=== PATIENT | female | born 1930 | race Hispanic/Latino ===

== ENCOUNTER 2017-05-18 17:55 | Inpatient (IN) | payer MEDICARE ==
[2017-05-18 17:55] VITALS: BMI 26.4
[2017-05-18] MEDS ORDERED: Sodium Chloride 0.9% 500 ML IV STA (18:21)
[2017-05-18 18:54] LABS: BASO # 0.04 K/mm3 (0.0-2.0); BASO % 0.6 % (0.0-3.0); EOS # 0.1 (0.0-0.7); EOS % 0.9 % (1.5-5.0); GRAN % 64.3 % (50.0-68.0); HEMOGLOBIN 11.4 gm/dL (12.0-16.0); LYMPH # 1.6 (1.2-3.4); LYMPH % 24.2 % (22.0-35.0); MEAN CELL VOLUME 70.9 fL (80.0-105.0); MEAN CORPUSCULAR HEMOGLOBIN 22.7 pg (25.0-35.0); MEAN PLATELET VOLUME 9.3 fl (7.0-11.0); MONO # 0.7 (0.1-0.6); PLATELET COUNT 366 10^3/uL (120.0-450.0); RBC 5.02 10^6/uL (3.5-6.1); WHITE BLOOD COUNT 6.7 10^3/ul (4.5-11.0)
[2017-05-18 19:06] LABS: INR 1.33 (0.93-1.08); PARTIAL THROMBOPLASTIN TIME 34.5 Seconds (23.7-30.8); PROTHROMBIN TIME 14.4 Seconds (9.9-11.8)
[2017-05-18 19:15] LABS: ALB/GLOB RATIO 1.2 (1.1-1.8); ALBUMIN 3.7 g/dL (3.0-4.8); ALT/SGPT 70 U/L (7-56); AST/SGOT 85 U/L (15-39); BLOOD UREA NITROGEN 58 mg/dL (7-21); CALCIUM 7.8 mg/dL (8.4-10.5); GFR AFRICAN-AMERICAN 26; GFR NON-AFRICAN AMERICAN 21; LIPASE 91 U/L (23-300)
[2017-05-18 19:58] LABS: TROPONIN I < 0.01 ng/mL
[2017-05-18] MEDS ORDERED: cefTRIAXone 1 gm 1 GM/100 ML BAG IVPB STA (20:19)
--- NOTE | 2017-05-18 20:19 | ED PDOC ---
Arrival/HPI - General Historian: Patient <Saniya Qiu - Last Filed: 05/18/17 20:53> <Brandt Gonzalez - Last Filed: 05/18/17 23:59> - General Chief Complaint: Weakness/Neurological Deficit Time Seen by Provider: 05/18/17 18:16 - History of Present Illness Narrative History of Present Illness (Text): 05/18/17 20:23 Patient c/o feeling weak, muscle aches, lightheaded, nauseous, poor appetite, hoarse voice for 1 week. (Saniya Qiu) Past Medical History - Provider Review Nursing Documentation Reviewed: Yes - Infectious Disease Hx of Infectious Diseases: None - Cardiac Hx Hypertension: Yes - Pulmonary Hx Respiratory Disorders: No - Neurological Hx Neurological Disorder: No - HEENT Hx HEENT Disorder: Yes (eyeglasses) - Renal Hx Renal Disorder: No - Endocrine/Metabolic Hx Diabetes Mellitus Type 1: Yes Hx Diabetes Mellitus Type 2: Yes - Hematological/Oncological Hx Blood Disorders: No - Integumentary Hx Dermatological Disorder: Yes Other/Comment: right arm abrasion above elbow from shopping cart/conveyor belt accident in shop [email or web address] 07/2016, multiple healing bruises to r arm and r leg from same episode, shopping cart got caught on conveyor belt and fell on pt - Musculoskeletal/Rheumatological Hx Falls: Yes Hx Spinal Stenosis: Yes Hx Unsteady Gait: Yes (rolling walker) - Gastrointestinal Hx Gastrointestinal Disorders: No - Genitourinary/Gynecological Hx Incontinence: Yes (uses pullups) - Psychiatric Hx Psychophysiologic Disorder: No Hx Substance Use: No - Surgical History Hx Cholecystectomy: Yes Hx Coronary Stent: Yes - Anesthesia Hx Anesthesia: No Hx Anesthesia Reactions: No Hx Malignant Hyperthermia: No - Suicidal Assessment Feels Threatened In Home Enviroment: No <Saniya Qiu - Last Filed: 05/18/17 20:53> Family/Social History - Physician Review Nursing Documentation Reviewed: Yes Family/Social History: Unknown Family HX Smoking Status: Never Smoked Hx Alcohol Use: No Hx Substance Use: No <Saniya Qiu - Last Filed: 05/18/17 20:53> Allergies/Home Meds <Saniya Qiu - Last Filed: 05/18/17 20:53> <Brandt Gonzalez - Last Filed: 05/18/17 23:59> Allergies/Adverse Reactions: Allergies No Known Allergies Allergy (Verified 05/18/17 18:09) Home Medications: Home Meds Medication Instructions Recorded Confirmed Furosemide [Lasix] 40 mg PO ONCE 08/14/16 05/18/17 Magnesium Oxide [Magox 400] 400 mg PO DAILY 08/14/16 05/18/17 Metoprolol Succinate [Toprol XL] 25 mg PO BID 08/14/16 05/18/17 Rosuvastatin Calcium [Crestor] 5 mg PO DAILY 08/14/16 05/18/17 glyBURIDE [Micronase] 10 mg PO BID 08/14/16 05/18/17 traMADol [Ultram] 50 mg PO TID 08/14/16 05/18/17 Apixaban [Eliquis] 2.5 mg PO BID 11/09/16 05/18/17 diltiaZEM CD [Cardizem CD] 240 mg PO DAILY 11/09/16 05/18/17 Review of Systems - Physician Review All systems were reviewed & negative as marked: Yes - Review of Systems Constitutional: Fatigue. absent: Fevers ENT: Voice Changes Respiratory: Cough Gastrointestinal: Nausea, Appetite Changes Musculoskeletal: Myalgias Skin: Normal <Saniya Qiu - Last Filed: 05/18/17 20:53> Physical Exam Vital Signs Reviewed: Yes Temperature: Afebrile Blood Pressure: Normal Pulse: Regular Respiratory Rate: Normal Appearance: Positive for: Ill-Appearing Pain Distress: None Mental Status: Positive for: Alert and Oriented X 3 - Systems Exam Head: Present: Atraumatic, Normocephalic Pupils: Present: PERRL Extroacular Muscles: Present: EOMI Pharnyx: Present: Normal Neck: Present: Normal Range of Motion Respiratory/Chest: Present: Decreased Breath Sounds. No: Respiratory Distress Cardiovascular: Present: Irregular Rhythm Abdomen: No: Tenderness Upper Extremity: Present: Normal Inspection Lower Extremity: Present: Swelling Neurological: Present: Speech Normal, Motor Func Grossly Intact, Normal Sensory Function Psychiatric: Present: Alert, Oriented x 3 <Saniya Qiu - Last Filed: 05/18/17 20:53> Medical Decision Making - EKG Interpretation Interpreted by ED Physician: Yes Type: 12 lead EKG <Saniya Qiu - Last Filed: 05/18/17 20:53> <Brandt Gonzalez - Last Filed: 05/18/17 23:59> ED Course and Treatment: 05/18/17 20:53 Patient with weakness, lightheadness, hoarse voice found to have hyperglycemia and early pneumonia. IVF given, Rocephin and Zithromax ordered. Case was d/w patient's PMD who requested CT chest and accepted patient to [place] for admission. (Saniya Qiu) - Lab Interpretations Lab Results: 05/18/17 18:42 05/18/17 18:42 Lab Results 05/18/17 20:15: Urine Color Yellow, Urine Appearance Sl cloudy, Urine pH 6.5, Ur Specific [place] 1.010, Urine Protein Negative, Urine Glucose (UA) 500 H, Urine Ketones Negative, Urine Blood Trace-intact H, Urine Nitrate Negative, Urine Bilirubin Negative, Urine Urobilinogen 0.2, Ur Leukocyte Esterase Small H , Urine RBC 0 - 2, Urine WBC 10 - 15, Urine Bacteria Trace 05/18/17 18:42: Sodium 135, Potassium 4.0, Chloride 89 L, Carbon Dioxide 27, Anion Gap 23 H, BUN 58 H, Creatinine 2.2 H, Est GFR ( Amer) 26, Est GFR ( Non-Af Amer) 21, Random Glucose 369 H* D, Calcium 7.8 L, Total Bilirubin 0.8, AST 85 H, ALT 70 H, Alkaline Phosphatase 224 H, Total Creatine Kinase 29 L, Troponin I < 0.01, Total Protein 6.8, Albumin 3.7, Globulin 3.2, Albumin/ Globulin Ratio 1.2, Lipase 91 05/18/17 18:42: PT 14.4 H, INR 1.33 H, APTT 34.5 H 05/18/17 18:42: WBC 6.7, RBC 5.02, Hgb 11.4 L, Hct 35.6 L, MCV 70.9 L, MCH 22.7 L, MCHC 32.0, RDW 18.0 H, Plt Count 366, MPV 9.3, Gran % 64.3, Lymph % (Auto) 24.2, [place] % (Auto) 10.0 H, Eos % (Auto) 0.9 L, Baso % (Auto) 0.6, Gran # 4.30, Lymph # 1.6, [place] # 0.7 H, Eos # 0.1, Baso # 0.04 - RAD Interpretation Narrative RAD Interpretations (Text): 05/18/17 20:11 EXAM: CT Head Without Intravenous Contrast CLINICAL HISTORY: 86 years old, female; Signs and symptoms; Other: General weakness; Additional info: Less active, poor appetite, weakness TECHNIQUE: Axial computed tomography images of the head/brain without intravenous contrast. This CT exam was performed using one or more of the following dose reduction techniques: automated exposure control, adjustment of the mA and/or kV according to patient size, and/or use of iterative reconstruction technique. COMPARISON: CT - HEAD W/O CONTRAST 08/14/2016 2:26:15 PM FINDINGS: Brain: Volume loss. Mild chronic small vessel white matter ischemic change. No acute hemorrhage. No acute infarct. Ventricles: No hydrocephalus. Bones/joints: Unremarkable. No acute fracture. Soft tissues: Small focus of increased density in the superficial right midline frontal scalp. Vasculature: Calcification in the wall the distal internal carotid and vertebral arteries. Sinuses: Unremarkable as visualized. No acute sinusitis. Mastoid air cells: Unremarkable as visualized. No mastoid effusion. IMPRESSION: No acute intracranial findings. Small focus of increased density in the right midline frontal scalp suggesting skin thickening possibly relating to a dermatologic lesion. Correlation with direct visualization finding suggesting. Nonacute findings as above. Thank you for allowing us to participate in the care of your patient. Dictated and Authenticated by: Lexx Alexander MD 05/18/2017 7:27 PM Eastern Time ([place] & [place]) 05/18/17 20:22 CXR: Cardiomegaly, Left small pleural effusion, ? RLL infiltrate (Saniya Qiu) Radiology Orders: 05/18/17 18:16 HEAD W/O CONTRAST [CT] Stat 05/18/17 18:17 CHEST PORTABLE [RAD] Stat 05/18/17 20:49 CHEST W/O CONTRAST [CT] Stat - EKG Interpretation EKG Interpretation (Text): 05/18/17 20:32 Afib, HR 65, Q at anteriolateral leads. (Saniya Qiu) - Medication Orders Current Medication Orders: Apixaban (Eliquis) 2.5 mg PO BID YULI PRN Reason: Protocol Last Admin: 05/18/17 22:33 Dose: 2.5 mg Diltiazem HCl (Cardizem Cd) 240 mg PO DAILY YULI Furosemide (Lasix) 40 mg IVP DAILY YULI Metoprolol Succinate (Toprol Xl) 25 mg PO BID YULI Last Admin: 05/18/17 22:33 Dose: 25 mg Mirtazapine (Remeron) 15 mg PO HS YULI Last Admin: 05/18/17 22:33 Dose: 15 mg Discontinued Medications Folic Acid (Folic Acid) 1 mg PO ONCE ONE Stop: 05/18/17 22:01 Last Admin: 05/18/17 22:33 Dose: 1 mg Sodium Chloride (Sodium Chloride 0.9%) 500 mls @ 999 mls/hr IV .Q31M STA Stop: 05/18/17 18:51 Last Admin: 05/18/17 19:15 Dose: 999 mls/hr Ceftriaxone Sodium (Rocephin 1 Gram Ivpb) 1 gm in 100 mls @ 100 mls/hr IVPB DAILY STA PRN Reason: Protocol Stop: 05/18/17 21:18 Last Admin: 05/18/17 21:21 Dose: 100 mls/hr Azithromycin (Zithromax 500mg In Ns) 500 mg in 250 mls @ 167 mls/hr IVPB STAT STA PRN Reason: Protocol Stop: 05/18/17 21:49 Last Admin: 05/18/17 22:33 Dose: 167 mls/hr - PA / CENTRAL OFFICE REPAIRER / Resident Statement JORGE has reviewed & agrees with the documentation as recorded. / has examined the patient and agrees with the treatment plan. <Brandt Gonzalez - Last Filed: 05/18/17 23:59> Disposition/Present on Arrival - Present on Arrival Any Indicators Present on Arrival: Yes History of DVT/PE: No History of Uncontrolled Diabetes: Yes Urinary Catheter: No History of Decub. Ulcer: No History Surgical Site Infection Following: None - Disposition Have Diagnosis and Disposition been Completed?: Yes Disposition Time: 20:55 <Saniya Qiu - Last Filed: 05/18/17 20:53> <Brandt Gonzalez - Last Filed: 05/18/17 23:59> - Disposition Diagnosis: Pneumonia, Hyperglycemia Disposition: HOSPITALIZED Patient Problems: Current Active Problems Problem Status Onset Hyperglycemia Acute Pneumonia Acute Condition: FAIR
[2017-05-18] MEDS ORDERED: Azithromycin 500MG/NS 250ml 500 MG/250 ML BAG IVPB STA (20:20)
[2017-05-18 20:37] LABS: PH,URINE 6.5 (4.7-8.0); URINE BILIRUBIN NEGATIVE (NEGATIVE); URINE BLOOD TRACE-INTACT (NEGATIVE); URINE GLUCOSE (UA) 500 mg/dL (NEGATIVE); URINE LEUKOCYTE ESTERASE SMALL Leu/uL (NEGATIVE); URINE NITRATE NEGATIVE (NEGATIVE); URINE PROTEIN NEGATIVE mg/dL (<30 mg/dL); URINE UROBILINOGEN 0.2 E.U./dL (<1 E.U./dL)
[2017-05-18 20:44] LABS: URINE APPEARANCE SL CLOUDY (CLEAR); URINE COLOR YELLOW (YELLOW)
[2017-05-18 20:51] LABS: URINE BACTERIA TRACE (NEG); URINE RBC 0 - 2 /hpf (0-2)
[2017-05-18] MEDS: Metoprolol Succinate 25 mg XL Tab PO SCH (22:33)
--- NOTE | 2017-05-19 02:03 | CP.PCM.PN ---
Subjective - Date & Time of Evaluation Date of Evaluation: 05/19/17 Time of Evaluation: 02:02 - Subjective Subjective: # 22 angiocath was inserted in right hand . Dx:Poor venous access. Objective - Vital Signs/Intake and Output Vital Signs (last 24 hours): Temp Pulse Resp BP Pulse Ox 97.6 F 84 16 150/86 95 05/18/17 18:06 05/18/17 22:33 05/18/17 21:33 05/18/17 22:33 05/18/17 21:33 - Medications Medications: Current Medications Apixaban (Eliquis) 2.5 mg PO BID YULI PRN Reason: Protocol Last Admin: 05/18/17 22:33 Dose: 2.5 mg Diltiazem HCl (Cardizem Cd) 240 mg PO DAILY YULI Furosemide (Lasix) 40 mg IVP DAILY YULI Metoprolol Succinate (Toprol Xl) 25 mg PO BID YULI Last Admin: 05/18/17 22:33 Dose: 25 mg Mirtazapine (Remeron) 15 mg PO HS YULI Last Admin: 05/18/17 22:33 Dose: 15 mg - Labs Labs: PT 14.4 Seconds (9.9-11.8) H 05/18/17 18:42 INR 1.33 (0.93-1.08) H 05/18/17 18:42 APTT 34.5 Seconds (23.7-30.8) H 05/18/17 18:42
--- NOTE | 2017-05-19 03:15 | HP ---
HISTORY OF PRESENT ILLNESS: The patient is 86 years old seen and examined. She was seen and examined in the office brought in by daughter, has not been feeling well, very depressed, does not want to do anything. Complaining of shortness of breath, cannot even walk to the bathroom and increasing bilateral leg swelling. Recently, she was seen in office because of poor appetite. She was given Remeron with some improvement, but according to daughter, she is not behaving normal, so she was referred to emergency room for CHF and bilateral leg swelling and poor appetite. Denies any fever or chills. Does complain of sore throat and cough, but no documented fever at home. No hemoptysis. No hematemesis. No abdominal pain. PAST MEDICAL HISTORY: Significant for: 1. Coronary artery disease, status post angioplasty. 2. Non-insulin dependent diabetes. 3. Hypertension. 4. Hypothyroidism. 5. Chronic AFib. 6. Renal insufficiency. 7. Hyperlipidemia. ALLERGIES: SHE IS NOT ALLERGIC TO ANY MEDICATIONS. MEDICATIONS AT HOME: She is on tramadol 150 mg t.i.d. p.r.n., glyburide 10 mg twice a day, diltiazem 240 daily, Crestor 5 mg daily, metoprolol 25 twice a day, magnesium oxide 400 daily, Lasix 40 mg daily, Remeron 15 mg at bedtime, Eliquis 2.5 twice a day, folic acid 1 mg daily. SOCIAL HISTORY: [facility]. Denies smoking or drinking. REVIEW OF SYSTEMS: Generalized weakness, poor appetite, sore throat, cough, congestion, bilateral leg swelling, shortness of breath, unable to even walk a few steps. PHYSICAL EXAMINATION: GENERAL: She looks pale, tired, lethargic, depressed. VITAL SIGNS: She is afebrile, pulse 70, respirations 16 and blood pressure 138/60. LUNGS: Bilateral diffusely decreased breath sounds. HEART: S1 and S2 audible. ABDOMEN: Soft and nontender. No rebound, no guarding. NEUROLOGIC: She is awake and alert. EXTREMITIES: Bilateral legs, +3 edema. LABORATORY DATA: WBC 6.7, hemoglobin 11.4, hematocrit 35.6 and platelet of 366. PT 14.4 and INR 1.33. Chemistry: Sodium 135, potassium 4.0, chloride 99, CO2 of 27, BUN 58, creatinine 2.2, blood sugar of 269. AST 85, ALT 70 and alk phos 224. Urinalysis, small leukocyte and trace blood. CT scan of the head is unremarkable. X-ray chest shows pleural effusion and CHF changes. ASSESSMENT: 1. Congestive heart failure exacerbation. 2. Bilateral leg edema. 3. Coronary artery disease. 4. Acute on chronic systolic dysfunction. 5. Hypertension. 6. Coronary artery disease, status post angioplasty. 7. ------. 8. Severe pulmonary hypertension. 10. Non-insulin dependent diabetes. PLAN: Blood culture and urine culture are sent. We will followup CBC and CMP in a.m. We will continue her on diltiazem, Eliquis, Remeron. CT scan of the chest has been requested. We will follow up cardiac enzyme. Gentle diuresis, out of bed to chair, Dr. Rosario has been requested to consult. We will followup the patient in a.m. Ghazal Goode MD
--- NOTE | 2017-05-19 07:34 | CT ---
PROCEDURE: CT HEAD WITHOUT CONTRAST. HISTORY: less active, poor appetite, weakness COMPARISON: Head CT 08/14/2016. TECHNIQUE: Axial computed tomography images were obtained through the head/brain without intravenous contrast. Radiation dose: Total exam DLP = 774 mGy-cm. This CT exam was performed using one or more of the following dose reduction techniques: Automated exposure control, adjustment of the mA and/or kV according to patient size, and/or use of iterative reconstruction technique. FINDINGS: HEMORRHAGE: No intracranial hemorrhage. BRAIN: Diffuse cerebral atrophy and chronic microangiopathy are again identified with the brain parenchyma otherwise unremarkable above below the tentorium including throughout the brainstem. There is no cortical edema mass effect or suspicious extra-axial fluid collection identified. One or two chronic lacunae at the right basal ganglia are questioned once again. No suspicious interval findings are identified. VENTRICLES: Unremarkable. No hydrocephalus. CALVARIUM: Atherosclerotic internal carotid arteries are appreciate the bilateral cavernous segments through the skull base. PARANASAL SINUSES: Unremarkable as visualized. No significant inflammatory changes. MASTOID AIR CELLS: Unremarkable as visualized. No inflammatory changes. OTHER FINDINGS: None. IMPRESSION: Stable age-appropriate age related neuro degenerate changes are again identified as compared to prior head CT of 08/14/2016. No acute intracranial findings are appreciated by standard CT criteria. Follow-up MR or CT are available if clinically warranted. .
[2017-05-19 09:44] LABS: ALB/GLOB RATIO 1.1 (1.1-1.8); ALBUMIN 3.4 g/dL (3.0-4.8); CALCIUM 8.5 mg/dL (8.4-10.5)
--- NOTE | 2017-05-19 09:47 | CT ---
PROCEDURE: CT Chest without contrast HISTORY: weakness, abnormal CXR COMPARISON: Portable chest 05/18/2017 TECHNIQUE: Contiguous axial images were obtained through the chest without intravenous contrast enhancement. Sagittal and coronal reconstructions were performed. Radiation dose (DLP): 320 mGy-cm. This CT exam was performed using one or more of the following dose reduction techniques: Automated exposure control, adjustment of the mA and/or kV according to patient size, and/or use of iterative reconstruction technique. FINDINGS: LUNGS: There is a focal infiltrate in the right middle lobe adjacent to the heart border. MEDIASTINUM: Unremarkable thoracic aorta. No aneurysm. Moderate cardiomegaly Main pulmonary artery unremarkable. No vascular congestion. No lymphadenopathy. PLEURA: Moderate size bilateral pleural effusions BONES: No fracture. No destructive lesion. UPPER ABDOMEN: Grossly unremarkable. OTHER FINDINGS: None. IMPRESSION: Moderate cardiomegaly. Moderate size bilateral pleural effusions. Small infiltrate in the right middle lobe adjacent to right heart border
[2017-05-19] MEDS: Metoprolol Succinate 25 mg XL Tab PO SCH ×2 (10:12→17:00)
[2017-05-19] MEDS: diltiaZEM 240 mg/24 Hours CD Cap PO SCH (10:12)
--- NOTE | 2017-05-19 10:44 | RAD ---
HISTORY: weakness/poor appetite COMPARISON: 11/06/2016 FINDINGS: LUNGS: No active pulmonary disease. PLEURA: No significant pleural effusion identified, no pneumothorax apparent. CARDIOVASCULAR: Mild cardiomegaly OSSEOUS STRUCTURES: No significant abnormalities. VISUALIZED UPPER ABDOMEN: Normal. OTHER FINDINGS: None. IMPRESSION: No active disease. Mild cardiomegaly
--- NOTE | 2017-05-19 11:15 | CARD ---
APPROVED REPORT EKG Measurement Heart [id number] <Conclusion> Atrial fibrillation Left axis deviation Low voltage QRS Possible Anterolateral infarct, age undetermined Abnormal ECG
[2017-05-19] MEDS: Insulin Reg-MEDIUM-Coverage SC SCH ×3 (11:53→21:49)
--- NOTE | 2017-05-19 13:13 | US ---
HISTORY: Abnormal LFT COMPARISON: None. TECHNIQUE: Sonographic evaluation of the abdomen. FINDINGS: LIVER: Measures 15.5 cm. Normal echogenicity of the liver parenchyma. No mass. No intrahepatic bile duct dilatation. GALLBLADDER: Surgical absence suggested. Clinically correlate. Common bile duct is dilated 12, potentially postcholecystectomy related. Clinically correlate nevertheless. No choledocholithiasis is appreciated. COMMON BILE DUCT: Measures 12 mm. No stones. PANCREAS: Pancreatic body appears unremarkable with remainder obscured by overlying bowel gas. RIGHT KIDNEY: Measures 9.5cm. Cortical atrophy is appreciated diffusely. No calculus, mass, or hydronephrosis. LEFT KIDNEY: Measures 9.6cm. Cortical atrophy is appreciated diffusely. No calculus, mass, or hydronephrosis. SPLEEN: Normal in size and contour. No mass. AORTA: No aneurysmal dilatation. IVC: Unremarkable. OTHER FINDINGS: None. IMPRESSION: 1. Prior cholecystectomy suggests. Clinically correlate. 2. Dilated CBD to 12 mm may be post cholecystectomy related however clinical correlation is advised. There is no choledocholithiasis identified. 3. No prominent intrahepatic biliary dilatation. 4. Bilateral renal cortical atrophy is identified. No obstructive uropathy bilaterally. 5. Partial imaging of the pancreas.
[2017-05-19] MEDS: Levalbuterol 1.25 MG/3 ML Inhal Soln UD IH SCH ×2 (13:40→20:22)
--- NOTE | 2017-05-19 13:45 | PN ---
SUBJECTIVE: The patient is 86 years old, seen and examined. She states she seems to be doing little better. PHYSICAL EXAMINATION: VITAL SIGNS: She is afebrile, pulse 62, respirations 18, blood pressure . LUNGS: Bilaterally clear air flow. No rhonchi or crackles. HEART: S1 and S2 are audible. Irregular rate control. ABDOMEN: Soft, nontender. No rebound and no guarding. NEUROLOGIC: The patient is awake and alert; able to communicate; moves all extremities. LABORATORY DATA: Sodium 136, potassium 3.8, chloride 95, CO2 of 30, BUN 52, creatinine 1.9, blood sugar of 350. Urine leukocyte. Blood cultures and urine cultures are pending. Abdominal sonogram is pending. CT scan of the chest was done that shows moderate cardiomegaly, moderate size bilateral pleural effusions, small infiltrate in the right middle lobe adjacent to the right heart border. ASSESSMENT AND PLAN: 1. Bilateral pleural effusion. 2. Right middle lobe infiltrate. 3. Generalized weakness. 4. Exertional dyspnea. 5. Coronary artery disease, status post angioplasty. 6. Chronic atrial fibrillation. PLAN: We will start the patient on doxycycline and continue her on Rocephin. We will gently diuresed her and continue her on Eliquis, out of bed to chair. Followup electrolyte in a.m. Ghazal Goode MD
--- NOTE | 2017-05-19 16:15 | CON ---
DATE: 05/19/2017 INDICATIONS: Shortness of breath, weakness, poor appetite, history of CAD, OK and coronary intervention. HISTORY OF PRESENT ILLNESS: This is an 86-year-old women who is well known to our practice admitted through the emergency room yesterday with a history of weakness, body aches, nausea, diminished appetite, depression and shortness of breath. She has become debilitated and virtually bedridden. There is no orthopnea, PND, syncope, fever, chills, cough, sputum production, hemoptysis, abdominal pain, nausea, vomiting, diarrhea, constipation. PAST MEDICAL HISTORY: Notable for chronic arterial fibrillation. She has coronary artery disease with a remote myocardial infarction and coronary intervention in approximately 2008. There was a history of hypertension, diabetes, spinal stenosis, hypothyroidism, discogenic disease, chronic kidney disease, hyperlipidemia. There is no history of stroke, TIA, gout. MEDICATIONS: At the time of admission include tramadol, glyburide, diltiazem, Crestor, metoprolol, magnesium oxide, Lasix, Eliquis, folic acid. ALLERGIES: THERE ARE NO MEDICATION ALLERGIES REPORTED. SOCIAL HISTORY: She lives in senior [facility]. She does not smoke cigarettes or drink alcohol. FAMILY HISTORY: Noncontributory. REVIEW OF SYSTEMS: A 10-point review of systems is also notable for sore throat, lower extremity edema. PHYSICAL EXAMINATION: GENERAL: She is a well-developed elderly somewhat somnolent women lying in bed on 5 R in no acute distress. VITAL SIGNS: Notable for atrial fibrillation at 68 beats per minute, she is afebrile, blood pressure 150/86, respirations 16 to 20, O2 saturation 95% to 97% on room air. HEENT: Reveals no neck vein distention, thyromegaly or carotid bruits. Mucous membranes are moist. Conjunctivae pink. NECK: Supple. LUNGS: Reveal scattered rhonchi and no wheezing. HEART: Irregular rhythm, normal S1 and S2, soft systolic murmur along the left sternal border. ABDOMEN: Soft, bowel sounds are present. No mass, organomegaly, tenderness, rebound, guarding, CVA tenderness, or palpable abdominal aortic aneurysm. EXTREMITIES: Revealed no cyanosis or clubbing. There was moderate edema bilaterally. NEUROLOGICAL: She was arousable and somnolent. PSYCHIATRIC: Arousable and somnolent. SKIN: Warm and dry. No rash or cellulitis. LABORATORY AND IMAGING: EKG demonstrates atrial fibrillation with poor R wave progression, possible anteroseptal myocardial infarction, nonspecific ST wave changes, basically unchanged from the prior EKG. There is a left anterior hemiblock. CT scan of the head reveals stable age appropriate, age related neurodegenerative changes. No acute intracranial findings. Chest x-rays reveals portable study. There is some increase vascular markings, possible infiltrate at the right base, it is not yet interpreted. The CT scan of the chest is also not yet interpreted. Abdominal ultrasound is also not interpreted. Hemoglobin 11.4, hematocrit 35.6 and platelet count normal, white count normal. PT 14.4, INR 1.33, PTT 34.5. Electrolytes notable for chloride of 89, BUN 58, creatinine 2.2, blood sugar 369, elevated AST, ALT and alk phos. CK 29, 2 troponin are negative. Lipase is normal. Urinalysis is abnormal. IMPRESSION: Liyah Ponce is an 86-year-old women admitted with diffuse symptoms, failing to do well at home with weakness, aches, nausea, diminished appetite, depression, shortness of breath with an abnormal chest x-ray suggesting pneumonia, possible congestive heart failure with a history of coronary artery disease, remote myocardial infection and remote coronary intervention and chronic arterial fibrillations on Eliquis. PLAN: At this time, I agree with current plans. She has been cultured. She is getting antibiotics. Her medications are being continued including metoprolol, Eliquis, diltiazem. Blood sugars are being monitored. She should get insulin coverage. We will monitor I's and O's. Check stool for occult blood. She is getting IV Lasix. I will check an echocardiogram. We await the interpretation of the chest x-ray and CT scan of the chest. I will review her old records. I will follow along with you. I will make additional recommendations based on her clinical course. Simon Rosario MD LAUREN
[2017-05-20] MEDS: Levalbuterol 1.25 MG/3 ML Inhal Soln UD IH SCH ×4 (01:45→21:26)
[2017-05-20 06:59] LABS: BASO # 0.04 K/mm3 (0.0-2.0); BASO % 0.4 % (0.0-3.0); EOS # 0.1 (0.0-0.7); EOS % 0.8 % (1.5-5.0); GRAN % 63.8 % (50.0-68.0); HEMOGLOBIN 10.7 gm/dL (12.0-16.0); LYMPH # 2.6 (1.2-3.4); LYMPH % 25.1 % (22.0-35.0); MEAN CELL VOLUME 71.8 fL (80.0-105.0); MEAN CORPUSCULAR HGB CONC 30.7 g/dl (31.0-37.0); MEAN PLATELET VOLUME 8.9 fl (7.0-11.0); MONO % 9.9 % (1.0-6.0); PLATELET COUNT 351 10^3/uL (120.0-450.0); RBC 4.86 10^6/uL (3.5-6.1); RED CELL DISTRIBUTION WIDTH 18.3 % (11.5-14.5); WHITE BLOOD COUNT 10.2 10^3/ul (4.5-11.0)
[2017-05-20 07:20] LABS: ALB/GLOB RATIO 1.1 (1.1-1.8); ALBUMIN 3.4 g/dL (3.0-4.8); CALCIUM 8.6 mg/dL (8.4-10.5)
--- NOTE | 2017-05-20 07:57 | PQF RENAL ---
This form is a permanent part of the medical record Dr. Goode, BUN and creatinine elevated on admission. H&P notes renal insufficiency. Can you be more specific about the stage of CKD present in this patient? Clarification of your documentation is requested to better reflect the severity of illness and intensity of treatment of your patient. Indicators present [] Oliguria/anuria [x] Edema/weight gain [] Hyponatremia [] Confusion/mental status changes [x] Increased Blood Urea Nitrogen/Creatinine [] Increased Potassium/Decreased potassium [x] Anemia (male <13.5, female <12.0) [] Proteinuria [] Metabolic Acidosis OR Alkalosis [] Hypotension/shock [] Decreased GFR [] Other: [] Location in the medical record that reflects the above clinical findings: PHYSICIAN'S RESPONSE Based on your medical judgment of the clinical indicators outlined above, are you treating this patient for a known or suspected: [] Acute Renal Failure [] Acute Kidney Injury [] Azotemia/prerenal azotemia [] Chronic kidney disease Stage I [] Stage II [x] Stage III [] Stage IV [] [] Other condition/diagnosis:[] [] If Unable to Determine, please check the box, sign and date. Present On Admission (POA) Indicator: [x] Present at the time of admission [] Not present at the time of admission [] Clinically Undetermined In responding to this query, please exercise your independent professional judgment. The fact that a question is asked does not imply that any particular answer is desired or expected. Thank you for your clarification on this documentation. If you have any questions please call:[ ] * Thank you, [ ]Duglas Moura [facility] #[id number] roustabout hand Chronic Kidney Disease Stages *[employer]* Stage I GFR >90 Stage II GFR 60-89 Stage III GFR 30-59 Stage IV GFR 15-29 Stage V~~~~~~~~~~ GFR <15~~~~~~~~~~~~~ MTDD
--- NOTE | 2017-05-20 08:54 | CP.PCM.PN ---
Subjective - Date & Time of Evaluation Date of Evaluation: 05/20/17 Time of Evaluation: 07:00 - Subjective Subjective: Stable on 5R. No CP or SOB reported. V/S noted PE: Lungs: rhonchi Cor.: irreg., S1S2 Abd.: soft Ext.: no edema. Neuro.: awake CXR, CT Chest noted: infiltrate right lung, pl. effusions BC x2 NG at 24 hrs. Urine C+S: + GNR Labs noted: Cr.= 1.7 Echo: see report. Objective - Vital Signs/Intake and Output Vital Signs (last 24 hours): Temp Pulse Resp BP Pulse Ox 98.1 F 63 18 133/66 98 05/19/17 16:00 05/19/17 17:00 05/19/17 16:00 05/19/17 17:00 05/19/17 16:00 Intake and Output: 05/20/17 05/20/17 06:59 18:59 Intake Total 480 Balance 480 - Medications Medications: Current Medications Apixaban (Eliquis) 2.5 mg PO BID YULI PRN Reason: Protocol Last Admin: 05/19/17 17:00 Dose: 2.5 mg Diltiazem HCl (Cardizem Cd) 240 mg PO DAILY [facility] Last Admin: 05/19/17 10:12 Dose: 240 mg Furosemide (Lasix) 40 mg IVP DAILY YULI Last Admin: 05/19/17 10:11 Dose: 40 mg Glimepiride (Amaryl) 2 mg PO ACBD YULI Last Admin: 05/19/17 16:59 Dose: 2 mg Doxycycline Hyclate 100 mg/ (Sodium Chloride) 100 mls @ 100 mls/hr IVPB Q12 YULI PRN Reason: Protocol Last Admin: 05/19/17 21:49 Dose: 100 mls/hr Insulin Human Regular (Humulin R Med) 0 units SC ACHS YULI PRN Reason: Protocol Last Admin: 05/19/17 21:49 Dose: Not Given Levalbuterol HCl (Xopenex) 1.25 mg IH [id number] [facility] Last Admin: 05/20/17 01:45 Dose: 1.25 mg Metoprolol Succinate (Toprol Xl) 25 mg PO BID [facility] Last Admin: 05/19/17 17:00 Dose: 25 mg Mirtazapine (Remeron) 15 mg PO HS [facility] Last Admin: 05/19/17 21:49 Dose: 15 mg Sitagliptin Phosphate (Januvia) 25 mg PO DAILY [facility] Last Admin: 05/19/17 14:43 Dose: 25 mg - Labs Labs: 05/20/17 06:30 05/20/17 06:30 PT 14.4 Seconds (9.9-11.8) H 05/18/17 18:42 INR 1.33 (0.93-1.08) H 05/18/17 18:42 APTT 34.5 Seconds (23.7-30.8) H 05/18/17 18:42 Assessment and Plan - Assessment and Plan (Free Text) Assessment: Weak, Aches, Nausea, Decreased appetite, SOB, depressin Pneumonia Pleural Effusions UTI Acute on chronic kidney disease CAD/[place]/PCI ~ 2003 HBP Diabetes PAF Spinal Stenosis Hypothyroidism Discogenic Disease Plan: per Dr. Russel MARINELLI IV lasix OOB to chair as kirti. Monitor labs, BS's, I/O, sats., etc. Will follow
[2017-05-20] MEDS: Insulin Reg-MEDIUM-Coverage SC SCH ×4 (09:14→22:00)
[2017-05-20] MEDS: diltiaZEM 240 mg/24 Hours CD Cap PO SCH (09:29)
[2017-05-20] MEDS: cefTRIAXone 1 gm 1 GM/100 ML BAG IVPB SCH (09:30)
[2017-05-20] MEDS: Metoprolol Succinate 25 mg XL Tab PO SCH ×2 (09:30→17:47)
[2017-05-20 10:08] VITALS: RESP 20; O2SAT 94
--- NOTE | 2017-05-20 11:43 | CARD ---
APPROVED REPORT EXAM: Two-dimensional and M-mode echocardiogram with Doppler and color Doppler. Other Information Quality : AverageRhythm : INDICATION Dyspnea 2D DIMENSIONS RVDd4.7 (2.9-3.5cm)Left Atrium (2D)4.7 (1.6-4.0cm) IVSd1.1 (0.7-1.1cm)LVDd3.6 (3.9-5.9cm) PWd1.2 (0.7-1.1cm)LVDs2.5 (2.5-4.0cm) FS (%) 31.8 %LVEF (%)60.0 (>50%) M-Mode DIMENSIONS Aortic Root2.30 (2.2-3.7cm)Aortic Cusp Exc.1.50 (1.5-2.0cm) Aortic Valve AoV Peak Qdjiulel719.0cm/s Mitral Valve MV E Qomclxrh602.0cm/sMV A Muhxirbe12.3cm/sE/A ratio3.2 TDI E/Lateral E'0.0E/Medial E'0.0 Pulmonary Valve PV Peak Ccbjaogs13.6cm/sPV Peak Grad.1mmHg Tricuspid Valve TR Peak [id number]/sRAP [id number] Peak Gr.52mmHg [id number] LEFT VENTRICLE The left ventricle is normal size. There is normal left ventricular wall thickness. The left ventricular function is normal. The left ventricular ejection fraction is within the normal range. There is normal LV segmental wall motion. RIGHT VENTRICLE The right ventricle is moderately dilated. ATRIA The left atrium is moderately dilated. The right atrium is severely dilated. The interatrial septum is intact with no evidence for an atrial septal defect. AORTIC VALVE The aortic valve is mildly sclerotic. MITRAL VALVE The mitral valve is normal in structure. Mitral regurgitation is mild to moderate. TRICUSPID VALVE The tricuspid valve is normal in structure. There is moderate to severe tricuspid regurgitation. There is moderate-severe pulmonary hypertension. PULMONIC VALVE The pulmonary valve is normal in structure. There is moderate pulmonic valvular regurgitation. GREAT VESSELS The aortic root is normal in size. PERICARDIAL EFFUSION There is no pericardial effusion. <Conclusion> The left ventricle is normal size. There is normal left ventricular wall thickness. The left ventricular function is normal. The right ventricle is moderately dilated. The aortic valve is mildly sclerotic. Mitral regurgitation is mild to moderate. There is moderate to severe tricuspid regurgitation. There is moderate pulmonic valvular regurgitation. There is moderate-severe pulmonary hypertension.
--- NOTE | 2017-05-20 15:14 | PN ---
SUBJECTIVE: The patient is an 86-year-old, seems to be doing little better. Still gets short of breath on walking. Last night, she has episode of hypoxia. Right now, she is sitting in the chair, seems to be comfortable, mild shortness of breath. PHYSICAL EXAMINATION: VITAL SIGNS: She is afebrile, pulse 76, respirations 20, and blood pressure 148/69. LUNGS: Bilateral fair air flow. No rhonchi or crackle. HEART: S1 and S2, audible. ABDOMEN: Soft and nontender. No rebound. No guarding. NEUROLOGICAL: The patient is awake and alert. Able to communicate. EXTREMITIES: Bilateral legs, +2 edema. LABORATORY DATA: WBC is 10.2, hemoglobin 10.7, hematocrit 34.9, and platelet of 351. Chemistry; sodium 139, potassium 3.7, chloride 96, CO2 of 30, BUN 48, creatinine 1.7, blood sugar of 326. Urine culture shows gram negative rods. [place] count is 100,000. ASSESSMENT AND PLAN: 1. Exertional dyspnea. 2. E. coli urinary tract infection. 3. Bilateral pleural effusion. 4. Coronary artery disease, status post angioplasty. 5. Community acquired pneumonia. 6. Vcahh-ev-jdlzzwd renal failure. 7. Non-insulin dependent diabetes. 8. Hypothyroidism. 9. Spinal stenosis. 10. Exertional dyspnea and hypoxia. PLAN: I will get evaluation from Dr. Chavez Savage. If plural effusion can be tapped or if not significant enough, again try to gently diurese her and request for TCU has been placed and once patient is accepted, she can be transferred to TCU. Ghazal Goode MD
[2017-05-20 17:45] LABS: BODY FLUID TYPE PLEURAL
[2017-05-20 18:20] LABS: BF GROSS APPEARANCE CLEAR (CLEAR)
[2017-05-20 18:23] LABS: BODY FLUID MONO/MACROPHAGE 0 % (0-0); BODY FLUID TOTAL COUNT 100 (0-0)
--- NOTE | 2017-05-20 18:27 | US ---
PROCEDURE: Ultrasound guided right thoracentesis. CLINICAL HISTORY: Bilateral pleural effusions. Shortness of breath. Needs thoracentesis. PHYSICIAN(S): Chavez Savage MD. TECHNIQUE: The relative risks and indications of the procedure were explained to the patient and her daughter and consent obtained. The patient was placed in a sitting position on the stretcher and sonography of the chest performed. This revealed a small left pleural effusion and a small to moderate right pleural effusion. A right posterolateral intercostal approach was selected and the area prepped and draped usual sterile fashion. 1% Xylocaine was used to anesthetize the skin and soft tissues. A 7 [place] thoracentesis catheter was trocared into the right pleural cavity and 550 cc of straw-colored fluid aspirated. Specimens were sent to the lab. IMPRESSION: 1. Ultrasound guided right thoracentesis. 500 cc of clear straw-coloredfluid were aspirated.
[2017-05-21] MEDS: Levalbuterol 1.25 MG/3 ML Inhal Soln UD IH SCH ×3 (01:18→13:14)
[2017-05-21 07:42] VITALS: BP 164/97; PULSE 72; TEMP 98.7
[2017-05-21] MEDS: Insulin Reg-MEDIUM-Coverage SC SCH ×2 (08:40→11:57)
--- NOTE | 2017-05-21 09:18 | RAD ---
HISTORY: rt thoracentesis COMPARISON: Chest radiograph 05/18/2017. TECHNIQUE: Chest PA and lateral FINDINGS: LUNGS: Left pleural effusion persists with underlying administered intravenously in the left base. Trace right pleural effusion not excluded. No definite right-sided infiltrate. No pneumothorax PLEURA: Discussed above CARDIOVASCULAR: Cardiomegaly is again identified however pulmonary pattern is questionably increased and an element of CHF is questioned as a result. OSSEOUS STRUCTURES: No significant abnormalities. VISUALIZED UPPER ABDOMEN: Normal. OTHER FINDINGS: None. IMPRESSION: Small left pleural effusion is identified and underlying atelectasis or infiltrate is not excluded at the left base. Clinically correlate.
[2017-05-21] MEDS: Metoprolol Succinate 25 mg XL Tab PO SCH (09:37)
[2017-05-21] MEDS: diltiaZEM 240 mg/24 Hours CD Cap PO SCH (09:42)
[2017-05-21] MEDS: cefTRIAXone 1 gm 1 GM/100 ML BAG IVPB SCH (09:43)
[2017-05-21] MEDS ORDERED: POLYETHYLENE GLYCOL 3350 17 GM/Dose PACKET PO SCH (12:15)
--- NOTE | 2017-05-22 05:29 | DS ---
HISTORY OF PRESENT ILLNESS: The patient is 86 years old seen and examined. She came in with increasing shortness of breath, poor appetite, not feeling well, having renal insufficiency. The patient was gently diuresed, started on antibiotics. Had thoracentesis done yesterday and 550 mL fluid removed. PHYSICAL EXAMINATION: GENERAL: Today, she states she feel lot better. VITAL SIGNS: She is afebrile, pulse 72, respirations 20 and blood pressure 164/97. LUNGS: Bilateral fair airflow. No rhonchi or crackles. HEART: S1 and S2 audible. No murmur. ABDOMEN: Soft and nontender. No rebound. No guarding. NEUROLOGIC: She is awake and alert, able to communicate. EXTREMITIES: Moves all extremities. LABORATORY DATA: WBC 10.2, hemoglobin 10.7, hematocrit 34.9 and platelet of 351. Chemistry; blood sugar 331. ASSESSMENT: 1. Acute on chronic congestive heart failure. 2. Pleural effusion, status post thoracentesis. 3. Acute on chronic renal insufficiency. 4. Coronary artery disease, status post angioplasty. 5. Chronic kidney disease. 6. Non-insulin dependent diabetes. 7. Spinal stenosis. 8. Hypothyroidism. PLAN: At this point, the patient is clinically stable. She just deconditioned. So, the patient is being transferred to TCU, will she receive her physical therapy and I will monitor her medication and monitor her blood sugar. The patient did complain of constipation, will give a dose of Dulcolax suppository and start her on MiraLax and she will be transferred to TCU today. Ghazal Goode MD
--- NOTE | 2017-05-23 11:40 | PQF PNEUMO ---
05/23/17 Dr. Goode, Pneumonia is documented in ED notes, consult of 05/19, and progress note of 05/20 , but you do not include this diagnosis on your discharge summary. Do you agree , disagree, undetermined with the diagnosis of pneumonia for this patient? If you agree, was pneumonia present on admission? Thank you. Clarification of your documentation is requested to better reflect the severity of illness and intensity of treatment of your patient. Indicators present [x] Documented diagnosis of pneumonia [] X-ray findings: [] Positive Sputum cultures [] Cough w/ fever [x] Abnormal lungs sounds [] Poor gag reflex [] Speech consults/swallow evaluation [] Vent dependence [] Other: [] Location in the medical record that reflects the above clinical findings: [] Treatment Provided: [] PHYSICIAN'S RESPONSE Based on your medical judgment of the clinical indicators outlined above, are you treating this patient for a known or suspected: [] Aspiration pneumonia [x] Community acquired pneumonia [] Ventilator associated pneumonia [] Viral pneumonia [] Bacterial pneumonia Please specify organism: [] [] Other, please indicate [] If Unable to Determine, please check the box, sign and date. Present On Admission (POA) Indicator: [x] Present at the time of admission [] Not present at the time of admission [] Clinically Undetermined In responding to this query, please exercise your independent professional judgment. The fact that a question is asked does not imply that any particular answer is desired or expected. Thank you for your clarification on this documentation. If you have any questions please call:[ ] * Thank you, [ ] dealer relationship manager LAUREN
--- NOTE | 2017-05-23 11:43 | PQF CHF ---
05/23/17 Dr. Goode, You document acute and chronic CHF on your discharge summary. Please indicate whether this is systolic, diastolic, or both. Thank you. Clarification of your documentation is requested to better reflect the severity of illness and intensity of treatment of your patient. Indicators present x[] Diagnosis of CHF and/or history of CHF [] BNP > 200 [] Imaging Finding of Pulmonary Edema /Pleural Effusions [] Fluid/Volume Overload [] Pitting edema [] Ejection Fraction < 40% (Indicative of Systolic Heart Failure) [] Ejection Fraction > 40% (Indicative of Diastolic Heart Failure) [] Dyspnea / Orthopenea / Paroxysmal Nocturnal Dyspnea [] Other: Location in the medical record that reflects the above clinical findings: [] Treatment Provided: [] PHYSICIAN'S RESPONSE Based on your medical judgment of the clinical indicators outlined above, are you treating this patient for a known or suspected: [] Acute CHF [] Systolic [] Diastolic [] Combined [] Chronic CHF [] Systolic [] Diastolic [] Combined [x] Acute on Chronic CHF []Systolic [] Diastolic [] Combined [] CHF due hypertension [] Acute systolic []Chronic systolic [] Acute/ chronic systolic [] Other, please indicate: [] [] If Unable to Determine, please check the box, sign and date. Present On Admission (POA) Indicator: [] Present at the time of admission [] Not present at the time of admission [] Clinically Undetermined In responding to this query, please exercise your independent professional judgment. The fact that a question is asked does not imply that any particular answer is desired or expected. Thank you for your clarification on this documentation. If you have any questions please call:[ ] * Thank you, [ ] brands editor LAUREN
--- NOTE | 2017-05-26 11:52 | PQF CHF ---
05/26/17 Dr. Goode, You checked "acute and chronic" CHF on the other query form. However, you did not indicate type of CHF. Please indicate whether this is systolic, diastolic, or both. Thank you again. Clarification of your documentation is requested to better reflect the severity of illness and intensity of treatment of your patient. Indicators present [] Diagnosis of CHF and/or history of CHF [] BNP > 200 x[] Imaging Finding of Pulmonary Edema /Pleural Effusions [] Fluid/Volume Overload [x] Pitting edema [] Ejection Fraction < 40% (Indicative of Systolic Heart Failure) [] Ejection Fraction > 40% (Indicative of Diastolic Heart Failure) [] Dyspnea / Orthopenea / Paroxysmal Nocturnal Dyspnea [] Other: Location in the medical record that reflects the above clinical findings: [] Treatment Provided: [] PHYSICIAN'S RESPONSE Based on your medical judgment of the clinical indicators outlined above, are you treating this patient for a known or suspected: [] Acute CHF [] Systolic [] Diastolic [] Combined [] Chronic CHF [] Systolic [] Diastolic [] Combined [x] Acute on Chronic CHF []Systolic [] Diastolic [x] Combined [] CHF due hypertension [] Acute systolic []Chronic systolic [] Acute/ chronic systolic [] Other, please indicate: [] [] If Unable to Determine, please check the box, sign and date. Present On Admission (POA) Indicator: [] Present at the time of admission [] Not present at the time of admission [] Clinically Undetermined In responding to this query, please exercise your independent professional judgment. The fact that a question is asked does not imply that any particular answer is desired or expected. Thank you for your clarification on this documentation. If you have any questions please call:[ ] * Thank you, [ ] manager compliance LAUREN
== END 2017-05-21 14:37 | DRG 291 ==
LOC: ED 17:55 → ERH 20:50 → 5RSO 22:57
PROVIDERS: ADMIT Internal Medicine; ATTEND Internal Medicine
DX: I13.0 Hypertensive heart and chronic kidney disease with heart failure and stage 1 through stage 4 chronic kidney disease, or unspecified chronic kidney disease (principal); J18.9 Pneumonia, unspecified organism; N17.9 Acute kidney failure, unspecified; E10.22 Type 1 diabetes mellitus with diabetic chronic kidney disease; E10.65 Type 1 diabetes mellitus with hyperglycemia; I27.2 Other secondary pulmonary hypertension; I48.0 Paroxysmal atrial fibrillation; I50.43 Acute on chronic combined systolic (congestive) and diastolic (congestive) heart failure; N39.0 Urinary tract infection, site not specified; I25.10 Atherosclerotic heart disease of native coronary artery without angina pectoris; N18.9 Chronic kidney disease, unspecified; Z95.5 Presence of coronary angioplasty implant and graft; E03.9 Hypothyroidism, unspecified; E78.5 Hyperlipidemia, unspecified; F32.89 Other specified depressive episodes; I48.2 Chronic atrial fibrillation; B96.20 Unspecified Escherichia coli [E. coli] as the cause of diseases classified elsewhere; B96.1 Klebsiella pneumoniae [K. pneumoniae] as the cause of diseases classified elsewhere; I25.2 Old myocardial infarction; M48.00 Spinal stenosis, site unspecified; R09.02 Hypoxemia; Z79.01 Long term (current) use of anticoagulants; Z79.84 Long term (current) use of oral hypoglycemic drugs; Z79.899 Other long term (current) drug therapy; Z90.49 Acquired absence of other specified parts of digestive tract

== ENCOUNTER 2017-05-21 14:41 | Inpatient (IN) | payer OTHER, MEDICARE ==
[2017-05-21 17:32] VITALS: BMI 25.7
[2017-05-21] MEDS ORDERED: Pneumococcal 23-Valent Vaccine IM ONE (17:32)
[2017-05-21] MEDS ORDERED: Magnesium Citrate Oral SOL (300 ml) PO ONE ×2 (18:04→18:08)
[2017-05-21] MEDS: Metoprolol Succinate 25 mg XL Tab PO SCH (18:34)
[2017-05-21] MEDS: Insulin Reg-MEDIUM-Coverage SC SCH ×2 (18:39→21:48)
[2017-05-21] MEDS: Levalbuterol 1.25 MG/3 ML Inhal Soln UD IH SCH (20:12)
[2017-05-21] MEDS ORDERED: Non Formulary Medication (Doxycycline Hyclate [Vibramycin] 100 MG) IVPB SCH (22:00)
[2017-05-22] MEDS: Levalbuterol 1.25 MG/3 ML Inhal Soln UD IH SCH ×4 (02:17→19:48)
[2017-05-22] MEDS: Insulin Reg-MEDIUM-Coverage SC SCH ×4 (06:32→22:24)
[2017-05-22] MEDS ORDERED: cefTRIAXone 1 gm 1 GM/100 ML BAG IVPB SCH (10:00)
--- NOTE | 2017-05-22 11:48 | PN ---
DATE: 05/22/2017 SUBJECTIVE: The patient has no complaints of any chest pain, no shortness of breath. She was initially admitted to hospital with pneumonia and hypoglycemia. She is in the transitional care unit for rehab. She was having constipation and she was able to have a bowel movement yesterday. She feels comfortable and better. PHYSICAL EXAMINATION VITAL SIGNS: Temperature is 98.8, pulse of 75, blood pressure is 112/60, respirations 14. GENERAL: The patient is lying in bed, flat, and in no apparent distress. HEAD AND NECK EXAM: Atraumatic, normocephalic. Conjunctivae are pink. moist mucosa. Oropharynx is benign. NECK: Supple. No JVD, thyromegaly, or adenopathy. No bruits. HEART: S1 and S2 regular rate and rhythm. No murmurs, rubs, or gallops. LUNGS: Clear to auscultation bilaterally. No wheezing, rales, or rhonchi appreciated. No retractions on exam. ABDOMEN: Soft, nontender, and nondistended. Bowel sounds are positive in all quadrants. No rebound. No hepatosplenomegaly. EXTREMITIES: No cyanosis, clubbing, or edema. No inguinal adenopathy. ASSESSMENT: 1. Coronary artery disease. 2. Spinal stenosis. 3. Hypothyroidism. 4. Chronic kidney disease, stage IV. 5. Iron deficiency anemia. 6. Diabetes type 2. PLAN: The patient is going to be placed on MiraLax for constipation. She is going to be on Lasix daily. She is on Januvia for her diabetes. She is on nicotine with apixaban. She is on Rocephin for antibiotic. She is on metoprolol. She is on heart healthy diet. Soham Blackburn MD MTDD
[2017-05-22] MEDS: diltiaZEM 240 mg/24 Hours CD Cap PO SCH (12:05)
[2017-05-22] MEDS: Metoprolol Succinate 25 mg XL Tab PO SCH ×2 (12:07→18:09)
[2017-05-22] MEDS: POLYETHYLENE GLYCOL 3350 17 GM/Dose PACKET PO SCH ×2 (12:08→18:08)
[2017-05-23] MEDS: Levalbuterol 1.25 MG/3 ML Inhal Soln UD IH SCH ×4 (02:00→20:36)
[2017-05-23] MEDS: cefTRIAXone 1 gm 1 GM/100 ML BAG IVPB SCH (06:01)
--- NOTE | 2017-05-23 08:19 | CP.PCM.PN ---
Subjective - Date & Time of Evaluation Date of Evaluation: 05/23/17 Time of Evaluation: 07:00 - Subjective Subjective: Stable on TCU. No CP or SOB. Events noted. S/P right thoracentesis, 500 cc clear fluid removed. V/S noted: PE: Lungs: clear Cor.: irreg. S1S2 Abd.: soft Ext.: no edema Neuro.: alert Echo 05/19/17 noted: Nl LV fx., Mild/mod. MR, Sev. TR, Mod. PI, Mod/Sev. PH Objective - Vital Signs/Intake and Output Vital Signs (last 24 hours): Temp Pulse Resp BP Pulse Ox 98.2 F 81 20 123/74 05/22/17 16:39 05/22/17 18:09 05/22/17 16:39 05/22/17 18:09 Intake and Output: 05/23/17 05/23/17 06:59 18:59 Intake Total 420 Balance 420 - Medications Medications: Current Medications Apixaban (Eliquis) 2.5 mg PO BID YULI PRN Reason: Protocol Last Admin: 05/22/17 18:08 Dose: 2.5 mg Diltiazem HCl (Cardizem Cd) 240 mg PO DAILY [facility]I PRN Reason: Protocol Last Admin: 05/22/17 12:05 Dose: 240 mg Furosemide (Lasix) 40 mg IVP DAILY YULI PRN Reason: Protocol Last Admin: 05/22/17 12:11 Dose: 40 mg Glimepiride (Amaryl) 2 mg PO ACBD YULI PRN Reason: Protocol Last Admin: 05/22/17 18:12 Dose: 2 mg Doxycycline Hyclate 100 mg/ (Sodium Chloride) 100 mls @ 100 mls/hr IV Q12 [facility] Last Admin: 05/22/17 21:35 Dose: 100 mls/hr Ceftriaxone Sodium (Rocephin 1 Gram Ivpb) 1 gm in 100 mls @ 100 mls/hr IVPB 0600 YULI PRN Reason: Protocol Last Admin: 05/23/17 06:01 Dose: 100 mls/hr Insulin Human Regular (Humulin R Med) 0 units SC ACHS YULI PRN Reason: Protocol Last Admin: 05/22/17 22:24 Dose: 3 units Levalbuterol HCl (Xopenex) 1.25 mg IH [id number] YULI PRN Reason: Protocol Last Admin: 05/23/17 07:41 Dose: 1.25 mg Metoprolol Succinate (Toprol Xl) 25 mg PO BID YULI PRN Reason: Protocol Last Admin: 05/22/17 18:09 Dose: 25 mg Mirtazapine (Remeron) 15 mg PO HS YULI PRN Reason: Protocol Last Admin: 05/22/17 21:36 Dose: 15 mg Polyethylene Glycol (Miralax) 17 gm PO BID YULI Last Admin: 05/22/17 18:08 Dose: Not Given Sitagliptin Phosphate (Januvia) 25 mg PO DAILY YULI PRN Reason: Protocol Last Admin: 05/22/17 12:06 Dose: 25 mg Assessment and Plan - Assessment and Plan (Free Text) Assessment: CHF Pleural effusions, s/p right thoracentesis UTI Acute on chronic kidney disease CAD/CT/PCI 2004 Valvular heart disease and PH: Mild/mod MR, Mod/sev. TR, Mod. PI, and Mod/Sev. PH HBP Diabetes PAF Spinal Stenosis Hypothyroidism Discogenic Disease Plan: AB PT/Rehab Efforts. Continue cardiac meds Check BMP in AM.
[2017-05-23] MEDS: Insulin Reg-MEDIUM-Coverage SC SCH ×2 (08:56→11:28)
[2017-05-23] MEDS: diltiaZEM 240 mg/24 Hours CD Cap PO SCH (10:37)
[2017-05-23] MEDS: POLYETHYLENE GLYCOL 3350 17 GM/Dose PACKET PO SCH (10:39)
[2017-05-23] MEDS: Metoprolol Succinate 25 mg XL Tab PO SCH ×2 (10:39→17:44)
[2017-05-23] MEDS: Insulin Reg-HIGH-Coverage SC SCH (16:49)
--- NOTE | 2017-05-23 22:35 | HP ---
HISTORY OF PRESENT ILLNESS: The patient is an 86-year-old who was admitted generalize weakness, increasing, shortness of breath, and bilateral significant leg swelling, poor oral intake. She was treated as outpatient with no significant improvement. She was admitted, has been diuresed, has thoracentesis done with significant improvement, doing well. Transfer to TCU for rehab. PAST MEDICAL HISTORY: She has significant past medical history of hypertension, congestive heart failure, non-insulin dependent diabetes, hyperlipidemia, coronary artery disease, status post angioplasty. ALLERGIES: SHE IS NOT ALLERGIC TO ANY MEDICATION. MEDICATION AT HOME: As per MAR. SOCIAL HISTORY: She lives in senior citizen building. Denies smoking, drinking or alcohol use. PHYSICAL EXAMINATION: GENERAL: She is awake and alert, communicative. VITAL SIGNS: She is afebrile, pulse 81, respirations 20, and blood pressure 119/61. LUNGS: Bilateral fair air flow. No rhonchi or crackle. HEART: S1 and S2, audible. ABDOMEN: Soft, nontender, no rebound, no guarding. NEUROLOGIC: The patient is awake and alert, communicative. LABORATORY DATA: Blood sugar is 88. ASSESSMENT: 1. Coronary artery disease, status post angioplasty. 2. Hypertension. 3. Hyperlipidemia. 4. Non-insulin dependent diabetes. 5. Pleural effusion, status post thoracentesis. 6. Bilateral leg edema. PLAN: We will continue the patient on doxycycline for pulmonary infiltrate. I will continue her on Rocephin. She has Klebsiella UTI sensitive to Rocephin. I will continue that. Encourage ambulation. The patient states although she was constipated was given Miralax and suppository, now she is going a lot, I will discontinues stool softener for now and we will followup patient in a.m. Ghazal Goode MD
[2017-05-24] MEDS: Levalbuterol 1.25 MG/3 ML Inhal Soln UD IH SCH ×4 (01:11→20:03)
[2017-05-24] MEDS: cefTRIAXone 1 gm 1 GM/100 ML BAG IVPB SCH (06:28)
[2017-05-24] MEDS: Insulin Reg-HIGH-Coverage SC SCH ×5 (08:21→22:51)
[2017-05-24] MEDS: Metoprolol Succinate 25 mg XL Tab PO SCH ×2 (10:40→17:33)
[2017-05-24] MEDS: diltiaZEM 240 mg/24 Hours CD Cap PO SCH (10:43)
--- NOTE | 2017-05-24 14:24 | CP.PCM.CON ---
<Veronica Phillips - Last Filed: 05/24/17 14:18> History of Present Illness - History of Present Illness History of Present Illness: 86 year old female seen at bedside concerning elongated toenail and general foot care. Pt has no pedal compliants, and oticed no pedal changes. Pt complains of left lateral foot pain, though she refers to these symptoms as her baseline secondary to her spinal stenosis. She ahs no other pedal complaints. Denies recent fever/chill. chest pain, nausea, vommiting. Past Patient History - Infectious Disease Hx of Infectious Diseases: None - Past Social History Smoking Status: Never Smoked - CARDIAC Hx Cardiac Disorders: Yes - PULMONARY Hx Pneumonia: Yes - NEUROLOGICAL Hx Neurological Disorder: No - HEENT Hx HEENT Problems: Yes (eyeglasses) - RENAL Hx Renal Failure: Yes (CKD) - ENDOCRINE/METABOLIC Hx Diabetes Mellitus Type 2: Yes - HEMATOLOGICAL/ONCOLOGICAL Hx Blood Disorders: No - INTEGUMENTARY Hx Dermatological Problems: Yes - MUSCULOSKELETAL/RHEUMATOLOGICAL Hx Falls: No - GASTROINTESTINAL Hx Gastrointestinal Disorders: No - GENITOURINARY/GYNECOLOGICAL Hx Reproductive Disorders: No - PSYCHIATRIC Hx Psychophysiologic Disorder: No - SURGICAL HISTORY Hx Cholecystectomy: Yes Hx Coronary Stent: Yes - ANESTHESIA Hx Anesthesia: No Hx Anesthesia Reactions: No Hx Malignant Hyperthermia: No Meds Allergies/Adverse Reactions: Allergies Allergy/AdvReac Type Severity Reaction Status Date / Time No Known Allergies Allergy Verified 05/21/17 14:56 - Medications Medications: Current Medications Apixaban (Eliquis) 2.5 mg PO BID YULI PRN Reason: Protocol Last Admin: 05/24/17 10:43 Dose: 2.5 mg Diltiazem HCl (Cardizem Cd) 240 mg PO DAILY YULI PRN Reason: Protocol Last Admin: 05/24/17 10:43 Dose: 240 mg Furosemide (Lasix) 40 mg IVP DAILY YULI PRN Reason: Protocol Last Admin: 05/24/17 10:47 Dose: 40 mg Glimepiride (Amaryl) 2 mg PO ACBD YULI PRN Reason: Protocol Last Admin: 05/24/17 08:33 Dose: 2 mg Doxycycline Hyclate 100 mg/ (Sodium Chloride) 100 mls @ 100 mls/hr IV Q12 YULI Last Admin: 05/24/17 10:47 Dose: 100 mls/hr Ceftriaxone Sodium (Rocephin 1 Gram Ivpb) 1 gm in 100 mls @ 100 mls/hr IVPB 0600 YULI PRN Reason: Protocol Last Admin: 05/24/17 06:28 Dose: 100 mls/hr Insulin Human Regular (Humulin R High) 0 units SC ACHS YULI PRN Reason: Protocol Last Admin: 05/24/17 13:07 Dose: 7 units Levalbuterol HCl (Xopenex) 1.25 mg IH [id number] YULI PRN Reason: Protocol Last Admin: 05/24/17 14:07 Dose: 1.25 mg Metoprolol Succinate (Toprol Xl) 25 mg PO BID YULI PRN Reason: Protocol Last Admin: 05/24/17 10:40 Dose: 25 mg Mirtazapine (Remeron) 15 mg PO HS YULI PRN Reason: Protocol Last Admin: 05/23/17 21:43 Dose: 15 mg Sitagliptin Phosphate (Januvia) 25 mg PO DAILY YULI PRN Reason: Protocol Last Admin: 05/24/17 10:42 Dose: 25 mg Physical Exam - Constitutional Appears: Well, Non-toxic, No Acute Distress - Extremities Exam Additional comments: Bilateral lower extremity focused. Prescribed compression stockings are inplace. Neuro-vascular status intact. No reproducible Tinel's sign along dermatomes at thist time. DERM: Well adhered scaling plaques to anterior lower legs. Elongated, thickened , dystrophic, discolored nail plates noted to all 10 nail plates. MUSK: Left hallux abducted hallux w/ medial deana prominence and overlying pressure erythema noted absnet painful range of motion. Results - Vital Signs Recent Vital Signs: Last Vital Signs Temp 97.8 F 05/24/17 10:19 Pulse 81 05/24/17 10:43 Resp 18 05/24/17 10:19 BP 141/81 05/24/17 10:47 Pulse Ox 97 05/24/17 10:19 - Labs Labs: Laboratory Results - last 24 hr 05/23/17 05/23/17 05/23/17 11:32 16:10 21:14 POC Glucose (mg/dL) 402 H* 345 H 197 H Assessment & Plan - Assessment and Plan (Free Text) Assessment: 86 year old with 1) lower extremity diabetic dermatitis bilaterally, 2) elongated toenails to all 10 nail plates. Plan: Pt evaluated and treated. Discussed with attending, Dr. Bhardwaj, who endorsed the following plan. Aseptic onychoreduction performed to all 10 nail plates. Minor punctures occurred to distal jovany of bilateral 4th digits. Prompt coagulation achieved. Dressed applied consisted of betadine, bacitracin, and bandaids. Continue with topical moisturizer of legs. Continue with bilateral compression dressings. Stable per podiatry. F/U outpatient with primary creative services writer . - Date & Time Date: 05/24/17 Time: 14:30 <Sim Bhardwaj - Last Filed: 05/25/17 11:35> Meds - Medications Medications: Current Medications Apixaban (Eliquis) 2.5 mg PO BID YULI PRN Reason: Protocol Last Admin: 05/25/17 09:40 Dose: 2.5 mg Diltiazem HCl (Cardizem Cd) 240 mg PO DAILY YULI PRN Reason: Protocol Last Admin: 05/25/17 09:39 Dose: 240 mg Furosemide (Lasix) 40 mg IVP DAILY YULI PRN Reason: Protocol Last Admin: 05/24/17 10:47 Dose: 40 mg Glimepiride (Amaryl) 2 mg PO ACBD YULI PRN Reason: Protocol Last Admin: 05/25/17 07:44 Dose: 2 mg Doxycycline Hyclate 100 mg/ (Sodium Chloride) 100 mls @ 100 mls/hr IV Q12 YULI Last Admin: 05/25/17 09:39 Dose: 100 mls/hr Ceftriaxone Sodium (Rocephin 1 Gram Ivpb) 1 gm in 100 mls @ 100 mls/hr IVPB 0600 YULI PRN Reason: Protocol Last Admin: 05/25/17 05:46 Dose: 100 mls/hr Insulin Human Regular (Humulin R High) 0 units SC ACHS YULI PRN Reason: Protocol Last Admin: 05/25/17 07:57 Dose: Not Given Levalbuterol HCl (Xopenex) 1.25 mg IH [id number] YULI PRN Reason: Protocol Last Admin: 05/25/17 07:50 Dose: 1.25 mg Metoprolol Succinate (Toprol Xl) 25 mg PO BID YULI PRN Reason: Protocol Last Admin: 05/25/17 09:41 Dose: 25 mg Mirtazapine (Remeron) 15 mg PO HS YULI PRN Reason: Protocol Last Admin: 05/24/17 22:15 Dose: 15 mg Sitagliptin Phosphate (Januvia) 50 mg PO DAILY YULI PRN Reason: Protocol Last Admin: 05/25/17 09:40 Dose: 50 mg Results - Vital Signs Recent Vital Signs: Last Vital Signs Temp 96.0 F L 05/25/17 10:40 Pulse 71 05/25/17 10:40 Resp 16 05/25/17 10:40 BP 106/67 05/25/17 10:40 Pulse Ox 98 05/25/17 10:40 - Labs Result Diagrams: 05/24/17 14:05 Labs: Laboratory Results - last 24 hr 05/24/17 05/24/17 05/24/17 06:43 11:00 14:05 Sodium 135 Potassium 4.8 Chloride 94 L Carbon Dioxide 27 Anion Gap 19 BUN 48 H Creatinine 1.4 Est GFR ( Amer) 43 Est GFR (Non-Af Amer) 36 POC Glucose (mg/dL) 146 H 282 H Random Glucose 258 H Calcium 8.9 05/24/17 05/24/17 16:05 21:43 Sodium Potassium Chloride Carbon Dioxide Anion Gap BUN Creatinine Est GFR ( Amer) Est GFR (Non-Af Amer) POC Glucose (mg/dL) 331 H 226 H Random Glucose Calcium Attending/Attestation - Attestation I have personally seen and examined this patient.: Yes I have fully participated in the care of the patient.: Yes I have reviewed all pertinent clinical information: Yes
[2017-05-24 14:38] LABS: CALCIUM 8.9 mg/dL (8.4-10.5)
--- NOTE | 2017-05-24 17:07 | PN ---
SUBJECTIVE: The patient is an 86 years old seen and examined. She states she feels lot better, complained of bilateral neck swelling. No more nausea, no vomiting, no diarrhea, no constipation. PHYSICAL EXAMINATION VITAL SIGNS: She is afebrile. Pulse is 81, respirations 18, and blood pressure is 141/81. LUNGS: Bilateral fair airflow. No rhonchi or crackles. HEART: S1 and S2 audible. ABDOMEN: Soft and nontender. No rebound. No guarding. NEUROLOGIC: The patient is awake and alert. Able to communicate. Moves all extremity. Bilateral leg +2 edema. LABORATORY DATA: Sodium 135, potassium 4.8, chloride 94, CO2 of 27, BUN 48, creatinine 1.4, blood sugar of 258. ASSESSMENT: 1. Bilateral leg edema. 2. Status post thoracentesis. 3. Hypertension. 4. Coronary artery disease status post angioplasty 2-1/2 year ago. 5. Insulin-dependent diabetes. PLAN: The patient's blood sugar is running on the high side. Currently, she is on glimepiride. She is on Januvia. Monitor blood sugar closely. We will follow up this patient. Ghazal Goode MD
[2017-05-25] MEDS: Levalbuterol 1.25 MG/3 ML Inhal Soln UD IH SCH ×4 (02:20→20:59)
[2017-05-25] MEDS: cefTRIAXone 1 gm 1 GM/100 ML BAG IVPB SCH (05:46)
[2017-05-25] MEDS: Insulin Reg-HIGH-Coverage SC SCH ×4 (07:57→22:14)
[2017-05-25] MEDS: diltiaZEM 240 mg/24 Hours CD Cap PO SCH (09:39)
[2017-05-25] MEDS: Metoprolol Succinate 25 mg XL Tab PO SCH ×2 (09:41→17:47)
--- NOTE | 2017-05-25 11:55 | PN ---
DATE: 05/25/2017 SUBJECTIVE: The patient is seen, sitting in a chair on transitional care unit. She is currently comfortable. Her dyspnea is improved. CURRENT MEDICATIONS: Include Amaryl; Cardizem CD 240 mg daily; Eliquis 2.5 mg b.i.d., Januvia, Lasix 40 mg daily, Remeron, Rocephin, Toprol XL 25 mg b.i.d., and Xopenex. OBJECTIVE: GENERAL: She is a very elderly woman who is comfortable at rest. VITAL SIGNS: Her blood pressure is 110/60 with a pulse of 70, respirations are 16, and she is afebrile. HEENT: No JVD. CHEST: Diminished breath sounds at the bases. No rales. HEART: PMI is displaced laterally with a systolic murmur, left sternal border. ABDOMEN: Soft and nontender with normoactive bowel sounds. EXTREMITIES: No edema. IMPRESSION: 1. Bilateral leg edema, clinically improved. 2. Recent pleural effusion, status post thoracentesis. 3. Coronary artery disease, status post prior PCI of RCA following an inferior wall myocardial infarction pattern. 4. Atrial fibrillation. 5. History of hypertension, diabetes. RECOMMENDATIONS: Her current medications should continue. A repeat chest x-ray should be planned in 1 to 2 weeks. Chronic diabetic therapy is advisable. Overall, conservative cardiac management appears most appropriate at this time. We will continue to follow as appropriate. Dickson Boone MD MTDD
--- NOTE | 2017-05-25 19:34 | PN ---
DATE: 05/25/2017 SUBJECTIVE: The patient is 86 years old seen and examined, sitting in chair, complaining of not sleeping well. No nausea, vomiting, no diarrhea. PHYSICAL EXAMINATION: VITAL SIGNS: Afebrile, pulse 72, respirations 14, blood pressure 112/66. LUNGS: Bilateral fair air flow. No rhonchi or crackle. HEART: S1 and S2 audible. ABDOMEN: Soft, nontender. No rebound and no guarding. NEUROLOGIC: She is awake and alert, able to communicate. Bilateral leg, she has +3 edema. LABORATORY DATA: Blood sugar 226. ASSESSMENT: 1. Bilateral leg edema secondary to cardiomyopathy. 2. Pleural effusion status post thoracentesis. 3. Coronary artery disease status post angioplasty. 4. Chronic atrial fibrillation. 5. Hypertension. 6. Non-insulin dependent diabetes. PLAN: We will continue the patient on Diltiazem. She is on doxycycline, she is on Eliquis. Blood sugar is being monitored. She is on Januvia 50 mg daily. She is on Lasix 40 mg daily. She is on Remeron. We will continue on Rocephin. Her urine is positive for Klebsiella. . Continue her on that. She is requesting for Valium to sleep that will be given tonight and encouraged ambulation. We will follow up with the patient. Ghazal Goode MD
[2017-05-26] MEDS: Levalbuterol 1.25 MG/3 ML Inhal Soln UD IH SCH ×4 (01:18→20:06)
[2017-05-26] MEDS: cefTRIAXone 1 gm 1 GM/100 ML BAG IVPB SCH (05:03)
[2017-05-26] MEDS: Insulin Reg-HIGH-Coverage SC SCH ×4 (07:30→22:34)
[2017-05-26] MEDS: diltiaZEM 240 mg/24 Hours CD Cap PO SCH (10:04)
[2017-05-26] MEDS: Metoprolol Succinate 25 mg XL Tab PO SCH ×2 (10:08→18:10)
--- NOTE | 2017-05-26 14:22 | PN ---
DATE: 05/26/2017 SUBJECTIVE: This is an 86-year-old seen and examined. She lost her IV access yesterday and does not want to have another IV access. She says she feeling better, breathing better. PHYSICAL EXAMINATION: VITAL SIGNS: Afebrile, pulse 84, respirations 18, blood pressure 121/65. LUNGS: Bilateral fair air flow. Decreased breath sound, right more than the left. HEART: S1 and S2 audible. ABDOMEN: Soft, nontender. No rebound and no guarding. NEUROLOGIC: Patient is awake, alert, and communicative. EXTREMITIES: Bilateral leg, +2 edema. LABORATORY DATA: Blood sugar 112. ASSESSMENT: 1. Bilateral pleural effusion status post thoracentesis. 2. Hypertension. 3. Coronary artery disease, status post angioplasty. 4. Non-insulin dependant diabetes. 5. Chronic atrial fibrillation. PLAN: I will discontinue doxycycline put her on p.o., I will continue on Eliquis. Discontinue IV Lasix switch it to p.o. possible discharge plan for a.m. Ghazal Goode MD
[2017-05-27] MEDS: Levalbuterol 1.25 MG/3 ML Inhal Soln UD IH SCH ×3 (01:49→13:18)
[2017-05-27] MEDS: Insulin Reg-HIGH-Coverage SC SCH ×2 (08:03→12:07)
[2017-05-27] MEDS: diltiaZEM 240 mg/24 Hours CD Cap PO SCH (09:19)
[2017-05-27] MEDS: Metoprolol Succinate 25 mg XL Tab PO SCH (09:22)
[2017-05-27 10:48] VITALS: BP 116/68; PULSE 78; RESP 18; TEMP 98.3; O2SAT 100
--- NOTE | 2017-05-28 03:30 | DS ---
SUBJECTIVE: The patient is 86 years old seen and examined, sitting in chair, anxious to go home. She states she cannot wait until she goes home. She is feeling well, eating and tolerating, less shortness of breath. PHYSICAL EXAMINATION: VITAL SIGNS: She is afebrile, pulse 82, respirations 18 and blood pressure 142/80. LUNGS: Bilateral diffusely decreased breath sounds. HEART: S1 and S2, audible. ABDOMEN: Soft and nontender. No rebound. No guarding. NEUROLOGIC: She is awake and alert, able to communicate. EXTREMITIES: Bilateral legs, +2 edema. LABORATORY DATA: Blood sugar is 164. ASSESSMENT: 1. Bilateral pleural effusion, status post thoracentesis on the left side. 2. Acute on chronic congestive heart failure, stable now. 3. Non insulin-dependent diabetes. 4. Bilateral leg edema. 5. Chronic kidney disease. 6. Resolved pneumonia. PLAN: We will discontinue her antibiotics. She will resume her medication as prior to admission. She will be discharge today and she will followup in office next week. Ghazal Goode MD
== END 2017-05-27 16:46 | disposition home or self-care (01) | DRG 945 ==
LOC: TRCU 14:41
PROVIDERS: ADMIT Internal Medicine; ATTEND Internal Medicine
PROC: 3E0F7GC Introduction of Other Therapeutic Substance into Respiratory Tract, Via Natural or Artificial Opening (ICD-10-PCS; 2017-05-21)
PROC: F07Z9FZ Gait Training/Functional Ambulation Treatment using Assistive, Adaptive, Supportive or Protective Equipment (ICD-10-PCS; principal; 2017-05-22)
PROC: F08Z4FZ Home Management Treatment using Assistive, Adaptive, Supportive or Protective Equipment (ICD-10-PCS; 2017-05-22)
PROC: 0HBRXZZ Excision of Toe Nail, External Approach (ICD-10-PCS; 2017-05-24)
PROC: 0HBRXZZ Excision of Toe Nail, External Approach (ICD-10-PCS; 2017-05-24)
PROC: 0HBRXZZ Excision of Toe Nail, External Approach (ICD-10-PCS; 2017-05-24)
PROC: 0HBRXZZ Excision of Toe Nail, External Approach (ICD-10-PCS; 2017-05-24)
PROC: 0HBRXZZ Excision of Toe Nail, External Approach (ICD-10-PCS; 2017-05-24)
PROC: 0HBRXZZ Excision of Toe Nail, External Approach (ICD-10-PCS; 2017-05-24)
PROC: 0HBRXZZ Excision of Toe Nail, External Approach (ICD-10-PCS; 2017-05-24)
PROC: 0HBRXZZ Excision of Toe Nail, External Approach (ICD-10-PCS; 2017-05-24)
PROC: 0HBRXZZ Excision of Toe Nail, External Approach (ICD-10-PCS; 2017-05-24)
PROC: 0HBRXZZ Excision of Toe Nail, External Approach (ICD-10-PCS; 2017-05-24)
DX: R53.1 Weakness (principal); J18.9 Pneumonia, unspecified organism; Z79.2 Long term (current) use of antibiotics; N18.4 Chronic kidney disease, stage 4 (severe); E11.22 Type 2 diabetes mellitus with diabetic chronic kidney disease; I42.9 Cardiomyopathy, unspecified; I13.0 Hypertensive heart and chronic kidney disease with heart failure and stage 1 through stage 4 chronic kidney disease, or unspecified chronic kidney disease; I50.9 Heart failure, unspecified; E11.620 Type 2 diabetes mellitus with diabetic dermatitis; N39.0 Urinary tract infection, site not specified; I25.10 Atherosclerotic heart disease of native coronary artery without angina pectoris; E78.5 Hyperlipidemia, unspecified; K59.00 Constipation, unspecified; M48.00 Spinal stenosis, site unspecified; D50.9 Iron deficiency anemia, unspecified; E03.9 Hypothyroidism, unspecified; I48.0 Paroxysmal atrial fibrillation; I48.2 Chronic atrial fibrillation; Z95.5 Presence of coronary angioplasty implant and graft

== ENCOUNTER 2017-07-12 23:52 | Inpatient (IN) | payer MEDICARE ==
[2017-07-13 00:10] VITALS: BMI 25.3
--- NOTE | 2017-07-13 01:20 | ED PDOC ---
Arrival/HPI - General Historian: Patient - History of Present Illness Time/Duration: Prior to Arrival Symptom Onset: Sudden Symptom Course: Unchanged Activities at Onset: Light Context: Home, Tripped <Felicita Loja - Last Filed: 07/13/17 02:06> <Brandt Gonzalez - Last Filed: 07/13/17 05:07> - General Chief Complaint: Medical Clearance Time Seen by Provider: 07/13/17 00:48 - History of Present Illness Narrative History of Present Illness (Text): 07/13/17 00:58 Liyah Ponce is an 87 year old female who presents to the Emergency department brought in status post fall. Patient notes she felt weak throughout the day. Patient reports she went to get out of her bed tonight and fell, landing on her chest. Patient complaining of pain to anterior chest and denies any loss of consciousness. Patient states she was crawling on the floor for 45 minutes trying to get up. Patient also complaining of bilateral knee pain and headache. Patient was recently diagnosed with pneumonia and was admitted to the hospital in April 2017. Patient states since then, she has been she has been having a difficulty time breathing and is on home O2. Patient denies any abdominal pain or dizziness. Patient states she just does not fell well today. (Felicita Loja) Past Medical History - Provider Review Nursing Documentation Reviewed: Yes - Infectious Disease Hx of Infectious Diseases: None - Reproductive Menopause: Yes - Cardiac Hx Cardiac Disorders: Yes Hx Congestive Heart Failure: Yes Hx Hypertension: Yes - Pulmonary Hx Pneumonia: Yes - Neurological Hx Neurological Disorder: No - HEENT Hx HEENT Disorder: No (eyeglasses) - Renal Hx Renal Failure: Yes (CKD) - Endocrine/Metabolic Hx Diabetes Mellitus Type 2: Yes - Hematological/Oncological Hx Blood Disorders: No - Integumentary Hx Dermatological Disorder: Yes Other/Comment: paper thin skin - Musculoskeletal/Rheumatological Hx Falls: Yes - Gastrointestinal Hx Gastrointestinal Disorders: No - Genitourinary/Gynecological Hx Genitourinary Disorders: No Hx Reproductive Disorders: No - Psychiatric Hx Psychophysiologic Disorder: No Hx Substance Use: No - Surgical History Hx Cholecystectomy: Yes Hx Coronary Stent: Yes - Anesthesia Hx Anesthesia: No Hx Anesthesia Reactions: No Hx Malignant Hyperthermia: No - Suicidal Assessment Feels Threatened In Home Enviroment: No <Felicita Loja - Last Filed: 07/13/17 02:06> Family/Social History - Physician Review Nursing Documentation Reviewed: Yes Family/Social History: Unknown Family HX Smoking Status: Never Smoked Hx Alcohol Use: No Hx Substance Use: No <FreedomFelicita T - Last Filed: 07/13/17 02:06> Allergies/Home Meds <FreedomFelicita T - Last Filed: 07/13/17 02:06> <Brandt Gonzalez - Last Filed: 07/13/17 05:07> Allergies/Adverse Reactions: Allergies No Known Allergies Allergy (Verified 07/13/17 00:21) Home Medications: Home Meds Medication Instructions Recorded Confirmed Magnesium Oxide [Magox 400] 400 mg PO DAILY 08/14/16 07/13/17 Metoprolol Succinate [Toprol XL] 25 mg PO DAILY 08/14/16 07/13/17 Apixaban [Eliquis] 2.5 mg PO BID 11/09/16 07/13/17 [id number] CD [Cardizem CD] 240 mg PO DAILY 11/09/16 07/13/17 Furosemide [Lasix] 40 mg PO BID 07/13/17 07/13/17 Magnesium Oxide [Magnesium] 400 mg PO DAILY 07/13/17 07/13/17 Metformin ER [Glucophage XR] 500 mg PO BID 07/13/17 07/13/17 Rosuvastatin Calcium [Crestor] 5 mg PO DAILY 07/13/17 07/13/17 traMADol [Ultram] 50 mg PO TID 07/13/17 07/13/17 Review of Systems - Physician Review All systems were reviewed & negative as marked: Yes - Review of Systems Constitutional: Normal. absent: Fevers Eyes: Normal ENT: Normal Respiratory: Normal. absent: SOB, Cough Cardiovascular: Chest Pain Gastrointestinal: Normal. absent: Abdominal Pain, Nausea, Vomiting Genitourinary Female: Normal. absent: Dysuria, Frequency, Hematuria, Urine Output Changes, Vaginal Discharge Musculoskeletal: Arthralgias (+bilateral knee pain). absent: Neck Pain Skin: Normal Neurological: Headache Endocrine: Normal Hemo/Lymphatic: Normal Psychiatric: Normal <Felicita Loja - Last Filed: 07/13/17 02:06> Physical Exam Vital Signs Reviewed: Yes Temperature: Afebrile Blood Pressure: Normal Pulse: Regular Respiratory Rate: Normal Appearance: Positive for: Well-Appearing, Non-Toxic, Comfortable Pain Distress: None Mental Status: Positive for: Alert and Oriented X 3 - Systems Exam Head: Present: Atraumatic, Normocephalic, Other (Dime-sized skin lesions to forehead with central scab) Pupils: Present: PERRL Extroacular Muscles: Present: EOMI Conjunctiva: Present: Normal Ears: Present: Normal, NORMAL TM, Normal Canal. No: Erythema, TM Bulging, Fluid , TM Perf Mouth: Present: Moist Mucous Membranes Pharnyx: Present: Normal. No: ERYTHEMA, EXUDATE, TONSILS ENLARGED, Peritonsilar Swelling, Uvular Deviation, Muffled/Hoarse Voice, Strider, Soft Palate/Uvular Edema Nose (External): Present: Atraumatic Nose (Internal): Present: Normal Inspection. No: No Active Bleeding, Septal Deviation, Septal Hematoma, Epistaxis Neck: Present: Normal Range of Motion (Full ROM). No: Meningeal Signs, MIDLINE TENDERNESS, Paraspinal Tenderness Respiratory/Chest: Present: Good Air Exchange, Rales, Rhonchi, Tender to Palpation (Ecchymosis to anterior aspect of the chest with tenderness), Other ( No crepitius, no step-offs). No: Clear to Auscultation, Respiratory Distress, Accessory Muscle Use, Wheezes, Tachypneic Cardiovascular: Present: Regular Rate and Rhythm, Normal S1, S2. No: Murmurs Abdomen: Present: Normal Bowel Sounds, Other (Small area of erythema and foul- smelling discharge under the pannus.). No: Tenderness, Distention, Peritoneal Signs Upper Extremity: Present: Normal Inspection. No: Cyanosis, Edema Lower Extremity: Present: NORMAL PULSES, Normal ROM (Full ROM, left greater than right), Neurovascularly Intact, Capillary Refill < 2 s, Other (Ecchymosis to bilateral knees). No: Edema, Tenderness, Swelling, Erythema, Deformity, Temperature Abnormalties Neurological: Present: GCS=15, Speech Normal Skin: Present: Warm, Dry, Normal Color. No: Rashes Psychiatric: Present: Alert, Oriented x 3 <Felicita Loja - Last Filed: 07/13/17 02:06> Vital Signs Temp Pulse Resp BP Pulse Ox 07/13/17 04:00 85 18 123/60 100 07/13/17 00:10 97.6 F 100 H 17 140/89 97 Medical Decision Making <Felicita Loja - Last Filed: 07/13/17 02:06> - Lab Interpretations I have reviewed the lab results: Yes - RAD Interpretation Nuclear Chemistry Technician: ED Physician, Radiologist <Brandt Gonzalez - Last Filed: 07/13/17 05:07> ED Course and Treatment: 07/13/17 02:12 87-year-old female presenting with weakness and fall and anterior chest pain. CBC CMP Troponin BNP Chest x-ray: CAT scan of the head CAT scan of the neck CAT scan of the chest Urinalysis Case signed out to Dr. Gonzalez pending labs/radiologic results and disposition. (Felicita Loja) 07/13/17 02:00 Case endorsed to me by TREVOR Loja, pending labs, imaging studies, and disposition. 07/13/17 04:59 Reviewed radiology, XR Bilateral Knees shows no acute processes. CT Head shows: No acute intracranial hemorrhage, or suspicious mass effect. CT Cervical Spine shows: Degenerative disease, without acute fracture. CT Chest shows:Moderate bilateral pleural effusions, with adjacent compressive atelectasis (unchanged from 05/18/2017) without significant intrathoracic injury, as detailed above (Brandt Gonzalez) - Lab Interpretations Lab Results: 07/13/17 01:50 07/13/17 03:45 Lab Results 07/13/17 03:45: Sodium 138, Potassium 5.0, Chloride 100, Carbon Dioxide 28, Anion Gap 15, BUN 31 H, Creatinine 1.4, Est GFR ( Amer) 43, Est GFR (Non- Af Amer) 35, Random Glucose 206 H, Calcium 8.9, Total Bilirubin 1.4 H, AST 30, ALT 29, Alkaline Phosphatase 208 H, Lactate Dehydrogenase 506, Total Creatine Kinase 30 L, Troponin I < 0.01, NT-Pro-B Natriuret Pep 5620 H, Total Protein 6.4 , Albumin 3.4, Globulin 3.0, Albumin/Globulin Ratio 1.1, Lipase 72 07/13/17 02:49: Urine Color Yellow, Urine Appearance Sl cloudy, Urine pH 6.5, Ur Specific [place] 1.020, Urine Protein 30 H, Urine Glucose (UA) Negative, Urine Ketones Negative, Urine Blood Small H, Urine Nitrate Negative, Urine Bilirubin Negative, Urine Urobilinogen 0.2, Ur Leukocyte Esterase Moderate H, Urine RBC 0 - 2, Urine WBC 10 - 15, Ur Epithelial Cells 3 - 4, Urine Bacteria Many 07/13/17 01:50: WBC 8.9, RBC 4.94, Hgb 10.7 L, Hct 35.4 L, MCV 71.7 L, MCH 21.7 L, MCHC 30.2 L, RDW 19.5 H, Plt Count 300, MPV 9.4, Gran % 70.8 H, Lymph % (Auto ) 17.1 L, [place] % (Auto) 11.0 H, Eos % (Auto) 0.4 L, Baso % (Auto) 0.7, Gran # 6.32, Lymph # 1.5, [place] # 1.0 H, Eos # 0.0, Baso # 0.06 - RAD Interpretation Narrative RAD Interpretations (Text): CT Head shows: Brain: No acute intracranial hemorrhage. Age-appropriate periventricular white matter disease. No edema. Ventricles: Age-appropriate ventriculomegaly. Bones: No acute displaced fracture. Sinuses: Unremarkable as visualized. No acute sinusitis. Mastoid air cells: Unremarkable as visualized. No mastoid effusion. IMPRESSION: No acute intracranial hemorrhage, or suspicious mass effect. CT Cervical Spine shows: Vertebrae: No acute fracture. Alignment: Preservation of the curvature of the cervical spine. Discs/spinal canal/neural foramina: No acute findings. Severe degenerative disease is identified, with osteophyte formation, disc space narrowing, endplate changes and vacuum phenomenon. Facet arthropathy is also noted. Thickening of the transverse ligament is suspected with accompanying synovial hypertrophy. Soft tissues: Symmetric Lung apices: The visualized lung apices are clear. IMPRESSION: Degenerative disease, without acute fracture. CT Chest shows: Lungs: No mass. No consolidation. Moderate bilateral pleural effusions, with adjacent compressive atelectasis (unchanged from 05/18/2017). Pleural spaces: As above. No pneumothorax or hemothorax. Heart: No cardiomegaly. No significant pericardial effusion. Vasculature: The great vessels are intact. No aneurysmal dilatation of the thoracic aorta. Moderate calcified atherosclerotic disease. Lymph nodes: Scattered lymph nodes within the mediastinum and supraclavicular region, all nonpathologically enlarged, a nonspecific finding. Bones: No acute fractures within either the sternum, ribs or thoracic vertebral bodies. No scapular or clavicular fractures are noted. IMPRESSION: Moderate bilateral pleural effusions, with adjacent compressive atelectasis ( unchanged from 05/18/2017) without significant intrathoracic injury, as detailed above (Brandt Gonzalez) Radiology Orders: 07/13/17 00:58 CERVICAL SPINE W/O CONTRAST [CT] Stat HEAD W/O CONTRAST [CT] Stat CHEST PORTABLE [RAD] Stat 07/13/17 00:59 CHEST W/O CONTRAST [CT] Stat 07/13/17 01:17 KNEES BILATERAL [RAD] Stat - Medication Orders Current Medication Orders: Discontinued Medications Acetaminophen (Tylenol 325mg Tab) 650 mg PO STAT STA Stop: 07/13/17 01:01 Last Admin: 07/13/17 01:31 Dose: 650 mg MAR Pain/Vitals Document 07/13/17 01:31 NAGI (Rec: 07/13/17 01:31 NAGI [id number]) Pain Reassessment Is This A Pain ReAssessment? Yes Sleep Is patient sleeping during reassessment? No Presence of Pain Presence of Pain Yes Location Pain Location Body [facility] - Scribe Statement The provider has reviewed the documentation as recorded by the Scribe <Felicita Loja - Last Filed: 07/13/17 02:06> - PA / PORTABLE SAWYER / Resident Statement / has reviewed & agrees with the documentation as recorded. / has examined the patient and agrees with the treatment plan. <Brandt Gonzalez - Last Filed: 07/13/17 05:07> - Scribe Statement Beulah Galeas All medical record entries made by the Scribe were at my direction and personally dictated by me. I have reviewed the chart and agree that the record accurately reflects my personal performance of the history, physical exam, medical decision making, and the department course for this patient. I have also personally directed, reviewed, and agree with the discharge instructions and disposition. (Felicita Loja) Disposition/Present on Arrival - Present on Arrival Any Indicators Present on Arrival: Yes History of DVT/PE: No History of Uncontrolled Diabetes: Yes Urinary Catheter: No History of Decub. Ulcer: No History Surgical Site Infection Following: None <Feliicta Loja - Last Filed: 07/13/17 02:06> - Present on Arrival Any Indicators Present on Arrival: Yes History of DVT/PE: No History of Uncontrolled Diabetes: Yes Urinary Catheter: No History of Decub. Ulcer: No History Surgical Site Infection Following: None - Disposition Have Diagnosis and Disposition been Completed?: Yes Disposition Time: 05:07 Patient Plan: Observation <LisaBrandt - Last Filed: 07/13/17 05:07> - Disposition Diagnosis: Near syncope, Chest pain Disposition: HOSPITALIZED Condition: STABLE Discharge Instructions (ExitCare): Chest Pain (ED) Referrals: Ghazal Goode MD [Primary Care Provider] - Follow up with primary Forms: [facility] (Vietnamese)
[2017-07-13 02:21] LABS: BASO # 0.06 K/mm3 (0.0-2.0); BASO % 0.7 % (0.0-3.0); EOS % 0.4 % (1.5-5.0); GRAN # 6.32 (1.4-6.5); GRAN % 70.8 % (50.0-68.0); HEMATOCRIT 35.4 % (36.0-48.0); LYMPH # 1.5 (1.2-3.4); LYMPH % 17.1 % (22.0-35.0); MEAN CELL VOLUME 71.7 fl (80.0-105.0); MEAN CORPUSCULAR HEMOGLOBIN 21.7 pg (25.0-35.0); MEAN CORPUSCULAR HGB CONC 30.2 g/dl (31.0-37.0); MEAN PLATELET VOLUME 9.4 fl (7.0-11.0); RED CELL DISTRIBUTION WIDTH 19.5 % (11.5-14.5); WHITE BLOOD COUNT 8.9 10^3/ul (4.5-11.0)
[2017-07-13 02:53] LABS: PH,URINE 6.5 (4.7-8.0); URINE BILIRUBIN NEGATIVE (NEGATIVE); URINE BLOOD SMALL (NEGATIVE); URINE GLUCOSE (UA) NEGATIVE (NEGATIVE); URINE KETONE NEGATIVE (NEGATIVE); URINE LEUKOCYTE ESTERASE MODERATE Leu/uL (NEGATIVE); URINE PROTEIN 30 mg/dL (<30 mg/dL); URINE UROBILINOGEN 0.2 E.U./dL (<1 E.U./dL)
[2017-07-13 02:56] LABS: URINE APPEARANCE SL CLOUDY (CLEAR); URINE COLOR YELLOW (YELLOW)
[2017-07-13 03:27] LABS: URINE BACTERIA MANY (NEG); URINE RBC 0 - 2 /hpf (0-2)
[2017-07-13 04:00] LABS: ALB/GLOB RATIO 1.1 (1.1-1.8); ALKALINE PHOSPHATASE 208 U/L (38-126); ALT/SGPT 29 U/L (7-56); AST/SGOT 30 U/L (14-36); BILIRUBIN,TOTAL 1.4 mg/dL (0.2-1.3); BLOOD UREA NITROGEN 31 mg/dL (7-21); CALCIUM 8.9 mg/dL (8.4-10.5); CARBON DIOXIDE 28 mmol/L (21-33); CHLORIDE 100 mmol/L (98-107); GFR AFRICAN-AMERICAN 43; GLUCOSE,RANDOM 206 mg/dL (70-110); LIPASE 72 U/L (23-300); SODIUM 138 mmol/L (132-148); TOTAL PROTEIN 6.4 g/dL (5.8-8.3)
--- NOTE | 2017-07-13 04:34 | CT ---
EXAM: CT Head Without Intravenous Contrast CLINICAL HISTORY: 87 years old, female; Pain; Headache TECHNIQUE: Axial computed tomography images of the head/brain without intravenous contrast. All CT scans at this facility use one or more dose reduction techniques, viz.: automated exposure control; ma/kV adjustment per patient size (including targeted exams where dose is matched to indication; i.e. head); or iterative reconstruction technique. COMPARISON: CT - HEAD W/O CONTRAST 05/18/2017 6:45:02 PM FINDINGS: Brain: No acute intracranial hemorrhage. Age-appropriate periventricular white matter disease. No edema. Ventricles: Age-appropriate ventriculomegaly. Bones: No acute displaced fracture. Sinuses: Unremarkable as visualized. No acute sinusitis. Mastoid air cells: Unremarkable as visualized. No mastoid effusion. IMPRESSION: No acute intracranial hemorrhage, or suspicious mass effect.
[2017-07-13 04:36] LABS: TROPONIN I < 0.01 ng/mL
--- NOTE | 2017-07-13 04:39 | CT ---
EXAM: CT Cervical Spine Without Intravenous Contrast CLINICAL HISTORY: 87 years old, female; Pain; Neck pain TECHNIQUE: Axial computed tomography images of the cervical spine without intravenous contrast. All CT scans at this facility use one or more dose reduction techniques, viz.: automated exposure control; ma/kV adjustment per patient size (including targeted exams where dose is matched to indication; i.e. head); or iterative reconstruction technique. Coronal and sagittal reformatted images were created and reviewed. COMPARISON: CR - CERVICAL SPINE >18YR W/OBLIQUE 08/14/2016 2:37:30 PM FINDINGS: Vertebrae: No acute fracture. Alignment: Preservation of the curvature of the cervical spine. Discs/spinal canal/neural foramina: No acute findings. Severe degenerative disease is identified, with osteophyte formation, disc space narrowing, endplate changes and vacuum phenomenon. Facet arthropathy is also noted. Thickening of the transverse ligament is suspected with accompanying synovial hypertrophy. Soft tissues: Symmetric Lung apices: The visualized lung apices are clear. IMPRESSION: Degenerative disease, without acute fracture.
--- NOTE | 2017-07-13 04:53 | CT ---
EXAM: CT Chest Without Intravenous Contrast CLINICAL HISTORY: 87 years old, female; Pain; Chest pain; Additional info: Fall/ hit chest/pain TECHNIQUE: Axial computed tomography images of the chest without intravenous contrast. All CT scans at this facility use one or more dose reduction techniques, viz.: automated exposure control; ma/kV adjustment per patient size (including targeted exams where dose is matched to indication; i.e. head); or iterative reconstruction technique. MIP reconstructed images were created and reviewed. Coronal and sagittal reformatted images were created and reviewed. COMPARISON: CT - CHEST W/O CONTRAST 05/18/2017 10:20:14 PM FINDINGS: Lungs: No mass. No consolidation. Moderate bilateral pleural effusions, with adjacent compressive atelectasis (unchanged from 05/18/2017). Pleural spaces: As above. No pneumothorax or hemothorax. Heart: No cardiomegaly. No significant pericardial effusion. Vasculature: The great vessels are intact. No aneurysmal dilatation of the thoracic aorta. Moderate calcified atherosclerotic disease. Lymph nodes: Scattered lymph nodes within the mediastinum and supraclavicular region, all non-pathologically enlarged, a nonspecific finding. Bones: No acute fractures within either the sternum, ribs or thoracic vertebral bodies. No scapular or clavicular fractures are noted. IMPRESSION: Moderate bilateral pleural effusions, with adjacent compressive atelectasis (unchanged from 05/18/2017) without significant intrathoracic injury, as detailed above
--- NOTE | 2017-07-13 10:08 | RAD ---
PROCEDURE: Bilateral Knee Radiographs. HISTORY: fall COMPARISON: None. FINDINGS: BONES: Right Knee: No fracture Left Knee: No fracture JOINTS: Right Knee: Moderate osteoarthritis. Left knee: Moderate osteoarthritis. SOFT TISSUES: Right Knee: Diffuse reticulated subcutaneous edema. Diffuse vascular calcification Left Knee: Similar to right knee JOINT EFFUSION: Right Knee: None. Left Knee: Small OTHER FINDINGS: Generalized osteopenia IMPRESSION: No fracture or dislocation. Generalized osteopenia Bilateral osteoarthrosis medial femoral tibial compartments most notable -true lateral images not available. Left joint effusion Diffuse subcutaneous edema -diffuse lymphedema inferred. Bilateral findings
--- NOTE | 2017-07-13 13:04 | RAD ---
HISTORY: chest pain/fall/weakness COMPARISON: 05/21/2017 FINDINGS: LUNGS: Shallow lung volumes more so than before. Bibasilar consolidation left greater than right. Infiltrates and/or compressive atelectasis with bilateral pleural effusions consistent with this. Consolidation is increased. . Bibasilar increased the pleural effusions also suspect PLEURA: As above. No pneumothorax left perihilar cystic emphysematous like changes noted. Background interstitial lung disease and/or interstitial pulmonary edema. Interstitial increased pulmonary edema suspect CARDIOVASCULAR: Cardiomegaly -similar OSSEOUS STRUCTURES: Dextroscoliosis and thoracic spondylosis. Generalized osteopenia. VISUALIZED UPPER ABDOMEN: Normal. OTHER FINDINGS: None. IMPRESSION: Bibasilar consolidations minimal right lung base moderate left lung base. Infiltrates with or without atelectasis consistent with this. Additional underlying pathology not excluded. Interval increased bilateral pleural effusions minimal on the right mild moderate on the left. The cardiomegaly. Probable chronic interstitial pulmonary edema -changes have increased.
[2017-07-13] MEDS ORDERED: Non Formulary Medication (Rosuvastatin Calcium [Crestor] 5 MG) PO SCH (14:00)
[2017-07-13] MEDS: Metoprolol Succinate 25 mg XL Tab PO SCH (15:30)
[2017-07-13] MEDS: Magnesium Oxide 400 mg Tab UD PO SCH (18:27)
[2017-07-13] MEDS: Levalbuterol 1.25 MG/3 ML Inhal Soln UD IH SCH (19:15)
--- NOTE | 2017-07-13 23:15 | CARD ---
APPROVED REPORT EKG Measurement Heart [id number] <Conclusion> Atrial fibrillation Left axis deviation Pulmonary disease pattern Septal infarct, age undetermined Abnormal ECG
[2017-07-14] MEDS: Levalbuterol 1.25 MG/3 ML Inhal Soln UD IH SCH ×4 (01:23→19:33)
--- NOTE | 2017-07-14 03:17 | HP ---
HISTORY OF PRESENT ILLNESS: The patient is an 87 years old known to me from multiple previous admission. According to daughter, she was trying to get out of bed to go to the bathroom, she fell, she stayed on bed where she was able to drag the phone and call her daughter, who came to see her, but was unable to get her up, she was so weak, she called her son, I mean the patient's grandson. They came and picked her up, but she was complaining of chest pain, so they called ambulance and she was brought to the emergency room, did complain of feeling very weak and dizzy. The patient recently saw me in office 2 weeks ago, she was found to be hypotensive. I cut down her BP medications to have. She was on telmisartan 40 mg daily that was discontinued. She is on Cardizem and her metoprolol was also on 25 twice a day that was reduced to once a day. So the patient denies any fever or chills. No complain of headache. No cough. She does complain of poor appetite. She has not been eating that well. PAST MEDICAL HISTORY: Significant for; 1. Coronary artery disease status post angioplasty. 2. Congestive heart failure. 3. Pleural effusion status post recent thoracentesis. 4. Hyperlipidemia. 5. Non-insulin dependant diabetes. 6. Chronic kidney disease. ALLERGIES: SHE IS NOT ALLERGIC TO ANY MEDICATION. MEDICATION AT HOME: She is on: 1. Magnesium 400 daily. 2. Lasix 40 twice a day. 3. Tramadol 50 mg three times a day. 4. Crestor 5 mg daily. 5. Metformin 500 mg twice a day. 6. Glimepiride 2 mg twice a day. 7. Eliquis 2.5 twice a day. 8. Metoprolol 25 daily. 9. Xopenex. 10. Diltiazem 240 daily. 11. Januvia 25 daily. 12. Remeron 50 mg at bedtime. SOCIAL HISTORY: Denies smoking, drinking alcohol use, she lives in senior citizen building and she lives by herself. PHYSICAL EXAMINATION GENERAL: She looks weak; however, she is awake, alert, communicative. VITAL SIGNS: She is afebrile, pulse 70, respirations 18, blood pressure 140/72. LUNGS: Bilateral fair air flow. No rhonchi or crackles. Decreased breath sounds at bases. HEART: S1 and S2 audible. ABDOMEN: Soft and nontender. No rebound. No guarding. NEUROLOGIC: The patient is awake and alert. She movies all extremities. Bilateral leg +2 edema with slight erythema. LABORATORY DATA: WBC is 8.9, hemoglobin 10.7, hematocrit 35.4, and platelets of 300. Chemistry; sodium 138, potassium 5.0, chloride 100, CO2 of 28, BUN 31, creatinine 1.4, and blood sugar of 333. Alkaline phosphatase of 205, BNP 5620. Urine shows moderate leukocyte with 10 to 15 WBCs. X-ray of the knee, no fracture, bilateral osteoarthritis. Medial femoral tibial compartment most notable left joint effusion. CT scan of the chest was done that shows moderate bilateral pleural effusion with adjacent compressive atelectasis and CT scan of the head is unremarkable. Cervical spine CT negative for fracture; however, she has extensive degenerative disk disease. ASSESSMENT: 1. Status post fall. 2. Probably noncardiac chest pain. 3. Congestive heart failure. 4. Bilateral pleural effusion. 5. Increasing lethargy. 6. Hypertension. 7. Non-insulin dependant diabetes. PLAN: We will admit the patient and give her analgesic as needed. I will request Dr. Chavez Savage to evaluate if the patient is a candidate for thoracentesis. Her daughter says she is getting increasingly short of breath. I will increase her Lasix to twice a day, monitor her blood work. Out of bed to chair with physical therapy evaluation. Ghazal Goode MD
[2017-07-14 08:13] LABS: CALCIUM 8.5 mg/dL (8.4-10.5); POTASSIUM 3.7 mmol/L (3.6-5.0); TOTAL PROTEIN 5.6 g/dL (5.8-8.3)
[2017-07-14] MEDS: Metoprolol Succinate 25 mg XL Tab PO SCH (10:38)
[2017-07-14] MEDS: Magnesium Oxide 400 mg Tab UD PO SCH (10:38)
[2017-07-14] MEDS: POLYETHYLENE GLYCOL 3350 17 GM/Dose PACKET PO SCH (10:41)
[2017-07-14] MEDS: cefTRIAXone 1 gm 1 GM/100 ML BAG IVPB SCH (18:18)
--- NOTE | 2017-07-14 18:19 | US ---
PROCEDURE: Ultrasound guided right thoracentesis. CLINICAL HISTORY: Shortness of breath. Recurrent bilateral pleural effusions, likely related to CHF. Needs repeat right thoracentesis. PHYSICIAN(S): Chavez Savage MD. TECHNIQUE: The relative risks and indications of the procedure were explained to the patient and consent obtained. The patient was placed in a sitting position on the stretcher and sonography of the chest performed. This revealed a small right pleural effusion and a very small left pleural effusion. A right posterolateral intercostal approach was selected and the area prepped and draped usual sterile fashion. 1% Xylocaine was used to anesthetize the skin and soft tissues. A 7 [place] thoracentesis catheter was trocared into the right pleural cavity and 650 ccof jaspreet fluid aspirated. No labs were sent. IMPRESSION: 1. Ultrasound guided right thoracentesis. 650 cc of amberfluid were aspirated.
--- NOTE | 2017-07-14 18:54 | PN ---
DATE: SUBJECTIVE: The patient is 87-year-old, seen and examined, still feels very weak, lethargic, and unable to get out of bed, has no energy, feels dizzy. Complains of shortness of breath on minimal walking. PHYSICAL EXAMINATION VITAL SIGNS: He is afebrile, pulse 79, respirations 18, blood pressure 125/74. CARDIOPULMONARY: S1 and S2 audible. Irregular rate, controlled. LUNGS: Bilateral diffuse breath sounds. ABDOMEN: Soft and nontender. No rebound, no guarding. NEUROLOGIC: She is awake and alert, able to communicate. EXTREMITIES: Bilateral leg; she has edema despite erythema of both shins. LABORATORY DATA: Her sodium 142, potassium 3.7, chloride 104, CO2 of 30, BUN 25, creatinine 1.1, blood sugar of 316. Urine culture positive for gram-positive cocci. CT scan of the chest shows bilateral pleural effusion. ASSESSMENT AND PLAN: 1. Generalized weakness, acute on chronic systolic dysfunction and congestive heart failure. 2. Bilateral edema and cellulitis. 3. Bilateral pleural effusion. 4. Urinary tract infection. 5. Mild nutrition with poor oral intake. 6. Status post syncope. 7. Known insulin-dependent diabetes. 8. Chronic atrial fibrillation. PLAN: The patient is too weak to be discharged. She lives by herself. She is a high risk to fall at home. I will request for cardiology input to assess if she is a candidate for milrinone drip. She will be admitted and she will be a candidate for subacute rehab and PCU. Monitor her electrolyte. I will request podiatry consult by Dr. Dominguez. We will follow up on her blood sugar and electrolyte closely. Ghazal Goode MD
[2017-07-15] MEDS: Levalbuterol 1.25 MG/3 ML Inhal Soln UD IH SCH ×4 (01:19→20:05)
[2017-07-15 06:18] LABS: BASO # 0.03 K/mm3 (0.0-2.0); BASO % 0.4 % (0.0-3.0); EOS # 0.1 (0.0-0.7); EOS % 0.9 % (1.5-5.0); GRAN # 4.43 (1.4-6.5); GRAN % 57.7 % (50.0-68.0); HEMATOCRIT 32.3 % (36.0-48.0); LYMPH % 26.2 % (22.0-35.0); MEAN CELL VOLUME 72.3 fl (80.0-105.0); MEAN CORPUSCULAR HEMOGLOBIN 21.9 pg (25.0-35.0); MEAN CORPUSCULAR HGB CONC 30.3 g/dl (31.0-37.0); MEAN PLATELET VOLUME 9.3 fl (7.0-11.0); MONO # 1.1 (0.1-0.6); MONO % 14.8 % (1.0-6.0); RED CELL DISTRIBUTION WIDTH 19.7 % (11.5-14.5); WHITE BLOOD COUNT 7.7 10^3/ul (4.5-11.0)
[2017-07-15 06:44] LABS: ALB/GLOB RATIO 0.9 (1.1-1.8); BILIRUBIN,TOTAL 0.8 mg/dL (0.2-1.3); CALCIUM 8.3 mg/dL (8.4-10.5); TOTAL PROTEIN 5.6 g/dL (5.8-8.3)
[2017-07-15] MEDS: cefTRIAXone 1 gm 1 GM/100 ML BAG IVPB SCH (10:33)
[2017-07-15] MEDS: POLYETHYLENE GLYCOL 3350 17 GM/Dose PACKET PO SCH (10:33)
[2017-07-15] MEDS: Magnesium Oxide 400 mg Tab UD PO SCH (10:33)
[2017-07-15] MEDS: Metoprolol Succinate 25 mg XL Tab PO SCH (10:33)
--- NOTE | 2017-07-15 11:06 | RAD ---
HISTORY: rt thoracentesis COMPARISON: 07/13/2017 TECHNIQUE: Chest PA and lateral FINDINGS: LUNGS: There is mild pulmonary venous congestion. There is right basilar atelectasis. There is a retrocardiac opacity. PLEURA: Small right and moderate left pleural effusions. No pneumothorax. CARDIOVASCULAR: Normal. OSSEOUS STRUCTURES: Within normal limits for the patient's age. VISUALIZED UPPER ABDOMEN: Normal. OTHER FINDINGS: None. IMPRESSION: Small right and moderate left pleural effusions. Underlying left lower lobe atelectasis/pneumonia cannot be excluded. No pneumothorax.
--- NOTE | 2017-07-15 14:31 | CON ---
DATE: HISTORY OF PRESENT ILLNESS: An 87-year-old female seen at bedside with chief complaint of painful left foot. The patient states that she sustained a fall approximately 3 days ago and went to the emergency room. She is status post thoracentesis yesterday. PAST MEDICAL HISTORY: Significant for insulin dependant diabetes with peripheral neuropathy, bilateral lower extremity edema, chronic systolic dysfunction, congestive heart failure, and atrial fibrillation. ALLERGIES: THE PATIENT HAS NO DRUG ALLERGIES. MEDICATIONS: Active medications include Lasix, Ultram, Crestor, Glucophage, Amaryl, Eliquis, Toprol, magnesium oxide, Cardizem, Januvia, MiraLax, Remeron, and albuterol. PHYSICAL EXAMINATION VITAL SIGNS: Reveal a temperature of 97.5, pulse rate of 110, blood pressure 112/75, and respiratory rate of 20. EXTREMITIES: Nonpalpable pedal pulses noted bilaterally. Absent pedal hair growth noted bilaterally. Lower extremity skin presents thin, shining, discolored bilaterally. There was noted to be edema and erythema in the left foot. There is pain upon palpation at the ankle joint and along the mid tarsal joint. The patient is able to bear weight, but with pain. There are no open lesions noted. There are no signs of acute bacterial infection or cellulitis. LABORATORY DATA: Laboratory findings reveal white count of 7.7, hemoglobin of 9.8, hematocrit of 32.3, and platelet count of 274. RADIOLOGIC DATA: Bilateral knee x-rays reveal diffuse subcutaneous edema with the left joint effusion. ASSESSMENT: Rule out left mid tarsal joint dislocation, left foot pain most likely due to bone contusions. PLAN: The patient was examined. The patient was told that since there is minimal edema and no ecchymosis, the possibility of fracture is low; however, we will order an x-ray to rule out any dislocation or possible hernan fracture that may be present. The patient and her daughter were told that her pain is more than likely from sprain from falling or possible bone contusion. The patient is requesting that her nails be excisionally debrided, which we will do today or tomorrow morning. We will await x-ray reports and follow daily. Sim Bhardwaj DPM
[2017-07-15] MEDS ORDERED: DAPTOmycin 500 mg Inj (Cubicin) IV ONE (15:15)
--- NOTE | 2017-07-15 15:23 | CP.PCM.CON ---
History of Present Illness - History of Present Illness History of Present Illness: 87 year old female with PMH of chronic CHF, CAD S/P PCI, HTN, chronic renal failure, DM, S/P cholecystectomy was brought in to [facility] because of the patient sustaining a fall from bed. She landed on her chest and she could not get up for about an hour. She denies losing consciousness. For the past couple of days prior to admission, the patient was having shortness of breath especially with exertion, but no cough, no fever or chills, no nausea or vomiting, no headache. She also denies diarrhea, no hematuria, has some urinary frequency but no burning sensation on urination. CT chest was done which showed pleural effusions with compressive atelectasis and thoracentesis was done. Initial work up included urine cx which are now showing VRE. Infectious Diseases consult is requested to further evaluate and manage. Review of Systems - Review of Systems All systems: reviewed and no additional remarkable complaints except (as per HPI ) Past Patient History - Infectious Disease Hx of Infectious Diseases: None - Past Social History Smoking Status: Never Smoked - CARDIAC Hx Cardiac Disorders: Yes Hx Congestive Heart Failure: Yes Hx Hypertension: Yes - PULMONARY Hx Pneumonia: Yes - NEUROLOGICAL Hx Neurological Disorder: No - HEENT Hx HEENT Problems: No (eyeglasses) - RENAL Hx Renal Failure: Yes (CKD) - ENDOCRINE/METABOLIC Hx Diabetes Mellitus Type 2: Yes - HEMATOLOGICAL/ONCOLOGICAL Hx Blood Disorders: No - INTEGUMENTARY Hx Dermatological Problems: Yes Other/Comment: paper thin skin - MUSCULOSKELETAL/RHEUMATOLOGICAL Hx Falls: Yes - GASTROINTESTINAL Hx Gastrointestinal Disorders: No - GENITOURINARY/GYNECOLOGICAL Hx Genitourinary Disorders: No - PSYCHIATRIC Hx Psychophysiologic Disorder: No - SURGICAL HISTORY Hx Cholecystectomy: Yes Hx Coronary Stent: Yes - ANESTHESIA Hx Anesthesia: No Hx Anesthesia Reactions: No Hx Malignant Hyperthermia: No Meds Allergies/Adverse Reactions: Allergies Allergy/AdvReac Type Severity Reaction Status Date / Time No Known Allergies Allergy Verified 07/13/17 00:21 - Medications Medications: Current Medications Apixaban (Eliquis) 2.5 mg PO BID [facility] PRN Reason: Protocol Last Admin: 07/15/17 10:33 Dose: 2.5 mg Aspirin (Aspirin Chewable) 81 mg PO DAILY [facility] Last Admin: 07/15/17 10:33 Dose: 81 mg Atorvastatin Calcium (Lipitor) 20 mg PO DIN [facility] Last Admin: 07/14/17 17:27 Dose: 20 mg Furosemide (Lasix) 40 mg IVP BID [facility] Last Admin: 07/15/17 10:36 Dose: 40 mg Glimepiride (Amaryl) 2 mg PO ACBD [facility] Last Admin: 07/15/17 10:33 Dose: Not Given Levalbuterol HCl (Xopenex) 1.25 mg IH A4ERPCS [facility] Last Admin: 07/15/17 07:31 Dose: 1.25 mg Magnesium Oxide (Mag-Ox) 400 mg PO DAILY [facility] Last Admin: 07/15/17 10:33 Dose: 400 mg Metformin HCl (Glucophage Xr) 500 mg PO BID [facility] Last Admin: 07/15/17 10:33 Dose: Not Given Metoprolol Succinate (Toprol Xl) 25 mg PO DAILY [facility] Last Admin: 07/15/17 10:33 Dose: 25 mg Mirtazapine (Remeron) 15 mg PO HS [facility] Last Admin: 07/14/17 21:09 Dose: Not Given Polyethylene Glycol (Miralax) 17 gm PO DAILY [facility] Last Admin: 07/15/17 10:33 Dose: 17 gm Sitagliptin Phosphate (Januvia) 25 mg PO DAILY [facility] Last Admin: 07/15/17 10:33 Dose: Not Given Tramadol HCl (Ultram) 50 mg PO TID [facility] Last Admin: 07/15/17 10:34 Dose: 50 mg Physical Exam - Constitutional Appears: Non-toxic, No Acute Distress - Head Exam Head Exam: NORMAL INSPECTION - Neck Exam Neck exam: Negative for: Meningismus - Respiratory Exam Respiratory Exam: Decreased Breath Sounds - Cardiovascular Exam Cardiovascular Exam: +S1, +S2 - GI/Abdominal Exam GI & Abdominal Exam: Soft. absent: Tenderness Results - Vital Signs Recent Vital Signs: Last Vital Signs Temp 97.5 F L 07/15/17 06:00 Pulse 110 H 07/15/17 06:00 Resp 20 07/15/17 06:00 BP 109/66 07/15/17 10:36 Pulse Ox 98 07/14/17 05:40 - Labs Result Diagrams: 07/15/17 06:13 07/15/17 06:10 Labs: Laboratory Results - last 24 hr 07/14/17 07/14/17 07/15/17 16:07 21:15 06:10 WBC RBC Hgb Hct MCV MCH MCHC RDW Plt Count MPV Gran % Lymph % (Auto) [place]cock % (Auto) Eos % (Auto) Baso % (Auto) Gran # Lymph # Glasscock # Eos # Baso # Sodium 142 Potassium 4.0 Chloride 102 Carbon Dioxide 30 Anion Gap 14 BUN 26 H Creatinine 1.2 Est GFR ( Amer) 51 Est GFR (Non-Af Amer) 42 POC Glucose (mg/dL) 316 H 297 H Random Glucose 114 H Calcium 8.3 L Total Bilirubin 0.8 AST 23 ALT 21 Alkaline Phosphatase 127 H Total Protein 5.6 L Albumin 2.7 L Globulin 2.9 Albumin/Globulin Ratio 0.9 L 07/15/17 07/15/17 06:13 07:14 WBC 7.7 RBC 4.47 Hgb 9.8 L Hct 32.3 L MCV 72.3 L MCH 21.9 L MCHC 30.3 L RDW 19.7 H Plt Count 274 MPV 9.3 Gran % 57.7 Lymph % (Auto) 26.2 Glasscock % (Auto) 14.8 H Eos % (Auto) 0.9 L Baso % (Auto) 0.4 Gran # 4.43 Lymph # 2.0 Glasscock # 1.1 H Eos # 0.1 Baso # 0.03 Sodium Potassium Chloride Carbon Dioxide Anion Gap BUN Creatinine Est GFR ( Amer) Est GFR (Non-Af Amer) POC Glucose (mg/dL) 68 Random Glucose Calcium Total Bilirubin AST ALT Alkaline Phosphatase Total Protein Albumin Globulin Albumin/Globulin Ratio Assessment & Plan - Assessment and Plan (Free Text) Plan: Assessment R/O UTI with Vancomycin-resistant Enterococcus chronic CHF with bilateral pleural effusions S/P thoracentesis left foot pain probably from trauma CAD S/P PCI HTN chronic renal failure DM S/P cholecystectomy Plan Will repeat urinalysis and urine cx; will give a dose of IV Daptomycin after cultures have been obtained reviewed CT chest which showed pleural effusions with compressive atelectasis follow up xray of the left foot will monitor clinically
--- NOTE | 2017-07-15 15:31 | PN ---
DATE: SUBJECTIVE: The patient is an 87-year-old. Seen and examined sitting in chair complaining of generalized weakness. According to daughter, she was confused yesterday, but seems to be doing well today. No complain of nausea and no vomiting. Has poor oral intake. PHYSICAL EXAMINATION: VITAL SIGNS: She is afebrile, pulse 110, respirations 20, and blood pressure 109/66. LUNGS: Bilateral fair airflow, decreased at bases. HEART: S1 and S2 audible. ABDOMEN: Soft and nontender. No rebound. No guarding. NEUROLOGIC: The patient is awake and alert. EXTREMITIES: Bilateral leg +1 edema with slight erythema that has improved as compared to yesterday. LABORATORY DATA: WBC 7.7, hemoglobin 9.8, hematocrit 32.3, and platelets 274. Chemistry; sodium 142, potassium 4.0, chloride 102, CO2 30, BUN 26, creatinine 1.2, blood sugar of 60, and random blood sugar 114. Her urine has vancomycin resistant Enterococcus faecium. ASSESSMENT: 1. Pleural effusion, status post thoracentesis. 2. Congestive heart failure. 3. Status post syncope. 4. Generalized weakness. 5. Malnutrition with poor oral intake. 6. Vancomycin resistant Enterococcus faecium. 7. Chronic atrial fibrillation. PLAN: We will continue the patient on current medications, awaiting Cardiology input. TCU evaluation has requested, if this patient is accepted, she can be transferred to TCU. Ghazal Goode MD
--- NOTE | 2017-07-15 15:42 | RAD ---
PROCEDURE: Left Foot Radiographs. HISTORY: foot pain and swelling COMPARISON: None. FINDINGS: BONES: There is irregularity and indistinct cortical margin of the anterior tibia on lateral projection There is diffuse bone demineralization. There is no acute displaced fracture. Bone alignment is normal. There is a prominent plantar calcaneal spur. JOINTS: Normal. SOFT TISSUES: There is diffuse dorsal soft tissue swelling. OTHER FINDINGS: Atherosclerotic vascular calcifications are present. IMPRESSION: Irregularity and indistinct cortical margin of the anterior tibia on lateral projection. A dedicated MRI of the foot is recommended for further. Diffuse dorsal soft tissue swelling could represent cellulitis.
[2017-07-16] MEDS: Levalbuterol 1.25 MG/3 ML Inhal Soln UD IH SCH ×4 (02:45→19:32)
--- NOTE | 2017-07-16 04:08 | CON ---
DATE: 07/15/2017 REQUESTING PHYSICIAN: Dr. Goode. REASON FOR CONSULTATION: Dyspnea, pleural effusions. HISTORY OF PRESENT ILLNESS: This is an 87-year-old woman known to me from office followup and prior hospitalizations, who presented with worsening dyspnea. She was weak and fell at home. She had recently been seen in office and her medications were reduced. She states that her dyspnea has worsened over the past several weeks. She denies any chest pain. She does have known coronary artery disease and septal myocardial infarction a number of years ago and underwent PCI for her RCA at that time. She also had paroxysmal atrial fibrillation. She has had pleural effusions in the past and underwent thoracentesis several months ago. She does have known pulmonary hypertension, however, has preserved LV systolic function. She has some degree of mitral and tricuspid regurgitation. PAST MEDICAL HISTORY: Her past history is notable for hypertension, non-insulin diabetes mellitus, hypothyroidism, spinal stenosis and herniated discs. CURRENT MEDICATIONS: Include, Amaryl, daptomycin, Eliquis 2.5 mg b.i.d., Glucophage 500 mg b.i.d., Januvia 25 mg daily, Lasix IV 40 IV b.i.d., Lipitor 20 mg daily, MiraLax, Remeron 15 mg at bedtime, Toprol-XL 25 mg daily, Xopenex and Ultram p.r.n. ALLERGIES: HAD REACTION TO SHARRI INHIBITORS IN THE PAST WELL MYALGIAS WITH ZOCOR USE. SOCIAL HISTORY: She does not smoke or drink. FAMILY HISTORY: Both parents are from age related illness. REVIEW OF SYSTEMS: A 10-point review of systems is notable mainly for reduced mobility and arthritic complaints. PHYSICAL EXAMINATION: GENERAL: She is very elderly woman, appears comfortable at rest. She underwent a thoracentesis yesterday with some improvement in her dyspnea. VITAL SIGNS: Her blood pressure 110/66, pulse of 100 and respirations are 16. She is in atrial fibrillation. HEENT: Head normocephalic and atraumatic. NECK: Supple. No JVD is noted. CHEST: Diminished breath sounds noted at the bases. HEART: PMI was displaced laterally with irregularly irregular rhythm with a systolic murmur present at lower left sternal border. ABDOMEN: Soft and nontender with normoactive bowel sounds. EXTREMITIES: Bilateral cellulitic changes with 1+ edema. SKIN: Warm and dry. PSYCHIATRIC: Normal mood and affect. NEUROLOGIC: Alert and oriented x3. No gross motor or sensory deficits appreciable. DIAGNOSTIC DATA: White count 7.7, hemoglobin and hematocrit 9.8 and 32.3 with an MCV of 72 and platelet count of 274,000. Potassium 4.0, BUN and creatinine are 26 and 1.2, glucose is 134, and albumin is 2.7. Electrocardiogram reveals atrial fibrillation with left axis deviation, possible septal infarct pattern with pulmonary disease pattern present. Chest x-ray reveals increased cardiac silhouette with increased vascular markings and bilateral pleural effusions. This is prior to thoracentesis. Repeat chest x-ray has improved. IMPRESSION: 1. Recurrent pleural effusions, etiology uncertain. The patient does not have severe left heart failure or left ventricular dysfunction. She may have some part of diastolic dysfunction given her age. She does have significant pulmonary hypertension, moderate tricuspid and mitral regurgitation, which may contribute to pleural effusion formation. 2. Atrial fibrillation with moderate ventricular response given her normal systolic function, beta shira therapy if tolerated would likely be most beneficial. A question has been raised as to the possible need for milrinone infusion; however, given her preserved left ventricular systolic function, this will likely will provide no benefits. Certainly, controlling her atrial rates as best possible may improve her overall cardiac function to allow her for greater diastolic filling time. 3. Moderate anemia, appears to be microcytic. 4. Rest of problems as noted. RECOMMENDATIONS: Her beta shira therapy dose will be increased as tolerated. Lasix therapy should continue for now. Pleural fluid cytology and analysis will be reviewed. Thank you for the consultation. We will be happy to follow along through her hospital course as needed. Dickson Boone MD
[2017-07-16] MEDS: POLYETHYLENE GLYCOL 3350 17 GM/Dose PACKET PO SCH (09:45)
[2017-07-16] MEDS: Magnesium Oxide 400 mg Tab UD PO SCH (09:45)
--- NOTE | 2017-07-16 09:45 | PN ---
DATE: 07/16/2017 SUBJECTIVE: The patient is seen in room 261, bed 1. The patient is comfortable. No fevers. Uneventful night as per the nurse caring for the patient last night. PHYSICAL EXAMINATION: VITAL SIGNS: Temperature is 98, blood pressure is 119/70, and respiratory rate of 18, and heart rate of 115. HEENT: Unremarkable. NECK: Supple. LUNGS: Decreased breath sounds. HEART: Normal S1 and S2. ABDOMEN: Soft and nontender. LABORATORY DATA: Reveals white count of 7.7, hemoglobin of 9, platelets of 274 and creatinine is 1.2. Urinalysis is noted. Microbiology reveals VRE in the urine. Review of orders reveals the patient to be off of antibiotics. ASSESSMENT AND PLAN: An 87-year-old female with vancomycin resistant enterococci in the urine cultures and chronic congestive heart failure; bilateral pleural effusions, status post thoracentesis; left foot pain probably from trauma; patient with coronary artery disease, status post PCI; hypertension; chronic renal failure; diabetes mellitus; and status post cholecystectomy. We will repeat urinalysis and urine cultures. Given a dose of vancomycin. Urinalysis and urine cultures have been ordered, but not collected. Gonzalo De Leon MD
--- NOTE | 2017-07-16 10:16 | PN ---
DATE: 07/16/2017 SUBJECTIVE: The patient is seen lying in bed on telemetry. She is more comfortable. She states her dyspnea has improved. She remains in atrial fibrillation with rapid ventricular response. CURRENT MEDICATIONS: Include Amaryl 2 mg b.i.d., Eliquis 2.5 mg b.i.d., Glucophage 500 mg b.i.d., Januvia 25 mg daily, Lasix 40 mg IV b.i.d., Lipitor 20 mg daily, Lopressor 25 mg b.i.d., Remeron and Xopenex. OBJECTIVE: GENERAL: She is a very elderly woman, appears comfortable at rest. VITAL SIGNS: Her blood pressure is 110 to 130, in atrial fibrillation, respirations are 16. She is afebrile. NECK: No JVD. CHEST: Diminished breath sounds at the bases. HEART: PMI displaced laterally with a systolic murmur at the low left sternal border and apex. ABDOMEN: Soft, nontender with normoactive bowel sounds. EXTREMITIES: Chronic cellulitic changes with 1+ ankle edema. DIAGNOSTIC DATA: Morning blood work is pending. IMPRESSION: 1. Atrial fibrillation with moderately rapid ventricular response. 2. Recurrent pleural effusions, status post repeat thoracentesis. 3. Moderate anemia. RECOMMENDATIONS: Beta shira dose will be increased as tolerated. If needed, digoxin can be added for heart rate control as well. Pleural fluid cytology will be reviewed once available. Given her preserved LV systolic function, intraoperative therapy will not likely provide any benefit. Close monitoring of anemia is advised. We will be happy to follow along and make further recommendations as appropriate. Dickson Boone MD
[2017-07-16] MEDS ORDERED: diltiaZEM 120 mg/24 Hours CD Cap PO SCH (11:15)
--- NOTE | 2017-07-16 11:36 | PN ---
DATE: SUBJECTIVE: The patient is 87 years old seen and examined, lying in bed, seems to be comfortable. According to daughter, she was less confused, eating fair, has generalized weakness. No energy. Has difficulty getting out of bed to chair. PHYSICAL EXAMINATION: VITAL SIGNS: She is afebrile, pulse 130, respiration 18, blood pressure 111/60. LUNGS: Bilateral fair airflow. No rhonchi or crackle. HEART: S1 and S2 audible. Regular. Rate controlled. ABDOMEN: Soft and nontender. No rebound and no guarding. NEUROLOGIC: She is awake and alert. Able to communicate. EXTREMITIES: Bilateral leg erythema seems to be improving. Leg swelling has improved significantly. ASSESSMENT: 1. Status post fall and syncope. 2. Pleural effusion status post thoracentesis. 3. Acute on chronic congestive heart failure systolic. 4. Hypertension. 5. Deconditioning and difficulty walking. 6. Vancomycin-resistant enterococcal urinary tract infection. PLAN: I will add small dose of Diltiazem. Monitor blood pressure closely. Continue her on metoprolol. Continue her on Eliquis. TCU evaluation has been requested and once the patient is accepted can be transferred to TCU. Ghazal Goode MD
--- NOTE | 2017-07-16 14:16 | PN ---
SUBJECTIVE: An 87-year-old female seen at bedside with her daughter present for painful left foot followup. The patient states that her foot is feeling better. She went for her x-ray yesterday and is now able to walk with much less pain than previously. PAST MEDICAL HISTORY: Significant for bilateral lower extremity edema, insulin-dependent diabetes with peripheral neuropathy, congestive heart failure, chronic systolic dysfunction, anemia, and atrial fibrillation. ALLERGIES: THE PATIENT HAS NO KNOWN DRUG ALLERGIES. X-rays taken yesterday reveal no radiographic evidence of fracture, tumor or dislocation within her foot. The x-ray does reveal a minimal amount of edema which is more than likely due to her fall which she sustained approximately 3 days ago. VITAL SIGNS: The patient's vital signs reveal a temperature of 98.1, pulse rate of 115, blood pressure of 119/71, and respiratory rate 18. LABORATORY FINDINGS: Reveal a white count of 7.7, hemoglobin of 9.8, hematocrit of 32.3, and platelet count of 274. OBJECTIVE: Nonpalpable pedal pulses noted bilaterally. Absent pedal hair growth noted bilaterally. Lower extremity skin presents thin, shining, discolored bilaterally. Capillary refilling time is delayed x10. There is noted to be decreasing edema and erythema in the left foot. There is no longer pain upon palpation at the ankle joint or along the mid tarsal joint; however, the area is tender. She is able to bear weight, but has less pain than yesterday. There are no open lesions noted. There are no signs of acute bacterial infection or cellulitis. ASSESSMENT: Left foot pain, secondary to sprain, strain from her fall approximately 3 days ago. PLAN: The patient was examined. The patient was told that there are no obvious abnormalities on her x-ray taken yesterday. She was told that she will have soreness for up to 2 weeks due to her fall. She was told to remain off of her feet as much as possible for the next week in order to allow proper healing to occur. She was told that she can take ibuprofen 200 mg every 8 hours if she continues to have soreness. The patient will be seen and followed as needed. Sim Bhardwaj DPM
[2017-07-16] MEDS: diltiaZEM 120 mg/24 Hours CD Cap PO SCH (17:48)
[2017-07-16 17:55] LABS: PH,URINE 5.5 (4.7-8.0); URINE BILIRUBIN NEGATIVE (NEGATIVE); URINE BLOOD SMALL (NEGATIVE); URINE GLUCOSE (UA) NEGATIVE (NEGATIVE); URINE KETONE NEGATIVE (NEGATIVE); URINE LEUKOCYTE ESTERASE SMALL Leu/uL (NEGATIVE); URINE PROTEIN NEGATIVE mg/dL (<30 mg/dL); URINE UROBILINOGEN 0.2 E.U./dL (<1 E.U./dL)
[2017-07-16 18:08] LABS: URINE APPEARANCE CLOUDY (CLEAR); URINE COLOR YELLOW (YELLOW)
[2017-07-16 18:09] LABS: URINE BACTERIA FEW (NEG); URINE WBC 20 - 25 /hpf (0-6)
[2017-07-17] MEDS: Levalbuterol 1.25 MG/3 ML Inhal Soln UD IH SCH ×4 (01:28→19:55)
--- NOTE | 2017-07-17 07:17 | PN ---
DATE: 07/17/2017 SUBJECTIVE: The patient is seen lying in bed on 5 R. She is comfortable at rest. CURRENT MEDICATIONS: Include Diltiazem 120 mg daily, Eliquis 2.5 mg b.i.d., Glucophage 500 mg b.i.d., and Januvia 25 mg daily, Lasix 40 mg daily, Lipitor 20 mg daily, metoprolol 50 mg b.i.d., Remeron, Xopenex, and supplements. PHYSICAL EXAMINATION: GENERAL: She is a very elder woman who appears comfortable at rest. VITAL SIGNS: Blood pressure is 120/80 with a pulse of 86 and irregularly irregular, respiration is 14, she is afebrile. NECK: No JVD. CHEST: Diminished breath sounds at the bases. HEART: PMI displaced laterally with a systolic murmur present at the left sternal border and apex. ABDOMEN: Soft and nontender. Normoactive bowel sounds. EXTREMITIES: Chronic cellulitic changes with trace edema. LABORATORY DATA: Diagnostic data, morning blood work is pending. IMPRESSION: 1. Atrial fibrillation with variable heart rate control. 2. Recurrent pleural effusion status post repeat thoracentesis. 3. Fluid analysis of recent pleural fluid, not found in the computer. 4. Moderate microcytic anemia. RECOMMENDATIONS: Current medications will be continued, beta-shria therapy and low-dose Diltiazem will be utilized for heart rate control. Attempts were made to find the results of the pleural fluid analysis and if her hemoglobin drops further, in addition a repeat anemia evaluation is advised. Given her normal LV systolic function, inotropic therapy will likely provide no additional benefit. We will continue to follow up and make further recommendations as appropriate. Dickson Boone MD
[2017-07-17] MEDS: Magnesium Oxide 400 mg Tab UD PO SCH (10:23)
[2017-07-17] MEDS: POLYETHYLENE GLYCOL 3350 17 GM/Dose PACKET PO SCH (10:23)
[2017-07-17] MEDS: diltiaZEM 120 mg/24 Hours CD Cap PO SCH (10:23)
--- NOTE | 2017-07-17 10:58 | PN ---
DATE: 07/17/2017 SUBJECTIVE: The patient has no complaints of any chest pain. No shortness of breath or headaches. PHYSICAL EXAMINATION: VITAL SIGNS: Temperature is 97.7, pulse is 79, blood pressure is 99/55, and respirations 20. GENERAL: The patient is lying in bed, flat, comfortable. HEENT: No oral lesion. Anicteric sclerae. Moist mucosa. NECK: No JVD, adenopathy, or thyromegaly. CARDIOVASCULAR: S1 and S2, regular. No murmurs, rubs, or gallops. LUNGS: Clear to auscultation bilaterally. No wheeze, rales, or rhonchi. ABDOMEN: Bowel sounds are positive, soft, nontender and nondistended. EXTREMITIES: No cyanosis, clubbing or edema. LABORATORY DATA: White count of 7.7, hemoglobin 9.8, and creatinine is 1.2. ASSESSMENT: 1. Fall. 2. Pleural effusion status post thoracentesis. 3. Acute congestive heart failure secondary to systolic dysfunction. 4. Hypertension. 5. Gait dysfunction. 6. Urinary tract infection secondary to vancomycin-resistant enterococci. PLAN: The patient is on Cardizem. She is going to continue with metformin for diabetes. The patient is on Lipitor for dyslipidemia. She is on Miralax for constipation. The patient is going to continue with Xopenex p.r.n. She is on a heart healthy diet. Soham Blackburn MD
--- NOTE | 2017-07-17 15:34 | PN ---
DATE: 07/17/2017 SUBJECTIVE: The patient is seen in bed, in no acute distress, nontoxic. PHYSICAL EXAMINATION: VITAL SIGNS: On exam, temperature is 98, blood pressure is 92/50, respiratory rate of 20 and a heart rate of 79. HEENT: Unremarkable. NECK: Supple. LUNGS: Decreased breath sounds. HEART: Normal S1 and S2. ABDOMEN: Soft. LABORATORY EXAMINATION: Reveals a white count of 7.7, a hemoglobin of 9, platelets of 274. Creatinine is 1.2 and urinalysis is noted. Microbiology reveals a VRE in the urine. Review of orders reveals the patient to be off of antibiotics. ASSESSMENT AND PLAN: This is an 87-year-old female seen earlier today in 576, bed 1 with vancomycin-resistant enterococci in urine cultures in patient with chronic congestive heart failure; bilateral pleural effusion, status post thoracentesis; left foot pain probably from trauma; coronary artery disease, status post percutaneous coronary intervention; hypertension; chronic renal failure; diabetes mellitus; history of cholecystectomy. We reordered an urinalysis and urine culture currently with the last culture is vancomycin-resistant enterococci positive for a possible transfer to transitional care unit. Gonzalo De Leon MD
[2017-07-17 15:36] LABS: HEMATOCRIT 37.2 % (36.0-48.0); MEAN CELL VOLUME 72.7 fl (80.0-105.0); MEAN CORPUSCULAR HEMOGLOBIN 22.1 pg (25.0-35.0); MEAN CORPUSCULAR HGB CONC 30.4 g/dl (31.0-37.0); MEAN PLATELET VOLUME 9.5 fl (7.0-11.0); RED CELL DISTRIBUTION WIDTH 19.4 % (11.5-14.5); WHITE BLOOD COUNT 8.4 10^3/ul (4.5-11.0)
[2017-07-17 15:58] LABS: CALCIUM 8.4 mg/dL (8.4-10.5); TOTAL PROTEIN 6.2 g/dL (5.8-8.3)
[2017-07-17 16:25] LABS: POTASSIUM 5.6 mmol/L (3.6-5.0)
[2017-07-17] MEDS ORDERED: Sod Polystyrene Sulf 15 gm/60 ml Oral Susp PO ONE (16:32)
[2017-07-18] MEDS: Levalbuterol 1.25 MG/3 ML Inhal Soln UD IH SCH ×3 (01:55→13:40)
[2017-07-18 02:30] VITALS: RESP 20
[2017-07-18 07:24] LABS: HEMATOCRIT 33.7 % (36.0-48.0); MEAN CORPUSCULAR HEMOGLOBIN 21.8 pg (25.0-35.0); MEAN CORPUSCULAR HGB CONC 30.3 g/dl (31.0-37.0); RED CELL DISTRIBUTION WIDTH 19.6 % (11.5-14.5); WHITE BLOOD COUNT 6.3 10^3/ul (4.5-11.0)
[2017-07-18 07:45] LABS: CALCIUM 8.5 mg/dL (8.4-10.5); POTASSIUM 4.6 mmol/L (3.6-5.0)
[2017-07-18 08:15] VITALS: TEMP 97.4; O2SAT 96
--- NOTE | 2017-07-18 08:41 | CP.PCM.PN ---
Subjective - Date & Time of Evaluation Date of Evaluation: 07/18/17 Time of Evaluation: 07:00 - Subjective Subjective: Stable on 5R. No chest pain or SOB. V/S noted. PE: Lungs: rhonchi Cor.: S1S2, irreg. Abd.: soft Ext.: no edema Neuro.: alert Labs noted: K+= 4.6, BUN= 43, Cr.= 1.7 Objective - Vital Signs/Intake and Output Vital Signs (last 24 hours): Temp Pulse Resp BP Pulse Ox 97.4 F L 93 H 20 138/73 96 07/18/17 08:00 07/18/17 08:00 07/18/17 08:00 07/18/17 08:00 07/18/17 08:00 Intake and Output: 07/18/17 07/18/17 06:59 18:59 Intake Total 720 Balance 720 - Medications Medications: Current Medications Apixaban (Eliquis) 2.5 mg PO BID [facility] PRN Reason: Protocol Last Admin: 07/17/17 17:09 Dose: 2.5 mg Atorvastatin Calcium (Lipitor) 20 mg PO DIN [facility] Last Admin: 07/17/17 17:09 Dose: 20 mg Diltiazem HCl (Cardizem Cd) 120 mg PO DAILY [facility] Last Admin: 07/17/17 10:23 Dose: 120 mg Furosemide (Lasix) 40 mg IVP DAILY [facility] Last Admin: 07/17/17 12:28 Dose: Not Given Levalbuterol HCl (Xopenex) 1.25 mg IH [id number] [facility] Last Admin: 07/18/17 08:13 Dose: 1.25 mg Magnesium Oxide (Mag-Ox) 400 mg PO DAILY [facility] Last Admin: 07/17/17 10:23 Dose: 400 mg Metformin HCl (Glucophage Xr) 500 mg PO BID [facility] Last Admin: 07/17/17 17:10 Dose: 500 mg Metoprolol Tartrate (Lopressor) 50 mg PO BID [facility] Last Admin: 07/17/17 17:09 Dose: Not Given Mirtazapine (Remeron) 15 mg PO HS [facility] Last Admin: 07/17/17 21:59 Dose: 15 mg Polyethylene Glycol (Miralax) 17 gm PO DAILY [facility] Last Admin: 07/17/17 10:23 Dose: 17 gm Sitagliptin Phosphate (Januvia) 25 mg PO DAILY [facility] Last Admin: 07/17/17 10:23 Dose: 25 mg Tramadol HCl (Ultram) 50 mg PO TID PRN PRN Reason: Pain, moderate (4-7) Last Admin: 07/18/17 03:48 Dose: 50 mg - Labs Labs: 07/18/17 07:20 07/18/17 07:20 Assessment and Plan - Assessment and Plan (Free Text) Assessment: Dyspnea AF UTI CAD/TN/PCI RCA, remote/Nl LV on 05/09 echo Pleural effusions, s/p thoracentesis Valvular Heart Disease: Mild/mod MR, mod./sev TR, mod. PI. PH, mod/sev. HBP Diabetes Hypothyroidism Spinal Stenosis Herniated Discs Gait Dysfunction Anemia Plan: Continue current cardiac meds OOB to chair as kirti AB As per ID and Dr. Blackburn Will follow
[2017-07-18] MEDS: diltiaZEM 120 mg/24 Hours CD Cap PO SCH (11:16)
[2017-07-18] MEDS: Magnesium Oxide 400 mg Tab UD PO SCH (11:16)
[2017-07-18] MEDS: POLYETHYLENE GLYCOL 3350 17 GM/Dose PACKET PO SCH (11:18)
[2017-07-18 11:19] VITALS: BP 131/70; PULSE 84
--- NOTE | 2017-07-19 05:51 | DS ---
HISTORY OF PRESENT ILLNESS: The patient is 87 years old, seen and examined, complained of chest discomfort, worse to take deep breath, even on touching. No complaint of shortness of breath. PHYSICAL EXAMINATION: VITAL SIGNS: She is afebrile, pulse 84, respirations 20, and blood pressure 131/70. LUNGS: Bilateral fair airflow. No rhonchi or crackles. HEART: S1 and S2, audible. She has a decreased breath sound at bases. Irregular heart beat, rate control. ABDOMEN: Soft and nontender. No rebound. No guarding. NEUROLOGIC: She is awake and alert, able to communicate, moves all extremities. Bilateral leg 1+ edema. Erythema seems to be improving. LABORATORY DATA: WBC is 6.3, hemoglobin 10, hematocrit 33, and platelets 274. Chemistry: Sodium 138, potassium 4.6, chloride 95, CO2 of 33, BUN 43, creatinine 1.7, and blood sugar of 208. AST 118, ALT 85. Alcohol is 218. ASSESSMENT: 1. Chest pain, probably noncardiac. We will give her analgesic and observe if her chest pain improves. She will be transferred to TCU. 2. Status post syncope. 3. Generalized weakness and deconditioning, difficulty walking. 4. Coronary artery disease. 5. Congestive heart failure. PLAN: The patient is hemodynamically stable. We will give a dose of Tylenol, observe her for one hour. If the chest pain is better, she will be transferred to TCU. Ghazal Goode MD
== END 2017-07-18 15:11 | DRG 313 ==
LOC: ED 23:52 → ERH 07-13 05:08 → 2RNO 07-13 16:18 → OBSVTOIN 07-14 15:08 → 5RSO 07-16 19:17
PROVIDERS: ADMIT Internal Medicine; ATTEND Internal Medicine
DX: R07.89 Other chest pain (principal); I50.23 Acute on chronic systolic (congestive) heart failure; J90 Pleural effusion, not elsewhere classified; E46 Unspecified protein-calorie malnutrition; E11.22 Type 2 diabetes mellitus with diabetic chronic kidney disease; I27.2 Other secondary pulmonary hypertension; L03.115 Cellulitis of right lower limb; N39.0 Urinary tract infection, site not specified; E11.42 Type 2 diabetes mellitus with diabetic polyneuropathy; I25.2 Old myocardial infarction; I48.0 Paroxysmal atrial fibrillation; J98.11 Atelectasis; I13.0 Hypertensive heart and chronic kidney disease with heart failure and stage 1 through stage 4 chronic kidney disease, or unspecified chronic kidney disease; L03.116 Cellulitis of left lower limb; W06.XXXA Fall from bed, initial encounter; I08.1 Rheumatic disorders of both mitral and tricuspid valves; B95.2 Enterococcus as the cause of diseases classified elsewhere; D50.9 Iron deficiency anemia, unspecified; E03.9 Hypothyroidism, unspecified; M48.00 Spinal stenosis, site unspecified; N18.9 Chronic kidney disease, unspecified; E78.5 Hyperlipidemia, unspecified; I25.10 Atherosclerotic heart disease of native coronary artery without angina pectoris; Z95.5 Presence of coronary angioplasty implant and graft; I48.2 Chronic atrial fibrillation; M46.90 Unspecified inflammatory spondylopathy, site unspecified; Z16.21 Resistance to vancomycin; Z79.01 Long term (current) use of anticoagulants; Z79.4 Long term (current) use of insulin; Z79.899 Other long term (current) drug therapy; Z87.01 Personal history of pneumonia (recurrent); Z90.49 Acquired absence of other specified parts of digestive tract; Z99.81 Dependence on supplemental oxygen; Z91.81 History of falling; M25.562 Pain in left knee; M25.561 Pain in right knee; R51 Headache; R40.2412 Glasgow coma scale score 13-15, at arrival to emergency department; R53.81 Other malaise; R26.2 Difficulty in walking, not elsewhere classified; S93.315A Dislocation of tarsal joint of left foot, initial encounter; S90.32XA Contusion of left foot, initial encounter; Y92.003 Bedroom of unspecified non-institutional (private) residence as the place of occurrence of the external cause; M51.26 Other intervertebral disc displacement, lumbar region; S93.602A Unspecified sprain of left foot, initial encounter

== ENCOUNTER 2017-07-18 14:46 | Inpatient (IN) | payer OTHER, MEDICARE ==
[2017-07-18 15:37] VITALS: BMI 24.5
[2017-07-18] MEDS: Levalbuterol 1.25 MG/3 ML Inhal Soln UD IH SCH (19:32)
[2017-07-19] MEDS: Levalbuterol 1.25 MG/3 ML Inhal Soln UD IH SCH ×4 (03:04→20:40)
[2017-07-19] MEDS: diltiaZEM 120 mg/24 Hours CD Cap PO SCH (10:37)
[2017-07-19] MEDS: POLYETHYLENE GLYCOL 3350 17 GM/Dose PACKET PO SCH (10:58)
[2017-07-19] MEDS: Magnesium Oxide 400 mg Tab UD PO SCH (10:58)
--- NOTE | 2017-07-19 12:28 | CP.PCM.CON ---
History of Present Illness - History of Present Illness History of Present Illness: 87 year old female with PMH of chronic CHF, CAD S/P PCI, HTN, chronic renal failure, DM, S/P cholecystectomy was initially admitted for a fall and was worked up for syncope. Initial work up included urine cx which showed VRE but patient was asymptomatic and repeat urine cx were negative - she has been kept off antibiotics. She is now transferred to [facility] for continued medical therapy and physical rehab. Infectious Diseases consult is requested to see if the patient needs antibiotics. Currently the patient is comfortable in bed, not in distress, no fever or chills, no diarrhea, no dysuria, no headache, no chest pain, no SOB, no cough or colds. Review of Systems - Review of Systems All systems: reviewed and no additional remarkable complaints except (as per HPI ) Past Patient History - Infectious Disease Hx of Infectious Diseases: None - Past Social History Smoking Status: Never Smoked - CARDIAC Hx Cardiac Disorders: Yes Hx Congestive Heart Failure: Yes Hx Hypertension: Yes - PULMONARY Hx Pneumonia: Yes - NEUROLOGICAL Hx Neurological Disorder: No - HEENT Hx HEENT Problems: No (eyeglasses) - RENAL Hx Renal Failure: Yes (CKD) - ENDOCRINE/METABOLIC Hx Diabetes Mellitus Type 2: Yes - HEMATOLOGICAL/ONCOLOGICAL Hx Blood Disorders: No - INTEGUMENTARY Hx Dermatological Problems: Yes Other/Comment: paper thin skin - MUSCULOSKELETAL/RHEUMATOLOGICAL Hx Falls: Yes - GASTROINTESTINAL Hx Gastrointestinal Disorders: No - GENITOURINARY/GYNECOLOGICAL Hx Reproductive Disorders: No - PSYCHIATRIC Hx Psychophysiologic Disorder: No - SURGICAL HISTORY Hx Cholecystectomy: Yes Hx Coronary Stent: Yes - ANESTHESIA Hx Anesthesia: No Hx Anesthesia Reactions: No Hx Malignant Hyperthermia: No Meds Allergies/Adverse Reactions: Allergies Allergy/AdvReac Type Severity Reaction Status Date / Time No Known Allergies Allergy Verified 07/19/17 08:29 - Medications Medications: Current Medications Apixaban (Eliquis) 2.5 mg PO BID [facility] PRN Reason: Protocol Last Admin: 07/18/17 17:49 Dose: 2.5 mg Atorvastatin Calcium (Lipitor) 20 mg PO DIN [facility] PRN Reason: Protocol Last Admin: 07/18/17 17:50 Dose: 20 mg Diltiazem HCl (Cardizem Cd) 120 mg PO DAILY [facility] PRN Reason: Protocol Furosemide (Lasix) 40 mg IVP DAILY [facility] PRN Reason: Protocol Levalbuterol HCl (Xopenex) 1.25 mg IH [id number] [facility] PRN Reason: Protocol Last Admin: 07/18/17 19:32 Dose: 1.25 mg Magnesium Oxide (Mag-Ox) 400 mg PO DAILY [facility] PRN Reason: Protocol Metformin HCl (Glucophage Xr) 500 mg PO BID [facility] PRN Reason: Protocol Last Admin: 07/18/17 17:50 Dose: 500 mg Metoprolol Tartrate (Lopressor) 50 mg PO 0800,1800 [facility] PRN Reason: Protocol Last Admin: 07/18/17 17:49 Dose: 50 mg Mirtazapine (Remeron) 15 mg PO HS [facility] PRN Reason: Protocol Polyethylene Glycol (Miralax) 17 gm PO DAILY [facility] PRN Reason: Protocol Sitagliptin Phosphate (Januvia) 25 mg PO DAILY [facility] PRN Reason: Protocol Tramadol HCl (Ultram) 50 mg PO TID PRN; Protocol PRN Reason: Pain, moderate (4-7) Last Admin: 07/18/17 17:52 Dose: 50 mg Physical Exam - Constitutional Appears: Non-toxic, No Acute Distress - Head Exam Head Exam: NORMAL INSPECTION - Neck Exam Neck exam: Negative for: Meningismus - Respiratory Exam Respiratory Exam: Decreased Breath Sounds - Cardiovascular Exam Cardiovascular Exam: +S1, +S2 - GI/Abdominal Exam GI & Abdominal Exam: Soft. absent: Tenderness Results - Vital Signs Recent Vital Signs: Last Vital Signs Temp 97.5 F L 07/18/17 17:21 Pulse 81 07/18/17 17:21 Resp 20 07/18/17 17:21 BP 147/78 07/18/17 17:21 Pulse Ox 93 L 07/18/17 17:21 Assessment & Plan - Assessment and Plan (Free Text) Plan: Assessment probable asymptomatic bacteriuria with Vancomycin-resistant Enterococcus chronic CHF with bilateral pleural effusions S/P thoracentesis left foot pain probably from trauma CAD S/P PCI HTN chronic renal failure DM S/P cholecystectomy Plan continue to monitor off antibiotics since she is at risk for nosocomial infections
--- NOTE | 2017-07-19 15:27 | HP ---
HISTORY OF PRESENT ILLNESS: The patient is 87 years old who was admitted after she passed out, she felt weak and dizzy and was on the floor. Daughter came to pick her up, but she was unable to do, so she called ambulance and was brought to emergency room. PAST MEDICAL HISTORY: She has significant past medical history of: 1. Hypertension. 2. Coronary artery disease. 3. Hyperlipidemia. 4. Non-insulin dependent diabetes. 5. Chronic bilateral leg cellulitis. 6. Chronic renal insufficiency. ALLERGIES: SHE IS NOT ALLERGIC TO ANY MEDICATIONS. MEDICATIONS AT HOME: She is on: 1. Tramadol 50 mg three times a day. 2. Cardizem 120 daily. 3. Januvia 25 daily. 4. Metoprolol 25 daily. 5. Metformin 500 twice a day. 6. Xopenex q. 6 p.r.n. 7. Lasix 40 daily. 8. Lipitor 20 mg daily. 9. Eliquis 2.5 twice a day. REVIEW OF SYSTEMS: Complained of generalized weakness; complained of chest discomfort, especially when taking deep breath. PHYSICAL EXAMINATION: GENERAL: The patient is awake and alert, able to communicate. VITAL SIGNS: The patient is afebrile, pulse 75, respiration 22, and blood pressure 103/52. LUNGS: Bilateral good airflow. No rhonchi or crackle. HEART: S1 and S2 audible. ABDOMEN: Soft, nontender. No rebound. No guarding. NEUROLOGICALLY: The patient is awake and alert, able to communicate. EXTREMITIES: Bilateral leg +1 edema and cellulitis. ASSESSMENT: 1. Congestive heart failure, acute on chronic, systolic. 2. Pleural effusion, status post thoracentesis and 700 mL fluid was drained. 3. Vwb-jzzubwq-iqkpspdwy diabetes. 4. Generalized weakness. 5. Vancomycin-resistant enterococci urinary tract infection. 6. Coronary artery disease. 8. Chronic atrial fibrillation. PLAN: We will continue the patient on current medical treatment and physical therapy will reevaluate the patient in a.m. Ghazal Goode MD
[2017-07-20] MEDS: Levalbuterol 1.25 MG/3 ML Inhal Soln UD IH SCH ×4 (03:02→21:05)
[2017-07-20] MEDS: diltiaZEM 120 mg/24 Hours CD Cap PO SCH (10:10)
[2017-07-20] MEDS: Magnesium Oxide 400 mg Tab UD PO SCH (10:13)
[2017-07-20] MEDS: POLYETHYLENE GLYCOL 3350 17 GM/Dose PACKET PO SCH (10:14)
--- NOTE | 2017-07-20 21:19 | PN ---
SUBJECTIVE: The patient is 87 years old, seen and examined, sitting in chair. Complains of generalized weakness. Complains of chest discomfort, hurts on pushing. Denies any nausea or vomiting. Oral intake seems to be improving. PHYSICAL EXAMINATION VITAL SIGNS: She is afebrile, pulse 75, respiration 18, and blood pressure 119/64. LUNGS: Bilateral fair airflow. No rhonchi or crackle. HEART: S1 and S2 audible. ABDOMEN: Soft, nontender. No rebound. No guarding. NEUROLOGIC: The patient is awake and alert, able to communicate. EXTREMITIES: Bilateral legs, she has +3 edema. ASSESSMENT: 1. Status post congestive heart failure exacerbation. 2. Hypertension. 3. Status post syncope and fall. 4. Lfj-utgegos-mlyvysprm diabetes. 5. Vancomycin-resistant Enterococcus urinary tract infection. PLAN: Currently, the patient is on oral hypoglycemic. She is getting diuretics. We will increase it to q. 12 for 24 hours. Order for KAELYN stockings and follow up CBC and CMP. Ghazal Goode MD
[2017-07-21] MEDS: Levalbuterol 1.25 MG/3 ML Inhal Soln UD IH SCH ×4 (03:00→19:35)
[2017-07-21 05:39] LABS: BASO # 0.05 K/mm3 (0.0-2.0); BASO % 0.8 % (0.0-3.0); EOS # 0.1 (0.0-0.7); EOS % 1.9 % (1.5-5.0); GRAN # 3.71 (1.4-6.5); GRAN % 57.4 % (50.0-68.0); HEMATOCRIT 34.6 % (36.0-48.0); LYMPH # 1.8 (1.2-3.4); LYMPH % 27.2 % (22.0-35.0); MEAN CELL VOLUME 74.1 fl (80.0-105.0); MEAN CORPUSCULAR HEMOGLOBIN 22.3 pg (25.0-35.0); MEAN CORPUSCULAR HGB CONC 30.1 g/dl (31.0-37.0); MEAN PLATELET VOLUME 9.1 fl (7.0-11.0); MONO # 0.8 (0.1-0.6); MONO % 12.7 % (1.0-6.0); WHITE BLOOD COUNT 6.5 10^3/ul (4.5-11.0)
[2017-07-21 06:32] LABS: ALB/GLOB RATIO 0.9 (1.1-1.8); BILIRUBIN,TOTAL 1.1 mg/dL (0.2-1.3); CALCIUM 8.4 mg/dL (8.4-10.5); POTASSIUM 3.7 mmol/L (3.6-5.0); TOTAL PROTEIN 6.1 g/dL (5.8-8.3)
[2017-07-21] MEDS: diltiaZEM 120 mg/24 Hours CD Cap PO SCH (11:25)
[2017-07-21] MEDS: Magnesium Oxide 400 mg Tab UD PO SCH (11:26)
[2017-07-21] MEDS: POLYETHYLENE GLYCOL 3350 17 GM/Dose PACKET PO SCH ×2 (11:28→11:29)
--- NOTE | 2017-07-21 22:15 | PN ---
SUBJECTIVE: The patient is 87 years' old, seen and examined, sitting in chair, complaining of chest discomfort on deep breath and also on ambulating. Shortness of breath seems to be improving. PHYSICAL EXAMINATION: VITAL SIGNS: She is afebrile, pulse 72, respiration 14, blood pressure 115/65. LUNGS: Bilateral fair airflow. No rhonchi or crackle. HEART: S1 and S2 audible. ABDOMEN: Soft, nontender. No rebound. No guarding. NEUROLOGIC: She is awake and alert, able to communicate. LABORATORY DATA: WBC 6.5, hemoglobin 10.4, hematocrit 34.6, platelets 278. Chemistry, sodium 140, potassium 3.7, chloride 96, CO2 34, BUN 28, creatinine 1.3, AST 42, ALT 62. ASSESSMENT: 1. Status post congestive heart failure exacerbation. 2. Status post syncope. 3. Hypertension. 4. Hyperlipidemia. 5. Coronary artery disease, status post angioplasty. 6. Xeh-jytgzhl-mqfiithep diabetes. 7. Deconditioning and difficulty walking. PLAN: We will continue the patient on current medications. She is scheduled to be discharged in early next week. Ghazal Goode MD
[2017-07-22] MEDS: Levalbuterol 1.25 MG/3 ML Inhal Soln UD IH SCH ×4 (01:47→20:08)
--- NOTE | 2017-07-22 11:13 | CP.PCM.PN ---
Subjective - Date & Time of Evaluation Date of Evaluation: 07/22/17 Time of Evaluation: 10:10 - Subjective Subjective: Comfortable, afebrile, not in distress. Objective - Vital Signs/Intake and Output Vital Signs (last 24 hours): Temp Pulse Resp BP Pulse Ox 98.2 F 82 18 127/69 98 07/20/17 17:39 07/20/17 17:39 07/20/17 17:39 07/20/17 17:39 07/20/17 17:39 - Medications Medications: Current Medications Apixaban (Eliquis) 2.5 mg PO BID [facility] PRN Reason: Protocol Last Admin: 07/20/17 17:37 Dose: 2.5 mg Atorvastatin Calcium (Lipitor) 20 mg PO DIN [facility] PRN Reason: Protocol Last Admin: 07/20/17 17:37 Dose: 20 mg Diltiazem HCl (Cardizem Cd) 120 mg PO DAILY [facility] PRN Reason: Protocol Last Admin: 07/20/17 10:10 Dose: 120 mg Furosemide (Lasix) 40 mg PO 0800,1400 [facility] PRN Reason: Protocol Levalbuterol HCl (Xopenex) 1.25 mg IH [id number] [facility] PRN Reason: Protocol Last Admin: 07/21/17 03:00 Dose: Not Given Magnesium Oxide (Mag-Ox) 400 mg PO DAILY [facility] PRN Reason: Protocol Last Admin: 07/20/17 10:13 Dose: 400 mg Metformin HCl (Glucophage Xr) 500 mg PO 0800,1800 [facility] PRN Reason: Protocol Metoprolol Tartrate (Lopressor) 50 mg PO 0800,1800 [facility] PRN Reason: Protocol Last Admin: 07/20/17 17:38 Dose: 50 mg Mirtazapine (Remeron) 15 mg PO HS [facility] PRN Reason: Protocol Last Admin: 07/20/17 21:35 Dose: 15 mg Polyethylene Glycol (Miralax) 17 gm PO DAILY [facility] PRN Reason: Protocol Last Admin: 07/20/17 10:14 Dose: Not Given Sitagliptin Phosphate (Januvia) 25 mg PO DAILY [facility] PRN Reason: Protocol Last Admin: 07/20/17 10:12 Dose: 25 mg Tramadol HCl (Ultram) 50 mg PO TID PRN; Protocol PRN Reason: Pain, moderate (4-7) Last Admin: 07/21/17 02:54 Dose: 50 mg - Labs Labs: 07/21/17 05:20 07/21/17 05:20 - Constitutional Appears: Non-toxic, No Acute Distress - Head Exam Head Exam: NORMAL INSPECTION - ENT Exam ENT Exam: Mucous Membranes Moist - Neck Exam Neck Exam: absent: Meningismus - Respiratory Exam Respiratory Exam: Decreased Breath Sounds - Cardiovascular Exam Cardiovascular Exam: +S1, +S2 - GI/Abdominal Exam GI & Abdominal Exam: Soft. absent: Tenderness Assessment and Plan - Assessment and Plan (Free Text) Plan: Assessment probable asymptomatic bacteriuria with Vancomycin-resistant Enterococcus chronic CHF with bilateral pleural effusions S/P thoracentesis left foot pain probably from trauma CAD S/P PCI HTN chronic renal failure DM S/P cholecystectomy Plan continue to monitor off antibiotics since she is at risk for hospital-acquired infections
[2017-07-22] MEDS: Magnesium Oxide 400 mg Tab UD PO SCH (11:14)
[2017-07-22] MEDS: diltiaZEM 120 mg/24 Hours CD Cap PO SCH (11:14)
[2017-07-22] MEDS: POLYETHYLENE GLYCOL 3350 17 GM/Dose PACKET PO SCH (11:17)
--- NOTE | 2017-07-23 00:11 | PN ---
SUBJECTIVE: The patient is an 87-year-old, seen and examined, sitting in chair, seems to be a little better, less chest pain. Still gets short of breath, generalized weakness. PHYSICAL EXAMINATION: VITAL SIGNS: She is afebrile, pulse 75, respiration 15, blood pressure 105/63. LUNGS: Bilateral fair airflow. No rhonchi or crackle. HEART: S1 and S2 audible. ABDOMEN: Soft, nontender. No rebound. No guarding. NEUROLOGIC: The patient is awake and alert, able to communicate. Bilateral leg +2 edema. LABORATORY DATA: Blood sugar is 230. ASSESSMENT: 1. Vancomycin-resistant Enterococcus urinary tract infection. 2. Bilateral leg cellulitis, improving. 3. Chronic atrial fibrillation. 4. Coronary artery disease. 5. Congestive heart failure, seems to be improving. PLAN: We will continue the patient on current medication. Encourage ambulation. We will increase her Lasix to 40 twice a day and monitor her electrolytes intermittently. Ghazal Goode MD
[2017-07-23] MEDS: Levalbuterol 1.25 MG/3 ML Inhal Soln UD IH SCH ×4 (01:47→22:00)
[2017-07-23] MEDS: diltiaZEM 120 mg/24 Hours CD Cap PO SCH (10:23)
[2017-07-23] MEDS: POLYETHYLENE GLYCOL 3350 17 GM/Dose PACKET PO SCH (10:24)
[2017-07-23] MEDS: Magnesium Oxide 400 mg Tab UD PO SCH (10:24)
--- NOTE | 2017-07-23 12:32 | PN ---
SUBJECTIVE: The patient is an 87 years old, seen and examined, sitting in chair, seems to be doing little better, less shortness of breath, still has bilateral leg swelling. Chest pain is better. PHYSICAL EXAMINATION: VITAL SIGNS: She is afebrile, pulse 76, respiration 18, blood pressure 125/66. LUNGS: Bilateral fair airflow. She has soft crackle at the bases, most pronounced posteriorly. HEART: S1 and S2 audible. ABDOMEN: Soft, nontender. No rebound. No guarding. NEUROLOGIC: The patient is awake and alert, communicative. LABORATORY DATA: Blood sugar is 259. ASSESSMENT: 1. Congestive heart failure exacerbation. 2. Acute on chronic renal insufficiency, improving. 3. Dpo-jnvdcky-bugymqlxz diabetes. 4. Bilateral leg cellulitis. 5. Vancomycin-resistant Enterococcus urinary tract infection. 6. Deconditioning and difficulty walking. PLAN: We will continue the patient on diltiazem. She is on Eliquis because of chronic atrial fibrillation. Continue on metformin. She is Januvia. She is getting Lasix. Continue physical therapy. Discharge plan for Tuesday. Discussed with her daughter, it is unsafe for her to be living alone in her senior citizen building; she needs help at home with some home-health aid. Ghazal Goode MD
--- NOTE | 2017-07-23 14:04 | PN ---
DATE: 07/23/2017 SUBJECTIVE: The patient is in bed, in no acute distress, nontoxic. PHYSICAL EXAMINATION: VITAL SIGNS: Temperature is 98, blood pressure is 120/60, respiratory rate of 18, and heart rate of 61. HEENT: Unremarkable. NECK: Supple. LUNGS: Decreased breath sounds. HEART: Normal S1 and S2. ABDOMEN: Soft, nontender. LABORATORY DATA: Reveals a white count of 6.5, hemoglobin of 10, platelets of 278. Creatinine is 1.3. ASSESSMENT AND PLAN: This is an 87-year-old female with probably symptomatic bacteriuria with VRE, chronic congestive heart failure, bilateral effusions and thoracentesis and the left foot pain probably from trauma, coronary artery disease, status post PCI, hypertension, chronic renal failure, diabetes. Currently off of antibiotics. The patient is at risk for developing nosocomial infections. Gonzalo De Leon MD
[2017-07-24] MEDS: Levalbuterol 1.25 MG/3 ML Inhal Soln UD IH SCH ×4 (08:30→22:11)
[2017-07-24] MEDS: Magnesium Oxide 400 mg Tab UD PO SCH (09:43)
[2017-07-24] MEDS: diltiaZEM 120 mg/24 Hours CD Cap PO SCH (09:43)
[2017-07-24] MEDS: POLYETHYLENE GLYCOL 3350 17 GM/Dose PACKET PO SCH (10:19)
--- NOTE | 2017-07-24 10:42 | PN ---
DATE: 07/24/2017 SUBJECTIVE: The patient is in bed, in no acute distress, nontoxic. PHYSICAL EXAMINATION VITAL SIGNS: On exam, temperature 98, blood pressure was 111/70, respiratory rate of 16. HEENT: Examination of the HEENT is unremarkable. NECK: Supple. LUNGS: Decreased breath sounds. HEART: Normal S1 and S2. ABDOMEN: Soft, nontender. LABORATORY DATA: Reveals white count of 6.5, hemoglobin of 10, MCV of 74, platelets of 278. Chemistries are noted. The patient's creatinine is 1.3. LFTs are elevated. The patient has some high alkaline phosphatase. ASSESSMENT AND PLAN: An 87-year-old female with asymptomatic bacteruria with VRE, chronic congestive heart failure, bilateral effusions, thoracentesis and left foot pain probably from trauma, coronary artery disease, status post PCI, hypertension, chronic renal failure and diabetes. Currently off of antibiotics, afebrile with a white count of 6.5. The patient is at risk for developing nosocomial infections. Dr. Goode's note is reviewed. The plan is to discharge the patient on Tuesday. Gonzalo De Leon MD
[2017-07-25] MEDS: Levalbuterol 1.25 MG/3 ML Inhal Soln UD IH SCH ×4 (02:20→21:15)
[2017-07-25] MEDS: diltiaZEM 120 mg/24 Hours CD Cap PO SCH (11:12)
[2017-07-25] MEDS: Magnesium Oxide 400 mg Tab UD PO SCH (11:14)
[2017-07-25] MEDS: POLYETHYLENE GLYCOL 3350 17 GM/Dose PACKET PO SCH (11:15)
--- NOTE | 2017-07-25 12:40 | PN ---
DATE: SUBJECTIVE: The patient is 87 years old. Seen and examined. Sitting in chair. Seems to be comfortable. Leg swelling has improved. Less shortness of breath on walking. Started to eat little better. PHYSICAL EXAMINATION: VITAL SIGNS: The patient is afebrile. Pulse is 87, respirations 18, and blood pressure 117/70. LUNGS: Bilateral fair airflow, decreased at bases. HEART: S1 and S2 audible. ABDOMEN: Soft, nontender. No rebound. No guarding. NEUROLOGICAL: The patient is awake and alert. EXTREMITIES: Bilateral leg +1 edema. LABORATORY DATA: Blood sugar is 269. ASSESSMENT: 1. Status post syncope. 2. Chronic atrial fibrillation on diltiazem and Eliquis. 3. Qir-tbqvchg-tvhgovbqy diabetes. PLAN: Blood sugar is running on the high side, I will add glimepiride to her profile. She is scheduled to be discharged tomorrow. Ghazal Goode MD
--- NOTE | 2017-07-25 13:36 | CP.PCM.PN ---
Subjective - Date & Time of Evaluation Date of Evaluation: 07/25/17 Time of Evaluation: 11:35 - Subjective Subjective: Comfortable, no fevers. Objective - Vital Signs/Intake and Output Vital Signs (last 24 hours): Temp Pulse Resp BP Pulse Ox 98.8 F 100 H 18 130/75 98 07/25/17 06:00 07/25/17 11:12 07/25/17 06:00 07/25/17 13:25 07/25/17 06:00 - Medications Medications: Current Medications Apixaban (Eliquis) 2.5 mg PO BID YULI PRN Reason: Protocol Last Admin: 07/25/17 11:13 Dose: 2.5 mg Atorvastatin Calcium (Lipitor) 20 mg PO DIN YULI PRN Reason: Protocol Last Admin: 07/24/17 17:34 Dose: 20 mg Diltiazem HCl (Cardizem Cd) 120 mg PO DAILY YULI PRN Reason: Protocol Last Admin: 07/25/17 11:12 Dose: 120 mg Furosemide (Lasix) 40 mg PO 0800,1400 YULI PRN Reason: Protocol Last Admin: 07/25/17 13:25 Dose: 40 mg Glimepiride (Amaryl) 2 mg PO 0800 YULI Levalbuterol HCl (Xopenex) 1.25 mg IH [id number] YULI PRN Reason: Protocol Last Admin: 07/25/17 07:31 Dose: 1.25 mg Magnesium Oxide (Mag-Ox) 400 mg PO DAILY YULI PRN Reason: Protocol Last Admin: 07/25/17 11:14 Dose: 400 mg Metformin HCl (Glucophage Xr) 500 mg PO 0800,1800 YULI PRN Reason: Protocol Last Admin: 07/25/17 09:22 Dose: 500 mg Metoprolol Tartrate (Lopressor) 50 mg PO 0800,1800 YULI PRN Reason: Protocol Last Admin: 07/25/17 08:00 Dose: 50 mg Mirtazapine (Remeron) 15 mg PO HS YULI PRN Reason: Protocol Last Admin: 07/24/17 21:32 Dose: 15 mg Polyethylene Glycol (Miralax) 17 gm PO DAILY YULI PRN Reason: Protocol Last Admin: 07/25/17 11:15 Dose: 17 gm Sitagliptin Phosphate (Januvia) 25 mg PO DAILY YULI PRN Reason: Protocol Last Admin: 07/25/17 11:13 Dose: 25 mg Tramadol HCl (Ultram) 50 mg PO Q6 YULI Last Admin: 07/25/17 13:00 Dose: 50 mg - Labs Labs: 07/21/17 05:20 07/21/17 05:20 - Constitutional Appears: Non-toxic, No Acute Distress - Head Exam Head Exam: NORMAL INSPECTION - Respiratory Exam Respiratory Exam: Decreased Breath Sounds - Cardiovascular Exam Cardiovascular Exam: +S1, +S2 - GI/Abdominal Exam GI & Abdominal Exam: Soft. absent: Tenderness Assessment and Plan - Assessment and Plan (Free Text) Plan: Assessment probable asymptomatic bacteriuria with Vancomycin-resistant Enterococcus chronic CHF with bilateral pleural effusions S/P thoracentesis left foot pain probably from trauma CAD S/P PCI HTN chronic renal failure DM S/P cholecystectomy Plan continue to monitor off antibiotics since she is at risk for healthcare- associated infections
[2017-07-26] MEDS: Levalbuterol 1.25 MG/3 ML Inhal Soln UD IH SCH ×3 (03:00→13:26)
[2017-07-26 06:04] VITALS: PULSE 79; RESP 20; TEMP 98.6; O2SAT 98
[2017-07-26] MEDS: diltiaZEM 120 mg/24 Hours CD Cap PO SCH (10:12)
[2017-07-26] MEDS: Magnesium Oxide 400 mg Tab UD PO SCH (10:13)
[2017-07-26] MEDS: POLYETHYLENE GLYCOL 3350 17 GM/Dose PACKET PO SCH (10:14)
[2017-07-26 14:06] VITALS: BP 111/61
--- NOTE | 2017-07-26 17:00 | PN ---
SUBJECTIVE: The patient is in bed, in no acute distress, in room 319. PHYSICAL EXAMINATION: VITAL SIGNS: Temperature 98, blood pressure is 112/70, respiratory rate of 20. HEENT: Unremarkable. NECK: Supple. LUNGS: Decreased breath sounds. HEART: Normal S1 and S2. ABDOMEN: Soft, nontender. LABORATORY DATA: Reveals the patient's white count of 6.5, hemoglobin of 10, platelets of 278. Chemistries are noted. Creatinine is 1.3. Microbiology is noted. ASSESSMENT AND PLAN: An 87-year-old female, seen earlier this morning in 319 with asymptomatic bacteruria with vancomycin-resistant Enterococcus, chronic congestive heart failure, bilateral pleural effusions and status post thoracentesis, left foot pain probably from trauma, history of hypertension, chronic renal failure, diabetes, currently off of antibiotics, afebrile. The patient is at risk for developing nosocomial infections. REVIEWED OF ORDERS: Reveal the patient to be off of antibiotic and confirms that. We will follow with you. Gonzalo De Leon MD
--- NOTE | 2017-07-26 21:04 | DS ---
HISTORY OF PRESENT ILLNESS: The patient is 87 years old, who felt dizzy and almost passed out at home. Daughter went to pick her up, but they were unable to get her up, so she called ambulance, she was brought to emergency room. She was found to have mild CHF, bilateral leg cellulitis, bilateral leg edema, so she was admitted on acute care floor and then transferred to rehab for gait training. Was gently diuresed, doing well. Less shortness of breath. Eating better. PHYSICAL EXAMINATION: VITAL SIGNS: She is afebrile, pulse 79, respirations 20, blood pressure 117/67. LUNGS: Bilateral fair air flow. No rhonchi or crackle. HEART: S1 and S2 audible. ABDOMEN: Soft, nontender. No rebound, no guarding. NEUROLOGIC: She is awake and alert, able to communicate. EXTREMITIES: Bilateral leg +2 edema. KAELYN stocking in place. ASSESSMENT: 1. Coronary artery disease. 2. Eeudy-pa-ecmhugt congestive heart failure, systolic. 3. Non-insulin dependent diabetes. 4. Hypertension. 5. Hyperlipidemia. 6. Deconditioning and difficulty walking. PLAN: The patient will be discharged home today. She will resume her medication as prior to admission. She will continue on her diuretics. She will continue on metoprolol and Cardizem and Eliquis. We will follow up this patient as an outpatient. Ghazal Goode MD
== END 2017-07-26 18:42 | disposition home or self-care (01) | DRG 555 ==
LOC: TRCU 14:46
PROVIDERS: ADMIT Internal Medicine; ATTEND Internal Medicine
PROC: 3E0F7GC Introduction of Other Therapeutic Substance into Respiratory Tract, Via Natural or Artificial Opening (ICD-10-PCS; 2017-07-18)
PROC: F07Z9FZ Gait Training/Functional Ambulation Treatment using Assistive, Adaptive, Supportive or Protective Equipment (ICD-10-PCS; principal; 2017-07-19)
PROC: F08Z4FZ Home Management Treatment using Assistive, Adaptive, Supportive or Protective Equipment (ICD-10-PCS; 2017-07-19)
DX: R26.2 Difficulty in walking, not elsewhere classified (principal); I50.23 Acute on chronic systolic (congestive) heart failure; E11.22 Type 2 diabetes mellitus with diabetic chronic kidney disease; L03.115 Cellulitis of right lower limb; N39.0 Urinary tract infection, site not specified; L03.116 Cellulitis of left lower limb; I48.2 Chronic atrial fibrillation; I13.0 Hypertensive heart and chronic kidney disease with heart failure and stage 1 through stage 4 chronic kidney disease, or unspecified chronic kidney disease; R53.1 Weakness; I25.10 Atherosclerotic heart disease of native coronary artery without angina pectoris; N18.9 Chronic kidney disease, unspecified; E78.5 Hyperlipidemia, unspecified; B95.2 Enterococcus as the cause of diseases classified elsewhere; Z16.21 Resistance to vancomycin; Z79.84 Long term (current) use of oral hypoglycemic drugs; Z95.5 Presence of coronary angioplasty implant and graft; Z90.49 Acquired absence of other specified parts of digestive tract

== ENCOUNTER 2017-09-04 01:05 | Inpatient (IN) | payer MEDICARE ==
[2017-09-04] MEDS ORDERED: TDAP Vaccine 0.5 mL Syr IM ONE (01:31)
--- NOTE | 2017-09-04 01:34 | ED PDOC ---
Arrival/HPI - General Chief Complaint: Trauma Time Seen by Provider: 09/04/17 01:19 Historian: Patient - Critical Care Critical Care Minutes: 45 minutes - History of Present Illness Narrative History of Present Illness (Text): 09/04/17 01:30 87 year old female, whose past medical history includes atrial fibrillation, CHF , CAD s/p angioplasty, hyperlipidemia, hypertension, chronic renal failure, and diabetes, who presents to the emergency department by BLS s/p unwitnessed mechanical fall 4 hours prior to arrival. Patient reports she tripped and fell at home and was unable to get herself off the floor for 4 hours. Patient has on a fall sensitivity button which notified the ambulance and her daughter. Patient 's daughter reports patient has had 3 falls since April of 2017 and was recently discharged from the hospital 3 days ago for bilateral leg cellulitis. Patient reports nausea and a laceration on right forearm, but denies any vomiting, loss of consciousness, dizziness, head injuries, or any other complaints. PMD: Dr. Goode Time/Duration: Other (4 hours) Symptom Onset: Sudden Activities at Onset: Light Context: Tripped Past Medical History - Provider Review Nursing Documentation Reviewed: Yes - Infectious Disease Hx of Infectious Diseases: None - Cardiac Hx Cardiac Disorders: Yes Hx Congestive Heart Failure: Yes Hx Hypertension: Yes - Pulmonary Hx Pneumonia: Yes - Neurological Hx Neurological Disorder: No - HEENT Hx HEENT Disorder: No (eyeglasses) - Renal Hx Renal Failure: Yes - Endocrine/Metabolic Hx Diabetes Mellitus Type 2: Yes - Hematological/Oncological Hx Blood Disorders: No - Integumentary Hx Dermatological Disorder: Yes Other/Comment: paper thin skin - Musculoskeletal/Rheumatological Hx Falls: Yes - Gastrointestinal Hx Gastrointestinal Disorders: No - Genitourinary/Gynecological Hx Reproductive Disorders: No - Psychiatric Hx Psychophysiologic Disorder: No Hx Substance Use: No - Surgical History Hx Cholecystectomy: Yes Hx Coronary Stent: Yes - Anesthesia Hx Anesthesia: No Hx Anesthesia Reactions: No Hx Malignant Hyperthermia: No - Suicidal Assessment Feels Threatened In Home Enviroment: No Family/Social History - Physician Review Nursing Documentation Reviewed: Yes Family/Social History: No Known Family HX Smoking Status: Never Smoked Hx Alcohol Use: No Hx Substance Use: No Allergies/Home Meds Allergies/Adverse Reactions: Allergies No Known Allergies Allergy (Verified 08/26/17 19:46) Home Medications: Home Meds Medication Instructions Recorded Confirmed Apixaban [Eliquis] 2.5 mg PO BID 09/04/17 09/04/17 Diltiazem HCl [Diltiazem ER] 240 mg PO DAILY 09/04/17 09/04/17 Furosemide [Lasix] 40 mg PO BID 09/04/17 09/04/17 Magnesium Oxide [Mag-Ox] 400 mg PO DAILY 09/04/17 09/04/17 Metoprolol Succinate [Toprol XL] 25 mg PO DAILY 09/04/17 09/04/17 Rosuvastatin Calcium [Crestor] 5 mg PO DAILY 09/04/17 09/04/17 diaZEpam [Valium] 5 mg PO DAILY 09/04/17 09/04/17 glyBURIDE [Glyburide] 5 mg PO BID 09/04/17 09/04/17 metFORMIN [glucOPHAGE] 500 mg PO BID 09/04/17 09/04/17 traMADol [Ultram] 50 mg PO TID PRN 09/04/17 09/04/17 Review of Systems - Physician Review All systems were reviewed & negative as marked: Yes - Review of Systems Constitutional: absent: Fevers Gastrointestinal: Nausea. absent: Vomiting Skin: Laceration (Right forearm) Neurological: absent: Dizziness, Other (Loss of consciousnes) Physical Exam - Physical Exam Narrative Physical Exam (Text): Constitutional: No acute distress. Head: Normocephalic. Atraumatic. Eyes: PERRL. ENT: Moist mucous membranes. Neck: Supple. Cardiovascular: Regular rate. Chest: No tenderness. Respiratory: Crackles at bases bilaterally. GI: Soft. Nontender. Nondistended. Back: No CVA tenderness. Musculoskeletal: No tenderness. Bilateral pitting edema on lower extremities. Skin: No rash. Skin tear on the right forearm. Neurologic: Alert and Oriented x2, no focal deficit. Vital Signs Reviewed: Yes Vital Signs Temp Pulse Resp BP Pulse Ox 09/04/17 04:28 64 16 94/47 L 95 09/04/17 04:08 64 18 104/49 L 94 L 09/04/17 04:02 104/51 L 09/04/17 03:07 93.2 F L 72 16 113/88 98 09/04/17 02:13 86 20 112/65 99 09/04/17 01:45 76 16 126/67 96 09/04/17 01:35 16 97 09/04/17 01:17 92.7 F L 09/04/17 01:12 101 H 18 114/62 92 L Temperature: Hypothermic Blood Pressure: Normal Pulse: Tachycardic Respiratory Rate: Normal Appearance: Positive for: Well-Appearing Pain Distress: None Mental Status: Positive for: other (Alert and Oriented x2) Finger Stick Blood Glucose: 227 Medical Decision Making ED Course and Treatment: 09/04/17 01:30 Plan: -- Labs -- Chest X-ray -- CT Head -- Blood Culture -- Urine Culture -- Urinalysis -- EKG -- Reassess and disposition Progress Notes: EKG shows Atrial fibrillation at [address] elevations and no change from pervious. Interpreted by me. 09/04/17 02:31 Labs were reviewed showing a Lactate level of 5.6. Called a Code Sepsis. Will forego IVF at this time as patient without tachycardia or hypotension and history of CHF. Will begin Zosyn/Vanco. 09/04/17 02:[address] Head and is currently vomiting and appears pale. Zofran administered. EXAM: CT Head Without Intravenous Contrast Dictated and Authenticated by: Casey Mcgill MD 09/04/2017 3:06 AM IMPRESSION: 1. No intracranial hemorrhage. 2. Nonspecific white matter changes. 3. Incidental/non-acute findings are described above 09/04/17 03:45 Case discussed with Desk Assistant Dr. Rosen who is aware of the plan and will evaluate patient. 09/04/17 04:31 Dr. Rosen accepts patient to ICU. Pending CT chest/abdomen/pelvis report, will be followed up by admitting team. Dr. Goode called. 09/04/17 04:35 Dr. Byrd covering for Dr. Goode accepts patient to her service. - Critical Care Critical Care Minutes: 45 minutes - Lab Interpretations Lab Results: 09/04/17 01:35 09/04/17 01:35 Lab Results 09/04/17 04:03: POC Glucose (mg/dL) 250 H 09/04/17 02:10: Urine Color Yellow, Urine Appearance Clear, Urine pH 5.5, Ur Specific [place] >= 1.030, Urine Protein Trace H, Urine Glucose (UA) Negative, Urine Ketones 15 H, Urine Blood Small H, Urine Nitrate Negative, Urine Bilirubin Negative, Urine Urobilinogen 0.2, Ur Leukocyte Esterase Small H, Urine RBC 0 - 2, Urine WBC 5 - 10, Ur Epithelial Cells 1 - 3, Urine Bacteria Mod , Hyaline Casts 0 - 2 09/04/17 01:35: Sodium 131 L, Chloride 90 L, Potassium 5.7 H* D, Carbon Dioxide 28, Anion Gap 19, BUN 72 H, Creatinine 2.5 H, Est GFR ( Amer) 22, Est GFR (Non-Af Amer) 18, Random Glucose 217 H, Calcium 9.3, Total Bilirubin 1.3, AST 568 H D, ALT 286 H, Alkaline Phosphatase 205 H D, Total Creatine Kinase 46, Troponin I 0.04 D, NT-Pro-B Natriuret Pep 88991 H, Total Protein 6.7, Albumin 3.4, Globulin 3.2, Albumin/Globulin Ratio 1.1, Lipase 75 09/04/17 01:35: pO2 85 H, VBG pH 7.33, VBG pCO2 48.0, VBG HCO3 25.3, VBG Total CO2 26.8, VBG O2 Sat (Calc) 98.0 H, VBG Base Excess -1.1 L, VBG Potassium 6.9 H* , Sodium 128.0 L, Chloride 91.0 L, Glucose 203 H, Lactate 5.6 H*, FiO2 21.0, Venous Blood Potassium 6.9 H* 09/04/17 01:35: PT 31.1 H, INR 2.79 H, APTT 37.8 H 09/04/17 01:35: WBC 9.8, RBC 4.54, Hgb 10.1 L, Hct 33.2 L, MCV 73.1 L, MCH 22.2 L, MCHC 30.4 L, RDW 21.1 H, Plt Count 473 H, MPV 10.0, Gran % 79.7 H, Lymph % ( Auto) 11.4 L, Jackson % (Auto) 8.7 H, Eos % (Auto) 0.0 L, Baso % (Auto) 0.2, Gran # 7.84 H, Lymph # 1.1 L, Jackson # 0.9 H, Eos # 0.0, Baso # 0.02 09/04/17 01:35: Blood Type O NEGATIVE, Antibody Screen Negative, BBK History Checked No verified bt I have reviewed the lab results: Yes - RAD Interpretation Radiology Orders: 09/04/17 01:30 HEAD W/O CONTRAST [CT] Stat CHEST PORTABLE [RAD] Stat 09/04/17 02:45 CHEST,ABDOMEN, PELVIS W/O CONT [CT] Stat - Medication Orders Current Medication Orders: Vancomycin HCl (Vancomycin 1gm) 1 gm in 250 mls @ 167 mls/hr IVPB STAT STA PRN Reason: Protocol Stop: 09/04/17 05:59 Last Admin: 09/04/17 04:40 Dose: 167 mls/hr eMAR Start Stop Document 09/04/17 04:40 YP (Rec: 09/04/17 04:40 YP [id number]) Intravenous Solution Start Date 09/04/17 Start Time 04:40 End Date 09/04/17 End time 06:10 Total Infusion Time 90 Discontinued Medications Acetaminophen (Tylenol 650 Mg Supp) 650 mg RC STAT STA Stop: 09/04/17 02:39 Last Admin: 09/04/17 03:00 Dose: 650 mg [facility] Pain/Vitals Document 09/04/17 03:00 YP (Rec: 09/04/17 03:00 YP [id number]) Pain Reassessment Is This A Pain ReAssessment? No Sleep Is patient sleeping during reassessment? No Presence of Pain Presence of Pain No Albuterol Sulfate (Albuterol 0.083% Inhal Pauline (2.5 Mg/3 Ml) Ud) 2.5 mg INH STAT STA Stop: 09/04/17 03:38 Last Admin: 09/04/17 04:01 Dose: 2.5 mg Dextrose (Dextrose 50% Inj) 50 ml IVP STAT STA Stop: 09/04/17 03:38 Last Admin: 09/04/17 04:03 Dose: 50 ml IVP Administration Document 09/04/17 04:03 YP (Rec: 09/04/17 04:03 YP [id number]) Charges for Administration # of IVP Administrations 1 Furosemide (Lasix) 40 mg IVP STAT STA Stop: 09/04/17 03:41 Last Admin: 09/04/17 04:02 Dose: Not Given Non-Admin Reason: BP Parameters Not Met MAR Blood Pressure Document 09/04/17 04:02 YP (Rec: 09/04/17 04:03 YP [id number]) Blood Pressure Blood Pressure (100/60-150/90) 104/51 Piperacillin Sod/Tazobactam Sod (Zosyn 3.375 In Ns 100ml) 100 mls @ 200 mls/hr IVPB STAT STA PRN Reason: Protocol Stop: 09/04/17 03:15 Last Admin: 09/04/17 02:59 Dose: 200 mls/hr eMAR Start Stop Document 09/04/17 02:59 YP (Rec: 09/04/17 03:00 YP [id number]) Intravenous Solution Start Date 09/04/17 Start Time 03:00 End Date 09/04/17 End time 03:30 Total Infusion Time 30 Insulin Human Regular (Humulin R) 7 units IVP STAT STA Stop: 09/04/17 03:38 Last Admin: 09/04/17 04:03 Dose: 7 units MAR Blood Glucose Document 09/04/17 04:03 YP (Rec: 09/04/17 04:04 YP [id number]) Blood Glucose Finger Stick Blood Glucose (70-120) 250 IVP Administration Document 09/04/17 04:03 YP (Rec: 09/04/17 04:04 YP [id number]) Charges for Administration # of IVP Administrations 1 Ondansetron HCl (Zofran Inj) 4 mg IVP STAT STA Stop: 09/04/17 02:34 Last Admin: 09/04/17 02:57 Dose: Tetanus/Reduced Diphtheria/Acell Pertussis (Boostrix Vaccine Inj) 0.5 ml IM .ONCE ONE Stop: 09/04/17 01:32 Last Admin: 09/04/17 03:00 Dose: 0.5 ml Immunization Registry Document 09/04/17 03:00 YP (Rec: 09/04/17 03:00 [id number]) Immunization Registry Consent Date 09/04/17 - Scribe Statement The provider has reviewed the documentation as recorded by the Ghazal Begum Provider Scribe Attestation: All medical record entries made by the Scribe were at my direction and personally dictated by me. I have reviewed the chart and agree that the record accurately reflects my personal performance of the history, physical exam, medical decision making, and the department course for this patient. I have also personally directed, reviewed, and agree with the discharge instructions and disposition. Disposition/Present on Arrival - Present on Arrival Any Indicators Present on Arrival: No History of DVT/PE: No History of Uncontrolled Diabetes: No Urinary Catheter: No History of Decub. Ulcer: No History Surgical Site Infection Following: None - Disposition Have Diagnosis and Disposition been Completed?: Yes Diagnosis: Hypothermia, CHF exacerbation, Acute renal insufficiency, Hyperkalemia, Transaminitis Disposition: HOSPITALIZED Disposition Time: 04:30 Patient Plan: Admission, ICU Condition: CRITICAL Discharge Instructions (ExitCare): Heart Failure (ED) Referrals: Ghazal Goode MD [Primary Care Provider] - Follow up with primary Forms: PicBadges (Slovak)
[2017-09-04 02:19] LABS: BASO # 0.02 K/mm3 (0.0-2.0); BASO % 0.2 % (0.0-3.0); GRAN # 7.84 (1.4-6.5); GRAN % 79.7 % (50.0-68.0); HEMATOCRIT 33.2 % (36.0-48.0); LYMPH # 1.1 (1.2-3.4); LYMPH % 11.4 % (22.0-35.0); MEAN CELL VOLUME 73.1 fl (80.0-105.0); MEAN CORPUSCULAR HEMOGLOBIN 22.2 pg (25.0-35.0); MEAN CORPUSCULAR HGB CONC 30.4 g/dl (31.0-37.0); MONO # 0.9 (0.1-0.6); MONO % 8.7 % (1.0-6.0); RED CELL DISTRIBUTION WIDTH 21.1 % (11.5-14.5); WHITE BLOOD COUNT 9.8 10^3/ul (4.5-11.0)
[2017-09-04 02:24] LABS: INR 2.79 (0.93-1.08); PARTIAL THROMBOPLASTIN TIME 37.8 Seconds (25.1-36.5)
[2017-09-04 02:27] LABS: PH,URINE 5.5 (4.7-8.0); URINE BILIRUBIN NEGATIVE (NEGATIVE); URINE BLOOD SMALL (NEGATIVE); URINE GLUCOSE (UA) NEGATIVE (NEGATIVE); URINE KETONE 15 mg/dL (NEGATIVE); URINE LEUKOCYTE ESTERASE SMALL Leu/uL (NEGATIVE); URINE PROTEIN TRACE mg/dL (<30 mg/dL); URINE UROBILINOGEN 0.2 E.U./dL (<1 E.U./dL)
[2017-09-04 02:28] LABS: VENOUS BLOOD GAS BASE EXCESS -1.1 mmol/L (0.0-2.0); VENOUS BLOOD PH 7.33 (7.32-7.43)
[2017-09-04 02:36] LABS: URINE APPEARANCE CLEAR (CLEAR); URINE COLOR YELLOW (YELLOW)
[2017-09-04 02:41] LABS: URINE BACTERIA MOD (NEG); URINE RBC 0 - 2 /hpf (0-2)
[2017-09-04] MEDS ORDERED: Piperacillin/Tazobact 3.375 gm 100 ML IVPB STA (02:46)
--- NOTE | 2017-09-04 03:07 | CT ---
EXAM: CT Head Without Intravenous Contrast CLINICAL HISTORY: 87 years old, female; Injury or trauma; Fall; Initial encounter; Abrasion; Head, generalized TECHNIQUE: Axial computed tomography images of the head/brain without intravenous contrast. All CT scans at this facility use one or more dose reduction techniques, viz.: automated exposure control; ma/kV adjustment per patient size (including targeted exams where dose is matched to indication; i.e. head); or iterative reconstruction technique. COMPARISON: CT - HEAD W/O CONTRAST 2017-07-13 02:45 FINDINGS: Brain: Moderate atrophy. No intracranial hemorrhage. No mass. Minimal decreased attenuation within periventricular white matter. No edema. Ventricles: No hydrocephalus. Bones/joints: No acute fracture. Soft tissues: Unremarkable. Vasculature: Atherosclerotic disease of intracranial arteries. Sinuses: Scattered minimal mucosal thickening of ethmoid sinuses. Mastoid air cells: No mastoid effusion. Orbits: Unremarkable as visualized. IMPRESSION: 1. No intracranial hemorrhage. 2. Nonspecific white matter changes. 3. Incidental/non-acute findings are described above.
[2017-09-04 03:25] LABS: ALB/GLOB RATIO 1.1 (1.1-1.8); BILIRUBIN,TOTAL 1.3 mg/dL (0.2-1.3); CALCIUM 9.3 mg/dL (8.4-10.5); TOTAL PROTEIN 6.7 g/dL (5.8-8.3)
[2017-09-04] MEDS ORDERED: Albuterol 0.083% Inhal Sol (2.5 mg/3 mL) UD INH STA (03:37)
[2017-09-04] MEDS ORDERED: Dextrose 50% SYRINGE Inj (50 ml) IVP STA (03:37)
[2017-09-04] MEDS ORDERED: Insulin Regular 1 UNITS/0.01 ML ML IVP STA (03:37)
[2017-09-04 03:38] LABS: TROPONIN I 0.04 ng/mL
[2017-09-04 03:40] LABS: POTASSIUM 5.7 mmol/L (3.6-5.0)
[2017-09-04] MEDS ORDERED: Vancomycin 1gm in NS 250ml 1 GM/250 ML BAG IVPB STA (04:30)
--- NOTE | 2017-09-04 04:35 | CT ---
EXAM: CT Chest Without Intravenous Contrast CLINICAL HISTORY: 87 years old, female; Signs and symptoms; Vomiting; Additional info: Fall, hypoxia, vomiting TECHNIQUE: Axial computed tomography images of the chest without intravenous contrast. All CT scans at this facility use one or more dose reduction techniques, viz.: automated exposure control; ma/kV adjustment per patient size (including targeted exams where dose is matched to indication; i.e. head); or iterative reconstruction technique. Coronal and sagittal reformatted images were created and reviewed. COMPARISON: No relevant prior studies available. FINDINGS: Limitations: Lack of intravenous contrast. Motion artifact - mild. Lungs: Minimal peripheral consolidation with air bronchograms and associated volume loss within LEFT upper lobe. Moderate peripheral consolidation with air bronchograms and associated volume loss within the RIGHT middle lobe. Minimal peripheral consolidation with associated volume loss within lower lobes. Mild atelectasis/scarring. Minimal interlobular septal thickening. Mild mosaic pattern of lung parenchyma. Pleural space: Small LEFT pleural effusion. Moderate RIGHT pleural effusion. Heart: Moderate cardiomegaly. No significant pericardial effusion. Coronary artery calcifications. Mediastinum: Small hiatal hernia. Bones/joints: Several healing/healed rib fractures. Acute or subacute fracture LEFT fifth rib. Healing sternal fracture. Degenerative changes of spine. Soft tissues: Mild diffuse stranding within subcutaneous tissues. Vasculature: Moderate atherosclerotic disease. No aneurysm. Minimal air within vessels, likely iatrogenic. Lymph nodes: No pathologically enlarged lymph nodes. IMPRESSION: 1. Probable interstitial edema. 2. Bilateral pleural effusions with compressive lower lobe atelectasis. 3. RIGHT middle, LEFT upper lobe atelectasis. Superimposed pneumonia not entirely excluded. 4. Anasarca. 5. Incidental/non-acute findings are described above. EXAM: CT Abdomen and Pelvis Without Intravenous Contrast CLINICAL HISTORY: 87 years old, female; Signs and symptoms; Vomiting; Additional info: Fall, hypoxia, vomiting TECHNIQUE: Axial computed tomography images of the abdomen and pelvis without intravenous contrast. All CT scans at this facility use one or more dose reduction techniques, viz.: automated exposure control; ma/kV adjustment per patient size (including targeted exams where dose is matched to indication; i.e. head); or iterative reconstruction technique. Coronal and sagittal reformatted images were created and reviewed. COMPARISON: No relevant prior studies available. FINDINGS: Limitations: Lack of intravenous contrast. Motion artifact - mild. ABDOMEN: Liver: Unremarkable. Gallbladder and bile ducts: Gallbladder not visualized. Dilated common bile duct, up to 1.7 cm. Pancreas: Unremarkable. No ductal dilation. Spleen: No splenomegaly. Adrenals: Hypertrophy of adrenal glands. Kidneys and ureters: Eboh-tq-jglrxcze atrophy of kidneys. No hydronephrosis. Stomach and bowel: Scattered diverticula within colon. No definite mural thickening. No obstruction. Appendix: No definite findings to suggest acute appendicitis. PELVIS: Bladder: Apparent mild bladder wall thickening. Incomplete distention, limiting evaluation. No stones. Reproductive: Apparent 2.5 x 2.3 x 2.2 cm hypodense lesion within RIGHT adnexal region. ABDOMEN and PELVIS: Intraperitoneal space: Lwiga-bi-[id number] free fluid within abdomen and pelvis. No free air. Bones/joints: Degenerative changes of spine. No acute fracture. Soft tissues: Moderate to extensive diffuse stranding throughout subcutaneous tissues. Probable sebaceous cyst within LEFT anterior thigh. Vasculature: Extensive atherosclerotic disease. No aneurysm. Lymph nodes: No pathologically enlarged lymph nodes. IMPRESSION: 1. Dilated common bile duct. Consider MRCP. 2. Mild cystitis vs underdistention. Correlate with urinalysis. 3. Ascites. 4. Adnexal lesion, indeterminate. Recommend followup ultrasound. 5. Anasarca. 6. Incidental/non-acute findings are described above.
[2017-09-04 04:50] LABS: VENOUS BLOOD GAS BASE EXCESS -0.3 mmol/L (0.0-2.0); VENOUS BLOOD PH 7.29 (7.32-7.43)
--- NOTE | 2017-09-04 05:02 | CP.PCM.HP ---
<Polly Matamoros - Last Filed: 09/04/17 06:09> History of Present Illness - History of Present Illness History of Present Illness: 87yo female PMHx Afib, CHF, CAD s/p angioplasty, hyperlipidemia, hypertension, chronic renal failure, and diabetes presented to ED after a mechanical fall 4 hours prior to arrival. Patient was brought in by BLS. Patient reports she tripped and fell at home and was unable to get herself off the floor for 4 hours. She denies any LOC and denies hitting her head stating that she fell on her stomach/side. Patient has on a fall sensitivity button which notified the ambulance and her daughter. As per ED note, patient has had 3 falls since April 2017 and was recently discharged from hospital 3 days ago when she was admitted for b/l LE cellulitis. Patient reports nausea, chills, and dizziness and reports feeling generally weak. She had an episode of emesis in the ED but does not recall what she threw up. She denies any headache, chest pain, palpitations , SOB, cough, abd pain, bowel/bladder complaints, pain/swelling in her legs bilaterally. PMD: Perveen PMHx: HTN, CHF, CAD, NIDDM, HLD, and melanoma Family History: DM on maternal and paternal Surgical History: melanoma excision of lesion on left side of nose 10 years ago Allergies: NKDA Social History: lives in senior citizen building, denies smoking, denies drinking alcohol, denies illicit drug use Medications: Tramadol, Glyburide, Diltiazem, Vosuvastatin, Metoprolol, Metformin , Furosemide, Diltiazem, Diazepam, Apixaban Present on Admission - Present on Admission Any Indicators Present on Admission: No Review of Systems - Constitutional Constitutional: As Per HPI, Chills. absent: Fever - EENT Eyes: As Per HPI. absent: Change in Vision Ears: As Per HPI, Dizziness Nose/Mouth/Throat: As Per HPI. absent: Sore Throat - Cardiovascular Cardiovascular: As Per HPI. absent: Chest Pain, Dyspnea, Edema, Pedal Edema - Respiratory Respiratory: As Per HPI. absent: Cough, Dyspnea, Chest Congestion - Gastrointestinal Gastrointestinal: As Per HPI, Nausea, Vomiting. absent: Abdominal Pain, Constipation, Diarrhea - Genitourinary Genitourinary: As Per HPI. absent: Dysuria, Pyuria - Musculoskeletal Musculoskeletal: As Per HPI. absent: Numbness, Tingling - Integumentary Integumentary: As Per HPI, Dry Skin - Neurological Neurological: As Per HPI, Dizziness, Frequent Falls, Weakness. absent: Numbness , Headaches, Syncope, Tingling - Psychiatric Psychiatric: As Per HPI. absent: Anxiety, Depression - Endocrine Endocrine: As Per HPI. absent: Polydipsia, Polyphagia, Polyuria - Hematologic/Lymphatic Hematologic: As Per HPI. absent: Easy Bleeding, Easy Bruising, Lymphadenopathy Past Patient History - Infectious Disease Hx of Infectious Diseases: None - Past Medical History & Family History Past Medical History?: Yes - Past Social History Smoking Status: Never Smoked - CARDIAC Hx Cardiac Disorders: Yes Hx Congestive Heart Failure: Yes Hx Hypertension: Yes - PULMONARY Hx Pneumonia: Yes - NEUROLOGICAL Hx Neurological Disorder: No - HEENT Hx HEENT Problems: No (eyeglasses) - RENAL Hx Renal Failure: Yes - ENDOCRINE/METABOLIC Hx Diabetes Mellitus Type 2: Yes - HEMATOLOGICAL/ONCOLOGICAL Hx Blood Disorders: No - INTEGUMENTARY Hx Dermatological Problems: Yes Other/Comment: paper thin skin - MUSCULOSKELETAL/RHEUMATOLOGICAL Hx Falls: Yes - GASTROINTESTINAL Hx Gastrointestinal Disorders: No - GENITOURINARY/GYNECOLOGICAL Hx Reproductive Disorders: No - PSYCHIATRIC Hx Psychophysiologic Disorder: No Hx Substance Use: No - SURGICAL HISTORY Hx Cholecystectomy: Yes Hx Coronary Stent: Yes - ANESTHESIA Hx Anesthesia: No Hx Anesthesia Reactions: No Hx Malignant Hyperthermia: No Meds Allergies/Adverse Reactions: Allergies Allergy/AdvReac Type Severity Reaction Status Date / Time No Known Allergies Allergy Verified 08/26/17 19:46 Physical Exam - Constitutional Appears: No Acute Distress - Head Exam Additional comments: forehead lesion - Eye Exam Eye Exam: EOMI, Normal appearance, PERRL. absent: Conjunctival injection, Scleral icterus Pupil Exam: NORMAL ACCOMODATION - ENT Exam ENT Exam: Mucous Membranes Dry - Neck Exam Neck exam: Negative for: Lymphadenopathy - Respiratory Exam Respiratory Exam: Rales (b/l bases), NORMAL BREATHING PATTERN. absent: Accessory Muscle Use, Rhonchi, Wheezes, Respiratory Distress - Cardiovascular Exam Cardiovascular Exam: Irregular Rhythm, +S1, +S2. absent: Bradycardia, Tachycardia - GI/Abdominal Exam GI & Abdominal Exam: Normal Bowel Sounds, Soft. absent: Firm, Guarding, Rigid, Tenderness - Extremities Exam Extremities exam: Positive for: pedal edema (b/l LE), pedal pulses present ( with doppler) - Neurological Exam Neurological exam: Alert, Oriented x3 - Psychiatric Exam Psychiatric exam: Normal Affect, Normal Mood - Skin Skin Exam: Dry Additional comments: cool to touch skin tear R forearm Results - Vital Signs Recent Vital Signs: Last Vital Signs Temp 93.2 F L 09/04/17 03:07 Pulse 68 09/04/17 04:57 Resp 16 09/04/17 04:57 BP 99/58 L 09/04/17 04:57 Pulse Ox 93 L 09/04/17 04:57 - Labs Result Diagrams: 09/04/17 01:35 09/04/17 01:35 Assessment & Plan - Assessment and Plan (Free Text) Assessment: 87yo female PMHx Afib, CHF, CAD s/p angioplasty, hyperlipidemia, hypertension, chronic renal failure, and diabetes presented to ED after a mechanical fall 4 hours prior to arrival Plan: Sepsis - CT chest: probable interstitial edema; b/l pleural effusions with compressive lower lobe atelectasis; R middle L upper lobe atelectasis; superimposed pneumonia not entirely excluded; anasarca. - f/u blood culture - f/u urine culture - f/u procalcitonin - Vanc and Zosyn - Tylenol for temp - ID Dr. Cook consulted Mechanical fall -CT head: no intracranial hemorrhage; nonspecific white matter changes Transaminitis - CT abdomen/pelvis: Dilated CBD [consider MRCP]; mild cystitis vs underdistention. Correlate with UA; ascites; adnexal lesion indeterminate. Recommend follow up u/s. Anasarca - f/u abdominal u/s - GI Dr Carrington consulted RADHA on CKD - NS @ 80cc/hr - monitor BUN:Cr and consider nephro consult Hx of Hyperlipidemia - hold home statin in light of LFTs Hx of Afib - rate controlled - continue Eliquis 2.5mg po bid Hx of HTN - hold BP meds in light of hypotension Hx of DM2 - RISS - Accucheck GI ppx: Protonix 40mg ivp qd DVT ppx: patient on eliquis Fluids: NS @ 80cc/hr Case discussed with Dr. Jessika Matamoros PGY2 <Treva Byrd - Last Filed: 09/04/17 21:15> Results - Vital Signs Recent Vital Signs: Last Vital Signs Temp 98.1 F 09/04/17 16:01 Pulse 103 H 09/04/17 18:00 Resp 24 09/04/17 16:01 BP 101/43 L 09/04/17 16:01 Pulse Ox 96 09/04/17 16:01 - Labs Result Diagrams: 09/04/17 06:00 09/04/17 06:00 Labs: Laboratory Results - last 24 hr 09/04/17 09/04/17 09/04/17 06:00 06:00 06:00 WBC 8.4 RBC 4.35 Hgb 9.5 L Hct 31.8 L MCV 73.1 L MCH 21.8 L MCHC 29.9 L RDW 20.6 H Plt Count 369 MPV 9.4 Gran % 75.0 H Lymph % (Auto) 14.0 L [place] % (Auto) 10.8 H Eos % (Auto) 0.0 L Baso % (Auto) 0.2 Gran # 6.26 Lymph # 1.2 [place] # 0.9 H Eos # 0.0 Baso # 0.02 pO2 25 L VBG pH 7.31 L VBG pCO2 57.0 VBG HCO3 28.7 H VBG Total CO2 30.4 H VBG O2 Sat (Calc) 46.3 VBG Base Excess 1.2 VBG Potassium 5.0 Sodium 129.0 L Chloride 93.0 L Glucose 258 H Lactate 4.2 H* FiO2 21.0 Potassium Carbon Dioxide Anion Gap BUN Creatinine Est GFR ( Amer) Est GFR (Non-Af Amer) POC Glucose (mg/dL) Random Glucose Calcium Phosphorus Magnesium Total Bilirubin AST ALT Alkaline Phosphatase Total Protein Albumin Globulin Albumin/Globulin Ratio Procalcitonin 0.42 Venous Blood Potassium 5.0 09/04/17 09/04/17 09/04/17 06:00 07:57 11:27 WBC RBC Hgb Hct MCV MCH MCHC RDW Plt Count MPV Gran % Lymph % (Auto) [place] % (Auto) Eos % (Auto) Baso % (Auto) Gran # Lymph # [place] # Eos # Baso # pO2 VBG pH VBG pCO2 VBG HCO3 VBG Total CO2 VBG O2 Sat (Calc) VBG Base Excess VBG Potassium Sodium 132 Chloride 91 L Glucose Lactate FiO2 Potassium 5.1 H Carbon Dioxide 29 Anion Gap 17 BUN 73 H Creatinine 2.6 H Est GFR ( Amer) 21 Est GFR (Non-Af Amer) 17 POC Glucose (mg/dL) 225 H 211 H Random Glucose 247 H Calcium 8.9 Phosphorus 4.5 Magnesium 2.2 Total Bilirubin 1.2 AST 488 H ALT 268 H Alkaline Phosphatase 181 H Total Protein 6.3 Albumin 3.2 Globulin 3.1 Albumin/Globulin Ratio 1.0 L Procalcitonin Venous Blood Potassium 09/04/17 15:54 WBC RBC Hgb Hct MCV MCH MCHC RDW Plt Count MPV Gran % Lymph % (Auto) [place] % (Auto) Eos % (Auto) Baso % (Auto) Gran # Lymph # [place] # Eos # Baso # pO2 VBG pH VBG pCO2 VBG HCO3 VBG Total CO2 VBG O2 Sat (Calc) VBG Base Excess VBG Potassium Sodium Chloride Glucose Lactate FiO2 Potassium Carbon Dioxide Anion Gap BUN Creatinine Est GFR ( Amer) Est GFR (Non-Af Amer) POC Glucose (mg/dL) 254 H Random Glucose Calcium Phosphorus Magnesium Total Bilirubin AST ALT Alkaline Phosphatase Total Protein Albumin Globulin Albumin/Globulin Ratio Procalcitonin Venous Blood Potassium
[2017-09-04] MEDS ORDERED: Sodium Chloride 0.9% 1,000 ML IV SCH (05:30)
[2017-09-04] MEDS ORDERED: Piperacillin/Tazobact 3.375 gm 100 ML IVPB SCH (06:00)
[2017-09-04 06:07] LABS: VENOUS BLOOD GAS BASE EXCESS 1.2 mmol/L (0.0-2.0); VENOUS BLOOD PH 7.31 (7.32-7.43)
[2017-09-04 06:18] LABS: BILIRUBIN,TOTAL 1.2 mg/dL (0.2-1.3); CALCIUM 8.9 mg/dL (8.4-10.5); MAGNESIUM 2.2 mg/dL (1.7-2.2); PHOSPHOROUS 4.5 mg/dL (2.5-4.5); POTASSIUM 5.1 mmol/L (3.6-5.0); TOTAL PROTEIN 6.3 g/dL (5.8-8.3)
[2017-09-04 06:19] LABS: BASO # 0.02 K/mm3 (0.0-2.0); BASO % 0.2 % (0.0-3.0); GRAN # 6.26 (1.4-6.5); HEMATOCRIT 31.8 % (36.0-48.0); LYMPH # 1.2 (1.2-3.4); MEAN CELL VOLUME 73.1 fl (80.0-105.0); MEAN CORPUSCULAR HEMOGLOBIN 21.8 pg (25.0-35.0); MEAN CORPUSCULAR HGB CONC 29.9 g/dl (31.0-37.0); MEAN PLATELET VOLUME 9.4 fl (7.0-11.0); MONO # 0.9 (0.1-0.6); MONO % 10.8 % (1.0-6.0); RED CELL DISTRIBUTION WIDTH 20.6 % (11.5-14.5); WHITE BLOOD COUNT 8.4 10^3/ul (4.5-11.0)
[2017-09-04] MEDS ORDERED: Sodium Chloride 0.9% 1,000 ML IV STA (06:39)
[2017-09-04] MEDS: Insulin Lispro (humaLOG) LOW Coverage SC SCH ×4 (08:41→21:24)
[2017-09-04] MEDS: NOREPINEPHRINE BIT/0.9 % NACL 4 MG/250 ML BAG IV PRN ×3 (08:42→23:00)
--- NOTE | 2017-09-04 08:56 | PCM.PROC ---
Procedures Attestation:: I certify that I have explained the specified Operation(s) or Procedure(s), risks, benefits and reasonable alternatives to the Patient and/or other person responsible. The opportunity was given to ask questions and all questions answered - Central Line Placement Right Internal Jugular Triple Lumen Catheter Aseptic technique was employed throughout the procedure: Hand Hygiene done prior to procedure, Full sterile barriers (mask, hair cover, sterile gown, sterile gloves), Full body sterile drape, Chloraprep Antiseptic: 30 second prep for IJ or SC sites CVP Time Out Performed: Yes Pt. Placed on Pulse Ox Monitor: Yes Central Line Prep: Chlorhexidine-Alcohol Combination Local Anesthesia Used: Lidocaine 1% Amount of Anesthesia Used (mls): 3 Ultrasound Used for Placement: Yes Central Line Lumen Inserted: triple Central Line Length: 20 cm Post Procedure: Sutured in Place, Good Blood Return, All Ports Aspirated, Flushed, Capped, Sterile Dressing Applied Secured by: Suture (and securement) Post procedure dressing: Gauze, Clear vapor permeable, Chlorhexidine disc ( Biopatch) Post Procedure X-Ray: Yes Patient Tolerated Procedure: Well Immediate Complications: None
[2017-09-04 09:23] VITALS: BMI 24.8
--- NOTE | 2017-09-04 09:41 | PN ---
DATE: 09/04/2017 NON PROFIT JOB TITLES NOTE SUBJECTIVE: The patient is resting in bed, awake and alert. Does complain of some nauseousness and occasional feeling that she has to vomit and with vomiting. The patient, this morning, has decreased blood pressure, triple lumen catheter was placed and has been started on Levophed to support her BP. No complaints of chest pain. No increased shortness of breath, cough or wheeze. No significant abdominal pain. PHYSICAL EXAMINATION: VITAL SIGNS: Note that her temperature is 93.5, rectal, her pulse is 68, respirations are 16, blood pressure is 99/58 and O2 sat is 95% on nasal cannula. HEENT: Head is atraumatic and normocephalic. Eyes reactive to light. Ears, nose, and throat seemed to be within normal limits. NECK: Supple. No JVD. No thyroid enlargement. No lymph nodes. HEART: Regular rate and rhythm. Normal S1 and S2. LUNGS: Reveal mild decreased breath sounds at the bases with occasional rhonchi. ABDOMEN: Soft and decreased bowel sounds. GENITALIA: Deferred. RECTAL: Deferred. MUSCULOSKELETAL: No joint deformities. EXTREMITIES: Reveal positive lower extremity edema. NEUROLOGICAL: She seemed to be grossly intact. LABORATORY DATA: As far as her laboratories, her white count is 8.4, hemoglobin is 9.5, hematocrit 31.8 with platelets of 369,000. Venous blood gas reveals a pH of 7.31, PCO2 of 57, PO2 of 25. The patient's sodium is 132, potassium 5.1, chloride 91, CO2 of 29 with BUN of 73, creatinine of 2.6 and glucose of 225. The patient's LFTs are elevated. AST is 488, ALT is 268 with alkaline phosphatase being 181. DIAGNOSTIC DATA: As far as her chest x-ray, the reading is pending. IMPRESSION: As far as my impression, this patient has septic shock with hypotension, felt to have pneumonia as well as lower extremity cellulitis. She has congestive heart failure as well as increased LFTs, acute and chronic renal insufficiency as well as noted to have some anasarca. CT of the abdomen revealed some atelectasis and pulmonary edema. She has anemia with history of coronary artery disease, atrial fibrillation, hyperlipidemia and diabetes. PLAN: As far as our plan, we will continue with the Levophed to support her blood pressure, O2 via nasal cannula and aggressive pulmonary toilet. The patient is on Eliquis for anticoagulation and antibiotics of cefepime and is also getting Protonix. She is also getting antibiotics of vancomycin. We will continue to follow closely and treat aggressively along with other consultants and primary care doctor. Christopher Grace MD
--- NOTE | 2017-09-04 09:55 | CP.PCM.CON ---
History of Present Illness - History of Present Illness History of Present Illness: 87 year old female with PMH of chronic CHF, CAD S/P PCI, HTN, chronic renal failure, DM, S/P cholecystectomy was recently in [facility] [place] for treatment of bilateral lower extremity cellulitis. She did well with antibiotics and was sent home. She apparently tripped and fell at home prior to coming to the ED yesterday and apparently was not able to get off the floor for at least 4 hours. She denies losing consciousness and does not recall hitting her head on the floor but did all on her side and stomach area. She states she has been feeling weak that day and had some nausea, some chills, but no vomiting, no chest pain or palpitations , no dizziness, no sore throat, no cough or colds, no dysphagia or odynophagia, no bleeding, no abdominal pain, no diarrhea, no dysuria. In the ED, CXR was done which shows atelectasis but could not rule out infiltrates. Infectious Diseases consult is requested to further evaluate and manage. Review of Systems - Review of Systems All systems: reviewed and no additional remarkable complaints except (as per HPI ) Past Patient History - Infectious Disease Hx of Infectious Diseases: None - Past Medical History & Family History Past Medical History?: Yes - Past Social History Smoking Status: Never Smoked - CARDIAC Hx Cardiac Disorders: Yes Hx Congestive Heart Failure: Yes Hx Hypertension: Yes - PULMONARY Hx Pneumonia: Yes - NEUROLOGICAL Hx Neurological Disorder: No - HEENT Hx HEENT Problems: No (eyeglasses) - RENAL Hx Renal Failure: Yes - ENDOCRINE/METABOLIC Hx Diabetes Mellitus Type 2: Yes - HEMATOLOGICAL/ONCOLOGICAL Hx Blood Disorders: No - INTEGUMENTARY Hx Dermatological Problems: Yes Other/Comment: paper thin skin - MUSCULOSKELETAL/RHEUMATOLOGICAL Hx Falls: Yes - GASTROINTESTINAL Hx Gastrointestinal Disorders: No - GENITOURINARY/GYNECOLOGICAL Hx Reproductive Disorders: No - PSYCHIATRIC Hx Psychophysiologic Disorder: No Hx Substance Use: No - SURGICAL HISTORY Hx Cholecystectomy: Yes Hx Coronary Stent: Yes - ANESTHESIA Hx Anesthesia: No Hx Anesthesia Reactions: No Hx Malignant Hyperthermia: No Meds Allergies/Adverse Reactions: Allergies Allergy/AdvReac Type Severity Reaction Status Date / Time No Known Allergies Allergy Verified 08/26/17 19:46 - Medications Medications: Current Medications Acetaminophen (Tylenol 325mg Tab) 650 mg PO Q6H PRN PRN Reason: Fever >100.4 F Apixaban (Eliquis) 2.5 mg PO BID YULI PRN Reason: Protocol Sodium Chloride (Sodium Chloride 0.9%) 1,000 mls @ 80 mls/hr IV .[id number] YULI Vancomycin HCl (Vancomycin 1gm) 1 gm in 250 mls @ 167 mls/hr IVPB 0600 YULI PRN Reason: Protocol Piperacillin Sod/Tazobactam Sod (Zosyn 2.25 Gm In 0.9% 100 Ml) 2.25 gm in 100 mls @ 100 mls/hr IVPB Q8 YULI PRN Reason: Protocol Stop: 09/04/17 22:59 Sodium Chloride (Sodium Chloride 0.9%) 1,000 mls @ 999 mls/hr IV .[id number] STA Stop: 09/04/17 07:39 Last Admin: 09/04/17 06:30 Dose: 999 mls/hr Insulin Human Lispro (Humalog Low) 0 units SC ACHS YULI PRN Reason: Protocol Levalbuterol HCl (Xopenex) 0.63 mg IH [id number] PRN PRN Reason: Shortness of Breath Multivitamins (Thera Tab) 1 tab PO 0800 [facility] Ondansetron HCl (Zofran Inj) 4 mg IVP Q6H PRN PRN Reason: Nausea/Vomiting Pantoprazole Sodium (Protonix Inj) 40 mg IVP DAILY [facility] Physical Exam - Constitutional Appears: Non-toxic - Head Exam Head Exam: NORMAL INSPECTION - ENT Exam ENT Exam: Mucous Membranes Moist - Neck Exam Neck exam: Negative for: Meningismus - Respiratory Exam Respiratory Exam: Decreased Breath Sounds (crackles at the bases) - Cardiovascular Exam Cardiovascular Exam: +S1, +S2 - GI/Abdominal Exam GI & Abdominal Exam: Soft. absent: Tenderness - Extremities Exam Additional comments: chronic skin changes no both lower extremities Results - Vital Signs Recent Vital Signs: Last Vital Signs Temp 93.5 F L 09/04/17 06:01 Pulse 68 09/04/17 04:57 Resp 16 09/04/17 04:57 BP 99/58 L 09/04/17 04:57 Pulse Ox 93 L 09/04/17 04:57 - Labs Result Diagrams: 09/04/17 06:00 09/04/17 06:00 Labs: Laboratory Results - last 24 hr 09/04/17 09/04/17 09/04/17 06:00 06:00 06:00 WBC 8.4 RBC 4.35 Hgb 9.5 L Hct 31.8 L MCV 73.1 L MCH 21.8 L MCHC 29.9 L RDW 20.6 H Plt Count 369 MPV 9.4 Gran % 75.0 H Lymph % (Auto) 14.0 L [place] % (Auto) 10.8 H Eos % (Auto) 0.0 L Baso % (Auto) 0.2 Gran # 6.26 Lymph # 1.2 [place] # 0.9 H Eos # 0.0 Baso # 0.02 pO2 25 L VBG pH 7.31 L VBG pCO2 57.0 VBG HCO3 28.7 H VBG Total CO2 30.4 H VBG O2 Sat (Calc) 46.3 VBG Base Excess 1.2 VBG Potassium 5.0 Sodium 129.0 L 132 Chloride 93.0 L 91 L Glucose 258 H Lactate 4.2 H* FiO2 21.0 Potassium 5.1 H Carbon Dioxide 29 Anion Gap 17 BUN 73 H Creatinine 2.6 H Est GFR ( Amer) 21 Est GFR (Non-Af Amer) 17 Random Glucose 247 H Calcium 8.9 Phosphorus 4.5 Magnesium 2.2 Total Bilirubin 1.2 AST 488 H ALT 268 H Alkaline Phosphatase 181 H Total Protein 6.3 Albumin 3.2 Globulin 3.1 Albumin/Globulin Ratio 1.0 L Venous Blood Potassium 5.0 Assessment & Plan - Assessment and Plan (Free Text) Plan: Assessment R/O HCAP, bilateral in this patient also with bilateral pleural effusions 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
[2017-09-04] MEDS ORDERED: Cefepime IV 2 gm in NS 2 GM/100 ML BAG IVPB SCH (10:00)
[2017-09-04] MEDS: Meropenem 1 GM in Dextrose 5% In Water 100 ML IVPB SCH (10:28)
[2017-09-04] MEDS: Multivitamin Therapeutic Tab PO SCH (10:28)
--- NOTE | 2017-09-04 10:29 | RAD ---
HISTORY: fall, hypothermia COMPARISON: Comparison is made to 08/20/2023 FINDINGS: LUNGS: Re- demonstration of right perihilar opacity. Reticular opacities are also seen at both lower lobes. PLEURA: Blunting of the right costophrenic angle again noted CARDIOVASCULAR: Cardiomegaly is again noted OSSEOUS STRUCTURES: No significant abnormalities. VISUALIZED UPPER ABDOMEN: Normal. OTHER FINDINGS: None. IMPRESSION: Re- demonstration of cardiomegaly and pulmonary vascular congestion. No evidence of pneumothorax
--- NOTE | 2017-09-04 10:44 | RAD ---
HISTORY: Central line insertion COMPARISON: Comparison is made to the previous same-day exam. FINDINGS: LUNGS: Interval worsening of right lower lung opacity since the previous exam likely due to partial atelectasis of the right lower lobe. PLEURA: Blunting of the right costophrenic angle is again noted. CARDIOVASCULAR: The cardiac silhouette is enlarged. OSSEOUS STRUCTURES: No significant abnormalities. VISUALIZED UPPER ABDOMEN: Normal. OTHER FINDINGS: Interval insertion of right jugular central line. IMPRESSION: Appropriate position of the right jugular central line. Worsening opacity at the right lower lung could be due to atelectasis.
--- NOTE | 2017-09-04 11:59 | US ---
HISTORY: dilated CBD on CT abdomen COMPARISON: Comparison is made to the previous ultrasound study dated 05/19/[address] study dated 09/04/2017 TECHNIQUE: Sonographic evaluation of the abdomen. FINDINGS: LIVER: Measures 14.4 cm. Heterogeneous increased echogenicity of the liver parenchyma. No mass. No intrahepatic bile duct dilatation. GALLBLADDER: Status post cholecystectomy COMMON BILE DUCT: Measures 16.9 mm. No stones. PANCREAS: Unremarkable as visualized. No mass. No ductal dilatation. RIGHT KIDNEY: Measures 9.5 x 4.2 x 5.1cm. Normal echogenicity. No calculus, mass, or hydronephrosis. LEFT KIDNEY: Measures 9.5 x 4.6 x 5.2cm. Normal echogenicity. No calculus, mass, or hydronephrosis. SPLEEN: Normal in size and contour. No mass. AORTA: Not clearly visualized due to overlying bowel gas. IVC: Unremarkable. OTHER FINDINGS: Small amount of ascites seen in the abdomen. IMPRESSION: Heterogeneous [id number] echogenic liver suggestive of hepatic steatosis or liver parenchymal disease. Status post cholecystectomy. Small ascites. Dilated CBD up to 16.9 millimeter which could be due to prior cholecystectomy.
[2017-09-04] MEDS ORDERED: Piperacillin/Tazobact 2.25gm 2.25 GM/100 ML BAG IVPB SCH (14:00)
--- NOTE | 2017-09-04 22:11 | PN ---
DATE: 09/04/2017 SUBJECTIVE: This is to document that the patient was examined at bedside. Discussed with the resident. Detailed note dictated by Dr. Matamoros, the ICU resident, dated 09/04/2017, agreed with assessment and plan. Treva Byrd MD
[2017-09-05] MEDS: Vancomycin 1gm in NS 250ml 1 GM/250 ML BAG IVPB SCH (05:35)
[2017-09-05] MEDS: NOREPINEPHRINE BIT/0.9 % NACL 4 MG/250 ML BAG IV PRN (06:22)
[2017-09-05 07:21] LABS: BASO # 0.04 K/mm3 (0.0-2.0); BASO % 0.3 % (0.0-3.0); EOS % 0.3 % (1.5-5.0); GRAN # 8.59 (1.4-6.5); GRAN % 74.4 % (50.0-68.0); HEMATOCRIT 30.4 % (36.0-48.0); LYMPH # 1.7 (1.2-3.4); LYMPH % 14.7 % (22.0-35.0); MEAN CELL VOLUME 72.7 fl (80.0-105.0); MEAN CORPUSCULAR HGB CONC 30.3 g/dl (31.0-37.0); MEAN PLATELET VOLUME 9.8 fl (7.0-11.0); MONO # 1.2 (0.1-0.6); MONO % 10.3 % (1.0-6.0); RED CELL DISTRIBUTION WIDTH 21.2 % (11.5-14.5); WHITE BLOOD COUNT 11.6 10^3/ul (4.5-11.0)
[2017-09-05 07:26] LABS: ALB/GLOB RATIO 0.9 (1.1-1.8); CALCIUM 8.4 mg/dL (8.4-10.5); PHOSPHOROUS 4.4 mg/dL (2.5-4.5); POTASSIUM 5.1 mmol/L (3.6-5.0); TOTAL PROTEIN 5.8 g/dL (5.8-8.3)
--- NOTE | 2017-09-05 07:56 | CP.PCM.CON ---
<rIene Gamboa - Last Filed: 09/05/17 10:02> History of Present Illness - History of Present Illness History of Present Illness: GI Fellow PGY4 Consult Note This is a 87y female with PMHx Afib on OAC, CHF, CAD s/p angioplasty, hyperlipidemia, hypertension, chronic renal failure, and diabetes presented to ED after a mechanical fall and was down for 4 hours. Patient reports she tripped and fell at home and was unable to get up for 4 hours. Pt was recently discharged from hospital for b/l LE cellulitis. Pt was hypotensive on 09/04/17 with SBPs in the 70s/80s and was started on pressor support with IV Levophed. Also it was noticed pt's LFTs were elevated and GI was consulted. Pt's CTA/P and US was negative for CBD stone but did mention CBD 1.7cm possibly post cholecystectomy. At the time of evaluation pt is on IV Levophed at 8mcg, SBP 113 , HR 130s. Pt denies any prior exposure to hepatitis or acetaminophen intake. ROS: A 12pt ROS was negative except as above. PMHx: HTN, CHF, CAD, NIDDM, HLD, and melanoma Family History: DM on maternal and paternal Surgical History: melanoma excision of lesion on left side of nose 10 years ago Social History: lives in senior citizen building, denies smoking, denies drinking alcohol, denies illicit drug use Past Patient History - Infectious Disease Hx of Infectious Diseases: None - Past Medical History & Family History Past Medical History?: Yes - Past Social History Smoking Status: Never Smoked - CARDIAC Hx Cardiac Disorders: Yes Hx Congestive Heart Failure: Yes Hx Hypertension: Yes - PULMONARY Hx Pneumonia: Yes - NEUROLOGICAL Hx Neurological Disorder: No - HEENT Hx HEENT Problems: No (eyeglasses) - RENAL Hx Renal Failure: Yes - ENDOCRINE/METABOLIC Hx Diabetes Mellitus Type 2: Yes - HEMATOLOGICAL/ONCOLOGICAL Hx Blood Disorders: No - INTEGUMENTARY Hx Dermatological Problems: Yes Other/Comment: paper thin skin - MUSCULOSKELETAL/RHEUMATOLOGICAL Hx Falls: Yes - GASTROINTESTINAL Hx Gastrointestinal Disorders: No - GENITOURINARY/GYNECOLOGICAL Hx Reproductive Disorders: No - PSYCHIATRIC Hx Psychophysiologic Disorder: No Hx Substance Use: No - SURGICAL HISTORY Hx Cholecystectomy: Yes Hx Coronary Stent: Yes - ANESTHESIA Hx Anesthesia: No Hx Anesthesia Reactions: No Hx Malignant Hyperthermia: No Meds Allergies/Adverse Reactions: Allergies Allergy/AdvReac Type Severity Reaction Status Date / Time No Known Allergies Allergy Verified 08/26/17 19:46 - Medications Medications: Current Medications Acetaminophen (Tylenol 325mg Tab) 650 mg PO Q6H PRN PRN Reason: Fever >100.4 F Apixaban (Eliquis) 2.5 mg PO BID YULI PRN Reason: Protocol Last Admin: 09/04/17 17:14 Dose: 2.5 mg Vancomycin HCl (Vancomycin 1gm) 1 gm in 250 mls @ 167 mls/hr IVPB 0600 YULI PRN Reason: Protocol Last Admin: 09/05/17 05:35 Dose: 167 mls/hr NOREPINEPHRINE BIT/0.9 % NACL (Levophed 4 Mg/ 250 Ml Ns Premixed) 4 mg in 250 mls @ 15 mls/hr IV .[id number] PRN; Protocol; 4 MCG/MIN PRN Reason: TITRATE PER MD ORDER Last Admin: 09/05/17 06:22 Dose: 8 mcg/min, 30 mls/hr Meropenem 1 gm/ Dextrose 100 mls @ 100 mls/hr IVPB DAILY YULI PRN Reason: Protocol Stop: 09/11/17 10:01 Last Admin: 09/04/17 10:28 Dose: 100 mls/hr Doxycycline Hyclate 100 mg/ (Sodium Chloride) 100 mls @ 100 mls/hr IVPB Q12 YULI PRN Reason: Protocol Last Admin: 09/04/17 21:30 Dose: 100 mls/hr Insulin Human Lispro (Humalog Low) 0 units SC ACHS YULI PRN Reason: Protocol Last Admin: 09/04/17 21:24 Dose: Not Given Levalbuterol HCl (Xopenex) 0.63 mg IH [id number] PRN PRN Reason: Shortness of Breath Multivitamins (Thera Tab) 1 tab PO 0800 [facility] Last Admin: 09/04/17 10:28 Dose: 1 tab Ondansetron HCl (Zofran Inj) 4 mg IVP Q6H PRN PRN Reason: Nausea/Vomiting Last Admin: 09/04/17 06:00 Dose: 4 mg Pantoprazole Sodium (Protonix Inj) 40 mg IVP DAILY [facility] Last Admin: 09/04/17 10:28 Dose: 40 mg Physical Exam - Constitutional Appears: In Acute Distress, Chronically Ill - Head Exam Head Exam: NORMAL INSPECTION, NORMOCEPHALIC Additional comments: Forehead lesion - Eye Exam Eye Exam: EOMI, Normal appearance, PERRL Pupil Exam: PERRL - ENT Exam ENT Exam: Mucous Membranes Moist, Normal Exam - Neck Exam Neck exam: Positive for: Normal Inspection - Respiratory Exam Respiratory Exam: Decreased Breath Sounds - Cardiovascular Exam Cardiovascular Exam: Tachycardia, Irregular Rhythm - GI/Abdominal Exam GI & Abdominal Exam: Normal Bowel Sounds, Soft. absent: Organomegaly, Tenderness - Rectal Exam Rectal Exam: Deferred - Extremities Exam Extremities exam: Positive for: normal inspection, tenderness - Neurological Exam Neurological exam: Alert, Oriented x3 - Psychiatric Exam Psychiatric exam: Anxious - Skin Skin Exam: Dry, Erythema Additional comments: bruising Results - Vital Signs Recent Vital Signs: Last Vital Signs Temp 98.2 F 09/05/17 04:00 Pulse 126 H 09/05/17 03:50 Resp 22 09/05/17 03:40 BP 115/65 09/05/17 03:00 Pulse Ox 78 L 09/05/17 03:50 - Labs Result Diagrams: 09/05/17 06:30 09/05/17 06:30 Labs: Laboratory Results - last 24 hr 09/04/17 09/04/17 09/04/17 06:00 07:57 11:27 WBC RBC Hgb Hct MCV MCH MCHC RDW Plt Count MPV Gran % Lymph % (Auto) [place] % (Auto) Eos % (Auto) Baso % (Auto) Gran # Lymph # [place] # Eos # Baso # Sodium Potassium Chloride Carbon Dioxide Anion Gap BUN Creatinine Est GFR ( Amer) Est GFR (Non-Af Amer) POC Glucose (mg/dL) 225 H 211 H Random Glucose Calcium Phosphorus Magnesium Total Bilirubin AST ALT Alkaline Phosphatase Total Protein Albumin Globulin Albumin/Globulin Ratio Procalcitonin 0.42 09/04/17 09/04/17 09/05/17 15:54 21:12 06:30 WBC 11.6 H D RBC 4.18 Hgb 9.2 L Hct 30.4 L MCV 72.7 L MCH 22.0 L MCHC 30.3 L RDW 21.2 H Plt Count 458 H MPV 9.8 Gran % 74.4 H Lymph % (Auto) 14.7 L [place] % (Auto) 10.3 H Eos % (Auto) 0.3 L Baso % (Auto) 0.3 Gran # 8.59 H Lymph # 1.7 [place] # 1.2 H Eos # 0.0 Baso # 0.04 Sodium Potassium Chloride Carbon Dioxide Anion Gap BUN Creatinine Est GFR ( Amer) Est GFR (Non-Af Amer) POC Glucose (mg/dL) 254 H 211 H Random Glucose Calcium Phosphorus Magnesium Total Bilirubin AST ALT Alkaline Phosphatase Total Protein Albumin Globulin Albumin/Globulin Ratio Procalcitonin 09/05/17 06:30 WBC RBC Hgb Hct MCV MCH MCHC RDW Plt Count MPV Gran % Lymph % (Auto) [place] % (Auto) Eos % (Auto) Baso % (Auto) Gran # Lymph # [place] # Eos # Baso # Sodium 135 Potassium 5.1 H Chloride 99 Carbon Dioxide 26 Anion Gap 15 BUN 75 H Creatinine 2.6 H Est GFR ( Amer) 21 Est GFR (Non-Af Amer) 17 POC Glucose (mg/dL) Random Glucose 175 H Calcium 8.4 Phosphorus 4.4 Magnesium 2.0 Total Bilirubin 1.0 AST 516 H ALT 436 H Alkaline Phosphatase 181 H Total Protein 5.8 Albumin 2.8 L Globulin 3.0 Albumin/Globulin Ratio 0.9 L Procalcitonin Assessment & Plan - Assessment and Plan (Free Text) Assessment: This is a 87yF pmHx Afib on OAC, CHF, CAD s/p angioplasty, hyperlipidemia, hypertension, chronic renal failure, and diabetes presented to ED after a mechanical fall and was down for 4 hours. 1. Septic Shock on pressor support 2. Transaminitis 3. Dilated CBD 4. Afib with RVR 5. Hx CHF Plan: -Continue supportive care with pressor support, pt on IV Levophed 8mcg -Transaminitis multifactorial ischemic vs autoimmune, hepatitis, rhabdomyolysis vs congestive hepatopathy -Pt on 09/04/17 did have hypotension with SBP in the 70s leading to ischemic hepatitis -Pt does have a hx of Afib on OAC, r/o portal vein thrombosis will order Abd US w/doppler to determine portal vein patency -Pt is tachycardic in HR 130s, recommend optimization of cardiac function which can be causing congestive hepatopathy -Continue to monitor LFTs -Will order hepatitis and autoimmune panel for completion with hx of slight elevations in LFTs in the past -CBD dilated to 1.7 on imaging, once pt medically stable and LFTs still elevated will consider MRCP w/o contrast for further evaluation -Will continue to follow pt closely <Dario Carrington - Last Filed: 09/05/17 11:57> Meds - Medications Medications: Current Medications Acetaminophen (Tylenol 325mg Tab) 650 mg PO Q6H PRN PRN Reason: Fever >100.4 F Apixaban (Eliquis) 2.5 mg PO BID YULI PRN Reason: Protocol Last Admin: 09/05/17 09:47 Dose: 2.5 mg Vancomycin HCl (Vancomycin 1gm) 1 gm in 250 mls @ 167 mls/hr IVPB 0600 YULI PRN Reason: Protocol Last Admin: 09/05/17 05:35 Dose: 167 mls/hr NOREPINEPHRINE BIT/0.9 % NACL (Levophed 4 Mg/ 250 Ml Ns Premixed) 4 mg in 250 mls @ 15 mls/hr IV .[id number] PRN; Protocol; 4 MCG/MIN PRN Reason: TITRATE PER MD ORDER Last Admin: 09/05/17 06:22 Dose: 8 mcg/min, 30 mls/hr Meropenem 1 gm/ Dextrose 100 mls @ 100 mls/hr IVPB DAILY YULI PRN Reason: Protocol Stop: 09/11/17 10:01 Last Admin: 09/05/17 09:42 Dose: 100 mls/hr Doxycycline Hyclate 100 mg/ (Sodium Chloride) 100 mls @ 100 mls/hr IVPB Q12 YULI PRN Reason: Protocol Last Admin: 09/05/17 09:45 Dose: 100 mls/hr Insulin Human Lispro (Humalog Low) 0 units SC ACHS YULI PRN Reason: Protocol Last Admin: 09/05/17 09:39 Dose: 1 units Levalbuterol HCl (Xopenex) 0.63 mg IH [id number] PRN PRN Reason: Shortness of Breath Multivitamins (Thera Tab) 1 tab PO 0800 [facility] Last Admin: 09/05/17 09:45 Dose: 1 tab Ondansetron HCl (Zofran Inj) 4 mg IVP Q6H PRN PRN Reason: Nausea/Vomiting Last Admin: 09/04/17 06:00 Dose: 4 mg Pantoprazole Sodium (Protonix Inj) 40 mg IVP DAILY [facility] Last Admin: 09/05/17 09:44 Dose: 40 mg Results - Vital Signs Recent Vital Signs: Last Vital Signs Temp 97.9 F 09/05/17 08:03 Pulse 128 H 09/05/17 08:03 Resp 24 09/05/17 08:03 BP 115/72 09/05/17 08:00 Pulse Ox 99 09/05/17 07:40 - Labs Result Diagrams: 09/05/17 06:30 09/05/17 06:30 Labs: Laboratory Results - last 24 hr 09/04/17 09/04/17 09/04/17 06:00 15:54 21:12 WBC RBC Hgb Hct MCV MCH MCHC RDW Plt Count MPV Gran % Lymph % (Auto) [place] % (Auto) Eos % (Auto) Baso % (Auto) Gran # Lymph # [place] # Eos # Baso # pO2 VBG pH VBG pCO2 VBG HCO3 VBG Total CO2 VBG O2 Sat (Calc) VBG Base Excess VBG Potassium Glucose Lactate FiO2 Sodium Potassium Chloride Carbon Dioxide Anion Gap BUN Creatinine Est GFR ( Amer) Est GFR (Non-Af Amer) POC Glucose (mg/dL) 254 H 211 H Random Glucose Calcium Phosphorus Magnesium Total Bilirubin AST ALT Alkaline Phosphatase Total Protein Albumin Globulin Albumin/Globulin Ratio Procalcitonin 0.42 Venous Blood Potassium 09/05/17 09/05/17 09/05/17 06:30 06:30 11:20 WBC 11.6 H D RBC 4.18 Hgb 9.2 L Hct 30.4 L MCV 72.7 L MCH 22.0 L MCHC 30.3 L RDW 21.2 H Plt Count 458 H MPV 9.8 Gran % 74.4 H Lymph % (Auto) 14.7 L [place] % (Auto) 10.3 H Eos % (Auto) 0.3 L Baso % (Auto) 0.3 Gran # 8.59 H Lymph # 1.7 [place] # 1.2 H Eos # 0.0 Baso # 0.04 pO2 41 VBG pH 7.28 L VBG pCO2 51.0 VBG HCO3 24.0 VBG Total CO2 25.6 VBG O2 Sat (Calc) 74.2 H VBG Base Excess -3.3 L VBG Potassium 5.1 Glucose 246 H Lactate 2.6 H FiO2 21.0 Sodium 135 133.0 Potassium 5.1 H Chloride 99 99.0 Carbon Dioxide 26 Anion Gap 15 BUN 75 H Creatinine 2.6 H Est GFR ( Amer) 21 Est GFR (Non-Af Amer) 17 POC Glucose (mg/dL) Random Glucose 175 H Calcium 8.4 Phosphorus 4.4 Magnesium 2.0 Total Bilirubin 1.0 AST 516 H ALT 436 H Alkaline Phosphatase 181 H Total Protein 5.8 Albumin 2.8 L Globulin 3.0 Albumin/Globulin Ratio 0.9 L Procalcitonin Venous Blood Potassium 5.1 Attending/Attestation - Attestation I have personally seen and examined this patient.: Yes I have fully participated in the care of the patient.: Yes I have reviewed all pertinent clinical information: Yes Notes (Text): 09/05/17 11:49 I have seen and examined patient with GI fellow. Agree with above documentation with the following additions. In brief, this is an 87 year old female with history of atrial fibrillation on eliquis, CHF, CAD, hyperlipidemia , DM, CKD, recent hospitalization for cellulitis who presents to hospital after suffering mechanical fall at home. She apparently never lost consciousness but was not able to get up after falling down for over 4 hours. GI called for evaluation of elevated LFTs. On arrival to hospital patient was noted to be hypotensive and is currently seen in critical care unit with rapid atrial fibrillation and requiring vasopressor support. She denies abdominal pain, nausea, vomiting, fever/chills, weight loss, or change in bowel habits. CHF / CAD Atrial fibrillation on Eliquis DM CKD Sepsis Pneumonia Transaminitis - likely multifactorial in this clinical setting, ischemic given initial hypotension, congestive hepatopathy given cardiac status, medication induced given prior antibiotic exposure - Diet as tolerated - Continue with antibiotic therapy as per medical team - Obtain abdominal US with doppler - Optimize cardiac status, requires rate control for a-fib - Obtain viral hepatitis and autoimmune panel testing - Continue to monitor LFTs and avoid hepatotoxic medications - Dilated CBD noted on imaging, patient would benefit from non-contrast MRCP after she is clinically stable for further evaluation - Will continue to monitor patient clinical course
[2017-09-05] MEDS ORDERED: Sodium Chloride 0.9% 500 ML IV STA (09:33)
[2017-09-05] MEDS ORDERED: Digoxin 500 mcg/2ml (0.5 mg/2ml) Inj IVP STA (09:36)
[2017-09-05] MEDS: Insulin Lispro (humaLOG) LOW Coverage SC SCH ×4 (09:39→22:00)
[2017-09-05] MEDS: Meropenem 1 GM in Dextrose 5% In Water 100 ML IVPB SCH (09:42)
[2017-09-05] MEDS: Multivitamin Therapeutic Tab PO SCH (09:45)
--- NOTE | 2017-09-05 10:21 | CARD ---
APPROVED REPORT EKG Measurement Heart [id number] <Conclusion> Atrial fibrillation with a competing junctional pacemaker with premature ventricular or aberrantly conducted complexes Left axis deviation Pulmonary disease pattern Right bundle branch block Septal infarct, age undetermined Abnormal ECG
--- NOTE | 2017-09-05 10:35 | CP.PCM.PN ---
Subjective - Date & Time of Evaluation Date of Evaluation: 09/05/17 Time of Evaluation: 10:20 - Subjective Subjective: Patient feels tired today, no fevers overnight, still having occasional dyspnea at rest, no chest pain but tachycardic. Objective - Vital Signs/Intake and Output Vital Signs (last 24 hours): Temp Pulse Resp BP Pulse Ox 98.2 F 126 H 22 115/65 78 L 09/05/17 04:00 09/05/17 03:50 09/05/17 03:40 09/05/17 03:00 09/05/17 03:50 Intake and Output: 09/04/17 09/05/17 18:59 06:59 Intake Total 2024 500 Output Total 2 Balance 2022 500 - Medications Medications: Current Medications Acetaminophen (Tylenol 325mg Tab) 650 mg PO Q6H PRN PRN Reason: Fever >100.4 F Apixaban (Eliquis) 2.5 mg PO BID YULI PRN Reason: Protocol Last Admin: 09/04/17 17:14 Dose: 2.5 mg Vancomycin HCl (Vancomycin 1gm) 1 gm in 250 mls @ 167 mls/hr IVPB 0600 YULI PRN Reason: Protocol Last Admin: 09/05/17 05:35 Dose: 167 mls/hr NOREPINEPHRINE BIT/0.9 % NACL (Levophed 4 Mg/ 250 Ml Ns Premixed) 4 mg in 250 mls @ 15 mls/hr IV .[id number] PRN; Protocol; 4 MCG/MIN PRN Reason: TITRATE PER MD ORDER Last Admin: 09/05/17 06:22 Dose: 8 mcg/min, 30 mls/hr Meropenem 1 gm/ Dextrose 100 mls @ 100 mls/hr IVPB DAILY YUIL PRN Reason: Protocol Stop: 09/11/17 10:01 Last Admin: 09/04/17 10:28 Dose: 100 mls/hr Doxycycline Hyclate 100 mg/ (Sodium Chloride) 100 mls @ 100 mls/hr IVPB Q12 YULI PRN Reason: Protocol Last Admin: 09/04/17 21:30 Dose: 100 mls/hr Insulin Human Lispro (Humalog Low) 0 units SC ACHS YULI PRN Reason: Protocol Last Admin: 09/04/17 21:24 Dose: Not Given Levalbuterol HCl (Xopenex) 0.63 mg IH [id number] PRN PRN Reason: Shortness of Breath Multivitamins (Thera Tab) 1 tab PO 0800 [facility] Last Admin: 09/04/17 10:28 Dose: 1 tab Ondansetron HCl (Zofran Inj) 4 mg IVP Q6H PRN PRN Reason: Nausea/Vomiting Last Admin: 09/04/17 06:00 Dose: 4 mg Pantoprazole Sodium (Protonix Inj) 40 mg IVP DAILY [facility] Last Admin: 09/04/17 10:28 Dose: 40 mg - Labs Labs: 09/04/17 06:00 09/04/17 06:00 PT 31.1 SECONDS (9.4-12.5) H 09/04/17 01:35 INR 2.79 (0.93-1.08) H 09/04/17 01:35 APTT 37.8 Seconds (25.1-36.5) H 09/04/17 01:35 - Constitutional Appears: Chronically Ill - Head Exam Head Exam: NORMAL INSPECTION - ENT Exam ENT Exam: Mucous Membranes Moist - Neck Exam Neck Exam: absent: Lymphadenopathy, Meningismus - Respiratory Exam Respiratory Exam: Decreased Breath Sounds - Cardiovascular Exam Cardiovascular Exam: Tachycardia, Irregular Rhythm, +S1, +S2 - GI/Abdominal Exam GI & Abdominal Exam: Soft. absent: Tenderness Assessment and Plan - Assessment and Plan (Free Text) Plan: Assessment Systemic Inflammatory response syndrome, R/O sepsis from HCAP, bilateral in this patient also with bilateral pleural effusions asymptomatic bacteriuria with Vancomycin-resistant Enterococcus chronic CHF with bilateral pleural effusions S/P thoracentesis previously left foot pain probably from trauma CAD S/P PCI HTN chronic renal failure DM S/P cholecystectomy Plan gave a dose of IV Vanco, and continue Merrem and Doxycycline day 2 pending final blood cx; PCT is 0.42; reviewed CT C/A/P overall prognosis is poor
--- NOTE | 2017-09-05 11:08 | CP.CCUPN ---
<BravoJose E - Last Filed: 09/05/17 11:02> CCU Subjective - Physician Review Events Since Last Encounter (Free Text): 09/05/17 11:[address] Cummings. PT seen and examined at bedside. Patient easily arousable, oriented x3. Reports right hip pain. States that she feels tired. No CP/SOB. No F/C. Denies any other complaints. CCU Objective - Vital Signs / Intake & Output Vital Signs (Last 4 hours): Vital Signs Temp Pulse Resp BP Pulse Ox 09/05/17 08:03 97.9 F 128 H 24 09/05/17 08:02 97.9 F 133 H 09/05/17 08:01 97.9 F 139 H 40 H 09/05/17 08:00 115/72 09/05/17 07:59 97.9 F 134 H 09/05/17 07:58 97.9 F 136 H 21 09/05/17 07:57 97.9 F 125 H 24 09/05/17 07:56 97.9 F 140 H 17 09/05/17 07:55 97.9 F 131 H 44 H 09/05/17 07:54 97.9 F 115 H 38 H 09/05/17 07:53 97.9 F 128 H 21 09/05/17 07:52 97.9 F 134 H 24 09/05/17 07:51 97.9 F 128 H 24 09/05/17 07:50 97.9 F 127 H 43 H 09/05/17 07:49 97.9 F 131 H 09/05/17 07:48 97.9 F 119 H 26 H 09/05/17 07:47 97.9 F 122 H 20 09/05/17 07:46 97.9 F 126 H 21 09/05/17 07:40 97.9 F 129 H 19 99 09/05/17 07:30 97.7 F 130 H 96 09/05/17 07:20 97.9 F 134 H 32 H 77 L 09/05/17 07:19 97.9 F 141 H 70 L 09/05/17 07:15 97.9 F 131 H 14 09/05/17 07:10 97.9 F 122 H 14 95 Intake and Output (Last 8hrs): Intake & Output 09/04/17 09/05/17 09/05/17 22:59 06:59 14:59 Intake Total 2275 1370 Output Total 2 280 Balance 2273 1090 Weight 138 lb 1.6 oz Intake: IV 2075 1050 Left Hand 1575 Right Internal Jugular 800 Oral 200 320 Output: Urine 280 Condom 280 Urine/Stool Mix 2 Other: # Bowel Movements 2 - Physical Exam Head: Positive for: Atraumatic, Normocephalic Pupils: Positive for: PERRL Extroacular Muscles: Positive for: EOMI Conjunctiva: Positive for: Normal Mouth: Positive for: Moist Mucous Membranes Neck: Positive for: Normal Range of Motion. Negative for: JVD Respiratory/Chest: Positive for: Clear to Auscultation, Good Air Exchange. Negative for: Accessory Muscle Use, Wheezes Cardiovascular: Positive for: Peripheal Pulses Present, Tachycardic. Negative for: Murmurs, Rub Abdomen: Negative for: Tenderness, Distention, Rebound Upper Extremity: Positive for: Normal Inspection Lower Extremity: Positive for: Other (BL LE cellulitis, dry scaly skin) Neurological: Positive for: GCS=15, Speech Normal Psychiatric: Positive for: Alert, Oriented x 3 - Medications Active Medications: Active Medications Generic Name Dose Route Start Last Admin Trade Name Freq PRN Reason Stop Dose Admin Acetaminophen 650 mg 09/04/17 05:32 Tylenol 325mg Tab PO Q6H PRN Fever >100.4 F Apixaban 2.5 mg 09/04/17 10:00 09/05/17 09:47 Eliquis PO 2.5 mg BID YULI Administration Protocol Vancomycin HCl 1 gm in 250 mls @ 167 mls/hr 09/05/17 06:00 09/05/17 05:35 Vancomycin 1gm IVPB 167 mls/hr 0600 YULI Administration Protocol NOREPINEPHRINE BIT/0.9 % NACL 4 mg in 250 mls @ 15 mls/hr 09/04/17 07:57 06:22 Levophed 4 Mg/ 250 Ml Ns Premixed IV 8 mcg/min .[id number] PRN 30 mls/hr TITRATE PER MD ORDER Administration Protocol 4 MCG/MIN Meropenem 1 gm/ Dextrose 100 mls @ 100 mls/hr 09/04/17 10:00 09/05/17 09:42 IVPB 09/11/17 10:01 100 mls/hr DAILY YULI Administration Protocol Doxycycline Hyclate 100 mg/ 100 mls @ 100 mls/hr 09/04/17 10:00 09/05/17 09: 45 Sodium Chloride IVPB 100 mls/hr Q12 YULI Administration Protocol Insulin Human Lispro 0 units 09/04/17 07:30 09/05/17 09:39 Humalog Low SC 1 units ACHS YULI Administration Protocol Levalbuterol HCl 0.63 mg 09/04/17 05:32 Xopenex IH [id number] PRN Shortness of Breath Multivitamins 1 tab 09/04/17 08:00 09/05/17 09:45 Thera Tab PO 1 tab 0800 YULI Administration Ondansetron HCl 4 mg 09/04/17 05:29 09/04/17 06:00 Zofran Inj IVP 4 mg Q6H PRN Administration Nausea/Vomiting Pantoprazole Sodium 40 mg 09/04/17 10:00 09/05/17 09:44 Protonix Inj IVP 40 mg DAILY YULI Administration - Patient Studies Lab Studies: Lab Studies 09/05/17 09/05/17 09/04/17 Range/Units 06:30 06:30 21:12 WBC 11.6 H D (4.5-11.0) 10^3/ul RBC 4.18 (3.5-6.1) 10^6/uL Hgb 9.2 L (12.0-16.0) g/dL Hct 30.4 L (36.0-48.0) % MCV 72.7 L (80.0-105.0) fl MCH 22.0 L (25.0-35.0) pg MCHC 30.3 L (31.0-37.0) g/dl RDW 21.2 H (11.5-14.5) % Plt Count 458 H (120.0-450.0) 10^3/uL MPV 9.8 (7.0-11.0) fl Gran % 74.4 H (50.0-68.0) % Lymph % (Auto) 14.7 L (22.0-35.0) % [place] % (Auto) 10.3 H (1.0-6.0) % Eos % (Auto) 0.3 L (1.5-5.0) % Baso % (Auto) 0.3 (0.0-3.0) % Gran # 8.59 H (1.4-6.5) Lymph # 1.7 (1.2-3.4) [place] # 1.2 H (0.1-0.6) Eos # 0.0 (0.0-0.7) Baso # 0.04 (0.0-2.0) K/mm3 Sodium 135 (132-148) mmol/L Potassium 5.1 H (3.6-5.0) mmol/L Chloride 99 (98-107) mmol/L Carbon Dioxide 26 (21-33) mmol/L Anion Gap 15 (10-20) BUN 75 H (7-21) mg/dL Creatinine 2.6 H (0.7-1.2) mg/dL Est GFR ( Amer) 21 Est GFR (Non-Af Amer) 17 POC Glucose (mg/dL) 211 H (65-110) mg/dL Random Glucose 175 H (70-110) mg/dL Calcium 8.4 (8.4-10.5) mg/dL Phosphorus 4.4 (2.5-4.5) mg/dL Magnesium 2.0 (1.7-2.2) mg/dL Total Bilirubin 1.0 (0.2-1.3) mg/dL AST 516 H (14-36) U/L ALT 436 H (7-56) U/L Alkaline Phosphatase 181 H (38-126) U/L Total Protein 5.8 (5.8-8.3) g/dL Albumin 2.8 L (3.0-4.8) g/dL Globulin 3.0 gm/dL Albumin/Globulin Ratio 0.9 L (1.1-1.8) Procalcitonin (0.19-0.49) NG/ML 09/04/17 09/04/17 09/04/17 Range/Units 15:54 11:27 06:00 WBC (4.5-11.0) 10^3/ul RBC (3.5-6.1) 10^6/uL Hgb (12.0-16.0) g/dL Hct (36.0-48.0) % MCV (80.0-105.0) fl MCH (25.0-35.0) pg MCHC (31.0-37.0) g/dl RDW (11.5-14.5) % Plt Count (120.0-450.0) 10^3/uL MPV (7.0-11.0) fl Gran % (50.0-68.0) % Lymph % (Auto) (22.0-35.0) % [place] % (Auto) (1.0-6.0) % Eos % (Auto) (1.5-5.0) % Baso % (Auto) (0.0-3.0) % Gran # (1.4-6.5) Lymph # (1.2-3.4) [place] # (0.1-0.6) Eos # (0.0-0.7) Baso # (0.0-2.0) K/mm3 Sodium (132-148) mmol/L Potassium (3.6-5.0) mmol/L Chloride (98-107) mmol/L Carbon Dioxide (21-33) mmol/L Anion Gap (10-20) BUN (7-21) mg/dL Creatinine (0.7-1.2) mg/dL Est GFR ( Amer) Est GFR (Non-Af Amer) POC Glucose (mg/dL) 254 H 211 H (65-110) mg/dL Random Glucose (70-110) mg/dL Calcium (8.4-10.5) mg/dL Phosphorus (2.5-4.5) mg/dL Magnesium (1.7-2.2) mg/dL Total Bilirubin (0.2-1.3) mg/dL AST (14-36) U/L ALT (7-56) U/L Alkaline Phosphatase (38-126) U/L Total Protein (5.8-8.3) g/dL Albumin (3.0-4.8) g/dL Globulin gm/dL Albumin/Globulin Ratio (1.1-1.8) Procalcitonin 0.42 (0.19-0.49) NG/ML Laboratory Results - last 24 hr 09/04/17 09/04/17 09/04/17 06:00 11:27 15:54 WBC RBC Hgb Hct MCV MCH MCHC RDW Plt Count MPV Gran % Lymph % (Auto) [place] % (Auto) Eos % (Auto) Baso % (Auto) Gran # Lymph # [place] # Eos # Baso # Sodium Potassium Chloride Carbon Dioxide Anion Gap BUN Creatinine Est GFR ( Amer) Est GFR (Non-Af Amer) POC Glucose (mg/dL) 211 H 254 H Random Glucose Calcium Phosphorus Magnesium Total Bilirubin AST ALT Alkaline Phosphatase Total Protein Albumin Globulin Albumin/Globulin Ratio Procalcitonin 0.42 09/04/17 09/05/17 09/05/17 21:12 06:30 06:30 WBC 11.6 H D RBC 4.18 Hgb 9.2 L Hct 30.4 L MCV 72.7 L MCH 22.0 L MCHC 30.3 L RDW 21.2 H Plt Count 458 H MPV 9.8 Gran % 74.4 H Lymph % (Auto) 14.7 L [place] % (Auto) 10.3 H Eos % (Auto) 0.3 L Baso % (Auto) 0.3 Gran # 8.59 H Lymph # 1.7 [place] # 1.2 H Eos # 0.0 Baso # 0.04 Sodium 135 Potassium 5.1 H Chloride 99 Carbon Dioxide 26 Anion Gap 15 BUN 75 H Creatinine 2.6 H Est GFR ( Amer) 21 Est GFR (Non-Af Amer) 17 POC Glucose (mg/dL) 211 H Random Glucose 175 H Calcium 8.4 Phosphorus 4.4 Magnesium 2.0 Total Bilirubin 1.0 AST 516 H ALT 436 H Alkaline Phosphatase 181 H Total Protein 5.8 Albumin 2.8 L Globulin 3.0 Albumin/Globulin Ratio 0.9 L Procalcitonin Fingerstick Blood Sugar Results: 200 Critical Care Progress Note - Nutrition Nutrition: Nutrition Category Date Time Status Dysphagia/Modified Consistency Diet [DIET] Diets 09/04/17 Dinner Ordered Assessment/Plan - Assessment and Plan (Free Text) Assessment: 87yo F with PMHx of AFib on AC, CHF, CAD, HLD, HTN, CKD (baseline creat 1.7), DM here after recurrent mechanical falls (last fall 4hrs [employer]). Patient was found to have septic shock ([place] and RML atelectasis vs PNA), lower extremity cellulitis. Patient has increased LFTs, CKD with some ANASARCA. CT A/P with evidence of atelectasis and Pulmonary edema. Previous hx of asymptomatic bacteriuria w VRE. Neuro: Alert and Oriented x3 CT head - negative Cardiac: Tachycardic in the setting of A.Fib, CHF Previous ECHO: (April 2017) - Mod pulm HTN; Mod dilated LV, Mod/Severe Tricuspid regurg, Mod Pulmonic valve regurg Digoxin dose given. will continue to monitor Troponin negative on Levophed On Apixaban Pulm: CT Chest - b/l pleural effusions with compressive lower lobe atelectasis; R middle L upper lobe atelectasis Consider PNA. Cont ABX as per ID: Meretrupti, Johnniey D2. Vanc VBG lactate down trend (4.2->2.6) procal 0.42 Xopenex breathing treatments GI: Elevated Transaminases. GI following, Dr. Carrington consider shock liver vs. Rhabdo vs. congestive hepatopathy Abd US - Hepatic steatosis vs liver parenchymal disease. S/p Abimbola CBD 1.7cm. Mild Ascites f/u repeat CPK f/u Hep profile Avoid hepatotoxic meds. Hold statin Renal/Electrolytes: Acute on Chronic Kidney Disease (baseline creat 1.7) Continue gentle hydration: NS@60/hr Continue to monitor. Renally dose medications Extremities: Bilateral lower extremity cellulitis s/p mechanical fall - no evidence of acute fractures ID: ID following, Dr. Cook Septic shock. On levophed. improving continue Abx: Josefina House Day 2, Vanc. procal 0.42 lactate down trending 4.2 -> 2.6 Blood cxs - NGTD Urine Cxs - NGTD continue to monitor Endocrine: ISS Accuchecks PPx: Protonix 40mg IVP Daily On eliquis Discussed case with Dr. Emiliano Cordon PGY1 <Hill Cummings - Last Filed: 09/05/17 12:36> CCU Objective - Vital Signs / Intake & Output Intake and Output (Last 8hrs): Intake & Output 09/04/17 09/05/17 09/05/17 22:59 06:59 14:59 Intake Total 2275 1370 Output Total 2 280 Balance 2273 1090 Weight 138 lb 1.6 oz Intake: IV 2075 1050 Left Hand 1575 Right Internal Jugular 800 Oral 200 320 Output: Urine 280 Condom 280 Urine/Stool Mix 2 Other: # Bowel Movements 2 - Medications Active Medications: Active Medications Generic Name Dose Route Start Last Admin Trade Name Freq PRN Reason Stop Dose Admin Acetaminophen 650 mg 09/04/17 05:32 Tylenol 325mg Tab PO Q6H PRN Fever >100.4 F Apixaban 2.5 mg 09/04/17 10:00 09/05/17 09:47 Eliquis PO 2.5 mg BID YULI Administration Protocol Vancomycin HCl 1 gm in 250 mls @ 167 mls/hr 09/05/17 06:00 09/05/17 05:35 Vancomycin 1gm IVPB 167 mls/hr 0600 YULI Administration Protocol NOREPINEPHRINE BIT/0.9 % NACL 4 mg in 250 mls @ 15 mls/hr 09/04/17 07:57 06:22 Levophed 4 Mg/ 250 Ml Ns Premixed IV 8 mcg/min .[id number] PRN 30 mls/hr TITRATE PER MD ORDER Administration Protocol 4 MCG/MIN Meropenem 1 gm/ Dextrose 100 mls @ 100 mls/hr 09/04/17 10:00 09/05/17 09:42 IVPB 09/11/17 10:01 100 mls/hr DAILY YULI Administration Protocol Doxycycline Hyclate 100 mg/ 100 mls @ 100 mls/hr 09/04/17 10:00 09/05/17 09: 45 Sodium Chloride IVPB 100 mls/hr Q12 YULI Administration Protocol Sodium Chloride 1,000 mls @ 60 mls/hr 09/05/17 12:00 Sodium Chloride 0.9% IV .[id number] YULI Insulin Human Lispro 0 units 09/04/17 07:30 09/05/17 09:39 Humalog Low SC 1 units ACHS YULI Administration Protocol Levalbuterol HCl 0.63 mg 09/04/17 05:32 Xopenex IH [id number] PRN Shortness of Breath Multivitamins 1 tab 09/04/17 08:00 09/05/17 09:45 Thera Tab PO 1 tab 0800 YULI Administration Ondansetron HCl 4 mg 09/04/17 05:29 09/04/17 06:00 Zofran Inj IVP 4 mg Q6H PRN Administration Nausea/Vomiting Pantoprazole Sodium 40 mg 09/04/17 10:00 09/05/17 09:44 Protonix Inj IVP 40 mg DAILY YULI Administration - Patient Studies Lab Studies: Lab Studies 09/05/17 09/05/17 09/05/17 Range/Units 11:20 11:20 06:30 WBC (4.5-11.0) 10^3/ul RBC (3.5-6.1) 10^6/uL Hgb (12.0-16.0) g/dL Hct (36.0-48.0) % MCV (80.0-105.0) fl MCH (25.0-35.0) pg MCHC (31.0-37.0) g/dl RDW (11.5-14.5) % Plt Count (120.0-450.0) 10^3/uL MPV (7.0-11.0) fl Gran % (50.0-68.0) % Lymph % (Auto) (22.0-35.0) % [place] % (Auto) (1.0-6.0) % Eos % (Auto) (1.5-5.0) % Baso % (Auto) (0.0-3.0) % Gran # (1.4-6.5) Lymph # (1.2-3.4) [place] # (0.1-0.6) Eos # (0.0-0.7) Baso # (0.0-2.0) K/mm3 pO2 41 (30-55) mm/Hg VBG pH 7.28 L (7.32-7.43) VBG pCO2 51.0 (40-60) VBG HCO3 24.0 (21-28) mmol/l VBG Total CO2 25.6 (22-28) mmol.L VBG O2 Sat (Calc) 74.2 H (40-65) % VBG Base Excess -3.3 L (0.0-2.0) mmol/L VBG Potassium 5.1 (3.6-5.2) mmol/L Glucose 246 H (65-105) mg/dl Lactate 2.6 H (0.7-2.1) mmol/L FiO2 21.0 % Sodium 133.0 135 (132-148) mmol/L Potassium 5.1 H (3.6-5.0) mmol/L Chloride 99.0 99 (98-107) mmol/L Carbon Dioxide 26 (21-33) mmol/L Anion Gap 15 (10-20) BUN 75 H (7-21) mg/dL Creatinine 2.6 H (0.7-1.2) mg/dL Est GFR ( Amer) 21 Est GFR (Non-Af Amer) 17 POC Glucose (mg/dL) (65-110) mg/dL Random Glucose 175 H (70-110) mg/dL Calcium 8.4 (8.4-10.5) mg/dL Phosphorus 4.4 (2.5-4.5) mg/dL Magnesium 2.0 (1.7-2.2) mg/dL Total Bilirubin 1.0 (0.2-1.3) mg/dL AST 516 H (14-36) U/L ALT 436 H (7-56) U/L Alkaline Phosphatase 181 H (38-126) U/L Total Creatine Kinase 28 L (35-230) U/L Total Protein 5.8 (5.8-8.3) g/dL Albumin 2.8 L (3.0-4.8) g/dL Globulin 3.0 gm/dL Albumin/Globulin Ratio 0.9 L (1.1-1.8) Procalcitonin (0.19-0.49) NG/ML Venous Blood Potassium 5.1 (3.6-5.2) mmol/L 09/05/17 09/04/17 09/04/17 Range/Units 06:30 21:12 15:54 WBC 11.6 H D (4.5-11.0) 10^3/ul RBC 4.18 (3.5-6.1) 10^6/uL Hgb 9.2 L (12.0-16.0) g/dL Hct 30.4 L (36.0-48.0) % MCV 72.7 L (80.0-105.0) fl MCH 22.0 L (25.0-35.0) pg MCHC 30.3 L (31.0-37.0) g/dl RDW 21.2 H (11.5-14.5) % Plt Count 458 H (120.0-450.0) 10^3/uL MPV 9.8 (7.0-11.0) fl Gran % 74.4 H (50.0-68.0) % Lymph % (Auto) 14.7 L (22.0-35.0) % [place] % (Auto) 10.3 H (1.0-6.0) % Eos % (Auto) 0.3 L (1.5-5.0) % Baso % (Auto) 0.3 (0.0-3.0) % Gran # 8.59 H (1.4-6.5) Lymph # 1.7 (1.2-3.4) [place] # 1.2 H (0.1-0.6) Eos # 0.0 (0.0-0.7) Baso # 0.04 (0.0-2.0) K/mm3 pO2 (30-55) mm/Hg VBG pH (7.32-7.43) VBG pCO2 (40-60) VBG HCO3 (21-28) mmol/l VBG Total CO2 (22-28) mmol.L VBG O2 Sat (Calc) (40-65) % VBG Base Excess (0.0-2.0) mmol/L VBG Potassium (3.6-5.2) mmol/L Glucose (65-105) mg/dl Lactate (0.7-2.1) mmol/L FiO2 % Sodium (132-148) mmol/L Potassium (3.6-5.0) mmol/L Chloride (98-107) mmol/L Carbon Dioxide (21-33) mmol/L Anion Gap (10-20) BUN (7-21) mg/dL Creatinine (0.7-1.2) mg/dL Est GFR ( Amer) Est GFR (Non-Af Amer) POC Glucose (mg/dL) 211 H 254 H (65-110) mg/dL Random Glucose (70-110) mg/dL Calcium (8.4-10.5) mg/dL Phosphorus (2.5-4.5) mg/dL Magnesium (1.7-2.2) mg/dL Total Bilirubin (0.2-1.3) mg/dL AST (14-36) U/L ALT (7-56) U/L Alkaline Phosphatase (38-126) U/L Total Creatine Kinase (35-230) U/L Total Protein (5.8-8.3) g/dL Albumin (3.0-4.8) g/dL Globulin gm/dL Albumin/Globulin Ratio (1.1-1.8) Procalcitonin (0.19-0.49) NG/ML Venous Blood Potassium (3.6-5.2) mmol/L 09/04/17 Range/Units 06:00 WBC (4.5-11.0) 10^3/ul RBC (3.5-6.1) 10^6/uL Hgb (12.0-16.0) g/dL Hct (36.0-48.0) % MCV (80.0-105.0) fl MCH (25.0-35.0) pg MCHC (31.0-37.0) g/dl RDW (11.5-14.5) % Plt Count (120.0-450.0) 10^3/uL MPV (7.0-11.0) fl Gran % (50.0-68.0) % Lymph % (Auto) (22.0-35.0) % [place] % (Auto) (1.0-6.0) % Eos % (Auto) (1.5-5.0) % Baso % (Auto) (0.0-3.0) % Gran # (1.4-6.5) Lymph # (1.2-3.4) [place] # (0.1-0.6) Eos # (0.0-0.7) Baso # (0.0-2.0) K/mm3 pO2 (30-55) mm/Hg VBG pH (7.32-7.43) VBG pCO2 (40-60) VBG HCO3 (21-28) mmol/l VBG Total CO2 (22-28) mmol.L VBG O2 Sat (Calc) (40-65) % VBG Base Excess (0.0-2.0) mmol/L VBG Potassium (3.6-5.2) mmol/L Glucose (65-105) mg/dl Lactate (0.7-2.1) mmol/L FiO2 % Sodium (132-148) mmol/L Potassium (3.6-5.0) mmol/L Chloride (98-107) mmol/L Carbon Dioxide (21-33) mmol/L Anion Gap (10-20) BUN (7-21) mg/dL Creatinine (0.7-1.2) mg/dL Est GFR ( Amer) Est GFR (Non-Af Amer) POC Glucose (mg/dL) (65-110) mg/dL Random Glucose (70-110) mg/dL Calcium (8.4-10.5) mg/dL Phosphorus (2.5-4.5) mg/dL Magnesium (1.7-2.2) mg/dL Total Bilirubin (0.2-1.3) mg/dL AST (14-36) U/L ALT (7-56) U/L Alkaline Phosphatase (38-126) U/L Total Creatine Kinase (35-230) U/L Total Protein (5.8-8.3) g/dL Albumin (3.0-4.8) g/dL Globulin gm/dL Albumin/Globulin Ratio (1.1-1.8) Procalcitonin 0.42 (0.19-0.49) NG/ML Venous Blood Potassium (3.6-5.2) mmol/L Laboratory Results - last 24 hr 09/04/17 09/04/17 09/04/17 06:00 15:54 21:12 WBC RBC Hgb Hct MCV MCH MCHC RDW Plt Count MPV Gran % Lymph % (Auto) [place] % (Auto) Eos % (Auto) Baso % (Auto) Gran # Lymph # [place] # Eos # Baso # pO2 VBG pH VBG pCO2 VBG HCO3 VBG Total CO2 VBG O2 Sat (Calc) VBG Base Excess VBG Potassium Glucose Lactate FiO2 Sodium Potassium Chloride Carbon Dioxide Anion Gap BUN Creatinine Est GFR ( Amer) Est GFR (Non-Af Amer) POC Glucose (mg/dL) 254 H 211 H Random Glucose Calcium Phosphorus Magnesium Total Bilirubin AST ALT Alkaline Phosphatase Total Creatine Kinase Total Protein Albumin Globulin Albumin/Globulin Ratio Procalcitonin 0.42 Venous Blood Potassium 09/05/17 09/05/17 09/05/17 06:30 06:30 11:20 WBC 11.6 H D RBC 4.18 Hgb 9.2 L Hct 30.4 L MCV 72.7 L MCH 22.0 L MCHC 30.3 L RDW 21.2 H Plt Count 458 H MPV 9.8 Gran % 74.4 H Lymph % (Auto) 14.7 L [place] % (Auto) 10.3 H Eos % (Auto) 0.3 L Baso % (Auto) 0.3 Gran # 8.59 H Lymph # 1.7 [place] # 1.2 H Eos # 0.0 Baso # 0.04 pO2 41 VBG pH 7.28 L VBG pCO2 51.0 VBG HCO3 24.0 VBG Total CO2 25.6 VBG O2 Sat (Calc) 74.2 H VBG Base Excess -3.3 L VBG Potassium 5.1 Glucose 246 H Lactate 2.6 H FiO2 21.0 Sodium 135 133.0 Potassium 5.1 H Chloride 99 99.0 Carbon Dioxide 26 Anion Gap 15 BUN 75 H Creatinine 2.6 H Est GFR ( Amer) 21 Est GFR (Non-Af Amer) 17 POC Glucose (mg/dL) Random Glucose 175 H Calcium 8.4 Phosphorus 4.4 Magnesium 2.0 Total Bilirubin 1.0 AST 516 H ALT 436 H Alkaline Phosphatase 181 H Total Creatine Kinase Total Protein 5.8 Albumin 2.8 L Globulin 3.0 Albumin/Globulin Ratio 0.9 L Procalcitonin Venous Blood Potassium 5.1 09/05/17 11:20 WBC RBC Hgb Hct MCV MCH MCHC RDW Plt Count MPV Gran % Lymph % (Auto) [place] % (Auto) Eos % (Auto) Baso % (Auto) Gran # Lymph # [place] # Eos # Baso # pO2 VBG pH VBG pCO2 VBG HCO3 VBG Total CO2 VBG O2 Sat (Calc) VBG Base Excess VBG Potassium Glucose Lactate FiO2 Sodium Potassium Chloride Carbon Dioxide Anion Gap BUN Creatinine Est GFR ( Amer) Est GFR (Non-Af Amer) POC Glucose (mg/dL) Random Glucose Calcium Phosphorus Magnesium Total Bilirubin AST ALT Alkaline Phosphatase Total Creatine Kinase 28 L Total Protein Albumin Globulin Albumin/Globulin Ratio Procalcitonin Venous Blood Potassium Critical Care Progress Note - Nutrition Nutrition: Nutrition Category Date Time Status Dysphagia/Modified Consistency Diet [DIET] Diets 09/04/17 Dinner Ordered Assessment/Plan - Assessment and Plan (Free Text) Plan: Patient seen and examined, with resident on rounds, agree with note, with following additions/exceptions: Patient is 87yo female with history of atrial fibrillation on eliquis, CHF, CAD , hyperlipidemia, DM, CKD, DNR/DNI, admitted with septic shock, currently on Levophed 4mcg/min, likely 2/2 PNA, and cellulitis. Currently awake, alert, HD stable, MAP ranging 70-90, with no major complaints. LFTs uptrending, seen by GI , likely 2/2 hepatic congestion given cardiac status, hypotensive episode, and previous antibiotics. Septic Shock PNA Cellulitis Afib CAD CHF Recommend: - supp o2 as needed - broad spectrum antibiotics as per ID - follow up cultures - would bolus 1L NS, clinically dry - titrate Levophed to MAP 65 - check IVC diameter - repeat Lactate downtrending - check CPK - would rate control with Digoxin 0.25mcg x 1 - GI ppx - DVT ppx, Eliquis - monitor in MICU critical care time 45 minutes
[2017-09-05 11:33] LABS: VENOUS BLOOD GAS BASE EXCESS -3.3 mmol/L (0.0-2.0); VENOUS BLOOD PH 7.28 (7.32-7.43)
[2017-09-05] MEDS ORDERED: Sodium Chloride 0.9% 1,000 ML IV SCH (12:00)
--- NOTE | 2017-09-05 13:52 | PQF CHF ---
This form is a permanent part of the medical record Dr. Byrd, Please specify type and severity of CHF present in this patient. Clarification of your documentation is requested to better reflect the severity of illness and intensity of treatment of your patient. Indicators present [x] Diagnosis of CHF and/or history of CHF [x] BNP > 200 [x] Imaging Finding of Pulmonary Edema /Pleural Effusions [x] Fluid/Volume Overload [] Pitting edema [] Ejection Fraction < 40% (Indicative of Systolic Heart Failure) [] Ejection Fraction > 40% (Indicative of Diastolic Heart Failure) [x] Dyspnea / Orthopenea / Paroxysmal Nocturnal Dyspnea [] Other: Location in the medical record that reflects the above clinical findings: [] Treatment Provided: [] PHYSICIAN'S RESPONSE Based on your medical judgment of the clinical indicators outlined above, are you treating this patient for a known or suspected: [] Acute CHF [] Systolic [] Diastolic [] Combined [] Chronic CHF [] Systolic [] Diastolic [] Combined [] Acute on Chronic CHF []Systolic [] Diastolic [] Combined [] CHF due hypertension [] Acute systolic []Chronic systolic [] Acute/ chronic systolic [] Other, please indicate: [] [] If Unable to Determine, please check the box, sign and date. Present On Admission (POA) Indicator: [] Present at the time of admission [] Not present at the time of admission [] Clinically Undetermined In responding to this query, please exercise your independent professional judgment. The fact that a question is asked does not imply that any particular answer is desired or expected. Thank you for your clarification on this documentation. If you have any questions please call:[ ] * Thank you, [ ]Duglas Moura [facility] #[id number] backer up [place]UR[place]
--- NOTE | 2017-09-05 13:55 | PQF RENAL ---
This form is a permanent part of the medical record Dr. Byrd, Please specify stage of CKD present in this patient. Clarification of your documentation is requested to better reflect the severity of illness and intensity of treatment of your patient. Indicators present [] Oliguria/anuria [] Edema/weight gain [] Hyponatremia [] Confusion/mental status changes [] Increased Blood Urea Nitrogen/Creatinine [] Increased Potassium/Decreased potassium [] Anemia (male <13.5, female <12.0) [] Proteinuria [] Metabolic Acidosis OR Alkalosis [] Hypotension/shock [] Decreased GFR [] Other: [] Location in the medical record that reflects the above clinical findings: PHYSICIAN'S RESPONSE Based on your medical judgment of the clinical indicators outlined above, are you treating this patient for a known or suspected: [] Acute Renal Failure [] Acute Kidney Injury [] Azotemia/prerenal azotemia [] Chronic kidney disease Stage I [] Stage II [] Stage III [] Stage IV [] [] Other condition/diagnosis:[] [] If Unable to Determine, please check the box, sign and date. Present On Admission (POA) Indicator: [] Present at the time of admission [] Not present at the time of admission [] Clinically Undetermined In responding to this query, please exercise your independent professional judgment. The fact that a question is asked does not imply that any particular answer is desired or expected. Thank you for your clarification on this documentation. If you have any questions please call:[ ] * Thank you, [ ]Duglas Moura [facility] #[id number] tooth inspector Chronic Kidney Disease Stages *[employer]* Stage I GFR >90 Stage II GFR 60-89 Stage III GFR 30-59 Stage IV GFR 15-29 Stage V~~~~~~~~~~ GFR <15~~~~~~~~~~~~~ MTDD
--- NOTE | 2017-09-05 14:48 | PN ---
DATE: SUBJECTIVE: The patient is 87 years old who was just discharged home on 09/01/2017. The patient states she was okay for one day, but day before yesterday, she for no obvious reason did not trip but fell. Her daughter was there who called ambulance. She was found to be hyperthermic, hypotensive, complained of generalized weakness and mild shortness of breath. PHYSICAL EXAMINATION VITAL SIGNS: The patient has a temperature of 97.9, pulse 128, respirations 24, and blood pressure 115/72. LUNGS: Bilateral fair air flow, decreased at bases, left more than the right. HEART: S1 and S2 audible. ABDOMEN: Soft and nontender. No rebound. No guarding. NEUROLOGIC: The patient is awake, alert, oriented, and communicative. EXTREMITIES: Bilateral leg, mild cellulitis, no edema. LABORATORY DATA: WBC is 11.6, hemoglobin 9.2, hematocrit 30.4, platelets of 458. Chemistry: Sodium 135, potassium 5.1, chloride 99, CO2 26, BUN 75, creatinine 2.6, blood sugar 175, AST 15, ALT 436, alkaline phosphatase is 181. Urine shows small leukocytes. Blood cultures are negative. ASSESSMENT: 1. Cardiomyopathy. 2. Coronary artery disease. 3. Congestive heart failure. 4. Forehead contusion and laceration. 5. Bilateral pleural effusions. 6. Compressive lower lobe atelectasis. 7. Right middle and left upper lobe atelectasis. PLAN: Currently, the patient is on IV antibiotics. Her Levophed will be tapered down. She is on doxycycline, Eliquis for her chronic atrial fibrillation. Insulin dependent diabetes. The patient will be maintained on blood sugar monitoring. She is on meropenem. I will request for Dr. Boone's evaluation. Ghazal Goode MD
--- NOTE | 2017-09-05 19:00 | US ---
PROCEDURE: Portal vein duplex ultrasound. CLINICAL HISTORY: Cirrhosis. Deteriorating liver function. Evaluate for portal vein thrombosis. PHYSICIAN(S): Chavez Savage M.D. FINDINGS: The exam is very limited by respiratory motion in the patient's inability to cooperate The extrahepatic portal vein is patent with hepatopetal flow. No sonographic evidence for thrombus or obstruction is seen. The portal vein waveform is somewhat pulsatile. The 3 hepatic veins are visualized centrally and patent. The hepatic artery is patent. The spleen is normal in size. No ascites is appreciated in the upper abdomen. IMPRESSION: 1. Patent portal vein with hepatopetal flow.
[2017-09-05 19:07] VITALS: PULSE 142
[2017-09-06] MEDS: Vancomycin 1gm in NS 250ml 1 GM/250 ML BAG IVPB SCH (05:20)
[2017-09-06 06:52] LABS: BASO # 0.05 K/mm3 (0.0-2.0); BASO % 0.4 % (0.0-3.0); EOS # 0.1 (0.0-0.7); EOS % 0.5 % (1.5-5.0); GRAN % 71.7 % (50.0-68.0); HEMATOCRIT 32.2 % (36.0-48.0); LYMPH % 17.5 % (22.0-35.0); MEAN CORPUSCULAR HEMOGLOBIN 21.8 pg (25.0-35.0); MEAN CORPUSCULAR HGB CONC 29.5 g/dl (31.0-37.0); MEAN PLATELET VOLUME 9.5 fl (7.0-11.0); MONO # 1.1 (0.1-0.6); MONO % 9.9 % (1.0-6.0); RED CELL DISTRIBUTION WIDTH 21.7 % (11.5-14.5); WHITE BLOOD COUNT 11.2 10^3/ul (4.5-11.0)
[2017-09-06 07:00] LABS: ALB/GLOB RATIO 0.9 (1.1-1.8); CALCIUM 8.5 mg/dL (8.4-10.5); MAGNESIUM 1.9 mg/dL (1.7-2.2); PHOSPHOROUS 3.8 mg/dL (2.5-4.5); POTASSIUM 4.5 mmol/L (3.6-5.0); TOTAL PROTEIN 5.8 g/dL (5.8-8.3)
[2017-09-06 07:25] LABS: BILIRUBIN,TOTAL 0.9 mg/dL (0.2-1.3)
[2017-09-06] MEDS: Multivitamin Therapeutic Tab PO SCH ×2 (08:00→08:59)
--- NOTE | 2017-09-06 08:19 | RAD ---
HISTORY: pleural effusions, PNA COMPARISON: 09/04/2017 FINDINGS: LUNGS: No active pulmonary disease. PLEURA: No infiltrate. Small bilateral pleural effusion. No pneumothorax. CARDIOVASCULAR: Cardiomegaly. Mild congestive change. Right internal jugular triple lumen central venous catheter. OSSEOUS STRUCTURES: No significant abnormalities. VISUALIZED UPPER ABDOMEN: Normal. OTHER FINDINGS: None. IMPRESSION: Findings suspicious for congestive heart failure. No evidence tyler pulmonary edema.
[2017-09-06] MEDS: Insulin Lispro (humaLOG) LOW Coverage SC SCH ×4 (08:55→23:34)
[2017-09-06] MEDS: Meropenem 1 GM in Dextrose 5% In Water 100 ML IVPB SCH (09:17)
--- NOTE | 2017-09-06 10:07 | CP.PCM.PN ---
Subjective - Date & Time of Evaluation Date of Evaluation: 09/06/17 Time of Evaluation: 10:00 - Subjective Subjective: Currently resting comfortably, no fevers overnight, no SOB at rest currently, no diarrhea. Objective - Vital Signs/Intake and Output Vital Signs (last 24 hours): Temp Pulse Resp BP Pulse Ox 98.3 F 136 H 24 115/73 97 09/06/17 04:00 09/06/17 06:00 09/06/17 06:00 09/06/17 06:00 09/06/17 06:00 Intake and Output: 09/06/17 09/06/17 06:59 18:59 Intake Total 2570 Output Total 1051 Balance 1519 - Medications Medications: Current Medications Acetaminophen (Tylenol 325mg Tab) 650 mg PO Q6H PRN PRN Reason: Fever >100.4 F Last Admin: 09/06/17 00:42 Dose: 650 mg Apixaban (Eliquis) 2.5 mg PO BID YULI PRN Reason: Protocol Last Admin: 09/05/17 19:03 Dose: 2.5 mg Diazepam (Valium) 5 mg PO HS PRN; Protocol PRN Reason: Anxiety Last Admin: 09/06/17 00:46 Dose: 5 mg Vancomycin HCl (Vancomycin 1gm) 1 gm in 250 mls @ 167 mls/hr IVPB 0600 UYLI PRN Reason: Protocol Last Admin: 09/06/17 05:20 Dose: 167 mls/hr NOREPINEPHRINE BIT/0.9 % NACL (Levophed 4 Mg/ 250 Ml Ns Premixed) 4 mg in 250 mls @ 15 mls/hr IV .[id number] PRN; Protocol; 4 MCG/MIN PRN Reason: TITRATE PER MD ORDER Last Titration: 09/05/17 20:00 Dose: 6 mcg/min, 22.5 mls/hr Meropenem 1 gm/ Dextrose 100 mls @ 100 mls/hr IVPB DAILY YULI PRN Reason: Protocol Stop: 09/11/17 10:01 Last Admin: 09/05/17 09:42 Dose: 100 mls/hr Doxycycline Hyclate 100 mg/ (Sodium Chloride) 100 mls @ 100 mls/hr IVPB Q12 YULI PRN Reason: Protocol Last Admin: 09/05/17 21:26 Dose: 100 mls/hr Sodium Chloride (Sodium Chloride 0.9%) 1,000 mls @ 60 mls/hr IV .[id number] [facility] Last Admin: 09/06/17 04:40 Dose: 60 mls/hr Insulin Human Lispro (Humalog Low) 0 units SC ACHS YULI PRN Reason: Protocol Last Admin: 09/05/17 22:00 Dose: Not Given Levalbuterol HCl (Xopenex) 0.63 mg IH [id number] PRN PRN Reason: Shortness of Breath Multivitamins (Thera Tab) 1 tab PO 0800 [facility] Last Admin: 09/05/17 09:45 Dose: 1 tab Ondansetron HCl (Zofran Inj) 4 mg IVP Q6H PRN PRN Reason: Nausea/Vomiting Last Admin: 09/04/17 06:00 Dose: 4 mg Pantoprazole Sodium (Protonix Inj) 40 mg IVP DAILY [facility] Last Admin: 09/05/17 09:44 Dose: 40 mg - Labs Labs: 09/05/17 06:30 09/05/17 06:30 PT 31.1 SECONDS (9.4-12.5) H 09/04/17 01:35 INR 2.79 (0.93-1.08) H 09/04/17 01:35 APTT 37.8 Seconds (25.1-36.5) H 09/04/17 01:35 - Constitutional Appears: Chronically Ill - Head Exam Head Exam: NORMAL INSPECTION - ENT Exam ENT Exam: Mucous Membranes Moist - Neck Exam Neck Exam: absent: Meningismus - Respiratory Exam Respiratory Exam: Decreased Breath Sounds - Cardiovascular Exam Cardiovascular Exam: +S1, +S2 - GI/Abdominal Exam GI & Abdominal Exam: Soft. absent: Tenderness Assessment and Plan - Assessment and Plan (Free Text) Plan: Assessment Systemic Inflammatory response syndrome, R/O sepsis from HCAP, bilateral in this patient also with bilateral pleural effusions asymptomatic bacteriuria with Vancomycin-resistant Enterococcus chronic CHF with bilateral pleural effusions S/P thoracentesis previously left foot pain probably from trauma CAD S/P PCI HTN chronic renal failure DM S/P cholecystectomy Plan gave a dose of IV Vanco, and continue Merrem and Doxycycline day 3; blood cx are negative; PCT is 0.42; reviewed CT C/A/P overall prognosis is poor
[2017-09-06] MEDS ORDERED: Liquid Adhesive TOP ONE (10:43)
--- NOTE | 2017-09-06 10:45 | CP.PCM.PN ---
<Irene Gamboa - Last Filed: 09/06/17 14:57> Subjective - Date & Time of Evaluation Date of Evaluation: 09/06/17 Time of Evaluation: 06:50 - Subjective Subjective: GI Fellow PGY4 Progress Note Pt seen and evaluated at bedside, pt more confused overnight and seen this am. Pt was unable to be titrated off Levophed with SBP dropping to 70-80s. Per nursing no reported GI bleeding, pt denies abdominal pain, nausea or vomiting. ROS: A 12pt ROS was negative except as above. Objective - Vital Signs/Intake and Output Vital Signs (last 24 hours): Temp Pulse Resp BP Pulse Ox 96.4 F L 134 H 20 115/54 L 96 09/06/17 08:42 09/06/17 08:30 09/06/17 08:20 09/06/17 08:30 09/06/17 08:30 Intake and Output: 09/06/17 09/06/17 06:59 18:59 Intake Total 2570 198 Output Total 1051 Balance 1519 198 - Medications Medications: Current Medications Acetaminophen (Tylenol 325mg Tab) 650 mg PO Q6H PRN PRN Reason: Fever >100.4 F Last Admin: 09/06/17 00:42 Dose: 650 mg Apixaban (Eliquis) 2.5 mg PO BID YULI PRN Reason: Protocol Last Admin: 09/06/17 09:17 Dose: 2.5 mg Diazepam (Valium) 5 mg PO HS PRN; Protocol PRN Reason: Anxiety Last Admin: 09/06/17 00:46 Dose: 5 mg Vancomycin HCl (Vancomycin 1gm) 1 gm in 250 mls @ 167 mls/hr IVPB 0600 YULI PRN Reason: Protocol Last Admin: 09/06/17 05:20 Dose: 167 mls/hr NOREPINEPHRINE BIT/0.9 % NACL (Levophed 4 Mg/ 250 Ml Ns Premixed) 4 mg in 250 mls @ 15 mls/hr IV .[id number] PRN; Protocol; 4 MCG/MIN PRN Reason: TITRATE PER MD ORDER Last Titration: 09/06/17 09:38 Dose: 0 mcg/min, 0 mls/hr Meropenem 1 gm/ Dextrose 100 mls @ 100 mls/hr IVPB DAILY UYLI PRN Reason: Protocol Stop: 09/11/17 10:01 Last Admin: 09/06/17 09:17 Dose: 100 mls/hr Doxycycline Hyclate 100 mg/ (Sodium Chloride) 100 mls @ 100 mls/hr IVPB Q12 YULI PRN Reason: Protocol Last Admin: 09/06/17 09:18 Dose: 100 mls/hr Insulin Human Lispro (Humalog Low) 0 units SC ACHS YULI PRN Reason: Protocol Last Admin: 09/06/17 08:55 Dose: Not Given Levalbuterol HCl (Xopenex) 0.63 mg IH [id number] PRN PRN Reason: Shortness of Breath Multivitamins (Thera Tab) 1 tab PO 0800 [facility] Last Admin: 09/06/17 08:00 Dose: 1 tab Ondansetron HCl (Zofran Inj) 4 mg IVP Q6H PRN PRN Reason: Nausea/Vomiting Last Admin: 09/04/17 06:00 Dose: 4 mg Pantoprazole Sodium (Protonix Inj) 40 mg IVP DAILY [facility] Last Admin: 09/06/17 09:17 Dose: 40 mg - Labs Labs: 09/06/17 05:50 09/06/17 05:50 PT 31.1 SECONDS (9.4-12.5) H 09/04/17 01:35 INR 2.79 (0.93-1.08) H 09/04/17 01:35 APTT 37.8 Seconds (25.1-36.5) H 09/04/17 01:35 - Constitutional Appears: Chronically Ill - Head Exam Head Exam: ATRAUMATIC, NORMAL INSPECTION, NORMOCEPHALIC - Eye Exam Eye Exam: EOMI, Normal appearance, PERRL - ENT Exam ENT Exam: Mucous Membranes Dry - Neck Exam Neck Exam: Full ROM - Respiratory Exam Respiratory Exam: Decreased Breath Sounds - Cardiovascular Exam Cardiovascular Exam: Tachycardia, Irregular Rhythm - GI/Abdominal Exam GI & Abdominal Exam: Soft, Tenderness, Normal Bowel Sounds. absent: Distended, Guarding, Rigid, Organomegaly - Rectal Exam Rectal Exam: Deferred - Extremities Exam Extremities Exam: Tenderness - Neurological Exam Neurological Exam: Alert, Awake - Psychiatric Exam Psychiatric exam: Anxious - Skin Skin Exam: Dry, Pallor, Warm Additional comments: bruising Assessment and Plan - Assessment and Plan (Free Text) Assessment: This is a 87yF pmHx Afib on OAC, CHF, CAD s/p angioplasty, hyperlipidemia, hypertension, chronic renal failure, and diabetes presented to ED after a mechanical fall and was down for 4 hours. 1. Septic Shock on pressor support 2. Transaminitis 3. Dilated CBD 4. Afib with RVR 5. 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 -Pt on 09/04/17 did have hypotension with SBP in the 70s leading to ischemic hepatitis -Pt does have a hx of Afib on OAC, r/o portal vein thrombosis on Abd US which shows portal vein patency -Pt is tachycardic in HR 130s, recommend optimization of cardiac function which can be causing congestive hepatopathy -Continue to monitor LFTs which are trending down -Hepatitis panel negative and autoimmune panel pending for completion with hx of slight elevations in LFTs in the past -CBD dilated to 1.7 on imaging, once pt medically stable and LFTs still elevated will consider MRCP w/o contrast for further evaluation -Will continue to follow pt closely <Vance Campos - Last Filed: 09/06/17 19:16> Objective - Vital Signs/Intake and Output Vital Signs (last 24 hours): Temp Pulse Resp BP Pulse Ox 97.1 F L 106 H 26 H 119/62 96 09/06/17 12:00 09/06/17 18:10 09/06/17 18:10 09/06/17 18:00 09/06/17 18:10 Intake and Output: 09/06/17 09/07/17 18:59 06:59 Intake Total 1265 Output Total 400 Balance 865 - Medications Medications: Current Medications Acetaminophen (Tylenol 325mg Tab) 650 mg PO Q6H PRN PRN Reason: Fever >100.4 F Last Admin: 09/06/17 00:42 Dose: 650 mg Apixaban (Eliquis) 2.5 mg PO BID YULI PRN Reason: Protocol Last Admin: 09/06/17 18:31 Dose: 2.5 mg Diazepam (Valium) 5 mg PO HS PRN; Protocol PRN Reason: Anxiety Last Admin: 09/06/17 00:46 Dose: 5 mg Vancomycin HCl (Vancomycin 1gm) 1 gm in 250 mls @ 167 mls/hr IVPB 0600 YULI PRN Reason: Protocol Last Admin: 09/06/17 05:20 Dose: 167 mls/hr NOREPINEPHRINE BIT/0.9 % NACL (Levophed 4 Mg/ 250 Ml Ns Premixed) 4 mg in 250 mls @ 15 mls/hr IV .[id number] PRN; Protocol; 4 MCG/MIN PRN Reason: TITRATE PER MD ORDER Last Titration: 09/06/17 18:45 Dose: 0 mcg/min, 0 mls/hr Meropenem 1 gm/ Dextrose 100 mls @ 100 mls/hr IVPB DAILY YULI PRN Reason: Protocol Stop: 09/11/17 10:01 Last Admin: 09/06/17 09:17 Dose: 100 mls/hr Doxycycline Hyclate 100 mg/ (Sodium Chloride) 100 mls @ 100 mls/hr IVPB Q12 YULI PRN Reason: Protocol Last Admin: 09/06/17 09:18 Dose: 100 mls/hr Sodium Chloride (Sodium Chloride 0.9%) 1,000 mls @ 100 mls/hr IV .Q10H [facility] Last Admin: 09/06/17 14:50 Dose: 100 mls/hr Insulin Human Lispro (Humalog Low) 0 units SC ACHS YULI PRN Reason: Protocol Last Admin: 09/06/17 16:49 Dose: 1 units Levalbuterol HCl (Xopenex) 0.63 mg IH [id number] PRN PRN Reason: Shortness of Breath Multivitamins (Thera Tab) 1 tab PO 0800 [facility] Last Admin: 09/06/17 08:00 Dose: 1 tab Ondansetron HCl (Zofran Inj) 4 mg IVP Q6H PRN PRN Reason: Nausea/Vomiting Last Admin: 09/04/17 06:00 Dose: 4 mg Pantoprazole Sodium (Protonix Inj) 40 mg IVP DAILY [facility] Last Admin: 09/06/17 09:17 Dose: 40 mg - Labs Labs: 09/06/17 05:50 09/06/17 05:50 PT 31.1 SECONDS (9.4-12.5) H 09/04/17 01:35 INR 2.79 (0.93-1.08) H 09/04/17 01:35 APTT 37.8 Seconds (25.1-36.5) H 09/04/17 01:35 Attending/Attestation - Attestation I have personally seen and examined this patient.: Yes I have fully participated in the care of the patient.: Yes I have reviewed all pertinent clinical information, including history, physical exam and plan: Yes Notes (Text): 09/06/17 19:14 87 year old female with h/o CHF, Afib, CAD, HTN, HLD, CKD, DM admitted after fall, noted to have elevated LFTs. 1. Elevated LFTs 2. Dilated common bile duct 3. H/o cholecystectomy Plan: -continue supportive measures -elevated lfts 2/2 congestive hepatopathy, continue to monitor/trend -ideally, would obtain MRCP to eval CBD, but patient unlikely to tolerated it and dilated CBD likely 2/2 post cholecystectomy state/age -continue supportive measures in the meantime
--- NOTE | 2017-09-06 12:01 | CP.CCUPN ---
<Oscar Camarena - Last Filed: 09/06/17 11:57> CCU Subjective - Physician Review Subjective (Free Text): 09/06/17 11:58 Oscar Camarena D.O. PGY-3, Critical Care Progress Note 87 year old female PMH Afib, CHF, CAD s/p angioplasty, hyperlipidemia, hypertension, chronic renal failure, and diabetes presented after a mechanical fall 4 hours prior, found to be in septic shock requiring vasopressors. Patient was seen and examined at bedside. Patient has improved marginally, able to carry a conversation. Patient at times seems lethargic/somnolent but is in no acute distress. Patient denies any complaints at this time. No acute overnight events. CCU Objective - Vital Signs / Intake & Output Vital Signs (Last 4 hours): Vital Signs Temp Pulse Resp BP Pulse Ox 09/06/17 11:10 58 L 98 09/06/17 11:01 115 H 29 H 108/63 97 09/06/17 11:00 127 H 15 83 L 09/06/17 10:54 111 H 49 H 98 09/06/17 10:40 110 H 25 H 98 09/06/17 10:30 106 H 29 H 93/48 L 94 L 09/06/17 10:20 109 H 27 H 98 09/06/17 10:10 102 H 21 100 09/06/17 10:01 98 H 27 H 95/50 L 98 09/06/17 10:00 102 H 23 89 L 09/06/17 09:50 102 H 20 100 09/06/17 09:40 107 H 29 H 97 09/06/17 09:30 110 H 24 100/46 L 96 09/06/17 09:20 109 H 28 H 97 09/06/17 09:10 114 H 25 H 95 09/06/17 09:00 114 H 24 111/69 97 09/06/17 08:50 115 H 19 96 09/06/17 08:42 96.4 F L 09/06/17 08:40 122 H 25 H 96 09/06/17 08:30 134 H 115/54 L 96 09/06/17 08:20 117 H 20 96 09/06/17 08:10 128 H 22 97 09/06/17 08:00 97 F L 141 H 24 120/69 96 Intake and Output (Last 8hrs): Intake & Output 09/05/17 09/06/17 09/06/17 22:59 06:59 14:59 Intake Total 1500 1070 198 Output Total 701 350 Balance 799 720 198 Intake: IV 0 1070 198 Right Internal Jugular 1070 Oral 300 Other 1200 Output: Urine 700 350 Condom 700 350 Stool 1 - Physical Exam Head: Positive for: Atraumatic, Normocephalic Pupils: Positive for: PERRL Extroacular Muscles: Positive for: EOMI Conjunctiva: Positive for: Normal Mouth: Positive for: Moist Mucous Membranes Neck: Positive for: Normal Range of Motion. Negative for: JVD Respiratory/Chest: Positive for: Clear to Auscultation, Good Air Exchange. Negative for: Accessory Muscle Use, Wheezes Cardiovascular: Positive for: Normal S1, S2, Peripheal Pulses Present. Negative for: Murmurs, Rub, Gallop Abdomen: Negative for: Tenderness, Distention, Rebound Upper Extremity: Positive for: Normal Inspection Lower Extremity: Positive for: Other (BL LE cellulitis, dry scaly skin) Neurological: Positive for: GCS=15, Speech Normal Skin: Positive for: Warm, Dry Psychiatric: Positive for: Alert, Oriented x 3 - Medications Active Medications: Active Medications Generic Name Dose Route Start Last Admin Trade Name Freq PRN Reason Stop Dose Admin Acetaminophen 650 mg 09/04/17 05:32 09/06/17 00:42 Tylenol 325mg Tab PO 650 mg Q6H PRN Administration Fever >100.4 F Apixaban 2.5 mg 09/04/17 10:00 09/06/17 09:17 Eliquis PO 2.5 mg BID YULI Administration Protocol Diazepam 5 mg 09/05/17 12:39 09/06/17 00:46 Valium PO 5 mg HS PRN Administration Anxiety Protocol Vancomycin HCl 1 gm in 250 mls @ 167 mls/hr 09/05/17 06:00 09/06/17 05:20 Vancomycin 1gm IVPB 167 mls/hr 0600 YULI Administration Protocol NOREPINEPHRINE BIT/0.9 % NACL 4 mg in 250 mls @ 15 mls/hr 09/04/17 07:57 09:38 Levophed 4 Mg/ 250 Ml Ns Premixed IV 0 mcg/min .[id number] PRN 0 mls/hr TITRATE PER MD ORDER Titration Protocol 4 MCG/MIN Meropenem 1 gm/ Dextrose 100 mls @ 100 mls/hr 09/04/17 10:00 09/06/17 09:17 IVPB 09/11/17 10:01 100 mls/hr DAILY YULI Administration Protocol Doxycycline Hyclate 100 mg/ 100 mls @ 100 mls/hr 09/04/17 10:00 09/06/17 09: 18 Sodium Chloride IVPB 100 mls/hr Q12 YULI Administration Protocol Insulin Human Lispro 0 units 09/04/17 07:30 09/06/17 08:55 Humalog Low SC Not Given ACHS YULI Protocol Levalbuterol HCl 0.63 mg 09/04/17 05:32 Xopenex IH [id number] PRN Shortness of Breath Multivitamins 1 tab 09/04/17 08:00 09/06/17 08:00 Thera Tab PO 1 tab 0800 YULI Administration Ondansetron HCl 4 mg 09/04/17 05:29 09/04/17 06:00 Zofran Inj IVP 4 mg Q6H PRN Administration Nausea/Vomiting Pantoprazole Sodium 40 mg 09/04/17 10:00 09/06/17 09:17 Protonix Inj IVP 40 mg DAILY YULI Administration - Patient Studies Lab Studies: Microbiology Studies 09/04/17 06:00 MRSA Culture (Admit) - Final Nose MRSA NOT DETECTED Lab Studies 09/06/17 09/06/17 09/06/17 Range/Units 11:25 07:13 05:50 WBC (4.5-11.0) 10^3/ul RBC (3.5-6.1) 10^6/uL Hgb (12.0-16.0) g/dL Hct (36.0-48.0) % MCV (80.0-105.0) fl MCH (25.0-35.0) pg MCHC (31.0-37.0) g/dl RDW (11.5-14.5) % Plt Count (120.0-450.0) 10^3/uL MPV (7.0-11.0) fl Gran % (50.0-68.0) % Lymph % (Auto) (22.0-35.0) % [place] % (Auto) (1.0-6.0) % Eos % (Auto) (1.5-5.0) % Baso % (Auto) (0.0-3.0) % Gran # (1.4-6.5) Lymph # (1.2-3.4) [place] # (0.1-0.6) Eos # (0.0-0.7) Baso # (0.0-2.0) K/mm3 Sodium 137 (132-148) mmol/L Potassium 4.5 (3.6-5.0) mmol/L Chloride 103 (95-110) mmol/L Carbon Dioxide 23 (21-33) mmol/L Anion Gap 16 (10-20) BUN 68 H (7-21) mg/dL Creatinine 2.3 H (0.7-1.2) mg/dL Est GFR ( Amer) 24 Est GFR (Non-Af Amer) 20 POC Glucose (mg/dL) 223 H 157 H (65-110) mg/dL Random Glucose 130 H (70-110) mg/dL Calcium 8.5 (8.4-10.5) mg/dL Phosphorus 3.8 (2.5-4.5) mg/dL Magnesium 1.9 (1.7-2.2) mg/dL Total Bilirubin 0.9 (0.2-1.3) mg/dL AST 260 H D (14-36) U/L ALT 372 H (7-56) U/L Alkaline Phosphatase 185 H (38-126) U/L Total Protein 5.8 (5.8-8.3) g/dL Albumin 2.8 L (3.0-4.8) g/dL Globulin 3.0 gm/dL Albumin/Globulin Ratio 0.9 L (1.1-1.8) IgG (700.0-1600.0) mg/dL Hepatitis A IgM Ab (NEGATIVE) Hep Bs Antigen (NEGATIVE) Hep B Core IgM Ab (NEGATIVE) Hepatitis C Antibody (NEGATIVE) 09/06/17 09/05/17 09/05/17 Range/Units 05:50 21:59 18:06 WBC 11.2 H (4.5-11.0) 10^3/ul RBC 4.35 (3.5-6.1) 10^6/uL Hgb 9.5 L (12.0-16.0) g/dL Hct 32.2 L (36.0-48.0) % MCV 74.0 L (80.0-105.0) fl MCH 21.8 L (25.0-35.0) pg MCHC 29.5 L (31.0-37.0) g/dl RDW 21.7 H (11.5-14.5) % Plt Count 511 H (120.0-450.0) 10^3/uL MPV 9.5 (7.0-11.0) fl Gran % 71.7 H (50.0-68.0) % Lymph % (Auto) 17.5 L (22.0-35.0) % [place] % (Auto) 9.9 H (1.0-6.0) % Eos % (Auto) 0.5 L (1.5-5.0) % Baso % (Auto) 0.4 (0.0-3.0) % Gran # 8.00 H (1.4-6.5) Lymph # 2.0 (1.2-3.4) [place] # 1.1 H (0.1-0.6) Eos # 0.1 (0.0-0.7) Baso # 0.05 (0.0-2.0) K/mm3 Sodium (132-148) mmol/L Potassium (3.6-5.0) mmol/L Chloride (95-110) mmol/L Carbon Dioxide (21-33) mmol/L Anion Gap (10-20) BUN (7-21) mg/dL Creatinine (0.7-1.2) mg/dL Est GFR ( Amer) Est GFR (Non-Af Amer) POC Glucose (mg/dL) 158 H 255 H (65-110) mg/dL Random Glucose (70-110) mg/dL Calcium (8.4-10.5) mg/dL Phosphorus (2.5-4.5) mg/dL Magnesium (1.7-2.2) mg/dL Total Bilirubin (0.2-1.3) mg/dL AST (14-36) U/L ALT (7-56) U/L Alkaline Phosphatase (38-126) U/L Total Protein (5.8-8.3) g/dL Albumin (3.0-4.8) g/dL Globulin gm/dL Albumin/Globulin Ratio (1.1-1.8) IgG (700.0-1600.0) mg/dL Hepatitis A IgM Ab (NEGATIVE) Hep Bs Antigen (NEGATIVE) Hep B Core IgM Ab (NEGATIVE) Hepatitis C Antibody (NEGATIVE) 09/05/17 09/05/17 09/05/17 Range/Units 11:20 11:20 11:06 WBC (4.5-11.0) 10^3/ul RBC (3.5-6.1) 10^6/uL Hgb (12.0-16.0) g/dL Hct (36.0-48.0) % MCV (80.0-105.0) fl MCH (25.0-35.0) pg MCHC (31.0-37.0) g/dl RDW (11.5-14.5) % Plt Count (120.0-450.0) 10^3/uL MPV (7.0-11.0) fl Gran % (50.0-68.0) % Lymph % (Auto) (22.0-35.0) % [place] % (Auto) (1.0-6.0) % Eos % (Auto) (1.5-5.0) % Baso % (Auto) (0.0-3.0) % Gran # (1.4-6.5) Lymph # (1.2-3.4) [place] # (0.1-0.6) Eos # (0.0-0.7) Baso # (0.0-2.0) K/mm3 Sodium (132-148) mmol/L Potassium (3.6-5.0) mmol/L Chloride (95-110) mmol/L Carbon Dioxide (21-33) mmol/L Anion Gap (10-20) BUN (7-21) mg/dL Creatinine (0.7-1.2) mg/dL Est GFR ( Amer) Est GFR (Non-Af Amer) POC Glucose (mg/dL) 242 H (65-110) mg/dL Random Glucose (70-110) mg/dL Calcium (8.4-10.5) mg/dL Phosphorus (2.5-4.5) mg/dL Magnesium (1.7-2.2) mg/dL Total Bilirubin (0.2-1.3) mg/dL AST (14-36) U/L ALT (7-56) U/L Alkaline Phosphatase (38-126) U/L Total Protein (5.8-8.3) g/dL Albumin (3.0-4.8) g/dL Globulin gm/dL Albumin/Globulin Ratio (1.1-1.8) IgG 1194.6 (700.0-1600.0) mg/dL Hepatitis A IgM Ab Negative (NEGATIVE) Hep Bs Antigen Negative (NEGATIVE) Hep B Core IgM Ab Negative (NEGATIVE) Hepatitis C Antibody Negative (NEGATIVE) 09/05/17 Range/Units 07:40 WBC (4.5-11.0) 10^3/ul RBC (3.5-6.1) 10^6/uL Hgb (12.0-16.0) g/dL Hct (36.0-48.0) % MCV (80.0-105.0) fl MCH (25.0-35.0) pg MCHC (31.0-37.0) g/dl RDW (11.5-14.5) % Plt Count (120.0-450.0) 10^3/uL MPV (7.0-11.0) fl Gran % (50.0-68.0) % Lymph % (Auto) (22.0-35.0) % [place] % (Auto) (1.0-6.0) % Eos % (Auto) (1.5-5.0) % Baso % (Auto) (0.0-3.0) % Gran # (1.4-6.5) Lymph # (1.2-3.4) [place] # (0.1-0.6) Eos # (0.0-0.7) Baso # (0.0-2.0) K/mm3 Sodium (132-148) mmol/L Potassium (3.6-5.0) mmol/L Chloride (95-110) mmol/L Carbon Dioxide (21-33) mmol/L Anion Gap (10-20) BUN (7-21) mg/dL Creatinine (0.7-1.2) mg/dL Est GFR ( Amer) Est GFR (Non-Af Amer) POC Glucose (mg/dL) 200 H (65-110) mg/dL Random Glucose (70-110) mg/dL Calcium (8.4-10.5) mg/dL Phosphorus (2.5-4.5) mg/dL Magnesium (1.7-2.2) mg/dL Total Bilirubin (0.2-1.3) mg/dL AST (14-36) U/L ALT (7-56) U/L Alkaline Phosphatase (38-126) U/L Total Protein (5.8-8.3) g/dL Albumin (3.0-4.8) g/dL Globulin gm/dL Albumin/Globulin Ratio (1.1-1.8) IgG (700.0-1600.0) mg/dL Hepatitis A IgM Ab (NEGATIVE) Hep Bs Antigen (NEGATIVE) Hep B Core IgM Ab (NEGATIVE) Hepatitis C Antibody (NEGATIVE) Laboratory Results - last 24 hr 09/05/17 09/05/17 09/05/17 07:40 11:06 11:20 WBC RBC Hgb Hct MCV MCH MCHC RDW Plt Count MPV Gran % Lymph % (Auto) [place] % (Auto) Eos % (Auto) Baso % (Auto) Gran # Lymph # [place] # Eos # Baso # Sodium Potassium Chloride Carbon Dioxide Anion Gap BUN Creatinine Est GFR ( Amer) Est GFR (Non-Af Amer) POC Glucose (mg/dL) 200 H 242 H Random Glucose Calcium Phosphorus Magnesium Total Bilirubin AST ALT Alkaline Phosphatase Total Protein Albumin Globulin Albumin/Globulin Ratio IgG Hepatitis A IgM Ab Negative Hep Bs Antigen Negative Hep B Core IgM Ab Negative Hepatitis C Antibody Negative 09/05/17 09/05/17 09/05/17 11:20 18:06 21:59 WBC RBC Hgb Hct MCV MCH MCHC RDW Plt Count MPV Gran % Lymph % (Auto) [place] % (Auto) Eos % (Auto) Baso % (Auto) Gran # Lymph # [place] # Eos # Baso # Sodium Potassium Chloride Carbon Dioxide Anion Gap BUN Creatinine Est GFR ( Amer) Est GFR (Non-Af Amer) POC Glucose (mg/dL) 255 H 158 H Random Glucose Calcium Phosphorus Magnesium Total Bilirubin AST ALT Alkaline Phosphatase Total Protein Albumin Globulin Albumin/Globulin Ratio IgG 1194.6 Hepatitis A IgM Ab Hep Bs Antigen Hep B Core IgM Ab Hepatitis C Antibody 09/06/17 09/06/17 09/06/17 05:50 05:50 07:13 WBC 11.2 H RBC 4.35 Hgb 9.5 L Hct 32.2 L MCV 74.0 L MCH 21.8 L MCHC 29.5 L RDW 21.7 H Plt Count 511 H MPV 9.5 Gran % 71.7 H Lymph % (Auto) 17.5 L [place] % (Auto) 9.9 H Eos % (Auto) 0.5 L Baso % (Auto) 0.4 Gran # 8.00 H Lymph # 2.0 [place] # 1.1 H Eos # 0.1 Baso # 0.05 Sodium 137 Potassium 4.5 Chloride 103 Carbon Dioxide 23 Anion Gap 16 BUN 68 H Creatinine 2.3 H Est GFR ( Amer) 24 Est GFR (Non-Af Amer) 20 POC Glucose (mg/dL) 157 H Random Glucose 130 H Calcium 8.5 Phosphorus 3.8 Magnesium 1.9 Total Bilirubin 0.9 AST 260 H D ALT 372 H Alkaline Phosphatase 185 H Total Protein 5.8 Albumin 2.8 L Globulin 3.0 Albumin/Globulin Ratio 0.9 L IgG Hepatitis A IgM Ab Hep Bs Antigen Hep B Core IgM Ab Hepatitis C Antibody 09/06/17 11:25 WBC RBC Hgb Hct MCV MCH MCHC RDW Plt Count MPV Gran % Lymph % (Auto) [place] % (Auto) Eos % (Auto) Baso % (Auto) Gran # Lymph # [place] # Eos # Baso # Sodium Potassium Chloride Carbon Dioxide Anion Gap BUN Creatinine Est GFR ( Amer) Est GFR (Non-Af Amer) POC Glucose (mg/dL) 223 H Random Glucose Calcium Phosphorus Magnesium Total Bilirubin AST ALT Alkaline Phosphatase Total Protein Albumin Globulin Albumin/Globulin Ratio IgG Hepatitis A IgM Ab Hep Bs Antigen Hep B Core IgM Ab Hepatitis C Antibody Fingerstick Blood Sugar Results: 150 Critical Care Progress Note - Nutrition Nutrition: Nutrition Category Date Time Status Dysphagia/Modified Consistency Diet [DIET] Diets 09/04/17 Dinner Ordered Assessment/Plan - Assessment and Plan (Free Text) Assessment: 87 year old female PMH Afib, CHF, CAD s/p angioplasty, hyperlipidemia, hypertension, chronic renal failure, and diabetes presented after a mechanical fall 4 hours prior, found to be in septic shock requiring vasopressors Plan: Neurologic AAOx4, nonfocal exam Will optimize cirdadian rhythm Cardiovascular Known Afib, on eliquis, HR improved Blood pressure improved, will wean off levophed Last known Echo on 04/2017 - EF 60% Mod pulm HTN; Mod dilated LV, Mod/Severe Tricuspid regurg, Mod Pulmonic valve regurg Pulmnologic Suspected PNA in setting of known, chronic BL Pleural effusions with compressive atelectasis on Chest CT On Merem/Doxy D3 Vanc D2 Cont Xopenex breathing treatments GI Transaminitis downtrending GI following, recs appreciated, workup underway Abd US showed hepatic steatosis vs liver parenchymal disease, s/p Ab[place]ola CBD 1.7cm, mild Ascites Hep profile negative Avoid hepatotoxic meds, statin holding Renal/Electrolytes RADHA on CKD, BUN and Cr improving Monitoring IxOs Positive fluid balance, now Continue to monitor ID ID following, Dr. Cook Septic shock improving, weaning levophed Cont merem/doxy Day 3, Vanc D2 Blood and urine Cxs negative Endocrine Cont RISS and accuchecks GI/DVT PPx: Protonix/On eliquis Patient was seen and examined and case was discussed in detail with attending physician. - Date & Time Date: 09/06/17 Time: 07:25 <Hill Cummings - Last Filed: 09/06/17 12:23> CCU Objective - Vital Signs / Intake & Output Vital Signs (Last 4 hours): Vital Signs Temp Pulse Resp BP Pulse Ox 09/06/17 11:10 58 L 98 09/06/17 11:01 115 H 29 H 108/63 97 09/06/17 11:00 127 H 15 83 L 09/06/17 10:54 111 H 49 H 98 09/06/17 10:40 110 H 25 H 98 09/06/17 10:30 106 H 29 H 93/48 L 94 L 09/06/17 10:20 109 H 27 H 98 09/06/17 10:10 102 H 21 100 09/06/17 10:01 98 H 27 H 95/50 L 98 09/06/17 10:00 102 H 23 89 L 09/06/17 09:50 102 H 20 100 09/06/17 09:40 107 H 29 H 97 09/06/17 09:30 110 H 24 100/46 L 96 09/06/17 09:20 109 H 28 H 97 09/06/17 09:10 114 H 25 H 95 09/06/17 09:00 114 H 24 111/69 97 09/06/17 08:50 115 H 19 96 09/06/17 08:42 96.4 F L 09/06/17 08:40 122 H 25 H 96 09/06/17 08:30 134 H 115/54 L 96 Intake and Output (Last 8hrs): Intake & Output 09/05/17 09/06/17 09/06/17 22:59 06:59 14:59 Intake Total 1500 1070 198 Output Total 701 350 Balance 799 720 198 Intake: IV 0 1070 198 Right Internal Jugular 1070 Oral 300 Other 1200 Output: Urine 700 350 Condom 700 350 Stool 1 - Medications Active Medications: Active Medications Generic Name Dose Route Start Last Admin Trade Name Freq PRN Reason Stop Dose Admin Acetaminophen 650 mg 09/04/17 05:32 09/06/17 00:42 Tylenol 325mg Tab PO 650 mg Q6H PRN Administration Fever >100.4 F Apixaban 2.5 mg 09/04/17 10:00 09/06/17 09:17 Eliquis PO 2.5 mg BID YULI Administration Protocol Diazepam 5 mg 09/05/17 12:39 09/06/17 00:46 Valium PO 5 mg HS PRN Administration Anxiety Protocol Vancomycin HCl 1 gm in 250 mls @ 167 mls/hr 09/05/17 06:00 09/06/17 05:20 Vancomycin 1gm IVPB 167 mls/hr 0600 YULI Administration Protocol NOREPINEPHRINE BIT/0.9 % NACL 4 mg in 250 mls @ 15 mls/hr 09/04/17 07:57 09:38 Levophed 4 Mg/ 250 Ml Ns Premixed IV 0 mcg/min .[id number] PRN 0 mls/hr TITRATE PER MD ORDER Titration Protocol 4 MCG/MIN Meropenem 1 gm/ Dextrose 100 mls @ 100 mls/hr 09/04/17 10:00 09/06/17 09:17 IVPB 09/11/17 10:01 100 mls/hr DAILY YULI Administration Protocol Doxycycline Hyclate 100 mg/ 100 mls @ 100 mls/hr 09/04/17 10:00 09/06/17 09: 18 Sodium Chloride IVPB 100 mls/hr Q12 YULI Administration Protocol Insulin Human Lispro 0 units 09/04/17 07:30 11/14/17 08:55 Humalog Low SC Not Given ACHS [facility] Protocol Levalbuterol HCl 0.63 mg 09/04/17 05:32 Xopenex IH [id number] PRN Shortness of Breath Multivitamins 1 tab 09/04/17 08:00 09/06/17 08:00 Thera Tab PO 1 tab 0800 YULI Administration Ondansetron HCl 4 mg 09/04/17 05:29 09/04/17 06:00 Zofran Inj IVP 4 mg Q6H PRN Administration Nausea/Vomiting Pantoprazole Sodium 40 mg 09/04/17 10:00 09/06/17 09:17 Protonix Inj IVP 40 mg DAILY YULI Administration - Patient Studies Lab Studies: Microbiology Studies 09/04/17 06:00 MRSA Culture (Admit) - Final Nose MRSA NOT DETECTED Lab Studies 09/06/17 09/06/17 09/06/17 Range/Units 11:25 07:13 05:50 WBC (4.5-11.0) 10^3/ul RBC (3.5-6.1) 10^6/uL Hgb (12.0-16.0) g/dL Hct (36.0-48.0) % MCV (80.0-105.0) fl MCH (25.0-35.0) pg MCHC (31.0-37.0) g/dl RDW (11.5-14.5) % Plt Count (120.0-450.0) 10^3/uL MPV (7.0-11.0) fl Gran % (50.0-68.0) % Lymph % (Auto) (22.0-35.0) % [place] % (Auto) (1.0-6.0) % Eos % (Auto) (1.5-5.0) % Baso % (Auto) (0.0-3.0) % Gran # (1.4-6.5) Lymph # (1.2-3.4) [place] # (0.1-0.6) Eos # (0.0-0.7) Baso # (0.0-2.0) K/mm3 Sodium 137 (132-148) mmol/L Potassium 4.5 (3.6-5.0) mmol/L Chloride 103 (95-110) mmol/L Carbon Dioxide 23 (21-33) mmol/L Anion Gap 16 (10-20) BUN 68 H (7-21) mg/dL Creatinine 2.3 H (0.7-1.2) mg/dL Est GFR ( Amer) 24 Est GFR (Non-Af Amer) 20 POC Glucose (mg/dL) 223 H 157 H (65-110) mg/dL Random Glucose 130 H (70-110) mg/dL Calcium 8.5 (8.4-10.5) mg/dL Phosphorus 3.8 (2.5-4.5) mg/dL Magnesium 1.9 (1.7-2.2) mg/dL Total Bilirubin 0.9 (0.2-1.3) mg/dL AST 260 H D (14-36) U/L ALT 372 H (7-56) U/L Alkaline Phosphatase 185 H (38-126) U/L Total Protein 5.8 (5.8-8.3) g/dL Albumin 2.8 L (3.0-4.8) g/dL Globulin 3.0 gm/dL Albumin/Globulin Ratio 0.9 L (1.1-1.8) IgG (700.0-1600.0) mg/dL Hepatitis A IgM Ab (NEGATIVE) Hep Bs Antigen (NEGATIVE) Hep B Core IgM Ab (NEGATIVE) Hepatitis C Antibody (NEGATIVE) 09/06/17 09/05/17 09/05/17 Range/Units 05:50 21:59 18:06 WBC 11.2 H (4.5-11.0) 10^3/ul RBC 4.35 (3.5-6.1) 10^6/uL Hgb 9.5 L (12.0-16.0) g/dL Hct 32.2 L (36.0-48.0) % MCV 74.0 L (80.0-105.0) fl MCH 21.8 L (25.0-35.0) pg MCHC 29.5 L (31.0-37.0) g/dl RDW 21.7 H (11.5-14.5) % Plt Count 511 H (120.0-450.0) 10^3/uL MPV 9.5 (7.0-11.0) fl Gran % 71.7 H (50.0-68.0) % Lymph % (Auto) 17.5 L (22.0-35.0) % [place] % (Auto) 9.9 H (1.0-6.0) % Eos % (Auto) 0.5 L (1.5-5.0) % Baso % (Auto) 0.4 (0.0-3.0) % Gran # 8.00 H (1.4-6.5) Lymph # 2.0 (1.2-3.4) [place] # 1.1 H (0.1-0.6) Eos # 0.1 (0.0-0.7) Baso # 0.05 (0.0-2.0) K/mm3 Sodium (132-148) mmol/L Potassium (3.6-5.0) mmol/L Chloride (95-110) mmol/L Carbon Dioxide (21-33) mmol/L Anion Gap (10-20) BUN (7-21) mg/dL Creatinine (0.7-1.2) mg/dL Est GFR ( Amer) Est GFR (Non-Af Amer) POC Glucose (mg/dL) 158 H 255 H (65-110) mg/dL Random Glucose (70-110) mg/dL Calcium (8.4-10.5) mg/dL Phosphorus (2.5-4.5) mg/dL Magnesium (1.7-2.2) mg/dL Total Bilirubin (0.2-1.3) mg/dL AST (14-36) U/L ALT (7-56) U/L Alkaline Phosphatase (38-126) U/L Total Protein (5.8-8.3) g/dL Albumin (3.0-4.8) g/dL Globulin gm/dL Albumin/Globulin Ratio (1.1-1.8) IgG (700.0-1600.0) mg/dL Hepatitis A IgM Ab (NEGATIVE) Hep Bs Antigen (NEGATIVE) Hep B Core IgM Ab (NEGATIVE) Hepatitis C Antibody (NEGATIVE) 09/05/17 09/05/17 09/05/17 Range/Units 11:20 11:20 11:06 WBC (4.5-11.0) 10^3/ul RBC (3.5-6.1) 10^6/uL Hgb (12.0-16.0) g/dL Hct (36.0-48.0) % MCV (80.0-105.0) fl MCH (25.0-35.0) pg MCHC (31.0-37.0) g/dl RDW (11.5-14.5) % Plt Count (120.0-450.0) 10^3/uL MPV (7.0-11.0) fl Gran % (50.0-68.0) % Lymph % (Auto) (22.0-35.0) % [place] % (Auto) (1.0-6.0) % Eos % (Auto) (1.5-5.0) % Baso % (Auto) (0.0-3.0) % Gran # (1.4-6.5) Lymph # (1.2-3.4) [place] # (0.1-0.6) Eos # (0.0-0.7) Baso # (0.0-2.0) K/mm3 Sodium (132-148) mmol/L Potassium (3.6-5.0) mmol/L Chloride (95-110) mmol/L Carbon Dioxide (21-33) mmol/L Anion Gap (10-20) BUN (7-21) mg/dL Creatinine (0.7-1.2) mg/dL Est GFR ( Amer) Est GFR (Non-Af Amer) POC Glucose (mg/dL) 242 H (65-110) mg/dL Random Glucose (70-110) mg/dL Calcium (8.4-10.5) mg/dL Phosphorus (2.5-4.5) mg/dL Magnesium (1.7-2.2) mg/dL Total Bilirubin (0.2-1.3) mg/dL AST (14-36) U/L ALT (7-56) U/L Alkaline Phosphatase (38-126) U/L Total Protein (5.8-8.3) g/dL Albumin (3.0-4.8) g/dL Globulin gm/dL Albumin/Globulin Ratio (1.1-1.8) IgG 1194.6 (700.0-1600.0) mg/dL Hepatitis A IgM Ab Negative (NEGATIVE) Hep Bs Antigen Negative (NEGATIVE) Hep B Core IgM Ab Negative (NEGATIVE) Hepatitis C Antibody Negative (NEGATIVE) 09/05/17 Range/Units 07:40 WBC (4.5-11.0) 10^3/ul RBC (3.5-6.1) 10^6/uL Hgb (12.0-16.0) g/dL Hct (36.0-48.0) % MCV (80.0-105.0) fl MCH (25.0-35.0) pg MCHC (31.0-37.0) g/dl RDW (11.5-14.5) % Plt Count (120.0-450.0) 10^3/uL MPV (7.0-11.0) fl Gran % (50.0-68.0) % Lymph % (Auto) (22.0-35.0) % [place] % (Auto) (1.0-6.0) % Eos % (Auto) (1.5-5.0) % Baso % (Auto) (0.0-3.0) % Gran # (1.4-6.5) Lymph # (1.2-3.4) [place] # (0.1-0.6) Eos # (0.0-0.7) Baso # (0.0-2.0) K/mm3 Sodium (132-148) mmol/L Potassium (3.6-5.0) mmol/L Chloride (95-110) mmol/L Carbon Dioxide (21-33) mmol/L Anion Gap (10-20) BUN (7-21) mg/dL Creatinine (0.7-1.2) mg/dL Est GFR ( Amer) Est GFR (Non-Af Amer) POC Glucose (mg/dL) 200 H (65-110) mg/dL Random Glucose (70-110) mg/dL Calcium (8.4-10.5) mg/dL Phosphorus (2.5-4.5) mg/dL Magnesium (1.7-2.2) mg/dL Total Bilirubin (0.2-1.3) mg/dL AST (14-36) U/L ALT (7-56) U/L Alkaline Phosphatase (38-126) U/L Total Protein (5.8-8.3) g/dL Albumin (3.0-4.8) g/dL Globulin gm/dL Albumin/Globulin Ratio (1.1-1.8) IgG (700.0-1600.0) mg/dL Hepatitis A IgM Ab (NEGATIVE) Hep Bs Antigen (NEGATIVE) Hep B Core IgM Ab (NEGATIVE) Hepatitis C Antibody (NEGATIVE) Laboratory Results - last 24 hr 09/05/17 09/05/17 09/05/17 07:40 11:06 11:20 WBC RBC Hgb Hct MCV MCH MCHC RDW Plt Count MPV Gran % Lymph % (Auto) [place] % (Auto) Eos % (Auto) Baso % (Auto) Gran # Lymph # [place] # Eos # Baso # Sodium Potassium Chloride Carbon Dioxide Anion Gap BUN Creatinine Est GFR ( Amer) Est GFR (Non-Af Amer) POC Glucose (mg/dL) 200 H 242 H Random Glucose Calcium Phosphorus Magnesium Total Bilirubin AST ALT Alkaline Phosphatase Total Protein Albumin Globulin Albumin/Globulin Ratio IgG Hepatitis A IgM Ab Negative Hep Bs Antigen Negative Hep B Core IgM Ab Negative Hepatitis C Antibody Negative 09/05/17 09/05/17 09/05/17 11:20 18:06 21:59 WBC RBC Hgb Hct MCV MCH MCHC RDW Plt Count MPV Gran % Lymph % (Auto) [place] % (Auto) Eos % (Auto) Baso % (Auto) Gran # Lymph # [place] # Eos # Baso # Sodium Potassium Chloride Carbon Dioxide Anion Gap BUN Creatinine Est GFR ( Amer) Est GFR (Non-Af Amer) POC Glucose (mg/dL) 255 H 158 H Random Glucose Calcium Phosphorus Magnesium Total Bilirubin AST ALT Alkaline Phosphatase Total Protein Albumin Globulin Albumin/Globulin Ratio IgG 1194.6 Hepatitis A IgM Ab Hep Bs Antigen Hep B Core IgM Ab Hepatitis C Antibody 09/06/17 09/06/17 09/06/17 05:50 05:50 07:13 WBC 11.2 H RBC 4.35 Hgb 9.5 L Hct 32.2 L MCV 74.0 L MCH 21.8 L MCHC 29.5 L RDW 21.7 H Plt Count 511 H MPV 9.5 Gran % 71.7 H Lymph % (Auto) 17.5 L [place] % (Auto) 9.9 H Eos % (Auto) 0.5 L Baso % (Auto) 0.4 Gran # 8.00 H Lymph # 2.0 [place] # 1.1 H Eos # 0.1 Baso # 0.05 Sodium 137 Potassium 4.5 Chloride 103 Carbon Dioxide 23 Anion Gap 16 BUN 68 H Creatinine 2.3 H Est GFR ( Amer) 24 Est GFR (Non-Af Amer) 20 POC Glucose (mg/dL) 157 H Random Glucose 130 H Calcium 8.5 Phosphorus 3.8 Magnesium 1.9 Total Bilirubin 0.9 AST 260 H D ALT 372 H Alkaline Phosphatase 185 H Total Protein 5.8 Albumin 2.8 L Globulin 3.0 Albumin/Globulin Ratio 0.9 L IgG Hepatitis A IgM Ab Hep Bs Antigen Hep B Core IgM Ab Hepatitis C Antibody 09/06/17 11:25 WBC RBC Hgb Hct MCV MCH MCHC RDW Plt Count MPV Gran % Lymph % (Auto) [place] % (Auto) Eos % (Auto) Baso % (Auto) Gran # Lymph # [place] # Eos # Baso # Sodium Potassium Chloride Carbon Dioxide Anion Gap BUN Creatinine Est GFR ( Amer) Est GFR (Non-Af Amer) POC Glucose (mg/dL) 223 H Random Glucose Calcium Phosphorus Magnesium Total Bilirubin AST ALT Alkaline Phosphatase Total Protein Albumin Globulin Albumin/Globulin Ratio IgG Hepatitis A IgM Ab Hep Bs Antigen Hep B Core IgM Ab Hepatitis C Antibody Critical Care Progress Note - Nutrition Nutrition: Nutrition Category Date Time Status Dysphagia/Modified Consistency Diet [DIET] Diets 09/04/17 Dinner Ordered Assessment/Plan - Assessment and Plan (Free Text) Plan: Patient seen and examined, with resident on rounds, agree with note, with following additions/exceptions: Patient is 87yo female with history of atrial fibrillation on eliquis, CHF, CAD , hyperlipidemia, DM, CKD, DNR/DNI, admitted with septic shock, currently off Levophed, likely 2/2 PNA, and cellulitis. Currently awake, alert, HD stable, MAP ranging 70-90, with no major complaints. LFTs downtrending, seen by GI. STABLE Septic Shock PNA Cellulitis Afib CAD CHF Recommend: - supp o2 as needed - broad spectrum antibiotics as per ID - follow up cultures - would continue with gentle IVF hydration - check IVC diameter - repeat Lactate downtrending - rate control for Afib - GI ppx - DVT ppx, Eliquis - if stable throughout the day, transfer to telemetry later on
[2017-09-06] MEDS: NOREPINEPHRINE BIT/0.9 % NACL 4 MG/250 ML BAG IV PRN (14:22)
[2017-09-06] MEDS: Sodium Chloride 0.9% 1,000 ML IV SCH ×2 (14:50→21:34)
--- NOTE | 2017-09-06 22:13 | PN ---
DATE: SUBJECTIVE: The patient is an 87-year-old, seen and examined, sitting in chair, looks pale, mild shortness of breath, has leg swelling. PHYSICAL EXAMINATION: VITAL SIGNS: She is afebrile, pulse 106, respirations 28, and blood pressure 119/62. LUNGS: Bilateral airflow, decreased at bases. HEART: S1 and S2 audible. ABDOMEN: Soft, nontender. No rebound, no guarding. NEUROLOGICAL: She is awake and alert, somewhat confused. She insists that she was in other room and has been in that room for whole night and she was very cold in that room, awake and she seems to be confused. LABORATORY EXAM: WBC is 11.2, hemoglobin 9.5, hematocrit 32.2, and platelet of 511. Chemistry; sodium 135, potassium 4.5, chloride 103, CO2 of 23, BUN 68, creatinine 2.3, and blood sugar of 197. AST 260, ALT 372 and alkaline phosphatase is 185. Hepatitis profile is pending. ASSESSMENT: 1. Probably sepsis, she was hypotensive and hypothermic; however, blood cultures and urine cultures are negative. 2. Cardiomyopathy. 3. Coronary artery disease. 4. Hypertension. 5. Hyperlipidemia. 6. Ioy-twtdrit-tevxlnwhq diabetes. 7. Generalized weakness and difficulty walking. PLAN: We will continue her on doxycycline. She is on Eliquis. Continue her on meropenem as recommended by ID. Her Levophed is being tapered down. Continue her on nebulizer treatment, request for Cardiology evaluation and order for echocardiogram to assess her LV function. Ghazal Goode MD
[2017-09-07] MEDS: Sodium Chloride 0.9% 1,000 ML IV SCH (00:59)
[2017-09-07] MEDS: Levalbuterol 0.63 MG/3 ML Inhal Soln UD IH PRN (05:14)
[2017-09-07] MEDS: Vancomycin 1gm in NS 250ml 1 GM/250 ML BAG IVPB SCH (06:20)
[2017-09-07 07:09] LABS: BASO # 0.05 K/mm3 (0.0-2.0); BASO % 0.7 % (0.0-3.0); EOS # 0.1 (0.0-0.7); EOS % 1.3 % (1.5-5.0); GRAN # 5.46 (1.4-6.5); HEMATOCRIT 31.8 % (36.0-48.0); LYMPH # 0.9 (1.2-3.4); LYMPH % 12.3 % (22.0-35.0); MEAN CELL VOLUME 75.2 fl (80.0-105.0); MEAN CORPUSCULAR HEMOGLOBIN 21.7 pg (25.0-35.0); MEAN CORPUSCULAR HGB CONC 28.9 g/dl (31.0-37.0); MEAN PLATELET VOLUME 9.3 fl (7.0-11.0); MONO # 0.6 (0.1-0.6); MONO % 8.7 % (1.0-6.0); WHITE BLOOD COUNT 7.1 10^3/ul (4.5-11.0)
[2017-09-07 07:46] LABS: ALB/GLOB RATIO 0.9 (1.1-1.8); BILIRUBIN,TOTAL 0.8 mg/dL (0.2-1.3); CALCIUM 8.4 mg/dL (8.4-10.5); MAGNESIUM 1.8 mg/dL (1.7-2.2); PHOSPHOROUS 4.2 mg/dL (2.5-4.5); POTASSIUM 4.2 mmol/L (3.6-5.0); TOTAL PROTEIN 5.9 g/dL (5.8-8.3)
--- NOTE | 2017-09-07 07:48 | CP.PCM.PN ---
<Irene Gamboa - Last Filed: 09/07/17 12:14> Subjective - Date & Time of Evaluation Date of Evaluation: 09/07/17 Time of Evaluation: 06:50 - Subjective Subjective: GI Fellow PGY4 Progress Note Pt seen and evaluated at bedside, pt more somnolent this am. Pt was titrated off Levophed with SBP 102s and HR elevated in 110s. Per nursing no reported GI bleeding, pt denies abdominal pain, nausea or vomiting. ROS: A 12pt ROS was negative except as above. Objective - Vital Signs/Intake and Output Vital Signs (last 24 hours): Temp Pulse Resp BP Pulse Ox 96.7 F L 102 H 21 102/45 L 98 09/07/17 04:00 09/07/17 06:00 09/07/17 06:00 09/07/17 06:00 09/07/17 06:00 Intake and Output: 09/07/17 09/07/17 06:59 18:59 Intake Total 1260 Output Total 800 Balance 460 - Medications Medications: Current Medications Acetaminophen (Tylenol 325mg Tab) 650 mg PO Q6H PRN PRN Reason: Fever >100.4 F Last Admin: 09/06/17 00:42 Dose: 650 mg Apixaban (Eliquis) 2.5 mg PO BID YULI PRN Reason: Protocol Last Admin: 09/06/17 18:31 Dose: 2.5 mg Diazepam (Valium) 5 mg PO HS PRN; Protocol PRN Reason: Anxiety Last Admin: 09/06/17 00:46 Dose: 5 mg Vancomycin HCl (Vancomycin 1gm) 1 gm in 250 mls @ 167 mls/hr IVPB 0600 YULI PRN Reason: Protocol Last Admin: 09/07/17 06:20 Dose: 167 mls/hr NOREPINEPHRINE BIT/0.9 % NACL (Levophed 4 Mg/ 250 Ml Ns Premixed) 4 mg in 250 mls @ 15 mls/hr IV .[id number] PRN; Protocol; 4 MCG/MIN PRN Reason: TITRATE PER MD ORDER Last Titration: 09/06/17 18:45 Dose: 0 mcg/min, 0 mls/hr Meropenem 1 gm/ Dextrose 100 mls @ 100 mls/hr IVPB DAILY YULI PRN Reason: Protocol Stop: 09/11/17 10:01 Last Admin: 09/06/17 09:17 Dose: 100 mls/hr Doxycycline Hyclate 100 mg/ (Sodium Chloride) 100 mls @ 100 mls/hr IVPB Q12 YULI PRN Reason: Protocol Last Admin: 09/06/17 21:34 Dose: 100 mls/hr Sodium Chloride (Sodium Chloride 0.9%) 1,000 mls @ 100 mls/hr IV .Q10H [facility] Last Admin: 09/07/17 00:59 Dose: Not Given Insulin Human Lispro (Humalog Low) 0 units SC ACHS YULI PRN Reason: Protocol Last Admin: 09/06/17 23:34 Dose: Not Given Levalbuterol HCl (Xopenex) 0.63 mg IH [id number] PRN PRN Reason: Shortness of Breath Last Admin: 09/07/17 05:14 Dose: 0.63 mg Midodrine (Proamatine) 5 mg PO TID [facility] Last Admin: 09/06/17 19:43 Dose: 5 mg Multivitamins (Thera Tab) 1 tab PO 0800 [facility] Last Admin: 09/06/17 08:00 Dose: 1 tab Ondansetron HCl (Zofran Inj) 4 mg IVP Q6H PRN PRN Reason: Nausea/Vomiting Last Admin: 09/07/17 04:03 Dose: 4 mg Pantoprazole Sodium (Protonix Inj) 40 mg IVP DAILY [facility] Last Admin: 09/06/17 09:17 Dose: 40 mg - Labs Labs: 09/07/17 06:50 09/07/17 06:50 PT 31.1 SECONDS (9.4-12.5) H 09/04/17 01:35 INR 2.79 (0.93-1.08) H 09/04/17 01:35 APTT 37.8 Seconds (25.1-36.5) H 09/04/17 01:35 - Constitutional Appears: Chronically Ill - Head Exam Head Exam: ATRAUMATIC, NORMAL INSPECTION, NORMOCEPHALIC - Eye Exam Eye Exam: EOMI, Normal appearance - ENT Exam ENT Exam: Mucous Membranes Dry - Respiratory Exam Respiratory Exam: Decreased Breath Sounds, NORMAL BREATHING PATTERN - Cardiovascular Exam Cardiovascular Exam: Tachycardia, Irregular Rhythm - GI/Abdominal Exam GI & Abdominal Exam: Soft, Normal Bowel Sounds. absent: Distended, Tenderness - Rectal Exam Rectal Exam: Deferred - Extremities Exam Extremities Exam: Tenderness - Neurological Exam Additional comments: drowsy but arousable - Psychiatric Exam Psychiatric exam: Anxious - Skin Skin Exam: Dry, Intact, Warm Assessment and Plan - Assessment and Plan (Free Text) Assessment: This is a 87yF pmHx Afib on OAC, CHF, CAD s/p angioplasty, hyperlipidemia, hypertension, chronic renal failure, and diabetes presented to ED after a mechanical fall and was down for 4 hours. 1. Sepsis 2. Transaminitis 3. Dilated CBD 4. 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 -Pt does have a hx of Afib on OAC, r/o portal vein thrombosis on Abd US which shows portal vein patency -Pt is tachycardic in HR 110s, recommend optimization of cardiac function which can be causing congestive hepatopathy -Continue to monitor LFTs which are trending down -Hepatitis panel negative and autoimmune panel pending for completion with hx of slight elevations in LFTs in the past -CBD dilated to 1.7 on imaging, once pt medically stable and LFTs still elevated will consider MRCP w/o contrast for further evaluation -Will continue to follow pt closely <Yoni De Anda MD - Last Filed: 09/07/17 15:37> Objective - Vital Signs/Intake and Output Vital Signs (last 24 hours): Temp Pulse Resp BP Pulse Ox 96.7 F L 107 H 30 H 100/57 L 100 09/07/17 04:00 09/07/17 15:00 09/07/17 15:00 09/07/17 15:00 09/07/17 15:00 Intake and Output: 09/07/17 09/07/17 06:59 18:59 Intake Total 1260 Output Total 800 Balance 460 - Medications Medications: Current Medications Acetaminophen (Tylenol 325mg Tab) 650 mg PO Q6H PRN PRN Reason: Fever >100.4 F Last Admin: 09/06/17 00:42 Dose: 650 mg Apixaban (Eliquis) 2.5 mg PO BID YULI PRN Reason: Protocol Last Admin: 09/07/17 09:48 Dose: 2.5 mg Diazepam (Valium) 5 mg PO HS PRN; Protocol PRN Reason: Anxiety Last Admin: 09/06/17 00:46 Dose: 5 mg Furosemide (Lasix) 20 mg IVP Q12 YULI Vancomycin HCl (Vancomycin 1gm) 1 gm in 250 mls @ 167 mls/hr IVPB 0600 YULI PRN Reason: Protocol Last Admin: 09/07/17 06:20 Dose: 167 mls/hr NOREPINEPHRINE BIT/0.9 % NACL (Levophed 4 Mg/ 250 Ml Ns Premixed) 4 mg in 250 mls @ 15 mls/hr IV .[id number] PRN; Protocol; 4 MCG/MIN PRN Reason: TITRATE PER MD ORDER Last Titration: 09/06/17 18:45 Dose: 0 mcg/min, 0 mls/hr Meropenem 1 gm/ Dextrose 100 mls @ 100 mls/hr IVPB DAILY YULI PRN Reason: Protocol Stop: 09/11/17 10:01 Last Admin: 09/07/17 09:55 Dose: 100 mls/hr Doxycycline Hyclate 100 mg/ (Sodium Chloride) 100 mls @ 100 mls/hr IVPB Q12 YULI PRN Reason: Protocol Last Admin: 09/07/17 09:00 Dose: 100 mls/hr Insulin Human Lispro (Humalog Low) 0 units SC ACHS YULI PRN Reason: Protocol Last Admin: 09/07/17 12:06 Dose: 1 units Levalbuterol HCl (Xopenex) 0.63 mg IH [id number] PRN PRN Reason: Shortness of Breath Last Admin: 09/07/17 05:14 Dose: 0.63 mg Metoprolol Tartrate (Lopressor) 2.5 mg IVP Q6H [facility] Last Admin: 09/07/17 11:53 Dose: 2.5 mg Midodrine (Proamatine) 5 mg PO TID [facility] Last Admin: 09/07/17 09:48 Dose: 5 mg Multivitamins (Thera Tab) 1 tab PO 0800 [facility] Last Admin: 09/07/17 09:53 Dose: 1 tab Ondansetron HCl (Zofran Inj) 4 mg IVP Q6H PRN PRN Reason: Nausea/Vomiting Last Admin: 09/07/17 04:03 Dose: 4 mg Pantoprazole Sodium (Protonix Inj) 40 mg IVP DAILY [facility] Last Admin: 09/07/17 09:48 Dose: 40 mg - Labs Labs: 09/07/17 06:50 11/15/17 06:50 PT 31.1 SECONDS (9.4-12.5) H 09/04/17 01:35 INR 2.79 (0.93-1.08) H 09/04/17 01:35 APTT 37.8 Seconds (25.1-36.5) H 09/04/17 01:35 Attending/Attestation - Attestation I have personally seen and examined this patient.: Yes I have fully participated in the care of the patient.: Yes I have reviewed all pertinent clinical information, including history, physical exam and plan: Yes Notes (Text): 09/07/17 15:31 Patient seen with GI fellow on rounds this am. This is a 87 year old female with h/o CHF, Afib, CAD, HTN, HLD, CKD, DM admitted after fall, noted to have elevated LFTs and dilated CBD without choledocholithiasis. likely multifactorial secondary to congestive hepatopathy, rhabdomyolysis. Patient was lethargic today in MICU and unable to follow instructions hence npot a candidate to get MRCP. Will trend LFT and continue antibiotics for PNA. History of CCY. Rest of care as per primary team/ MICU.
[2017-09-07] MEDS: Insulin Lispro (humaLOG) LOW Coverage SC SCH ×4 (09:51→22:50)
[2017-09-07] MEDS: Multivitamin Therapeutic Tab PO SCH (09:53)
[2017-09-07] MEDS: Meropenem 1 GM in Dextrose 5% In Water 100 ML IVPB SCH (09:55)
--- NOTE | 2017-09-07 10:10 | CP.PCM.PN ---
Subjective - Date & Time of Evaluation Date of Evaluation: 09/07/17 Time of Evaluation: 09:40 - Subjective Subjective: Somewhat lethargic today but easily arousable and responds to communicate and follow commands. No fevers overnight. Objective - Vital Signs/Intake and Output Vital Signs (last 24 hours): Temp Pulse Resp BP Pulse Ox 96.7 F L 102 H 21 102/45 L 98 09/07/17 04:00 09/07/17 06:00 09/07/17 06:00 09/07/17 06:00 09/07/17 06:00 Intake and Output: 09/06/17 09/07/17 18:59 06:59 Intake Total 1265 1260 Output Total 400 800 Balance 865 460 - Medications Medications: Current Medications Acetaminophen (Tylenol 325mg Tab) 650 mg PO Q6H PRN PRN Reason: Fever >100.4 F Last Admin: 09/06/17 00:42 Dose: 650 mg Apixaban (Eliquis) 2.5 mg PO BID YULI PRN Reason: Protocol Last Admin: 09/06/17 18:31 Dose: 2.5 mg Diazepam (Valium) 5 mg PO HS PRN; Protocol PRN Reason: Anxiety Last Admin: 09/06/17 00:46 Dose: 5 mg Vancomycin HCl (Vancomycin 1gm) 1 gm in 250 mls @ 167 mls/hr IVPB 0600 YULI PRN Reason: Protocol Last Admin: 09/07/17 06:20 Dose: 167 mls/hr NOREPINEPHRINE BIT/0.9 % NACL (Levophed 4 Mg/ 250 Ml Ns Premixed) 4 mg in 250 mls @ 15 mls/hr IV .[id number] PRN; Protocol; 4 MCG/MIN PRN Reason: TITRATE PER MD ORDER Last Titration: 09/06/17 18:45 Dose: 0 mcg/min, 0 mls/hr Meropenem 1 gm/ Dextrose 100 mls @ 100 mls/hr IVPB DAILY YULI PRN Reason: Protocol Stop: 09/11/17 10:01 Last Admin: 09/06/17 09:17 Dose: 100 mls/hr Doxycycline Hyclate 100 mg/ (Sodium Chloride) 100 mls @ 100 mls/hr IVPB Q12 YULI PRN Reason: Protocol Last Admin: 09/06/17 21:34 Dose: 100 mls/hr Sodium Chloride (Sodium Chloride 0.9%) 1,000 mls @ 100 mls/hr IV .Q10H [facility] Last Admin: 09/07/17 00:59 Dose: Not Given Insulin Human Lispro (Humalog Low) 0 units SC ACHS YULI PRN Reason: Protocol Last Admin: 09/06/17 23:34 Dose: Not Given Levalbuterol HCl (Xopenex) 0.63 mg IH [id number] PRN PRN Reason: Shortness of Breath Last Admin: 09/07/17 05:14 Dose: 0.63 mg Midodrine (Proamatine) 5 mg PO TID [facility] Last Admin: 09/06/17 19:43 Dose: 5 mg Multivitamins (Thera Tab) 1 tab PO 0800 [facility] Last Admin: 09/06/17 08:00 Dose: 1 tab Ondansetron HCl (Zofran Inj) 4 mg IVP Q6H PRN PRN Reason: Nausea/Vomiting Last Admin: 09/07/17 04:03 Dose: 4 mg Pantoprazole Sodium (Protonix Inj) 40 mg IVP DAILY [facility] Last Admin: 09/06/17 09:17 Dose: 40 mg - Labs Labs: 09/06/17 05:50 09/06/17 05:50 PT 31.1 SECONDS (9.4-12.5) H 09/04/17 01:35 INR 2.79 (0.93-1.08) H 09/04/17 01:35 APTT 37.8 Seconds (25.1-36.5) H 09/04/17 01:35 - Constitutional Appears: Chronically Ill - Head Exam Head Exam: NORMAL INSPECTION - ENT Exam ENT Exam: Mucous Membranes Moist - Neck Exam Neck Exam: absent: Meningismus - Respiratory Exam Respiratory Exam: Decreased Breath Sounds - Cardiovascular Exam Cardiovascular Exam: +S1, +S2 - GI/Abdominal Exam GI & Abdominal Exam: Soft. absent: Tenderness Assessment and Plan - Assessment and Plan (Free Text) Plan: Assessment Systemic Inflammatory response syndrome, R/O sepsis from HCAP, bilateral in this patient also with bilateral pleural effusions asymptomatic bacteriuria with Vancomycin-resistant Enterococcus chronic CHF with bilateral pleural effusions S/P thoracentesis previously left foot pain probably from trauma CAD S/P PCI HTN chronic renal failure DM S/P cholecystectomy Plan gave a dose of IV Vanco, and continue Merrem and Doxycycline day 4; blood and urine cx are negative; PCT is 0.42; reviewed CT C/A/P overall prognosis is poor
[2017-09-07] MEDS: Metoprolol 1 mg/ml Inj IVP SCH ×3 (11:53→22:46)
--- NOTE | 2017-09-07 13:51 | CON ---
DATE: 09/07/2017 REQUESTING PHYSICIAN: Ghazal Goode MD REASON FOR CONSULTATION: Hypotension and CHF. HISTORY OF PRESENT ILLNESS: This is an 87-year-old woman well-known to me from prior evaluations with a history of congestive heart failure, coronary artery disease, prior myocardial infarction, and PCI, who was brought to the emergency room via ambulance after a fall at home. She apparently has been more unsteady lately and has had several falls. She had recently got into the hospital with leg cellulitis. She is seen in the ICU at the present time. She is somnolent, but arousable. She answers questions with minimal verbal response. She is hemodynamically stable at the present. PAST MEDICAL HISTORY: Notable for the problems mentioned above. She has renal insufficiency, diabetes, hypertension, and hyperlipidemia. She has undergone a prior cholecystectomy as well. ALLERGIES: NONE. MEDICATIONS AT HOME: Included Eliquis, diltiazem, Lasix, metoprolol, Crestor, Valium, Glyburide, Glucophage, and Ultram. FAMILY HISTORY: Unable to obtain. SOCIAL HISTORY: She does not smoke or drink. REVIEW OF SYSTEMS: A 10-point review of systems is otherwise limited and unremarkable. PHYSICAL EXAMINATION: GENERAL: She is a very elderly woman, who appears who appears comfortable at the present time. VITAL SIGNS: Blood pressure 102/50 with a pulse 100 and atrial fibrillation, respirations 16, she is currently afebrile. She is initially hypothermic. HEENT: No JVD or bruits. Carotid upstrokes 1+ bilaterally. CHEST: Bilateral scattered rhonchi noted with diminished breath sounds at the bases. HEART: PMI displaced laterally with irregularly irregular rhythm. Systolic murmur is noted at the left sternal border, as well as at the apex. ABDOMEN: Soft and nontender with normoactive bowel sounds EXTREMITIES: 1+ leg edema with chronic cellulitic changes. NEUROLOGIC: Unable to fully assess, but moving all 4 extremities. PSYCHIATRIC: Unable to assess. DIAGNOSTIC DATA: White count 7.1, hemoglobin and hematocrit 9.2 and 31.8 with a platelet count of 402,000. Potassium is 4.2, BUN and creatinine 65 and 2.1. AST and ALT 228 and 336 with alkaline phosphatase of 189. Chest x-ray reveals a large cardiac silhouette with mild pulmonary vascular congestion. Small effusion noted bilaterally. Abdominal ultrasound was limited, but remarkable. Electrocardiogram reveals atrial fibrillation with occasional PVCs, left axis deviation and right bundle branch block, and nonspecific ST-T abnormalities. Prior echocardiogram had revealed normal LV size and systolic function with right ventricular enlargement, moderate mitral regurgitation, [id number] tricuspid regurgitation with evidence of [id number] pulmonary hypertension. IMPRESSION: 1. Fall at home, appears to not be related to syncope. 2. Atrial fibrillation with rapid ventricular response, clinically improved. 3. Initial hypothermia, possible underlying sepsis. 4. Acute on chronic renal insufficiency. 5. Elevated transaminases. 6. Mildly decompensated congestive heart failure, acute on chronic, primarily diastolic. RECOMMENDATIONS: If her blood pressure remains stable IV fluids can be withdrawn. Low dose IV diuretic therapy will be initiated. Broad-spectrum antibiotics have been started on and will be continued. Cultures have been drawn and are pending. DNR/DNI order is in place. Supportive care and comfort measures should be undertaken at this time. Further recommendations would be based upon her clinical course and the results of the above intervention. Thank you for this consultation. Dickson Boone MD
--- NOTE | 2017-09-07 14:08 | CP.CCUPN ---
<Oscar Camarena - Last Filed: 09/07/17 14:04> CCU Subjective - Physician Review Subjective (Free Text): 09/07/17 10:04 Oscar Camarena D.O. PGY-2, Critical Care Progress Note 87 year old female PMH Afib, CHF, CAD s/p angioplasty, hyperlipidemia, hypertension, chronic renal failure, and diabetes presented after a mechanical fall 4 hours prior, found to be in septic shock requiring vasopressors. Patient was seen and examined at bedside. Patient continues to be lethargic but easily arousable and able to speak clearly. No complaints at this time. No acute overnight events. CCU Objective - Vital Signs / Intake & Output Vital Signs (Last 4 hours): Vital Signs Pulse Resp BP Pulse Ox 09/07/17 12:00 93 H 21 104/61 100 09/07/17 11:53 100 H 110/73 09/07/17 11:00 97 H 21 110/73 100 Intake and Output (Last 8hrs): Intake & Output 09/06/17 09/07/17 09/07/17 22:59 06:59 14:59 Intake Total 1015 1260 Output Total 400 800 Balance 615 460 Intake: IV 715 1260 Right Internal Jugular 1260 levophed 71 meds 200 ns 400 Oral 300 Output: Urine 400 800 Condom 400 800 - Physical Exam Head: Positive for: Atraumatic, Normocephalic, Other (chronic lesion on forehead ) Pupils: Positive for: PERRL Extroacular Muscles: Positive for: EOMI Conjunctiva: Positive for: Normal Ears: Positive for: Normal Mouth: Positive for: Moist Mucous Membranes Neck: Positive for: Normal Range of Motion. Negative for: JVD Respiratory/Chest: Positive for: Clear to Auscultation, Good Air Exchange. Negative for: Accessory Muscle Use, Wheezes Cardiovascular: Positive for: Regular Rate and Rhythm, Normal S1, S2, Peripheal Pulses Present. Negative for: Murmurs, Rub, Gallop Abdomen: Positive for: Normal Bowel Sounds. Negative for: Tenderness, Distention, Peritoneal Signs, Rebound Upper Extremity: Positive for: Normal Inspection Lower Extremity: Positive for: Other (BL LE cellulitis, dry scaly skin) Neurological: Positive for: GCS=15, CN II-XII Intact, Speech Normal Skin: Positive for: Warm, Dry Psychiatric: Positive for: Alert, Oriented x 3 - Medications Active Medications: Active Medications Generic Name Dose Route Start Last Admin Trade Name Freq PRN Reason Stop Dose Admin Acetaminophen 650 mg 09/04/17 05:32 09/06/17 00:42 Tylenol 325mg Tab PO 650 mg Q6H PRN Administration Fever >100.4 F Apixaban 2.5 mg 09/04/17 10:00 09/07/17 09:48 Eliquis PO 2.5 mg BID YULI Administration Protocol Diazepam 5 mg 09/05/17 12:39 09/06/17 00:46 Valium PO 5 mg HS PRN Administration Anxiety Protocol Furosemide 20 mg 09/07/17 22:00 Lasix IVP Q12 YULI Vancomycin HCl 1 gm in 250 mls @ 167 mls/hr 09/05/17 06:00 09/07/17 06:20 Vancomycin 1gm IVPB 167 mls/hr 0600 YULI Administration Protocol NOREPINEPHRINE BIT/0.9 % NACL 4 mg in 250 mls @ 15 mls/hr 09/04/17 07:57 18:45 Levophed 4 Mg/ 250 Ml Ns Premixed IV 0 mcg/min .[id number] PRN 0 mls/hr TITRATE PER MD ORDER Titration Protocol 4 MCG/MIN Meropenem 1 gm/ Dextrose 100 mls @ 100 mls/hr 09/04/17 10:00 09/07/17 09:55 IVPB 09/11/17 10:01 100 mls/hr DAILY YULI Administration Protocol Doxycycline Hyclate 100 mg/ 100 mls @ 100 mls/hr 09/04/17 10:00 09/07/17 09: 00 Sodium Chloride IVPB 100 mls/hr Q12 YULI Administration Protocol Insulin Human Lispro 0 units 09/04/17 07:30 09/07/17 12:06 Humalog Low SC 1 units ACHS YULI Administration Protocol Levalbuterol HCl 0.63 mg 09/04/17 05:32 09/07/17 05:14 Xopenex IH 0.63 mg [id number] PRN Administration Shortness of Breath Metoprolol Tartrate 2.5 mg 09/07/17 11:30 09/07/17 11:53 Lopressor IVP 2.5 mg Q6H YULI Administration Midodrine 5 mg 09/06/17 19:30 09/07/17 09:48 Proamatine PO 5 mg TID YULI Administration Multivitamins 1 tab 09/04/17 08:00 09/07/17 09:53 Thera Tab PO 1 tab 0800 YULI Administration Ondansetron HCl 4 mg 09/04/17 05:29 09/07/17 04:03 Zofran Inj IVP 4 mg Q6H PRN Administration Nausea/Vomiting Pantoprazole Sodium 40 mg 09/04/17 10:00 09/07/17 09:48 Protonix Inj IVP 40 mg DAILY YULI Administration - Patient Studies Lab Studies: Lab Studies 09/07/17 09/07/17 09/07/17 Range/Units 07:14 06:50 06:50 WBC 7.1 D (4.5-11.0) 10^3/ul RBC 4.23 (3.5-6.1) 10^6/uL Hgb 9.2 L (12.0-16.0) g/dL Hct 31.8 L (36.0-48.0) % MCV 75.2 L (80.0-105.0) fl MCH 21.7 L (25.0-35.0) pg MCHC 28.9 L (31.0-37.0) g/dl RDW 22.0 H (11.5-14.5) % Plt Count 402 (120.0-450.0) 10^3/uL MPV 9.3 (7.0-11.0) fl Gran % 77.0 H (50.0-68.0) % Lymph % (Auto) 12.3 L (22.0-35.0) % Dukes % (Auto) 8.7 H (1.0-6.0) % Eos % (Auto) 1.3 L (1.5-5.0) % Baso % (Auto) 0.7 (0.0-3.0) % Gran # 5.46 (1.4-6.5) Lymph # 0.9 L (1.2-3.4) Dukes # 0.6 (0.1-0.6) Eos # 0.1 (0.0-0.7) Baso # 0.05 (0.0-2.0) K/mm3 Sodium 138 (132-148) mmol/L Potassium 4.2 (3.6-5.0) mmol/L Chloride 106 (98-107) mmol/L Carbon Dioxide 23 (21-33) mmol/L Anion Gap 13 (10-20) BUN 65 H (7-21) mg/dL Creatinine 2.1 H (0.7-1.2) mg/dl Est GFR ( Amer) 27 Est GFR (Non-Af Amer) 22 POC Glucose (mg/dL) 123 H (65-110) mg/dL Random Glucose 97 (70-110) mg/dL Calcium 8.4 (8.4-10.5) mg/dL Phosphorus 4.2 (2.5-4.5) mg/dL Magnesium 1.8 (1.7-2.2) mg/dL Total Bilirubin 0.8 (0.2-1.3) mg/dL AST 228 H (14-36) U/L ALT 336 H (7-56) U/L Alkaline Phosphatase 189 H (38-126) U/L Total Protein 5.9 (5.8-8.3) g/dL Albumin 2.8 L (3.0-4.8) g/dL Globulin 3.1 gm/dL Albumin/Globulin Ratio 0.9 L (1.1-1.8) LAURA Screen (Negative) LAURA Titer LAURA Titer 2 LAURA Pattern LAUAR Pattern 2 Anti-Mitochondrial Ab (Negative) 09/06/17 09/06/17 09/05/17 Range/Units 21:51 16:37 11:20 WBC (4.5-11.0) 10^3/ul RBC (3.5-6.1) 10^6/uL Hgb (12.0-16.0) g/dL Hct (36.0-48.0) % MCV (80.0-105.0) fl MCH (25.0-35.0) pg MCHC (31.0-37.0) g/dl RDW (11.5-14.5) % Plt Count (120.0-450.0) 10^3/uL MPV (7.0-11.0) fl Gran % (50.0-68.0) % Lymph % (Auto) (22.0-35.0) % Dukes % (Auto) (1.0-6.0) % Eos % (Auto) (1.5-5.0) % Baso % (Auto) (0.0-3.0) % Gran # (1.4-6.5) Lymph # (1.2-3.4) Dukes # (0.1-0.6) Eos # (0.0-0.7) Baso # (0.0-2.0) K/mm3 Sodium (132-148) mmol/L Potassium (3.6-5.0) mmol/L Chloride (98-107) mmol/L Carbon Dioxide (21-33) mmol/L Anion Gap (10-20) BUN (7-21) mg/dL Creatinine (0.7-1.2) mg/dl Est GFR ( Amer) Est GFR (Non-Af Amer) POC Glucose (mg/dL) 238 H 197 H (65-110) mg/dL Random Glucose (70-110) mg/dL Calcium (8.4-10.5) mg/dL Phosphorus (2.5-4.5) mg/dL Magnesium (1.7-2.2) mg/dL Total Bilirubin (0.2-1.3) mg/dL AST (14-36) U/L ALT (7-56) U/L Alkaline Phosphatase (38-126) U/L Total Protein (5.8-8.3) g/dL Albumin (3.0-4.8) g/dL Globulin gm/dL Albumin/Globulin Ratio (1.1-1.8) LAURA Screen Negative (Negative) LAURA Titer TEST NOT PERFORMED LAURA Titer 2 TEST NOT PERFORMED LAURA Pattern TEST NOT PERFORMED LAURA Pattern 2 TEST NOT PERFORMED Anti-Mitochondrial Ab Negative (Negative) Laboratory Results - last 24 hr 09/05/17 09/06/17 09/06/17 11:20 16:37 21:51 WBC RBC Hgb Hct MCV MCH MCHC RDW Plt Count MPV Gran % Lymph % (Auto) Dukes % (Auto) Eos % (Auto) Baso % (Auto) Gran # Lymph # Dukes # Eos # Baso # Sodium Potassium Chloride Carbon Dioxide Anion Gap BUN Creatinine Est GFR ( Amer) Est GFR (Non-Af Amer) POC Glucose (mg/dL) 197 H 238 H Random Glucose Calcium Phosphorus Magnesium Total Bilirubin AST ALT Alkaline Phosphatase Total Protein Albumin Globulin Albumin/Globulin Ratio LAURA Screen Negative LAURA Titer TEST NOT PERFORMED LAURA Titer 2 TEST NOT PERFORMED LAURA Pattern TEST NOT PERFORMED LAURA Pattern 2 TEST NOT PERFORMED Anti-Mitochondrial Ab Negative 09/07/17 09/07/17 09/07/17 06:50 06:50 07:14 WBC 7.1 D RBC 4.23 Hgb 9.2 L Hct 31.8 L MCV 75.2 L MCH 21.7 L MCHC 28.9 L RDW 22.0 H Plt Count 402 MPV 9.3 Gran % 77.0 H Lymph % (Auto) 12.3 L Dukes % (Auto) 8.7 H Eos % (Auto) 1.3 L Baso % (Auto) 0.7 Gran # 5.46 Lymph # 0.9 L Dukes # 0.6 Eos # 0.1 Baso # 0.05 Sodium 138 Potassium 4.2 Chloride 106 Carbon Dioxide 23 Anion Gap 13 BUN 65 H Creatinine 2.1 H Est GFR ( Amer) 27 Est GFR (Non-Af Amer) 22 POC Glucose (mg/dL) 123 H Random Glucose 97 Calcium 8.4 Phosphorus 4.2 Magnesium 1.8 Total Bilirubin 0.8 AST 228 H ALT 336 H Alkaline Phosphatase 189 H Total Protein 5.9 Albumin 2.8 L Globulin 3.1 Albumin/Globulin Ratio 0.9 L LAURA Screen LAURA Titer LAURA Titer 2 LAURA Pattern LAURA Pattern 2 Anti-Mitochondrial Ab Fingerstick Blood Sugar Results: 166 Critical Care Progress Note - Nutrition Nutrition: Nutrition Category Date Time Status Dysphagia/Modified Consistency Diet [DIET] Diets 09/04/17 Dinner Ordered Assessment/Plan - Assessment and Plan (Free Text) Assessment: 87 year old female PMH Afib, CHF, CAD s/p angioplasty, hyperlipidemia, hypertension, chronic renal failure, and diabetes presented after a mechanical fall 4 hours prior, found to be in septic shock requiring vasopressors, now off vasopressors with clinical improvement Plan: Neurologic AAOx4, nonfocal exam Will optimize cirdadian rhythm, has not needed re-orientation Cardiovascular Known Afib, on eliquis Cardiology following, recs appreciated Blood pressure improved and off vasopressors Continue with midodrine Started on metoprolol IV this AM by cardiology Last Echo on 04/2017 - EF 60% Mod pulm HTN; Mod dilated LV, Mod/Severe Tricuspid regurg, Mod Pulmonic valve regurg Pulmnologic HCAP in setting of chronic BL Pleural effusions with compressive atelectasis on Chest CT Clinically improved, doing well on O2 NC 2L On Merem/Doxy D4 Vanc D3 Cont Xopenex breathing treatments PRN GI Transaminitis continues to downtrend GI following, recs appreciated, workup underway, likely ischemia from sepsis vs congestive hepatopathy Abd US showed hepatic steatosis vs liver parenchymal disease, s/p Abimbola CBD 1.7cm, mild Ascites Hep profile negative Avoid hepatotoxic meds, statin holding Renal/Electrolytes RADHA on CKD, BUN and Cr continue to improve Monitoring IxOs closely Will D/C IVF Continue to monitor ID ID following, Dr. Cook Septic shock resolved Cont merem/doxy Day 4, Vanc D3 Blood and urine Cxs negative Endocrine Cont RISS and accuchecks GI/DVT PPx: Protonix/On eliquis Dispo: given clinical improvement, patient will be transferred to telemetry floor. Patient was seen and examined and case was discussed in detail with attending physician. - Date & Time Date: 09/07/17 Time: 08:00 <Bart Busby - Last Filed: 09/07/17 17:41> CCU Objective - Vital Signs / Intake & Output Vital Signs (Last 4 hours): Vital Signs Pulse Resp BP Pulse Ox 09/07/17 17:20 93 H 146/57 L 09/07/17 15:00 107 H 30 H 100/57 L 100 09/07/17 14:00 84 24 102/49 L 100 Intake and Output (Last 8hrs): Intake & Output 09/07/17 09/07/17 09/07/17 06:59 14:59 22:59 Intake Total 1260 3000 Output Total 800 2000 Balance 460 1000 Intake: IV 1260 550 Left Hand 550 Right Internal Jugular 1260 Other 2450 Output: Urine 800 2000 3-way Urethral 2000 Condom 800 Other: # Bowel Movements 2 - Medications Active Medications: Active Medications Generic Name Dose Route Start Last Admin Trade Name Freq PRN Reason Stop Dose Admin Acetaminophen 650 mg 09/04/17 05:32 09/06/17 00:42 Tylenol 325mg Tab PO 650 mg Q6H PRN Administration Fever >100.4 F Apixaban 2.5 mg 09/04/17 10:00 09/07/17 17:18 Eliquis PO 2.5 mg BID YULI Administration Protocol Diazepam 5 mg 09/05/17 12:39 09/06/17 00:46 Valium PO 5 mg HS PRN Administration Anxiety Protocol Furosemide 20 mg 09/07/17 22:00 Lasix IVP Q12 YULI Vancomycin HCl 1 gm in 250 mls @ 167 mls/hr 09/05/17 06:00 09/07/17 06:20 Vancomycin 1gm IVPB 167 mls/hr 0600 YULI Administration Protocol NOREPINEPHRINE BIT/0.9 % NACL 4 mg in 250 mls @ 15 mls/hr 09/04/17 07:57 18:45 Levophed 4 Mg/ 250 Ml Ns Premixed IV 0 mcg/min .[id number] PRN 0 mls/hr TITRATE PER MD ORDER Titration Protocol 4 MCG/MIN Meropenem 1 gm/ Dextrose 100 mls @ 100 mls/hr 09/04/17 10:00 09/07/17 09:55 IVPB 09/11/17 10:01 100 mls/hr DAILY YULI Administration Protocol Doxycycline Hyclate 100 mg/ 100 mls @ 100 mls/hr 09/04/17 10:00 09/07/17 09: 00 Sodium Chloride IVPB 100 mls/hr Q12 YULI Administration Protocol Insulin Human Lispro 0 units 09/04/17 07:30 09/07/17 17:19 Humalog Low SC 1 units ACHS YULI Administration Protocol Levalbuterol HCl 0.63 mg 09/04/17 05:32 09/07/17 05:14 Xopenex IH 0.63 mg [id number] PRN Administration Shortness of Breath Metoprolol Tartrate 2.5 mg 09/07/17 11:30 09/07/17 17:20 Lopressor IVP 2.5 mg Q6H YULI Administration Midodrine 5 mg 09/06/17 19:30 09/07/17 17:19 Proamatine PO Not Given TID YULI Multivitamins 1 tab 09/04/17 08:00 09/07/17 09:53 Thera Tab PO 1 tab 0800 YULI Administration Ondansetron HCl 4 mg 09/04/17 05:29 09/07/17 04:03 Zofran Inj IVP 4 mg Q6H PRN Administration Nausea/Vomiting Pantoprazole Sodium 40 mg 09/04/17 10:00 09/07/17 09:48 Protonix Inj IVP 40 mg DAILY YULI Administration - Patient Studies Lab Studies: Lab Studies 09/07/17 09/07/17 09/07/17 Range/Units 07:14 06:50 06:50 WBC 7.1 D (4.5-11.0) 10^3/ul RBC 4.23 (3.5-6.1) 10^6/uL Hgb 9.2 L (12.0-16.0) g/dL Hct 31.8 L (36.0-48.0) % MCV 75.2 L (80.0-105.0) fl MCH 21.7 L (25.0-35.0) pg MCHC 28.9 L (31.0-37.0) g/dl RDW 22.0 H (11.5-14.5) % Plt Count 402 (120.0-450.0) 10^3/uL MPV 9.3 (7.0-11.0) fl Gran % 77.0 H (50.0-68.0) % Lymph % (Auto) 12.3 L (22.0-35.0) % Dukes % (Auto) 8.7 H (1.0-6.0) % Eos % (Auto) 1.3 L (1.5-5.0) % Baso % (Auto) 0.7 (0.0-3.0) % Gran # 5.46 (1.4-6.5) Lymph # 0.9 L (1.2-3.4) Dukes # 0.6 (0.1-0.6) Eos # 0.1 (0.0-0.7) Baso # 0.05 (0.0-2.0) K/mm3 Sodium 138 (132-148) mmol/L Potassium 4.2 (3.6-5.0) mmol/L Chloride 106 (98-107) mmol/L Carbon Dioxide 23 (21-33) mmol/L Anion Gap 13 (10-20) BUN 65 H (7-21) mg/dL Creatinine 2.1 H (0.7-1.2) mg/dl Est GFR ( Amer) 27 Est GFR (Non-Af Amer) 22 POC Glucose (mg/dL) 123 H (65-110) mg/dL Random Glucose 97 (70-110) mg/dL Calcium 8.4 (8.4-10.5) mg/dL Phosphorus 4.2 (2.5-4.5) mg/dL Magnesium 1.8 (1.7-2.2) mg/dL Total Bilirubin 0.8 (0.2-1.3) mg/dL AST 228 H (14-36) U/L ALT 336 H (7-56) U/L Alkaline Phosphatase 189 H (38-126) U/L Total Protein 5.9 (5.8-8.3) g/dL Albumin 2.8 L (3.0-4.8) g/dL Globulin 3.1 gm/dL Albumin/Globulin Ratio 0.9 L (1.1-1.8) LAURA Screen (Negative) LAURA Titer LAURA Titer 2 LAURA Pattern LAURA Pattern 2 09/06/17 09/05/17 Range/Units 21:51 11:20 WBC (4.5-11.0) 10^3/ul RBC (3.5-6.1) 10^6/uL Hgb (12.0-16.0) g/dL Hct (36.0-48.0) % MCV (80.0-105.0) fl MCH (25.0-35.0) pg MCHC (31.0-37.0) g/dl RDW (11.5-14.5) % Plt Count (120.0-450.0) 10^3/uL MPV (7.0-11.0) fl Gran % (50.0-68.0) % Lymph % (Auto) (22.0-35.0) % Dukes % (Auto) (1.0-6.0) % Eos % (Auto) (1.5-5.0) % Baso % (Auto) (0.0-3.0) % Gran # (1.4-6.5) Lymph # (1.2-3.4) Dukes # (0.1-0.6) Eos # (0.0-0.7) Baso # (0.0-2.0) K/mm3 Sodium (132-148) mmol/L Potassium (3.6-5.0) mmol/L Chloride (98-107) mmol/L Carbon Dioxide (21-33) mmol/L Anion Gap (10-20) BUN (7-21) mg/dL Creatinine (0.7-1.2) mg/dl Est GFR ( Amer) Est GFR (Non-Af Amer) POC Glucose (mg/dL) 238 H (65-110) mg/dL Random Glucose (70-110) mg/dL Calcium (8.4-10.5) mg/dL Phosphorus (2.5-4.5) mg/dL Magnesium (1.7-2.2) mg/dL Total Bilirubin (0.2-1.3) mg/dL AST (14-36) U/L ALT (7-56) U/L Alkaline Phosphatase (38-126) U/L Total Protein (5.8-8.3) g/dL Albumin (3.0-4.8) g/dL Globulin gm/dL Albumin/Globulin Ratio (1.1-1.8) LAURA Screen Negative (Negative) LAURA Titer TEST NOT PERFORMED LAURA Titer 2 TEST NOT PERFORMED LAURA Pattern TEST NOT PERFORMED LAURA Pattern 2 TEST NOT PERFORMED Laboratory Results - last 24 hr 09/05/17 09/06/17 09/07/17 11:20 21:51 06:50 WBC 7.1 D RBC 4.23 Hgb 9.2 L Hct 31.8 L MCV 75.2 L MCH 21.7 L MCHC 28.9 L RDW 22.0 H Plt Count 402 MPV 9.3 Gran % 77.0 H Lymph % (Auto) 12.3 L Dukes % (Auto) 8.7 H Eos % (Auto) 1.3 L Baso % (Auto) 0.7 Gran # 5.46 Lymph # 0.9 L Dukes # 0.6 Eos # 0.1 Baso # 0.05 Sodium Potassium Chloride Carbon Dioxide Anion Gap BUN Creatinine Est GFR ( Amer) Est GFR (Non-Af Amer) POC Glucose (mg/dL) 238 H Random Glucose Calcium Phosphorus Magnesium Total Bilirubin AST ALT Alkaline Phosphatase Total Protein Albumin Globulin Albumin/Globulin Ratio LAURA Screen Negative LAURA Titer TEST NOT PERFORMED LAURA Titer 2 TEST NOT PERFORMED LAURA Pattern TEST NOT PERFORMED LAURA Pattern 2 TEST NOT PERFORMED 09/07/17 09/07/17 06:50 07:14 WBC RBC Hgb Hct MCV MCH MCHC RDW Plt Count MPV Gran % Lymph % (Auto) Dukes % (Auto) Eos % (Auto) Baso % (Auto) Gran # Lymph # Dukes # Eos # Baso # Sodium 138 Potassium 4.2 Chloride 106 Carbon Dioxide 23 Anion Gap 13 BUN 65 H Creatinine 2.1 H Est GFR ( Amer) 27 Est GFR (Non-Af Amer) 22 POC Glucose (mg/dL) 123 H Random Glucose 97 Calcium 8.4 Phosphorus 4.2 Magnesium 1.8 Total Bilirubin 0.8 AST 228 H ALT 336 H Alkaline Phosphatase 189 H Total Protein 5.9 Albumin 2.8 L Globulin 3.1 Albumin/Globulin Ratio 0.9 L LAURA Screen LAURA Titer LAURA Titer 2 LAURA Pattern LAURA Pattern 2 Critical Care Progress Note - Nutrition Nutrition: Nutrition Category Date Time Status Dysphagia/Modified Consistency Diet [DIET] Diets 09/04/17 Dinner Ordered Attending/Attestation - Attestation I have personally seen and examined this patient.: Yes I have fully participated in the care of the patient.: Yes I have reviewed all pertinent clinical information: Yes Notes (Text): 09/07/17 17:39 87 yo with resolved septic shock due to pneumonia. hemodynamically stable, respiratory gutierres stable and can protect her airways. ok to downgrade from ICU ccm time 40 min
--- NOTE | 2017-09-07 14:55 | CP.PCM.CON ---
History of Present Illness - History of Present Illness History of Present Illness: Palliative consult requested by Dr Moore copied to Dr Renata Goode Reason: Goals of care 87 year old female who fell at home and was unable to get up for approximately 4 hours.She complained of nausea and small right arm laceration.She presented with hypothermia and hypotension. She denied vomiting, fever, chills, loss of consciousness and head injury. She was found to be is septic shock, required vasopressor support and hemodynamic monitoring in the ICU. CT of head showed no acute findings. CT of C/Ab/Pel showed dilated common bile duct, mild cystitis, right adnexal lesion, ascites and anasarca. Chest x ray showed right LL opacity /atelectasis. She was discharged from the hospital three days prior after being treated for LLE cellulitis. PMHX: HTN,CAD s/p angioplasty,CHF,DM,CKD,HLD, Atrial Fibrillation,LLE cellulitis , frequent falls,melanoma s/p excision. Social History: Non smoker, no alcohol or drug use. Lives independently in senior housing. Family History: Non contributory. Advance Care Planning:The patient does not have an Advance Directive. At family request she is DNR/DNI Review of Systems: As per HPI, patient is somnolent, not able to converse Past Patient History - Infectious Disease Hx of Infectious Diseases: None - Past Medical History & Family History Past Medical History?: Yes - Past Social History Smoking Status: Never Smoked - CARDIAC Hx Cardiac Disorders: Yes Hx Congestive Heart Failure: Yes Hx Hypertension: Yes - PULMONARY Hx Pneumonia: Yes - NEUROLOGICAL Hx Neurological Disorder: No - HEENT Hx HEENT Problems: No (eyeglasses) - RENAL Hx Renal Failure: Yes - ENDOCRINE/METABOLIC Hx Diabetes Mellitus Type 2: Yes - HEMATOLOGICAL/ONCOLOGICAL Hx Blood Disorders: No - INTEGUMENTARY Hx Dermatological Problems: Yes Other/Comment: paper thin skin - MUSCULOSKELETAL/RHEUMATOLOGICAL Hx Falls: Yes - GASTROINTESTINAL Hx Gastrointestinal Disorders: No - GENITOURINARY/GYNECOLOGICAL Hx Reproductive Disorders: No - PSYCHIATRIC Hx Psychophysiologic Disorder: No Hx Substance Use: No - SURGICAL HISTORY Hx Cholecystectomy: Yes Hx Coronary Stent: Yes - ANESTHESIA Hx Anesthesia: No Hx Anesthesia Reactions: No Hx Malignant Hyperthermia: No Meds Allergies/Adverse Reactions: Allergies Allergy/AdvReac Type Severity Reaction Status Date / Time No Known Allergies Allergy Verified 08/26/17 19:46 - Medications Medications: Current Medications Acetaminophen (Tylenol 325mg Tab) 650 mg PO Q6H PRN PRN Reason: Fever >100.4 F Last Admin: 09/06/17 00:42 Dose: 650 mg Apixaban (Eliquis) 2.5 mg PO BID YULI PRN Reason: Protocol Last Admin: 09/07/17 09:48 Dose: 2.5 mg Diazepam (Valium) 5 mg PO HS PRN; Protocol PRN Reason: Anxiety Last Admin: 09/06/17 00:46 Dose: 5 mg Furosemide (Lasix) 20 mg IVP Q12 YULI Vancomycin HCl (Vancomycin 1gm) 1 gm in 250 mls @ 167 mls/hr IVPB 0600 YULI PRN Reason: Protocol Last Admin: 09/07/17 06:20 Dose: 167 mls/hr NOREPINEPHRINE BIT/0.9 % NACL (Levophed 4 Mg/ 250 Ml Ns Premixed) 4 mg in 250 mls @ 15 mls/hr IV .[id number] PRN; Protocol; 4 MCG/MIN PRN Reason: TITRATE PER MD ORDER Last Titration: 09/06/17 18:45 Dose: 0 mcg/min, 0 mls/hr Meropenem 1 gm/ Dextrose 100 mls @ 100 mls/hr IVPB DAILY YULI PRN Reason: Protocol Stop: 09/11/17 10:01 Last Admin: 09/07/17 09:55 Dose: 100 mls/hr Doxycycline Hyclate 100 mg/ (Sodium Chloride) 100 mls @ 100 mls/hr IVPB Q12 YULI PRN Reason: Protocol Last Admin: 09/07/17 09:00 Dose: 100 mls/hr Insulin Human Lispro (Humalog Low) 0 units SC ACHS YULI PRN Reason: Protocol Last Admin: 09/07/17 12:06 Dose: 1 units Levalbuterol HCl (Xopenex) 0.63 mg IH [id number] PRN PRN Reason: Shortness of Breath Last Admin: 09/07/17 05:14 Dose: 0.63 mg Metoprolol Tartrate (Lopressor) 2.5 mg IVP Q6H YULI Last Admin: 09/07/17 11:53 Dose: 2.5 mg Midodrine (Proamatine) 5 mg PO TID YULI Last Admin: 09/07/17 09:48 Dose: 5 mg Multivitamins (Thera Tab) 1 tab PO 0800 [facility] Last Admin: 09/07/17 09:53 Dose: 1 tab Ondansetron HCl (Zofran Inj) 4 mg IVP Q6H PRN PRN Reason: Nausea/Vomiting Last Admin: 09/07/17 04:03 Dose: 4 mg Pantoprazole Sodium (Protonix Inj) 40 mg IVP DAILY [facility] Last Admin: 09/07/17 09:48 Dose: 40 mg Physical Exam - Constitutional Appears: No Acute Distress - Head Exam Head Exam: NORMOCEPHALIC - Eye Exam Eye Exam: Normal appearance Pupil Exam: NORMAL ACCOMODATION - ENT Exam ENT Exam: Mucous Membranes Moist - Respiratory Exam Respiratory Exam: Decreased Breath Sounds, NORMAL BREATHING PATTERN - Cardiovascular Exam Cardiovascular Exam: Irregular Rhythm, +S1, +S2 - GI/Abdominal Exam GI & Abdominal Exam: Normal Bowel Sounds, Soft - Extremities Exam Extremities exam: Positive for: pedal edema, pedal pulses present - Back Exam Back exam: NORMAL INSPECTION - Neurological Exam Neurological exam: Altered - Skin Skin Exam: Dry, Pallor - Additional Findings Additional findings: Palliative performance scale rating 30 % Results - Vital Signs Recent Vital Signs: Last Vital Signs Temp 96.7 F L 09/07/17 04:00 Pulse 93 H 09/07/17 12:00 Resp 21 09/07/17 12:00 BP 104/61 09/07/17 12:00 Pulse Ox 100 09/07/17 12:00 - Labs Result Diagrams: 09/07/17 06:50 09/07/17 06:50 Labs: Laboratory Results - last 24 hr 09/05/17 09/06/17 09/06/17 11:20 16:37 21:51 WBC RBC Hgb Hct MCV MCH MCHC RDW Plt Count MPV Gran % Lymph % (Auto) [place] % (Auto) Eos % (Auto) Baso % (Auto) Gran # Lymph # [place] # Eos # Baso # Sodium Potassium Chloride Carbon Dioxide Anion Gap BUN Creatinine Est GFR ( Amer) Est GFR (Non-Af Amer) POC Glucose (mg/dL) 197 H 238 H Random Glucose Calcium Phosphorus Magnesium Total Bilirubin AST ALT Alkaline Phosphatase Total Protein Albumin Globulin Albumin/Globulin Ratio LAURA Screen Negative LAURA Titer TEST NOT PERFORMED LAURA Titer 2 TEST NOT PERFORMED LAURA Pattern TEST NOT PERFORMED LAURA Pattern 2 TEST NOT PERFORMED Anti-Mitochondrial Ab Negative 09/07/17 09/07/17 09/07/17 06:50 06:50 07:14 WBC 7.1 D RBC 4.23 Hgb 9.2 L Hct 31.8 L MCV 75.2 L MCH 21.7 L MCHC 28.9 L RDW 22.0 H Plt Count 402 MPV 9.3 Gran % 77.0 H Lymph % (Auto) 12.3 L [place] % (Auto) 8.7 H Eos % (Auto) 1.3 L Baso % (Auto) 0.7 Gran # 5.46 Lymph # 0.9 L [place] # 0.6 Eos # 0.1 Baso # 0.05 Sodium 138 Potassium 4.2 Chloride 106 Carbon Dioxide 23 Anion Gap 13 BUN 65 H Creatinine 2.1 H Est GFR ( Amer) 27 Est GFR (Non-Af Amer) 22 POC Glucose (mg/dL) 123 H Random Glucose 97 Calcium 8.4 Phosphorus 4.2 Magnesium 1.8 Total Bilirubin 0.8 AST 228 H ALT 336 H Alkaline Phosphatase 189 H Total Protein 5.9 Albumin 2.8 L Globulin 3.1 Albumin/Globulin Ratio 0.9 L LAURA Screen LAURA Titer LAURA Titer 2 LAURA Pattern LAURA Pattern 2 Anti-Mitochondrial Ab Assessment & Plan - Assessment and Plan (Free Text) Assessment: 87 year old with history of CHF,CAD,DM, HTN,cellutitis who is admitted with septic shock,transaminitis, hypotension and altered mental status. The patient is somnolent, will occasionally mumble incoherently. She is in no acute distress. Her daughter Belen is at bedside. Palliative services introduced as support system for patient and family. Daughter understands that her mother is quite ill and that things are"touch and go". I affirmed that her mother is quite sick and that despite medical intervention she may not improve to baseline functional status. I reminded her that her mother has had frequent hospitalizations and falls over the past year, indicating that there has been a gradual decline in her health. Daughter states she understands. Daughter stated that her mother had been very independent up until this point,but expressed that her Mom should probably not live alone in the future. Daughter affirms that her mother is DNR/DNI. Psychosocial support given. Goals of care discussion, 30 minutes Plan: Palliative support in establishing gals of care
[2017-09-07] MEDS ORDERED: Magnesium Citrate Oral SOL (300 ml) PO ONE (15:48)
[2017-09-07 17:46] LABS: LKM-1 Ab (IgG) <=20.0 U (<=20.0)
[2017-09-08] MEDS: Vancomycin 1gm in NS 250ml 1 GM/250 ML BAG IVPB SCH (05:10)
[2017-09-08] MEDS: Metoprolol 1 mg/ml Inj IVP SCH ×3 (05:10→19:06)
[2017-09-08] MEDS: Insulin Lispro (humaLOG) LOW Coverage SC SCH ×4 (08:23→21:25)
--- NOTE | 2017-09-08 08:35 | CP.PCM.PN ---
Subjective - Date & Time of Evaluation Date of Evaluation: 09/08/17 Time of Evaluation: 07:00 - Subjective Subjective: Stable in ICU. Not very responsive but arousable. V/S noted. AF 90's PE: Lungs: rhonchi Cor.: irreg, S1S2 Abd.: soft Ext.: + mild edema Neuro.: not responsive. I/O= 3000/2000 recorded Labs noted. Cr. = 2.1 BC x2 NG at 4 days Urine C+S: < 1000 cfu's CXR 09/06: CHF Objective - Vital Signs/Intake and Output Vital Signs (last 24 hours): Temp Pulse Resp BP Pulse Ox 97.1 F L 90 20 105/53 L 93 L 09/08/17 00:00 09/08/17 06:00 09/08/17 00:00 09/08/17 05:10 09/08/17 00:00 - Medications Medications: Current Medications Acetaminophen (Tylenol 325mg Tab) 650 mg PO Q6H PRN PRN Reason: Fever >100.4 F Last Admin: 09/07/17 21:37 Dose: 650 mg Apixaban (Eliquis) 2.5 mg PO BID YULI PRN Reason: Protocol Last Admin: 09/07/17 17:18 Dose: 2.5 mg Diazepam (Valium) 5 mg PO HS PRN; Protocol PRN Reason: Anxiety Last Admin: 09/06/17 00:46 Dose: 5 mg Furosemide (Lasix) 20 mg IVP Q12 YULI Last Admin: 09/07/17 21:37 Dose: 20 mg NOREPINEPHRINE BIT/0.9 % NACL (Levophed 4 Mg/ 250 Ml Ns Premixed) 4 mg in 250 mls @ 15 mls/hr IV .[id number] PRN; Protocol; 4 MCG/MIN PRN Reason: TITRATE PER MD ORDER Last Titration: 09/06/17 18:45 Dose: 0 mcg/min, 0 mls/hr Meropenem 1 gm/ Dextrose 100 mls @ 100 mls/hr IVPB DAILY YULI PRN Reason: Protocol Stop: 09/11/17 10:01 Last Admin: 09/07/17 09:55 Dose: 100 mls/hr Doxycycline Hyclate 100 mg/ (Sodium Chloride) 100 mls @ 100 mls/hr IVPB Q12 YULI PRN Reason: Protocol Last Admin: 09/07/17 21:37 Dose: 100 mls/hr Insulin Human Lispro (Humalog Low) 0 units SC ACHS YULI PRN Reason: Protocol Last Admin: 09/07/17 22:50 Dose: Not Given Levalbuterol HCl (Xopenex) 0.63 mg IH [id number] PRN PRN Reason: Shortness of Breath Last Admin: 09/07/17 05:14 Dose: 0.63 mg Metoprolol Tartrate (Lopressor) 2.5 mg IVP Q6H [facility] Last Admin: 09/08/17 05:10 Dose: 2.5 mg Midodrine (Proamatine) 5 mg PO TID [facility] Last Admin: 09/07/17 17:19 Dose: Not Given Multivitamins (Thera Tab) 1 tab PO 0800 [facility] Last Admin: 09/07/17 09:53 Dose: 1 tab Ondansetron HCl (Zofran Inj) 4 mg IVP Q6H PRN PRN Reason: Nausea/Vomiting Last Admin: 09/07/17 04:03 Dose: 4 mg Pantoprazole Sodium (Protonix Inj) 40 mg IVP DAILY [facility] Last Admin: 09/07/17 09:48 Dose: 40 mg - Labs Labs: 09/07/17 06:50 09/07/17 06:50 PT 31.1 SECONDS (9.4-12.5) H 09/04/17 01:35 INR 2.79 (0.93-1.08) H 09/04/17 01:35 APTT 37.8 Seconds (25.1-36.5) H 09/04/17 01:35 Assessment and Plan - Assessment and Plan (Free Text) Assessment: Fall/Unsteady Gait Sepsis Chronic AF CAD/ID/PCI Echo 05/09: NL LV, Mild/Mod MR,, Mod/Sev TR and PH, Mod. PI. CHF Diabetes HBP HLD GB Surgery LE Cellulitis DNR/DNI Status Plan: Continue IV metoprolol, furosemide AB Monitor: labs, I/O, sats., etc. To Tel bed when available DNR/DNI noted. Conservative Cardiac Care.
[2017-09-08] MEDS: Meropenem 1 GM in Dextrose 5% In Water 100 ML IVPB SCH (09:05)
[2017-09-08] MEDS: Multivitamin Therapeutic Tab PO SCH (09:05)
--- NOTE | 2017-09-08 10:17 | CP.PCM.PN ---
<Irene Gamboa - Last Filed: 09/08/17 10:19> Subjective - Date & Time of Evaluation Date of Evaluation: 09/08/17 Time of Evaluation: 07:00 - Subjective Subjective: GI Fellow PGY4 Progress Note Pt seen and evaluated at bedside, pt more agitated and uncomfortable this am. Pt was titrated off Levophed with SBP 102s and HR elevated in 110s. Per nursing no reported GI bleeding, pt denies abdominal pain, nausea or vomiting. ROS: A 12pt ROS was negative except as above. Objective - Vital Signs/Intake and Output Vital Signs (last 24 hours): Temp Pulse Resp BP Pulse Ox 97.1 F L 90 20 105/73 93 L 09/08/17 00:00 09/08/17 06:00 09/08/17 00:00 09/08/17 09:06 09/08/17 00:00 - Medications Medications: Current Medications Acetaminophen (Tylenol 325mg Tab) 650 mg PO Q6H PRN PRN Reason: Fever >100.4 F Last Admin: 09/07/17 21:37 Dose: 650 mg Apixaban (Eliquis) 2.5 mg PO BID YULI PRN Reason: Protocol Last Admin: 09/08/17 09:05 Dose: 2.5 mg Diazepam (Valium) 5 mg PO HS PRN; Protocol PRN Reason: Anxiety Last Admin: 09/06/17 00:46 Dose: 5 mg Furosemide (Lasix) 20 mg IVP Q12 YULI Last Admin: 09/08/17 09:06 Dose: 20 mg NOREPINEPHRINE BIT/0.9 % NACL (Levophed 4 Mg/ 250 Ml Ns Premixed) 4 mg in 250 mls @ 15 mls/hr IV .[id number] PRN; Protocol; 4 MCG/MIN PRN Reason: TITRATE PER MD ORDER Last Titration: 09/06/17 18:45 Dose: 0 mcg/min, 0 mls/hr Meropenem 1 gm/ Dextrose 100 mls @ 100 mls/hr IVPB DAILY YULI PRN Reason: Protocol Stop: 09/11/17 10:01 Last Admin: 09/08/17 09:05 Dose: 100 mls/hr Doxycycline Hyclate 100 mg/ (Sodium Chloride) 100 mls @ 100 mls/hr IVPB Q12 YULI PRN Reason: Protocol Last Admin: 09/07/17 21:37 Dose: 100 mls/hr Insulin Human Lispro (Humalog Low) 0 units SC ACHS YULI PRN Reason: Protocol Last Admin: 09/08/17 08:23 Dose: Not Given Levalbuterol HCl (Xopenex) 0.63 mg IH [id number] PRN PRN Reason: Shortness of Breath Last Admin: 09/07/17 05:14 Dose: 0.63 mg Metoprolol Tartrate (Lopressor) 2.5 mg IVP Q6H [facility] Last Admin: 09/08/17 05:10 Dose: 2.5 mg Midodrine (Proamatine) 5 mg PO TID [facility] Last Admin: 09/08/17 09:05 Dose: 5 mg Multivitamins (Thera Tab) 1 tab PO 0800 [facility] Last Admin: 09/08/17 09:05 Dose: 1 tab Ondansetron HCl (Zofran Inj) 4 mg IVP Q6H PRN PRN Reason: Nausea/Vomiting Last Admin: 09/07/17 04:03 Dose: 4 mg Pantoprazole Sodium (Protonix Inj) 40 mg IVP DAILY [facility] Last Admin: 09/08/17 09:06 Dose: 40 mg - Labs Labs: 09/07/17 06:50 09/07/17 06:50 PT 31.1 SECONDS (9.4-12.5) H 09/04/17 01:35 INR 2.79 (0.93-1.08) H 09/04/17 01:35 APTT 37.8 Seconds (25.1-36.5) H 09/04/17 01:35 - Constitutional Appears: Cachectic, Chronically Ill - Head Exam Head Exam: ATRAUMATIC, NORMAL INSPECTION, NORMOCEPHALIC - Eye Exam Eye Exam: EOMI, Normal appearance, PERRL Pupil Exam: PERRL - ENT Exam ENT Exam: Mucous Membranes Dry - Respiratory Exam Respiratory Exam: Decreased Breath Sounds - Cardiovascular Exam Cardiovascular Exam: Tachycardia - GI/Abdominal Exam GI & Abdominal Exam: Soft, Tenderness, Hypoactive Bowel Sounds. absent: Distended, Rigid - Rectal Exam Rectal Exam: Deferred - Extremities Exam Extremities Exam: Pedal Edema, Tenderness - Neurological Exam Neurological Exam: Alert, Awake - Psychiatric Exam Psychiatric exam: Agitated, Anxious - Skin Skin Exam: Dry, Intact, Pallor, Warm Assessment and Plan - Assessment and Plan (Free Text) Assessment: This is a 87yF pmHx Afib on OAC, CHF, CAD s/p angioplasty, hyperlipidemia, hypertension, chronic renal failure, and diabetes presented to ED after a mechanical fall and was down for 4 hours. 1. Transaminitis 2. Dilated CBD 3. Hx Afib on OAC 4. 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 -Pt does have a hx of Afib on OAC, r/o portal vein thrombosis on Abd US which shows portal vein patency -Pt is tachycardic in HR 110s, recommend optimization of cardiac function which can be causing congestive hepatopathy -Continue to monitor LFTs which are trending down -Hepatitis panel negative and autoimmune panel negative -CBD dilated to 1.7 on imaging, once pt medically stable and LFTs still elevated will consider MRCP w/o contrast for further evaluation -Please call with any questions or concerns <Vance Campos - Last Filed: 09/08/17 15:45> Objective - Vital Signs/Intake and Output Vital Signs (last 24 hours): Temp Pulse Resp BP Pulse Ox 97.1 F L 87 18 119/67 98 09/08/17 00:00 09/08/17 11:26 09/08/17 11:25 09/08/17 11:26 09/08/17 11:00 Intake and Output: 09/08/17 09/08/17 06:59 18:59 Output Total 400 Balance -400 - Medications Medications: Current Medications Acetaminophen (Tylenol 325mg Tab) 650 mg PO Q6H PRN PRN Reason: Fever >100.4 F Last Admin: 09/07/17 21:37 Dose: 650 mg Apixaban (Eliquis) 2.5 mg PO BID YULI PRN Reason: Protocol Last Admin: 09/08/17 09:05 Dose: 2.5 mg Diazepam (Valium) 5 mg PO HS PRN; Protocol PRN Reason: Anxiety Last Admin: 09/06/17 00:46 Dose: 5 mg Furosemide (Lasix) 20 mg IVP Q12 YULI Last Admin: 09/08/17 09:06 Dose: 20 mg Meropenem 1 gm/ Dextrose 100 mls @ 100 mls/hr IVPB DAILY YULI PRN Reason: Protocol Stop: 09/11/17 10:01 Last Admin: 09/08/17 09:05 Dose: 100 mls/hr Doxycycline Hyclate 100 mg/ (Sodium Chloride) 100 mls @ 100 mls/hr IVPB Q12 YULI PRN Reason: Protocol Last Admin: 09/08/17 10:48 Dose: 100 mls/hr Insulin Human Lispro (Humalog Low) 0 units SC ACHS YULI PRN Reason: Protocol Last Admin: 09/08/17 11:37 Dose: Not Given Levalbuterol HCl (Xopenex) 0.63 mg IH [id number] PRN PRN Reason: Shortness of Breath Last Admin: 09/07/17 05:14 Dose: 0.63 mg Metoprolol Tartrate (Lopressor) 2.5 mg IVP Q6H [facility] Last Admin: 09/08/17 11:26 Dose: 2.5 mg Midodrine (Proamatine) 5 mg PO TID [facility] Last Admin: 09/08/17 09:05 Dose: 5 mg Multivitamins (Thera Tab) 1 tab PO 0800 [facility] Last Admin: 09/08/17 09:05 Dose: 1 tab Ondansetron HCl (Zofran Inj) 4 mg IVP Q6H PRN PRN Reason: Nausea/Vomiting Last Admin: 09/07/17 04:03 Dose: 4 mg Pantoprazole Sodium (Protonix Inj) 40 mg IVP DAILY [facility] Last Admin: 09/08/17 09:06 Dose: 40 mg - Labs Labs: 09/07/17 06:50 09/07/17 06:50 PT 31.1 SECONDS (9.4-12.5) H 09/04/17 01:35 INR 2.79 (0.93-1.08) H 09/04/17 01:35 APTT 37.8 Seconds (25.1-36.5) H 09/04/17 01:35 Attending/Attestation - Attestation I have personally seen and examined this patient.: Yes I have fully participated in the care of the patient.: Yes I have reviewed all pertinent clinical information, including history, physical exam and plan: Yes Notes (Text): 09/08/17 15:45 87 year old female with h/o CHF, Afib, CAD, HTN, HLD, CKD, DM admitted after fall, noted to have elevated LFTs. 1. Elevated LFTs 2. Dilated common bile duct 3. H/o cholecystectomy Plan: -continue supportive measures -elevated lfts 2/2 congestive hepatopathy, continue to monitor/trend -mental status more alert today, may have been drowsy from benzos yesterday
--- NOTE | 2017-09-08 10:18 | CP.PCM.PN ---
Subjective - Date & Time of Evaluation Date of Evaluation: 09/08/17 Time of Evaluation: 09:00 - Subjective Subjective: Still somewhat lethargic but easily arousable, no fevers overnight, no SOB at rest, appetite is poor. Objective - Vital Signs/Intake and Output Vital Signs (last 24 hours): Temp Pulse Resp BP Pulse Ox 96.7 F L 98 H 30 H 105/53 L 88 L 09/07/17 04:00 09/08/17 05:10 09/07/17 18:01 09/08/17 05:10 09/07/17 18:01 Intake and Output: 09/07/17 09/08/17 18:59 06:59 Intake Total 3000 Output Total 2000 Balance 1000 - Medications Medications: Current Medications Acetaminophen (Tylenol 325mg Tab) 650 mg PO Q6H PRN PRN Reason: Fever >100.4 F Last Admin: 09/07/17 21:37 Dose: 650 mg Apixaban (Eliquis) 2.5 mg PO BID YULI PRN Reason: Protocol Last Admin: 09/07/17 17:18 Dose: 2.5 mg Diazepam (Valium) 5 mg PO HS PRN; Protocol PRN Reason: Anxiety Last Admin: 09/06/17 00:46 Dose: 5 mg Furosemide (Lasix) 20 mg IVP Q12 YULI Last Admin: 09/07/17 21:37 Dose: 20 mg NOREPINEPHRINE BIT/0.9 % NACL (Levophed 4 Mg/ 250 Ml Ns Premixed) 4 mg in 250 mls @ 15 mls/hr IV .[id number] PRN; Protocol; 4 MCG/MIN PRN Reason: TITRATE PER MD ORDER Last Titration: 09/06/17 18:45 Dose: 0 mcg/min, 0 mls/hr Meropenem 1 gm/ Dextrose 100 mls @ 100 mls/hr IVPB DAILY [facility]I PRN Reason: Protocol Stop: 09/11/17 10:01 Last Admin: 09/07/17 09:55 Dose: 100 mls/hr Doxycycline Hyclate 100 mg/ (Sodium Chloride) 100 mls @ 100 mls/hr IVPB Q12 YULI PRN Reason: Protocol Last Admin: 09/07/17 21:37 Dose: 100 mls/hr Insulin Human Lispro (Humalog Low) 0 units SC ACHS YULI PRN Reason: Protocol Last Admin: 09/07/17 22:50 Dose: Not Given Levalbuterol HCl (Xopenex) 0.63 mg IH [id number] PRN PRN Reason: Shortness of Breath Last Admin: 09/07/17 05:14 Dose: 0.63 mg Metoprolol Tartrate (Lopressor) 2.5 mg IVP Q6H [facility] Last Admin: 09/08/17 05:10 Dose: 2.5 mg Midodrine (Proamatine) 5 mg PO TID [facility] Last Admin: 09/07/17 17:19 Dose: Not Given Multivitamins (Thera Tab) 1 tab PO 0800 [facility] Last Admin: 09/07/17 09:53 Dose: 1 tab Ondansetron HCl (Zofran Inj) 4 mg IVP Q6H PRN PRN Reason: Nausea/Vomiting Last Admin: 09/07/17 04:03 Dose: 4 mg Pantoprazole Sodium (Protonix Inj) 40 mg IVP DAILY [facility] Last Admin: 09/07/17 09:48 Dose: 40 mg - Labs Labs: 09/07/17 06:50 09/07/17 06:50 PT 31.1 SECONDS (9.4-12.5) H 09/04/17 01:35 INR 2.79 (0.93-1.08) H 09/04/17 01:35 APTT 37.8 Seconds (25.1-36.5) H 09/04/17 01:35 - Constitutional Appears: Chronically Ill - Head Exam Head Exam: NORMAL INSPECTION - ENT Exam ENT Exam: Mucous Membranes Moist - Neck Exam Neck Exam: absent: Meningismus Additional comments: right IJ CVC in place - Respiratory Exam Respiratory Exam: Decreased Breath Sounds - Cardiovascular Exam Cardiovascular Exam: +S1, +S2 - GI/Abdominal Exam GI & Abdominal Exam: Soft. absent: Tenderness Assessment and Plan - Assessment and Plan (Free Text) Plan: Assessment Systemic Inflammatory response syndrome, R/O sepsis from HCAP, bilateral in this patient also with bilateral pleural effusions asymptomatic bacteriuria with Vancomycin-resistant Enterococcus chronic CHF with bilateral pleural effusions S/P thoracentesis previously left foot pain probably from trauma CAD S/P PCI HTN chronic renal failure DM S/P cholecystectomy Plan gave a dose of IV Vanco, and continue Merrem and Doxycycline day 5 - complete 7 days of therapy; blood and urine cx are negative; PCT is 0.42; reviewed CT C/A/P overall prognosis is poor
--- NOTE | 2017-09-08 13:22 | PN ---
DATE: SUBJECTIVE: The patient is an 87-year-old, seen and examined, seems to be confused, and disoriented, not eating diet well, mild shortness of breath. PHYSICAL EXAMINATION VITAL SIGNS: She is afebrile, pulse 91, respirations 18, and blood pressure 94/52. LUNGS: Bilateral fair airflow. No rhonchi or crackles. Has decreased breath sounds at bases. HEART: S1 and S2 audible. Irregular rate control. ABDOMEN: Soft and nontender. No rebound. No guarding. NEUROLOGIC: The patient is awake, alert, and oriented. EXTREMITIES: Bilateral legs, no edema, slight erythema. LABORATORY DATA: WBC 7.1, hemoglobin 9.2, hematocrit 31.8, and platelets of 402. Chemistry: Sodium 138, potassium is 4.2, chloride 106, CO2 23, BUN 65, creatinine 2.1, and blood sugar of 123. AST 223 and ALT 336. ASSESSMENT: 1. Bilateral pleural effusion. 2. Congestive heart failure. 3. Coronary artery disease. 4. Rjc-egzewnj-vzypebugn diabetes. 5. Ruxuk-ef-peuymwa renal insufficiency. 6. Left ventricular diastolic dysfunction. PLAN: Currently, the patient is on Eliquis. She is on doxycycline. She is on Lasix and meropenem, we will continue that. She is off of pressors. Prognosis is poor. The patient is DNR. We will discuss with the family. Ghazal Goode MD
[2017-09-08] MEDS: Sodium Chloride 0.45% 1,000 ML IV SCH (19:05)
[2017-09-08] MEDS: metroNIDAZOLE IV 500 mg/100 ml 500 MG/100 ML BAG IVPB SCH ×2 (19:29→23:13)
--- NOTE | 2017-09-08 20:57 | PN ---
DATE: SUBJECTIVE: The patient is an 87-year-old. Seen and examined. Seems to be lethargic, somewhat confused, having visual hallucination. PHYSICAL EXAMINATION: VITAL SIGNS: She is afebrile, pulse 71, respirations 18, blood pressure 132/78. LUNGS: Bilateral diffusely decreased breath sound at bases. HEART: S1 and S2 audible, irregular, rate controlled. ABDOMEN: Soft, nontender. No rebound. No guarding. NEUROLOGIC: She is sleepy, but arousable and lethargic. LABORATORY DATA: WBC 7.1, hemoglobin 9.2, hematocrit 31.8, platelets of 402. Chemistry; sodium 138, potassium 4.2, chloride 106, CO2 of 23, BUN 65 and creatinine 2.1. Blood sugar of 130, AST 228, ALT 336, alkaline phosphatase is 189. Blood cultures are negative. Urine cultures are negative. Nurses reported to me that she has 5 bowel movements in the last few hours. So we will send stool for Clostridium difficile. ASSESSMENT: 1. Generalized weakness. 2. Diastolic congestive heart failure. 3. Poor oral intake. 4. Chronic atrial fibrillation. 5. Coronary artery disease. 6. History of hypertension, but currently hypotensive. PLAN: We will continue her on nebulizer treatment. She is on IV Protonix. Continue her on meropenem. Start her on metronidazole. Start her on small dose of fluids 50 mL of normal saline. We will follow up electrolytes in a.m. Discuss with the patient's daughter. Prognosis is poor. She is DNR. Ghazal Goode MD
[2017-09-09] MEDS: metroNIDAZOLE IV 500 mg/100 ml 500 MG/100 ML BAG IVPB SCH ×2 (05:06→14:00)
[2017-09-09] MEDS: Metoprolol 1 mg/ml Inj IVP SCH ×4 (05:07→17:24)
--- NOTE | 2017-09-09 05:16 | CP.PCM.CON ---
History of Present Illness - History of Present Illness History of Present Illness: Patient Name: CARLOS ALBERTO KELLY Date of : 1930 Patient Status: Inpatient Attending Provider: Treva Byrd Date: 09/04/17 05:02 Initialization Date: 09/04/17 05:02 <Polly Matamoros - Last Filed: 09/04/17 06:09> History of Present Illness - History of Present Illness History of Present Illness: 87yo female PMHx Afib, CHF, CAD s/p angioplasty, hyperlipidemia, hypertension, chronic renal failure, and diabetes presented to ED after a mechanical fall 4 hours prior to arrival. Patient was brought in by BLS. Patient reports she tripped and fell at home and was unable to get herself off the floor for 4 hours. She denies any LOC and denies hitting her head stating that she fell on her stomach/side. Patient has on a fall sensitivity button which notified the ambulance and her daughter. As per ED note, patient has had 3 falls since April 2017 and was recently discharged from hospital 3 days ago when she was admitted for b/l LE cellulitis. Patient reports nausea, chills, and dizziness and reports feeling generally weak. She had an episode of emesis in the ED but does not recall what she threw up. She denies any headache, chest pain, palpitations , SOB, cough, abd pain, bowel/bladder complaints, pain/swelling in her legs bilaterally. PMD: Perveen PMHx: HTN, CHF, CAD, NIDDM, HLD, and melanoma Family History: DM on maternal and paternal Surgical History: melanoma excision of lesion on left side of nose 10 years ago Allergies: NKDA Social History: lives in senior citizen building, denies smoking, denies drinking alcohol, denies illicit drug use Medications: Tramadol, Glyburide, Diltiazem, Vosuvastatin, Metoprolol, Metformin , Furosemide, Diltiazem, Diazepam, Apixaban Present on Admission - Present on Admission Any Indicators Present on Admission: No Review of Systems - Constitutional Constitutional: As Per HPI, Chills. absent: Fever - EENT Eyes: As Per HPI. absent: Change in Vision Ears: As Per HPI, Dizziness Nose/Mouth/Throat: As Per HPI. absent: Sore Throat - Cardiovascular Cardiovascular: As Per HPI. absent: Chest Pain, Dyspnea, Edema, Pedal Edema - Respiratory Respiratory: As Per HPI. absent: Cough, Dyspnea, Chest Congestion - Gastrointestinal Gastrointestinal: As Per HPI, Nausea, Vomiting. absent: Abdominal Pain, Constipation, Diarrhea - Genitourinary Genitourinary: As Per HPI. absent: Dysuria, Pyuria - Musculoskeletal Musculoskeletal: As Per HPI. absent: Numbness, Tingling - Integumentary Integumentary: As Per HPI, Dry Skin - Neurological Neurological: As Per HPI, Dizziness, Frequent Falls, Weakness. absent: Numbness , Headaches, Syncope, Tingling - Psychiatric Psychiatric: As Per HPI. absent: Anxiety, Depression - Endocrine Endocrine: As Per HPI. absent: Polydipsia, Polyphagia, Polyuria - Hematologic/Lymphatic Hematologic: As Per HPI. absent: Easy Bleeding, Easy Bruising, Lymphadenopathy Past Patient History - Infectious Disease Hx of Infectious Diseases: None - Past Medical History & Family History Past Medical History?: Yes - Past Social History Smoking Status: Never Smoked - CARDIAC Hx Cardiac Disorders: Yes Hx Congestive Heart Failure: Yes Hx Hypertension: Yes - PULMONARY Hx Pneumonia: Yes - NEUROLOGICAL Hx Neurological Disorder: No - HEENT Hx HEENT Problems: No (eyeglasses) - RENAL Hx Renal Failure: Yes - ENDOCRINE/METABOLIC Hx Diabetes Mellitus Type 2: Yes - HEMATOLOGICAL/ONCOLOGICAL Hx Blood Disorders: No - INTEGUMENTARY Hx Dermatological Problems: Yes Other/Comment: paper thin skin - MUSCULOSKELETAL/RHEUMATOLOGICAL Hx Falls: Yes - GASTROINTESTINAL Hx Gastrointestinal Disorders: No - GENITOURINARY/GYNECOLOGICAL Hx Reproductive Disorders: No - PSYCHIATRIC Hx Psychophysiologic Disorder: No Hx Substance Use: No - SURGICAL HISTORY Hx Cholecystectomy: Yes Hx Coronary Stent: Yes - ANESTHESIA Hx Anesthesia: No Hx Anesthesia Reactions: No Hx Malignant Hyperthermia: No Meds Allergies/Adverse Reactions: Allergies Allergy/AdvReac Type Severity Reaction Status Date / Time No Known Allergies Allergy Verified 08/26/17 19:46 Physical Exam - Constitutional Appears: No Acute Distress - Head Exam Additional comments: forehead lesion - Eye Exam Eye Exam: EOMI, Normal appearance, PERRL. absent: Conjunctival injection, Scleral icterus Pupil Exam: NORMAL ACCOMODATION - ENT Exam ENT Exam: Mucous Membranes Dry - Neck Exam Neck exam: Negative for: Lymphadenopathy - Respiratory Exam Respiratory Exam: Rales (b/l bases), NORMAL BREATHING PATTERN. absent: Accessory Muscle Use, Rhonchi, Wheezes, Respiratory Distress - Cardiovascular Exam Cardiovascular Exam: Irregular Rhythm, +S1, +S2. absent: Bradycardia, Tachycardia - GI/Abdominal Exam GI & Abdominal Exam: Normal Bowel Sounds, Soft. absent: Firm, Guarding, Rigid, Tenderness - Extremities Exam Extremities exam: Positive for: pedal edema (b/l LE), pedal pulses present ( with doppler) - Neurological Exam Neurological exam: Alert, Oriented x3 - Psychiatric Exam Psychiatric exam: Normal Affect, Normal Mood - Skin Skin Exam: Dry Additional comments: cool to touch skin tear R forearm Results - Vital Signs Recent Vital Signs: Last Vital Signs Temp 93.2 F L 09/04/17 03:07 Pulse 68 09/04/17 04:57 Resp 16 09/04/17 04:57 BP 99/58 L 09/04/17 04:57 Pulse Ox 93 L 09/04/17 04:57 - Labs Result Diagrams: 09/04/17 01:35 09/04/17 01:35 Assessment & Plan - Assessment and Plan (Free Text) Assessment: 87yo female PMHx Afib, CHF, CAD s/p angioplasty, hyperlipidemia, hypertension, chronic renal failure, and diabetes presented to ED after a mechanical fall 4 hours prior to arrival Plan: Sepsis - CT chest: probable interstitial edema; b/l pleural effusions with compressive lower lobe atelectasis; R middle L upper lobe atelectasis; superimposed pneumonia not entirely excluded; anasarca. - f/u blood culture - f/u urine culture - f/u procalcitonin - Vanc and Zosyn - Tylenol for temp - ID Dr. Cook consulted Mechanical fall -CT head: no intracranial hemorrhage; nonspecific white matter changes Transaminitis - CT abdomen/pelvis: Dilated CBD [consider MRCP]; mild cystitis vs underdistention. Correlate with UA; ascites; adnexal lesion indeterminate. Recommend follow up u/s. Anasarca - f/u abdominal u/s - GI Dr Carrington consulted RADHA on CKD - NS @ 80cc/hr - monitor BUN:Cr and consider nephro consult Hx of Hyperlipidemia - hold home statin in light of LFTs Hx of Afib - rate controlled - continue Eliquis 2.5mg po bid Hx of HTN - hold BP meds in light of hypotension Hx of DM2 - RISS - Accucheck GI ppx: Protonix 40mg ivp qd DVT ppx: patient on eliquis Fluids: NS @ 80cc/hr Case discussed with Dr. Jessika Matamoros PGY2 -I agree with the above ICU consult completed by the resident physician. -Patient admitted to the ICU on exerciser of 09/04/17 for Severe sepsis due to PNA, mechanical fall, and acute on chronic renal failure. Broad spectrum antibiotics initiated alongside sepsis protocol. Past Patient History - Infectious Disease Hx of Infectious Diseases: None - Past Medical History & Family History Past Medical History?: Yes - Past Social History Smoking Status: Never Smoked - CARDIAC Hx Cardiac Disorders: Yes Hx Congestive Heart Failure: Yes Hx Hypertension: Yes - PULMONARY Hx Pneumonia: Yes - NEUROLOGICAL Hx Neurological Disorder: No - HEENT Hx HEENT Problems: No (eyeglasses) - RENAL Hx Renal Failure: Yes - ENDOCRINE/METABOLIC Hx Diabetes Mellitus Type 2: Yes - HEMATOLOGICAL/ONCOLOGICAL Hx Blood Disorders: No - INTEGUMENTARY Hx Dermatological Problems: Yes Other/Comment: paper thin skin - MUSCULOSKELETAL/RHEUMATOLOGICAL Hx Falls: Yes - GASTROINTESTINAL Hx Gastrointestinal Disorders: No - GENITOURINARY/GYNECOLOGICAL Hx Reproductive Disorders: No - PSYCHIATRIC Hx Psychophysiologic Disorder: No Hx Substance Use: No - SURGICAL HISTORY Hx Cholecystectomy: Yes Hx Coronary Stent: Yes - ANESTHESIA Hx Anesthesia: No Hx Anesthesia Reactions: No Hx Malignant Hyperthermia: No Meds Allergies/Adverse Reactions: Allergies Allergy/AdvReac Type Severity Reaction Status Date / Time No Known Allergies Allergy Verified 08/26/17 19:46 - Medications Medications: Current Medications Acetaminophen (Tylenol 325mg Tab) 650 mg PO Q6H PRN PRN Reason: Fever >100.4 F Last Admin: 09/07/17 21:37 Dose: 650 mg Apixaban (Eliquis) 2.5 mg PO BID YULI PRN Reason: Protocol Last Admin: 09/08/17 19:06 Dose: 2.5 mg Diazepam (Valium) 5 mg PO HS PRN; Protocol PRN Reason: Anxiety Last Admin: 09/06/17 00:46 Dose: 5 mg Furosemide (Lasix) 20 mg IVP Q12 YULI Last Admin: 09/08/17 21:29 Dose: 20 mg Meropenem 1 gm/ Dextrose 100 mls @ 100 mls/hr IVPB DAILY YULI PRN Reason: Protocol Stop: 09/11/17 10:01 Last Admin: 09/08/17 09:05 Dose: 100 mls/hr Doxycycline Hyclate 100 mg/ (Sodium Chloride) 100 mls @ 100 mls/hr IVPB Q12 YULI PRN Reason: Protocol Last Admin: 09/08/17 21:31 Dose: 100 mls/hr Sodium Chloride (Sodium Chloride 0.45%) 1,000 mls @ 50 mls/hr IV .Q20H YULI Last Admin: 09/08/17 19:05 Dose: 50 mls/hr Metronidazole (Flagyl) 500 mg in 100 mls @ 100 mls/hr IVPB Q8 YULI PRN Reason: Protocol Last Admin: 09/08/17 23:13 Dose: Not Given Insulin Human Lispro (Humalog Low) 0 units SC ACHS YULI PRN Reason: Protocol Last Admin: 09/08/17 21:25 Dose: Not Given Levalbuterol HCl (Xopenex) 0.63 mg IH [id number] PRN PRN Reason: Shortness of Breath Last Admin: 09/07/17 05:14 Dose: 0.63 mg Metoprolol Tartrate (Lopressor) 2.5 mg IVP 0000,0600,1200,1800 [facility] Midodrine (Proamatine) 5 mg PO TID [facility] Last Admin: 09/08/17 19:07 Dose: Not Given Multivitamins (Thera Tab) 1 tab PO 0800 [facility] Last Admin: 09/08/17 09:05 Dose: 1 tab Ondansetron HCl (Zofran Inj) 4 mg IVP Q6H PRN PRN Reason: Nausea/Vomiting Last Admin: 09/07/17 04:03 Dose: 4 mg Pantoprazole Sodium (Protonix Inj) 40 mg IVP DAILY [facility] Last Admin: 09/08/17 09:06 Dose: 40 mg Results - Vital Signs Recent Vital Signs: Last Vital Signs Temp 98.4 F 09/09/17 00:00 Pulse 96 H 09/09/17 02:00 Resp 20 09/09/17 00:00 BP 98/47 L 09/09/17 00:00 Pulse Ox 94 L 09/09/17 00:00 - Labs Result Diagrams: 09/07/17 06:50 09/07/17 06:50 Labs: Laboratory Results - last 24 hr 09/08/17 09/08/17 07:24 11:02 POC Glucose (mg/dL) 61 L 60 L
--- NOTE | 2017-09-09 07:18 | CP.PCM.PN ---
<Irene Gamboa - Last Filed: 09/09/17 10:43> Subjective - Date & Time of Evaluation Date of Evaluation: 09/09/17 Time of Evaluation: 07:20 - Subjective Subjective: GI Fellow PGY4 Progress Note Pt seen and evaluated at bedside, pt more agitated and uncomfortable this am. Pt with HR elevated in 110s. Per nursing no reported GI bleeding, pt denies abdominal pain, nausea or vomiting. ROS: A 12pt ROS was negative except as above. Objective - Vital Signs/Intake and Output Vital Signs (last 24 hours): Temp Pulse Resp BP Pulse Ox 97.4 F L 83 20 103/50 L 94 L 09/09/17 06:00 09/09/17 06:00 09/09/17 06:00 09/09/17 06:00 09/09/17 06:00 Intake and Output: 09/09/17 09/09/17 06:59 18:59 Intake Total 120 Balance 120 - Medications Medications: Current Medications Acetaminophen (Tylenol 325mg Tab) 650 mg PO Q6H PRN PRN Reason: Fever >100.4 F Last Admin: 09/09/17 02:09 Dose: 650 mg Apixaban (Eliquis) 2.5 mg PO BID YULI PRN Reason: Protocol Last Admin: 09/08/17 19:06 Dose: 2.5 mg Diazepam (Valium) 5 mg PO HS PRN; Protocol PRN Reason: Anxiety Last Admin: 09/09/17 02:00 Dose: 5 mg Furosemide (Lasix) 20 mg IVP Q12 YULI Last Admin: 09/08/17 21:29 Dose: 20 mg Meropenem 1 gm/ Dextrose 100 mls @ 100 mls/hr IVPB DAILY YULI PRN Reason: Protocol Stop: 09/11/17 10:01 Last Admin: 09/08/17 09:05 Dose: 100 mls/hr Doxycycline Hyclate 100 mg/ (Sodium Chloride) 100 mls @ 100 mls/hr IVPB Q12 YULI PRN Reason: Protocol Last Admin: 09/08/17 21:31 Dose: 100 mls/hr Sodium Chloride (Sodium Chloride 0.45%) 1,000 mls @ 50 mls/hr IV .Q20H YULI Last Admin: 09/08/17 19:05 Dose: 50 mls/hr Metronidazole (Flagyl) 500 mg in 100 mls @ 100 mls/hr IVPB Q8 YULI PRN Reason: Protocol Last Admin: 09/09/17 05:06 Dose: 100 mls/hr Insulin Human Lispro (Humalog Low) 0 units SC ACHS REPLACED [facility] PRN Reason: Protocol Last Admin: 09/08/17 21:25 Dose: Not Given Levalbuterol HCl (Xopenex) 0.63 mg IH [id number] PRN PRN Reason: Shortness of Breath Last Admin: 09/07/17 05:14 Dose: 0.63 mg Metoprolol Tartrate (Lopressor) 2.5 mg IVP 0000,0600,1200,1800 REPLACED BY [facility] Last Admin: 09/09/17 05:16 Dose: Not Given Midodrine (Proamatine) 5 mg PO TID REPLACED BY [facility] Last Admin: 09/08/17 19:07 Dose: Not Given Multivitamins (Thera Tab) 1 tab PO 0800 [facility]ED [facility] Last Admin: 09/08/17 09:05 Dose: 1 tab Ondansetron HCl (Zofran Inj) 4 mg IVP Q6H PRN PRN Reason: Nausea/Vomiting Last Admin: 09/07/17 04:03 Dose: 4 mg Pantoprazole Sodium (Protonix Inj) 40 mg IVP DAILY REPLACED [facility] Last Admin: 09/08/17 09:06 Dose: 40 mg - Labs Labs: 09/07/17 06:50 09/07/17 06:50 PT 31.1 SECONDS (9.4-12.5) H 09/04/17 01:35 INR 2.79 (0.93-1.08) H 09/04/17 01:35 APTT 37.8 Seconds (25.1-36.5) H 09/04/17 01:35 - Constitutional Appears: Chronically Ill - Head Exam Head Exam: ATRAUMATIC, NORMAL INSPECTION, NORMOCEPHALIC - Eye Exam Eye Exam: EOMI, Normal appearance, PERRL - ENT Exam ENT Exam: Mucous Membranes Dry - Respiratory Exam Respiratory Exam: Decreased Breath Sounds - Cardiovascular Exam Cardiovascular Exam: Tachycardia - GI/Abdominal Exam GI & Abdominal Exam: Soft, Hypoactive Bowel Sounds. absent: Tenderness, Organomegaly - Rectal Exam Rectal Exam: Deferred - Extremities Exam Extremities Exam: Pedal Edema, Tenderness - Neurological Exam Neurological Exam: Alert - Psychiatric Exam Psychiatric exam: Anxious - Skin Skin Exam: Dry, Intact, Pallor, Warm Assessment and Plan - Assessment and Plan (Free Text) Assessment: This is a 87yF pmHx Afib on OAC, CHF, CAD s/p angioplasty, hyperlipidemia, hypertension, chronic renal failure, and diabetes presented to ED after a mechanical fall and was down for 4 hours. 1. Transaminitis 2. Dilated CBD 3. Hx Afib on OAC 4. 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 -Pt does have a hx of Afib on OAC, r/o portal vein thrombosis and Abd US which shows portal vein patency -Pt is tachycardic in HR 110s, recommend optimization of cardiac function which can be causing congestive hepatopathy -Continue to monitor LFTs which are trending down -Hepatitis panel negative and autoimmune panel negative -CBD dilated to 1.7 on imaging, once pt medically stable and LFTs still elevated will consider MRCP w/o contrast for further evaluation -Please call with any questions or concerns <Dario Carrington - Last Filed: 09/09/17 12:48> Objective - Vital Signs/Intake and Output Vital Signs (last 24 hours): Temp Pulse Resp BP Pulse Ox 96.8 F L 76 18 118/57 L 98 09/09/17 11:39 09/09/17 11:39 09/09/17 11:39 09/09/17 11:39 09/09/17 11:39 Intake and Output: 09/09/17 09/09/17 06:59 18:59 Intake Total 120 Balance 120 - Medications Medications: Current Medications Acetaminophen (Tylenol 325mg Tab) 650 mg PO Q6H PRN PRN Reason: Fever >100.4 F Last Admin: 09/09/17 02:09 Dose: 650 mg Apixaban (Eliquis) 2.5 mg PO BID YULI PRN Reason: Protocol Last Admin: 09/09/17 09:53 Dose: 2.5 mg Diazepam (Valium) 5 mg PO HS PRN; Protocol PRN Reason: Anxiety Last Admin: 09/09/17 02:00 Dose: 5 mg Furosemide (Lasix) 20 mg IVP Q12 YULI Last Admin: 09/09/17 09:53 Dose: Not Given Meropenem 1 gm/ Dextrose 100 mls @ 100 mls/hr IVPB DAILY YULI PRN Reason: Protocol Stop: 09/11/17 10:01 Last Admin: 09/09/17 09:54 Dose: 100 mls/hr Doxycycline Hyclate 100 mg/ (Sodium Chloride) 100 mls @ 100 mls/hr IVPB Q12 YULI PRN Reason: Protocol Last Admin: 09/09/17 09:54 Dose: 100 mls/hr Sodium Chloride (Sodium Chloride 0.45%) 1,000 mls @ 50 mls/hr IV .Q20H YULI Last Admin: 09/08/17 19:05 Dose: 50 mls/hr Metronidazole (Flagyl) 500 mg in 100 mls @ 100 mls/hr IVPB Q8 YULI PRN Reason: Protocol Last Admin: 09/09/17 05:06 Dose: 100 mls/hr Insulin Human Lispro (Humalog Low) 0 units SC ACHS YULI PRN Reason: Protocol Last Admin: 09/09/17 09:19 Dose: Not Given Levalbuterol HCl (Xopenex) 0.63 mg IH [id number] PRN PRN Reason: Shortness of Breath Last Admin: 09/07/17 05:14 Dose: 0.63 mg Metoprolol Tartrate (Lopressor) 2.5 mg IVP 0000,0600,1200,1800 REPLACED BY [facility] Last Admin: 09/09/17 05:16 Dose: Not Given Midodrine (Proamatine) 5 mg PO TID REPLACED BY [facility] Last Admin: 09/09/17 09:54 Dose: 5 mg Multivitamins (Thera Tab) 1 tab PO 0800 REPLACED BY [facility] Last Admin: 09/09/17 09:54 Dose: 1 tab Ondansetron HCl (Zofran Inj) 4 mg IVP Q6H PRN PRN Reason: Nausea/Vomiting Last Admin: 09/07/17 04:03 Dose: 4 mg Pantoprazole Sodium (Protonix Inj) 40 mg IVP DAILY REPLACED BY [facility] Last Admin: 09/09/17 09:54 Dose: 40 mg - Labs Labs: 09/09/17 07:30 09/09/17 07:30 PT 31.1 SECONDS (9.4-12.5) H 09/04/17 01:35 INR 2.79 (0.93-1.08) H 09/04/17 01:35 APTT 37.8 Seconds (25.1-36.5) H 09/04/17 01:35 Attending/Attestation - Attestation I have personally seen and examined this patient.: Yes I have fully participated in the care of the patient.: Yes I have reviewed all pertinent clinical information, including history, physical exam and plan: Yes Notes (Text): 09/09/17 12:44 I have seen and examined patient with GI fellow. No acute events overnight, she appears quite lethargic but denies abdominal pain, nausea, vomiting. As per patient daughter at bedside, she was able to tolerate more breakfast this morning with nursing assistance. She is having loose bowel movements. Review of vitals from today are normal. Atrial fibrillation on eliquis CHF CAD HTN CKD DM Sepsis - pneumonia, UTI Transaminitis - likely secondary to congestive hepatopathy given clinical scenario. Viral hepatitis and autoimmune serologies negative. - Diet as tolerated - Follow up cardiology recommendations, continue to optimize cardiac status - LFTs continue to trend down, monitor and avoid hepatotoxic therapies - Dilated CBD noted, though bilirubin normal. Patient would benefit from MRCP without contrast for further evaluation after improvement of acute infectious process. - No further planned GI intervention, will sign off case. Please reconsult as necessary, thank you.
--- NOTE | 2017-09-09 07:58 | PQF RENAL ---
This form is a permanent part of the medical record Dr. Goode, Could you specify the stage of patient's CKD? Please note that this query was initially sent to Dr. Byrd (covering for you?) Clarification of your documentation is requested to better reflect the severity of illness and intensity of treatment of your patient. Indicators present [] Oliguria/anuria [x] Edema/weight gain [] Hyponatremia [] Confusion/mental status changes [x] Increased Blood Urea Nitrogen/Creatinine [] Increased Potassium/Decreased potassium [x] Anemia (male <13.5, female <12.0) [] Proteinuria [] Metabolic Acidosis OR Alkalosis [] Hypotension/shock [x] Decreased GFR [] Other: [] Location in the medical record that reflects the above clinical findings: PHYSICIAN'S RESPONSE Based on your medical judgment of the clinical indicators outlined above, are you treating this patient for a known or suspected: [] Acute Renal Failure [] Acute Kidney Injury [] Azotemia/prerenal azotemia [x] Chronic kidney disease Stage I [] Stage II [] Stage III [x] Stage IV [] [] Other condition/diagnosis:[] [] If Unable to Determine, please check the box, sign and date. Present On Admission (POA) Indicator: [x] Present at the time of admission [] Not present at the time of admission [] Clinically Undetermined In responding to this query, please exercise your independent professional judgment. The fact that a question is asked does not imply that any particular answer is desired or expected. Thank you for your clarification on this documentation. If you have any questions please call:[ ] * Thank you, [ ]Duglas Moura 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
[2017-09-09 08:19] LABS: BASO # 0.02 K/mm3 (0.0-2.0); BASO % 0.3 % (0.0-3.0); EOS # 0.1 (0.0-0.7); EOS % 1.9 % (1.5-5.0); GRAN # 4.19 (1.4-6.5); GRAN % 57.2 % (50.0-68.0); HEMATOCRIT 31.6 % (36.0-48.0); LYMPH # 2.2 (1.2-3.4); LYMPH % 30.2 % (22.0-35.0); MEAN CELL VOLUME 74.4 fl (80.0-105.0); MEAN CORPUSCULAR HEMOGLOBIN 21.6 pg (25.0-35.0); MEAN CORPUSCULAR HGB CONC 29.1 g/dl (31.0-37.0); MEAN PLATELET VOLUME 9.2 fl (7.0-11.0); MONO # 0.8 (0.1-0.6); MONO % 10.4 % (1.0-6.0); RED CELL DISTRIBUTION WIDTH 22.6 % (11.5-14.5); WHITE BLOOD COUNT 7.3 10^3/ul (4.5-11.0)
[2017-09-09 08:47] LABS: ALB/GLOB RATIO 0.9 (1.1-1.8); BILIRUBIN,TOTAL 0.8 mg/dL (0.2-1.3); CALCIUM 8.4 mg/dL (8.4-10.5); MAGNESIUM 2.2 mg/dL (1.7-2.2); PHOSPHOROUS 3.9 mg/dL (2.5-4.5); TOTAL PROTEIN 5.7 g/dL (5.8-8.3)
[2017-09-09] MEDS ORDERED: Dextrose 50% SYRINGE Inj (50 ml) IVP ONE (08:50)
[2017-09-09] MEDS ORDERED: Dextrose 50% SYRINGE Inj (50 ml) ONE (08:57)
[2017-09-09] MEDS: Insulin Lispro (humaLOG) LOW Coverage SC SCH ×4 (09:19→21:52)
[2017-09-09] MEDS: Meropenem 1 GM in Dextrose 5% In Water 100 ML IVPB SCH (09:54)
[2017-09-09] MEDS: Multivitamin Therapeutic Tab PO SCH (09:54)
[2017-09-09 10:01] LABS: POTASSIUM 4.3 mmol/L (3.6-5.0)
--- NOTE | 2017-09-09 11:03 | CP.PCM.PN ---
Subjective - Date & Time of Evaluation Date of Evaluation: 09/09/17 Time of Evaluation: 11:00 - Subjective Subjective: Lethargic, delirium. Complains of back pain. Objective - Vital Signs/Intake and Output Vital Signs (last 24 hours): Temp Pulse Resp BP Pulse Ox 97.4 F L 83 20 103/50 L 94 L 09/09/17 06:00 09/09/17 06:00 09/09/17 06:00 09/09/17 09:53 09/09/17 06:00 Intake and Output: 09/09/17 09/09/17 06:59 18:59 Intake Total 120 Balance 120 - Medications Medications: Current Medications Acetaminophen (Tylenol 325mg Tab) 650 mg PO Q6H PRN PRN Reason: Fever >100.4 F Last Admin: 09/09/17 02:09 Dose: 650 mg Apixaban (Eliquis) 2.5 mg PO BID YULI PRN Reason: Protocol Last Admin: 09/09/17 09:53 Dose: 2.5 mg Diazepam (Valium) 5 mg PO HS PRN; Protocol PRN Reason: Anxiety Last Admin: 09/09/17 02:00 Dose: 5 mg Furosemide (Lasix) 20 mg IVP Q12 YULI Last Admin: 09/09/17 09:53 Dose: Not Given Meropenem 1 gm/ Dextrose 100 mls @ 100 mls/hr IVPB DAILY YULI PRN Reason: Protocol Stop: 09/11/17 10:01 Last Admin: 09/09/17 09:54 Dose: 100 mls/hr Doxycycline Hyclate 100 mg/ (Sodium Chloride) 100 mls @ 100 mls/hr IVPB Q12 YULI PRN Reason: Protocol Last Admin: 09/09/17 09:54 Dose: 100 mls/hr Sodium Chloride (Sodium Chloride 0.45%) 1,000 mls @ 50 mls/hr IV .Q20H YULI Last Admin: 09/08/17 19:05 Dose: 50 mls/hr Metronidazole (Flagyl) 500 mg in 100 mls @ 100 mls/hr IVPB Q8 YULI PRN Reason: Protocol Last Admin: 09/09/17 05:06 Dose: 100 mls/hr Insulin Human Lispro (Humalog Low) 0 units SC ACHS YULI PRN Reason: Protocol Last Admin: 09/09/17 09:19 Dose: Not Given Levalbuterol HCl (Xopenex) 0.63 mg IH [id number] PRN PRN Reason: Shortness of Breath Last Admin: 09/07/17 05:14 Dose: 0.63 mg Metoprolol Tartrate (Lopressor) 2.5 mg IVP 0000,0600,1200,1800 [facility] Last Admin: 09/09/17 05:16 Dose: Not Given Midodrine (Proamatine) 5 mg PO TID [facility] Last Admin: 09/09/17 09:54 Dose: 5 mg Multivitamins (Thera Tab) 1 tab PO 0800 [facility] Last Admin: 09/09/17 09:54 Dose: 1 tab Ondansetron HCl (Zofran Inj) 4 mg IVP Q6H PRN PRN Reason: Nausea/Vomiting Last Admin: 09/07/17 04:03 Dose: 4 mg Pantoprazole Sodium (Protonix Inj) 40 mg IVP DAILY [facility] Last Admin: 09/09/17 09:54 Dose: 40 mg - Labs Labs: 09/09/17 07:30 09/09/17 07:30 PT 31.1 SECONDS (9.4-12.5) H 09/04/17 01:35 INR 2.79 (0.93-1.08) H 09/04/17 01:35 APTT 37.8 Seconds (25.1-36.5) H 09/04/17 01:35 - Constitutional Appears: Chronically Ill - Eye Exam Eye Exam: Normal appearance, PERRL - ENT Exam ENT Exam: Mucous Membranes Moist - Respiratory Exam Respiratory Exam: Decreased Breath Sounds, NORMAL BREATHING PATTERN - Cardiovascular Exam Cardiovascular Exam: REGULAR RHYTHM, +S1, +S2 - GI/Abdominal Exam GI & Abdominal Exam: Soft, Diminished Bowel Sounds - Extremities Exam Extremities Exam: Pedal Edema - Neurological Exam Neurological Exam: Altered - Skin Skin Exam: Dry, Pallor Additional comments: anasarca Assessment and Plan - Assessment and Plan (Free Text) Assessment: 87 year old female with history of A Fib,CAD,CHF,HTN, cellulitis of LLE, falls who is admitted with sepsis, C Difficile infection, anasarca, delirium and hypothermia. Patients daughter at bedside. Daughter verbalizes understanding that her mother is "quite ill". Daughter hopeful that mother situation will improve. Explained that if her condition improves she will likely go to [facility] for rehab. Also discussed options if patient did not improve. Hospice concept introduced. Daughter does not feel that the patient is ready for this. Daughter states that her mother's mind is "sound". I explained that even when mind is sound that health may continue to decline. Reassured that would wait to see how her mother responds to treatment before making decision regarding future goals of care. Psychosocial support given Time spent with daughter in goals of care discussion, 30 minutes Plan: Palliative support in advance care planning
[2017-09-09 12:29] LABS: VENOUS BLOOD GAS BASE EXCESS -2.9 mmol/L (0.0-2.0); VENOUS BLOOD PH 7.27 (7.32-7.43)
[2017-09-09 13:02] LABS: FREE T4 0.95 ng/dL (0.78-2.19)
[2017-09-09 13:16] LABS: THYROID STIMULATING HORMONE 5.7 mIU/mL (0.46-4.68)
[2017-09-09] MEDS: Sodium Chloride 0.45% 1,000 ML IV SCH (14:01)
--- NOTE | 2017-09-09 14:05 | RAD ---
HISTORY: Abnormal breast sounds. Portable study 11:18. COMPARISON: 09/06/2017. FINDINGS: LUNGS: Worsening pulmonary edema/ multifocal infiltrates. PLEURA: Pleural effusions more prominent on the current study although this may be technical. CARDIOVASCULAR: Cardiomegaly, presumed cardiogenic edema. Venous access catheter in stable, satisfactory position. OSSEOUS STRUCTURES: No significant abnormalities. VISUALIZED UPPER ABDOMEN: Normal. OTHER FINDINGS: None. IMPRESSION: Worsening cardiogenic pulmonary edema.
--- NOTE | 2017-09-09 14:35 | CP.PCM.PN ---
Subjective - Date & Time of Evaluation Date of Evaluation: 09/09/17 Time of Evaluation: 10:55 - Subjective Subjective: Had loose bowel movement yesterday. No fevers overnight. Objective - Vital Signs/Intake and Output Vital Signs (last 24 hours): Temp Pulse Resp BP Pulse Ox 97.4 F L 83 20 103/50 L 94 L 09/09/17 06:00 09/09/17 06:00 09/09/17 06:00 09/09/17 06:00 09/09/17 06:00 Intake and Output: 09/09/17 09/09/17 06:59 18:59 Intake Total 120 Balance 120 - Medications Medications: Current Medications Acetaminophen (Tylenol 325mg Tab) 650 mg PO Q6H PRN PRN Reason: Fever >100.4 F Last Admin: 09/09/17 02:09 Dose: 650 mg Apixaban (Eliquis) 2.5 mg PO BID YULI PRN Reason: Protocol Last Admin: 09/08/17 19:06 Dose: 2.5 mg Diazepam (Valium) 5 mg PO HS PRN; Protocol PRN Reason: Anxiety Last Admin: 09/09/17 02:00 Dose: 5 mg Furosemide (Lasix) 20 mg IVP Q12 [facility] Last Admin: 09/08/17 21:29 Dose: 20 mg Meropenem 1 gm/ Dextrose 100 mls @ 100 mls/hr IVPB DAILY YULI PRN Reason: Protocol Stop: 09/11/17 10:01 Last Admin: 09/08/17 09:05 Dose: 100 mls/hr Doxycycline Hyclate 100 mg/ (Sodium Chloride) 100 mls @ 100 mls/hr IVPB Q12 YULI PRN Reason: Protocol Last Admin: 09/08/17 21:31 Dose: 100 mls/hr Sodium Chloride (Sodium Chloride 0.45%) 1,000 mls @ 50 mls/hr IV .Q20H [facility] Last Admin: 09/08/17 19:05 Dose: 50 mls/hr Metronidazole (Flagyl) 500 mg in 100 mls @ 100 mls/hr IVPB Q8 YULI PRN Reason: Protocol Last Admin: 09/09/17 05:06 Dose: 100 mls/hr Insulin Human Lispro (Humalog Low) 0 units SC ACHS YULI PRN Reason: Protocol Last Admin: 09/09/17 09:19 Dose: Not Given Levalbuterol HCl (Xopenex) 0.63 mg IH [id number] PRN PRN Reason: Shortness of Breath Last Admin: 09/07/17 05:14 Dose: 0.63 mg Metoprolol Tartrate (Lopressor) 2.5 mg IVP 0000,0600,1200,1800 [facility] Last Admin: 09/09/17 05:16 Dose: Not Given Midodrine (Proamatine) 5 mg PO TID [facility] Last Admin: 09/08/17 19:07 Dose: Not Given Multivitamins (Thera Tab) 1 tab PO 0800 [facility] Last Admin: 09/08/17 09:05 Dose: 1 tab Ondansetron HCl (Zofran Inj) 4 mg IVP Q6H PRN PRN Reason: Nausea/Vomiting Last Admin: 09/07/17 04:03 Dose: 4 mg Pantoprazole Sodium (Protonix Inj) 40 mg IVP DAILY [facility] Last Admin: 09/08/17 09:06 Dose: 40 mg - Labs Labs: 09/09/17 07:30 09/09/17 07:30 PT 31.1 SECONDS (9.4-12.5) H 09/04/17 01:35 INR 2.79 (0.93-1.08) H 09/04/17 01:35 APTT 37.8 Seconds (25.1-36.5) H 09/04/17 01:35 - Constitutional Appears: Non-toxic, No Acute Distress - Head Exam Head Exam: NORMAL INSPECTION - Respiratory Exam Respiratory Exam: Decreased Breath Sounds - Cardiovascular Exam Cardiovascular Exam: +S1, +S2 - GI/Abdominal Exam GI & Abdominal Exam: Soft. absent: Tenderness Assessment and Plan - Assessment and Plan (Free Text) Plan: Assessment Systemic Inflammatory response syndrome, R/O sepsis from HCAP, bilateral in this patient also with bilateral pleural effusions asymptomatic bacteriuria with Vancomycin-resistant Enterococcus chronic CHF with bilateral pleural effusions S/P thoracentesis previously left foot pain probably from trauma CAD S/P PCI HTN chronic renal failure DM S/P cholecystectomy Plan gave a dose of IV Vanco, and continue Merrem and Doxycycline day 6 - complete 7 days of therapy; blood and urine cx are negative; PCT is 0.42; reviewed CT C/A/P Stool for C. diff. is negative overall prognosis is poor
[2017-09-09 17:55] LABS: VENOUS BLOOD GAS BASE EXCESS -1.4 mmol/L (0.0-2.0); VENOUS BLOOD PH 7.29 (7.32-7.43)
--- NOTE | 2017-09-09 20:56 | PN ---
DATE: SUBJECTIVE: The patient is an 87-year-old, seen and examined, seems to be not as lethargic. She was found to be choking on her liquids, poor oral intake. Has generalized weakness. Daughter by the bedside. PHYSICAL EXAMINATION: VITAL SIGNS: She is afebrile, pulse 76, respirations 18, and blood pressure 34531. LUNGS: Bilateral fair airflow. No rhonchi or crackles. Decreased breath sounds at bases. HEART: S1 and S2 audible. ABDOMEN: Soft and nontender. No rebound. No guarding. NEUROLOGIC: The patient is awake and alert. Answers simple questions. LABORATORY DATA: X-ray chest shows worsening pulmonary edema. ASSESSMENT: 1. Congestive heart failure, diastolic. 2. Poor oral intake. 3. Hyponatremia. 4. Chronic atrial fibrillation. PLAN: We will continue nebulizer treatment. Discontinue her IV fluid and swallowing evaluation. I discussed with the patient's daughter. Overall, prognosis is poor. Her oral intake is poor. She has diastolic dysfunction. Since we are diuresing, this is going to lead to prerenal azotemia. She is off of oral hypoglycemic also and give her one extra dose of . We will continue on Lasix 20 b.i.d. Lauren for C. diff is negative. We will send another specimen. We will follow up her electrolytes and CBC in a.m. Ghazal Goode MD
[2017-09-10] MEDS: Metoprolol 1 mg/ml Inj IVP SCH ×4 (00:20→17:43)
[2017-09-10 06:43] LABS: BASO # 0.04 K/mm3 (0.0-2.0); BASO % 0.4 % (0.0-3.0); EOS # 0.1 (0.0-0.7); GRAN # 6.54 (1.4-6.5); GRAN % 66.4 % (50.0-68.0); HEMATOCRIT 31.6 % (36.0-48.0); LYMPH # 2.3 (1.2-3.4); LYMPH % 23.5 % (22.0-35.0); MEAN CELL VOLUME 73.5 fl (80.0-105.0); MEAN CORPUSCULAR HEMOGLOBIN 21.9 pg (25.0-35.0); MEAN CORPUSCULAR HGB CONC 29.7 g/dl (31.0-37.0); MEAN PLATELET VOLUME 9.4 fl (7.0-11.0); MONO # 0.9 (0.1-0.6); MONO % 8.7 % (1.0-6.0); RED CELL DISTRIBUTION WIDTH 22.6 % (11.5-14.5); WHITE BLOOD COUNT 9.9 10^3/ul (4.5-11.0)
[2017-09-10 07:35] LABS: ALB/GLOB RATIO 0.9 (1.1-1.8); CALCIUM 8.7 mg/dL (8.4-10.5); MAGNESIUM 2.1 mg/dL (1.7-2.2); PHOSPHOROUS 4.3 mg/dL (2.5-4.5); POTASSIUM 4.5 mmol/L (3.6-5.0); TOTAL PROTEIN 5.8 g/dL (5.8-8.3)
[2017-09-10] MEDS: Insulin Lispro (humaLOG) LOW Coverage SC SCH ×4 (08:13→23:42)
[2017-09-10] MEDS: Multivitamin Therapeutic Tab PO SCH (08:14)
[2017-09-10] MEDS: Meropenem 1 GM in Dextrose 5% In Water 100 ML IVPB SCH (09:59)
--- NOTE | 2017-09-10 12:08 | PN ---
SUBJECTIVE: Patient is 87 years old, seen and examined. Daughter states she was much alert this morning but seems to be confused now. PHYSICAL EXAMINATION VITAL SIGNS: She is afebrile. Pulse 108, respirations 17, blood pressure 104/68. LUNGS: Bilateral fair air flow in upper lung regions. Decreased at bases. HEART: S1, S2 audible. ABDOMEN: Soft, nontender. No rebound. No guarding. NEUROLOGIC: She is awake and alert. Somewhat confused. EXTREMITIES: Bilateral legs, +2 edema. LABORATORY DATA: WBC 9.9, hemoglobin 9.4, hematocrit 31.6, platelets 474. Chemistry, sodium 138, potassium 4.5, chloride 105, CO2 of 26, BUN 71, creatinine 2.1, AST 115, ALT 215, alk phos is 281. Hepatitis profile is negative. Bilateral chest x-ray shows pulmonary edema. ASSESSMENT: 1. Congestive heart failure, diastolic. 2. Coronary artery disease, status post angioplasty. 3. Renal insufficiency. 4. Generalized weakness and lethargy. 5. Chronic atrial fibrillation. PLAN: We will continue patient on Eliquis. She is on IV diuretic. She is on meropenem. Discontinue Flagyl. Stool for C. diff is negative and she does not have diarrhea anymore. Discussed with patient's daughter. Overall prognosis is poor. Ghazal Goode MD
--- NOTE | 2017-09-10 14:24 | CP.PCM.PN ---
Subjective - Date & Time of Evaluation Date of Evaluation: 09/10/17 Time of Evaluation: 11:00 - Subjective Subjective: Comfortable in bed, no fevers. Objective - Vital Signs/Intake and Output Vital Signs (last 24 hours): Temp Pulse Resp BP Pulse Ox 97.7 F 108 H 17 104/68 98 09/10/17 06:00 09/10/17 06:08 09/10/17 06:00 09/10/17 09:41 09/10/17 06:00 Intake and Output: 09/10/17 09/10/17 06:59 18:59 Intake Total 360 Output Total 200 Balance 160 - Medications Medications: Current Medications Acetaminophen (Tylenol 325mg Tab) 650 mg PO Q6H PRN PRN Reason: Fever >100.4 F Last Admin: 09/10/17 02:00 Dose: 650 mg Apixaban (Eliquis) 2.5 mg PO BID YULI PRN Reason: Protocol Last Admin: 09/10/17 09:41 Dose: 2.5 mg Furosemide (Lasix) 20 mg IVP Q12 [facility] Last Admin: 09/10/17 09:41 Dose: 20 mg Meropenem 1 gm/ Dextrose 100 mls @ 100 mls/hr IVPB DAILY YULI PRN Reason: Protocol Stop: 09/11/17 10:01 Last Admin: 09/09/17 09:54 Dose: 100 mls/hr Doxycycline Hyclate 100 mg/ (Sodium Chloride) 100 mls @ 100 mls/hr IVPB Q12 YULI PRN Reason: Protocol Last Admin: 09/09/17 21:54 Dose: 100 mls/hr Insulin Human Lispro (Humalog Low) 0 units SC ACHS YULI PRN Reason: Protocol Last Admin: 09/10/17 08:13 Dose: Not Given Levalbuterol HCl (Xopenex) 0.63 mg IH [id number] PRN PRN Reason: Shortness of Breath Last Admin: 09/07/17 05:14 Dose: 0.63 mg Metoprolol Tartrate (Lopressor) 2.5 mg IVP 0000,0600,1200,1800 [facility] Last Admin: 09/10/17 06:08 Dose: 2.5 mg Midodrine (Proamatine) 5 mg PO TID [facility] Last Admin: 09/10/17 09:41 Dose: 5 mg Multivitamins (Thera Tab) 1 tab PO 0800 [facility] Last Admin: 09/10/17 08:14 Dose: 1 tab Ondansetron HCl (Zofran Inj) 4 mg IVP Q6H PRN PRN Reason: Nausea/Vomiting Last Admin: 09/07/17 04:03 Dose: 4 mg Pantoprazole Sodium (Protonix Inj) 40 mg IVP DAILY [facility] Last Admin: 09/10/17 09:41 Dose: 40 mg - Labs Labs: 09/10/17 06:30 09/10/17 06:30 PT 31.1 SECONDS (9.4-12.5) H 09/04/17 01:35 INR 2.79 (0.93-1.08) H 09/04/17 01:35 APTT 37.8 Seconds (25.1-36.5) H 09/04/17 01:35 - Constitutional Appears: Non-toxic - Head Exam Head Exam: NORMAL INSPECTION - Respiratory Exam Respiratory Exam: Decreased Breath Sounds - Cardiovascular Exam Cardiovascular Exam: +S1, +S2 - GI/Abdominal Exam GI & Abdominal Exam: Soft. absent: Tenderness Assessment and Plan - Assessment and Plan (Free Text) Plan: Assessment Systemic Inflammatory response syndrome, R/O sepsis from HCAP, bilateral in this patient also with bilateral pleural effusions asymptomatic bacteriuria with Vancomycin-resistant Enterococcus chronic CHF with bilateral pleural effusions S/P thoracentesis previously left foot pain probably from trauma CAD S/P PCI HTN chronic renal failure DM S/P cholecystectomy Plan gave a dose of IV Vanco, and continue Merrem and Doxycycline day 7 - complete 7 days of therapy; blood and urine cx are negative; PCT is 0.42; reviewed CT C/A/ P - will d/c antibiotics after today Stool for C. diff. is negative overall prognosis is poor
[2017-09-11] MEDS: Metoprolol 1 mg/ml Inj IVP SCH ×4 (00:48→17:25)
[2017-09-11] MEDS: Insulin Lispro (humaLOG) LOW Coverage SC SCH ×4 (07:53→21:48)
[2017-09-11] MEDS: Multivitamin Therapeutic Tab PO SCH (08:06)
[2017-09-11] MEDS: Meropenem 1 GM in Dextrose 5% In Water 100 ML IVPB SCH (09:21)
--- NOTE | 2017-09-11 12:48 | PN ---
DATE: 09/11/2017 SUBJECTIVE: The patient has no complaints of any chest pain or shortness of breath. She is comfortable. She has a family member who says that she has been eating, but not as well as she should. PHYSICAL EXAMINATION: VITAL SIGNS: Temperature is 97.4, pulse is 99, blood pressure is 123/66, and respiration is 21. GENERAL: The patient is lying in bed, flat, comfortable. HEENT: No oral lesion. Anicteric sclerae. Moist mucosa. NECK: No JVD, adenopathy, or thyromegaly. CARDIOVASCULAR: S1 and S2, regular. No murmurs, rubs, or gallops. LUNGS: Clear to auscultation bilaterally. No wheeze, rales, or rhonchi. ABDOMEN: Bowel sounds are positive, soft, nontender and nondistended. EXTREMITIES: Lower extremity trace edema. LABORATORY DATA: White count of 9.9 and hemoglobin of 9.4. Creatinine is 2.1. ASSESSMENT: 1. Congestive heart failure secondary to diastolic dysfunction, stable. 2. Coronary artery disease. 3. Atrial fibrillation on anticoagulation with apixaban. 4. Anemia. 5. Acute kidney injury. 6. Transaminitis. PLAN: The patient is going to continue with her metoprolol. She is also receiving Protonix daily. The patient is on midodrine. She is on vitamins. She is on a dysphagia diet that is modified. Soham Blackburn MD
--- NOTE | 2017-09-11 16:34 | CP.PCM.PN ---
Subjective - Date & Time of Evaluation Date of Evaluation: 09/11/17 Time of Evaluation: 15:15 - Subjective Subjective: Comfortable in bed, no fevers. Objective - Vital Signs/Intake and Output Vital Signs (last 24 hours): Temp Pulse Resp BP Pulse Ox 97.4 F L 99 H 21 108/59 L 98 09/11/17 06:00 09/11/17 06:05 09/11/17 06:00 09/11/17 06:05 09/11/17 06:00 Intake and Output: 09/11/17 09/11/17 06:59 18:59 Intake Total 60 Output Total 550 Balance -490 - Medications Medications: Current Medications Acetaminophen (Tylenol 325mg Tab) 650 mg PO Q6H PRN PRN Reason: Fever >100.4 F Last Admin: 09/10/17 21:34 Dose: 650 mg Apixaban (Eliquis) 2.5 mg PO BID YULI PRN Reason: Protocol Last Admin: 09/10/17 17:43 Dose: 2.5 mg Furosemide (Lasix) 20 mg IVP Q12 [facility] Last Admin: 09/10/17 21:37 Dose: 20 mg Meropenem 1 gm/ Dextrose 100 mls @ 100 mls/hr IVPB DAILY YULI PRN Reason: Protocol Stop: 09/11/17 10:01 Last Admin: 09/10/17 09:59 Dose: 100 mls/hr Doxycycline Hyclate 100 mg/ (Sodium Chloride) 100 mls @ 100 mls/hr IVPB Q12 YULI PRN Reason: Protocol Last Admin: 09/10/17 21:36 Dose: 100 mls/hr Insulin Human Lispro (Humalog Low) 0 units SC ACHS YULI PRN Reason: Protocol Last Admin: 09/11/17 07:53 Dose: Not Given Levalbuterol HCl (Xopenex) 0.63 mg IH [id number] PRN PRN Reason: Shortness of Breath Last Admin: 09/07/17 05:14 Dose: 0.63 mg Metoprolol Tartrate (Lopressor) 2.5 mg IVP 0000,0600,1200,1800 [facility] Last Admin: 09/11/17 06:05 Dose: 2.5 mg Midodrine (Proamatine) 5 mg PO TID [facility] Last Admin: 09/10/17 17:43 Dose: 5 mg Multivitamins (Thera Tab) 1 tab PO 0800 [facility] Last Admin: 09/11/17 08:06 Dose: 1 tab Ondansetron HCl (Zofran Inj) 4 mg IVP Q6H PRN PRN Reason: Nausea/Vomiting Last Admin: 09/07/17 04:03 Dose: 4 mg Pantoprazole Sodium (Protonix Inj) 40 mg IVP DAILY [facility] Last Admin: 09/10/17 09:41 Dose: 40 mg - Labs Labs: 09/10/17 06:30 09/10/17 06:30 PT 31.1 SECONDS (9.4-12.5) H 09/04/17 01:35 INR 2.79 (0.93-1.08) H 09/04/17 01:35 APTT 37.8 Seconds (25.1-36.5) H 09/04/17 01:35 - Constitutional Appears: Non-toxic - Head Exam Head Exam: NORMAL INSPECTION - Neck Exam Neck Exam: absent: Meningismus - Respiratory Exam Respiratory Exam: Decreased Breath Sounds - Cardiovascular Exam Cardiovascular Exam: +S1, +S2 - GI/Abdominal Exam GI & Abdominal Exam: Soft. absent: Tenderness Assessment and Plan - Assessment and Plan (Free Text) Plan: Assessment Systemic Inflammatory response syndrome, R/O sepsis from HCAP, bilateral in this patient also with bilateral pleural effusions asymptomatic bacteriuria with Vancomycin-resistant Enterococcus chronic CHF with bilateral pleural effusions S/P thoracentesis previously left foot pain probably from trauma CAD S/P PCI HTN chronic renal failure DM S/P cholecystectomy Plan completed course of Merrem and Doxycycline - will continue to monitor off antibiotics since he is at risk for nosocomial infections overall prognosis is poor
[2017-09-12] MEDS: Metoprolol 1 mg/ml Inj IVP SCH ×3 (01:21→13:17)
[2017-09-12] MEDS: Levalbuterol 0.63 MG/3 ML Inhal Soln UD IH PRN ×2 (05:45→19:35)
[2017-09-12] MEDS ORDERED: Pantoprazole 40 mg Susp UD PO SCH (06:00)
[2017-09-12] MEDS: Insulin Lispro (humaLOG) LOW Coverage SC SCH ×3 (08:04→16:40)
[2017-09-12 10:01] LABS: BASO # 0.03 K/mm3 (0.0-2.0); BASO % 0.3 % (0.0-3.0); EOS # 0.1 (0.0-0.7); EOS % 0.5 % (1.5-5.0); GRAN # 6.07 (1.4-6.5); GRAN % 64.7 % (50.0-68.0); HEMATOCRIT 31.5 % (36.0-48.0); LYMPH # 2.2 (1.2-3.4); LYMPH % 23.8 % (22.0-35.0); MEAN CELL VOLUME 73.9 fl (80.0-105.0); MEAN CORPUSCULAR HEMOGLOBIN 22.3 pg (25.0-35.0); MEAN CORPUSCULAR HGB CONC 30.2 g/dl (31.0-37.0); MEAN PLATELET VOLUME 9.6 fl (7.0-11.0); MONO % 10.7 % (1.0-6.0); WHITE BLOOD COUNT 9.4 10^3/ul (4.5-11.0)
[2017-09-12 10:35] LABS: ALB/GLOB RATIO 0.9 (1.1-1.8); BILIRUBIN,TOTAL 1.1 mg/dL (0.2-1.3); CALCIUM 8.8 mg/dL (8.4-10.5); MAGNESIUM 2.2 mg/dL (1.7-2.2); PHOSPHOROUS 5.8 mg/dL (2.5-4.5); POTASSIUM 5.1 mmol/L (3.6-5.0); TOTAL PROTEIN 5.6 g/dL (5.8-8.3)
[2017-09-12] MEDS: Multivitamin Therapeutic Tab PO SCH (11:42)
--- NOTE | 2017-09-12 12:07 | CP.PCM.PN ---
Subjective - Date & Time of Evaluation Date of Evaluation: 09/12/17 Time of Evaluation: 09:30 - Subjective Subjective: Comfortable in bed, no fevers overnight. Objective - Vital Signs/Intake and Output Vital Signs (last 24 hours): Temp Pulse Resp BP Pulse Ox 97.6 F 60 18 101/54 L 98 09/12/17 06:00 09/12/17 06:00 09/12/17 06:00 09/12/17 06:00 09/12/17 06:00 Intake and Output: 09/12/17 09/12/17 06:59 18:59 Intake Total 120 Output Total 200 Balance -80 - Medications Medications: Current Medications Acetaminophen (Tylenol 325mg Tab) 650 mg PO Q6H PRN PRN Reason: Fever >100.4 F Last Admin: 09/12/17 00:50 Dose: 650 mg Apixaban (Eliquis) 2.5 mg PO BID YULI PRN Reason: Protocol Last Admin: 09/11/17 17:25 Dose: 2.5 mg Furosemide (Lasix) 20 mg IVP Q12 [facility] Last Admin: 09/11/17 21:40 Dose: 20 mg Insulin Human Lispro (Humalog Low) 0 units SC ACHS YULI PRN Reason: Protocol Last Admin: 09/11/17 21:48 Dose: Not Given Levalbuterol HCl (Xopenex) 0.63 mg IH [id number] PRN PRN Reason: Shortness of Breath Last Admin: 09/12/17 05:45 Dose: 0.63 mg Metoprolol Tartrate (Lopressor) 2.5 mg IVP 0000,0600,1200,1800 [facility] Last Admin: 09/12/17 05:47 Dose: Not Given Midodrine (Proamatine) 5 mg PO TID [facility] Last Admin: 09/11/17 17:25 Dose: 5 mg Multivitamins (Thera Tab) 1 tab PO 0800 [facility] Last Admin: 09/11/17 08:06 Dose: 1 tab Ondansetron HCl (Zofran Inj) 4 mg IVP Q6H PRN PRN Reason: Nausea/Vomiting Last Admin: 09/12/17 05:19 Dose: 4 mg Pantoprazole Sodium (Protonix Susp) 40 mg PO 0600 [facility] Last Admin: 09/12/17 06:12 Dose: 40 mg - Labs Labs: 09/10/17 06:30 09/10/17 06:30 PT 31.1 SECONDS (9.4-12.5) H 09/04/17 01:35 INR 2.79 (0.93-1.08) H 09/04/17 01:35 APTT 37.8 Seconds (25.1-36.5) H 09/04/17 01:35 - Constitutional Appears: Chronically Ill - Head Exam Head Exam: NORMAL INSPECTION - Respiratory Exam Respiratory Exam: Decreased Breath Sounds - Cardiovascular Exam Cardiovascular Exam: +S1, +S2 - GI/Abdominal Exam GI & Abdominal Exam: Soft. absent: Tenderness Assessment and Plan - Assessment and Plan (Free Text) Plan: Assessment Systemic Inflammatory response syndrome, R/O sepsis from HCAP, bilateral in this patient also with bilateral pleural effusions, S/P treatment with antibiotics asymptomatic bacteriuria with Vancomycin-resistant Enterococcus chronic CHF with bilateral pleural effusions S/P thoracentesis previously left foot pain probably from trauma CAD S/P PCI HTN chronic renal failure DM S/P cholecystectomy Plan completed course of Merrem and Doxycycline - will continue to monitor off antibiotics since she is at risk for hospital-acquired infections overall prognosis is poor
--- NOTE | 2017-09-12 13:24 | CP.PCM.PN ---
Subjective - Date & Time of Evaluation Date of Evaluation: 09/12/17 Time of Evaluation: 12:00 - Subjective Subjective: Somnolent. No acute occurrences overnight. Objective - Vital Signs/Intake and Output Vital Signs (last 24 hours): Temp Pulse Resp BP Pulse Ox 97.6 F 95 H 18 115/79 98 09/12/17 06:00 09/12/17 13:17 09/12/17 06:00 09/12/17 13:17 09/12/17 06:00 Intake and Output: 09/12/17 09/12/17 06:59 18:59 Intake Total 120 Output Total 200 Balance -80 - Medications Medications: Current Medications Acetaminophen (Tylenol 325mg Tab) 650 mg PO Q6H PRN PRN Reason: Fever >100.4 F Last Admin: 09/12/17 00:50 Dose: 650 mg Apixaban (Eliquis) 2.5 mg PO BID YULI PRN Reason: Protocol Last Admin: 09/12/17 11:42 Dose: 2.5 mg Furosemide (Lasix) 20 mg IVP Q12 [facility] Last Admin: 09/12/17 11:42 Dose: 20 mg Insulin Human Lispro (Humalog Low) 0 units SC ACHS YULI PRN Reason: Protocol Last Admin: 09/12/17 12:05 Dose: Not Given Levalbuterol HCl (Xopenex) 0.63 mg IH [id number] PRN PRN Reason: Shortness of Breath Last Admin: 09/12/17 05:45 Dose: 0.63 mg Metoprolol Tartrate (Lopressor) 2.5 mg IVP 0000,0600,1200,1800 [facility] Last Admin: 09/12/17 13:17 Dose: 2.5 mg Midodrine (Proamatine) 5 mg PO TID [facility] Last Admin: 09/12/17 11:42 Dose: 5 mg Multivitamins (Thera Tab) 1 tab PO 0800 [facility] Last Admin: 09/12/17 11:42 Dose: 1 tab Ondansetron HCl (Zofran Inj) 4 mg IVP Q6H PRN PRN Reason: Nausea/Vomiting Last Admin: 09/12/17 05:19 Dose: 4 mg Pantoprazole Sodium (Protonix Susp) 40 mg PO 0600 [facility] Last Admin: 09/12/17 06:12 Dose: 40 mg - Labs Labs: 09/12/17 09:45 09/12/17 09:45 PT 31.1 SECONDS (9.4-12.5) H 09/04/17 01:35 INR 2.79 (0.93-1.08) H 09/04/17 01:35 APTT 37.8 Seconds (25.1-36.5) H 09/04/17 01:35 - Constitutional Appears: Chronically Ill - Head Exam Head Exam: NORMOCEPHALIC - Eye Exam Eye Exam: Normal appearance, PERRL - ENT Exam ENT Exam: Mucous Membranes Moist - Respiratory Exam Respiratory Exam: Decreased Breath Sounds, NORMAL BREATHING PATTERN - Cardiovascular Exam Cardiovascular Exam: REGULAR RHYTHM, +S1, +S2 - GI/Abdominal Exam GI & Abdominal Exam: Soft, Hypoactive Bowel Sounds - Extremities Exam Extremities Exam: Pedal Edema - Skin Skin Exam: Pallor, Warm Assessment and Plan - Assessment and Plan (Free Text) Assessment: 87 year old female with history of A Fib, HTN,CHF, CAD s/p stent who is admitted with sepsis,HCAP, transaminitis and delerium. The patient is somnolent, not conversing. Daughter states she was able to stand up at bedside with assistance two days. The patient has not been actively participating with PT otherwise. Daughter states she doesn't know "where her mother will end up". I explained that unless her mother starts to participate with PT, [facility] is unlikely. 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 Daughter states her mothers "organs are failing". I explained that given her mothers age and other comorbidities, it is unlikely that she will improve dramatically. I again offered option for hospice care, which the daughter has been refusing. Offered to have her speak with SW regarding discharge plan. Plan: Palliative support in establishing future goals of care
[2017-09-12] MEDS ORDERED: Lidocaine 5% Patch TD SCH (16:45)
--- NOTE | 2017-09-12 17:47 | PN ---
DATE: SUBJECTIVE: The patient is 87 years old, seen and examined, somewhat confused and short of breath. No chest pain. According to daughter, she did eat some, but overall, her appetite is poor. No fever or chills. PHYSICAL EXAMINATION: VITAL SIGNS: The patient is afebrile, pulse 95, respirations 18 and blood pressure 115/79. LUNGS: Bilateral decreased breath sounds at bases. HEART: S1 and S2 audible. Irregular rate control. ABDOMEN: Soft and nontender. No rebound. No guarding. NEUROLOGIC: She is awake and alert. Gets confused at time. EXTREMITIES: Bilateral legs with +2 edema. LABORATORY EXAM: WBC is 9.4, hemoglobin 9.5, hematocrit 31.5 and platelets of 421. Chemistry; sodium 139, potassium 5.1, chloride 105, CO2 25, BUN 87, creatinine 2.6, blood sugar of 115, ALT 210 and alkaline phosphatase 245. ASSESSMENT: 1. Congestive heart failure, acute on chronic. 2. Bilateral pleural effusion. 3. Coronary artery disease. 4. Acute diastolic cardiomyopathy. 5. Anemia. 6. Chronic low back pain. 7. Severe spinal stenosis. 8. Noninsulin-dependent diabetes. PLAN: We will apply lidocaine patch to the lower back. She is on tramadol as needed. She is on small dose of Lasix 20 mg q. 12 hours. She is on Protonix. I discuss with the patient's daughter, Belen, by the bedside. Prognosis is overall poor. She should be in comfort care. She is discussing with social work faculty member and will figure out after talking to her children. We will discontinue telemetry. She is still DNR. Ghazal Goode MD
[2017-09-12] MEDS ORDERED: Sodium Chloride 0.9% 250 ML IV STA (22:05)
--- NOTE | 2017-09-12 22:19 | PCM.RRT ---
<Heriberto Wills - Last Filed: 09/12/17 22:16> INTERACTIVE WEB DEVELOPER Nurse Assessment - Situation Date: 09/12/17 Time INTERACTIVE WEB DEVELOPER was called: 21:56 INTERACTIVE WEB DEVELOPER Responder Arrival Time: 21:57 INTERACTIVE WEB DEVELOPER Location:: [facility] INTERACTIVE WEB DEVELOPER Reason for Call: Respiratory Distress, Change in Mental Status INTERACTIVE WEB DEVELOPER Called By: RN - IV IV Inserted during INTERACTIVE WEB DEVELOPER?: No IV Fluids Initiated During INTERACTIVE WEB DEVELOPER?: yes - Respiratory Oxygen Delivery Method: Non Rebreather @% (100) Received Nebulizer Treatments:: No Was the Patient Ventilated with Bag/Mask 100% O2?: No Secretions Suctioned?: No Was the Patient Intubated?: No Was the Patient Placed on a Ventilator?: No CPR started during INTERACTIVE WEB DEVELOPER?: No - Evans Coma Scale Coma Scale Eye Opening: No response Coma Scale Motor: None Coma Scale Verbal: No response - Time INTERACTIVE WEB DEVELOPER Ended Time INTERACTIVE WEB DEVELOPER Ended: 22:10 - Vital Signs at end of INTERACTIVE WEB DEVELOPER Vital Signs at end of INTERACTIVE WEB DEVELOPER: Patient ; no blood pressure, heart rate, or SpO2 - Recommendations 5) INTERACTIVE WEB DEVELOPER Level of Care Recommendations: Patient (Contacted daughter, Belen Locke at [phone] at approximately [phone], who reconfirmed DNR/DNI status , and said she would come to bedside as soon as possible) Notifications: Attending Physician, Family or Designated Caregiver <Dennise Dominique - Last Filed: 09/12/17 22:44> INTERACTIVE WEB DEVELOPER Nurse Assessment - Vital Signs Vital Sign: Rapid Response Vital Sign Blood Pressure 60/38 Pulse Rate 30 Respiratory Rate 10 Oxygen Saturation 90 - Vital Signs at end of INTERACTIVE WEB DEVELOPER Vital Signs at end of INTERACTIVE WEB DEVELOPER: Rapid Response End Vital Sign Blood Pressure 0/0 Pulse Rate 0 Respiratory Rate 0 Attending/Attestation - Attestation I have personally seen and examined this patient.: Yes I have fully participated in the care of the patient.: Yes I have reviewed all pertinent clinical information, including history, physical exam and plan: Yes Notes (Text): 09/12/17 22:38 Pt was given bolus of NS 250 ccs and placed on 100% o2 by non rebreather mask. VS were not recordable Pt was unresponsive to deep painful stimuli,had no heart beat and no respirations.
--- NOTE | 2017-09-12 22:24 | CP.PCM.PRO ---
Pronouncement of Note - Clinical Findings Physical Exam: No Response Verbal/Painful Stimuli, Absent Peripheral Pulses{ Carotid & Femoral}, Absent Heart & Breath Sounds, No Pupillary Light Reflex, No Corneal Reflex, Pupils Fixed & Dilated, Absence of Vital Signs - Pronouncement Time Time of Pronouncement of : 22:10 - Notifications Pronouncement Notifications: Family Notified, Atending Notified Flight Attendant Ramp Notified: No - Autopsy Autopsy Requested: No - [place] [id number] Additional Comments: Contacted daughter, Belen Locke at [phone] at approximately [phone], informed her of status, who reconfirmed DNR/DNI status
[2017-09-13 07:32] VITALS: BP 115/59; PULSE 66; RESP 20; TEMP 97.6; O2SAT 91
--- NOTE | 2017-09-13 20:27 | DS ---
HOSPITAL COURSE: The patient is 87-year-old who was admitted with generalized weakness. She had a fall at home. She was found to have CHF with acute on chronic renal failure. Discussed with the family to made her DNR. Plan was being made to put her on hospice, but she . Since she was DNR, she was not resuscitated. DISCHARGE DIAGNOSES: 1. Cardiomyopathy. 2. Diastolic congestive heart failure. 3. Hypertension. 4. Noninsulin-dependent diabetes. 5. Hyperlipidemia. Ghazal Goode MD
== END 2017-09-12 22:10 | DRG 871 ==
LOC: ED 01:05 → ERH 04:37 → CCU 05:17 → 3RSO 09-08 12:18 → 5RSO 09-12 18:01
PROVIDERS: ADMIT Internal Medicine Medical Oncology; ATTEND Internal Medicine
PROC: 05HM33Z Insertion of Infusion Device into Right Internal Jugular Vein, Percutaneous Approach (ICD-10-PCS; principal; 2017-09-04)
PROC: B543ZZA Ultrasonography of Right Jugular Veins, Guidance (ICD-10-PCS; 2017-09-04)
DX: A41.9 Sepsis, unspecified organism (principal); R65.21 Severe sepsis with septic shock; I50.33 Acute on chronic diastolic (congestive) heart failure; N17.9 Acute kidney failure, unspecified; J18.9 Pneumonia, unspecified organism; R18.8 Other ascites; I42.9 Cardiomyopathy, unspecified; I13.0 Hypertensive heart and chronic kidney disease with heart failure and stage 1 through stage 4 chronic kidney disease, or unspecified chronic kidney disease; J98.11 Atelectasis; E87.1 Hypo-osmolality and hyponatremia; L03.115 Cellulitis of right lower limb; L03.116 Cellulitis of left lower limb; M62.82 Rhabdomyolysis; N30.90 Cystitis, unspecified without hematuria; W01.0XXA Fall on same level from slipping, tripping and stumbling without subsequent striking against object, initial encounter; E11.22 Type 2 diabetes mellitus with diabetic chronic kidney disease; K83.8 Other specified diseases of biliary tract; D64.9 Anemia, unspecified; I25.10 Atherosclerotic heart disease of native coronary artery without angina pectoris; I48.2 Chronic atrial fibrillation; E87.5 Hyperkalemia; G89.29 Other chronic pain; I25.2 Old myocardial infarction; I27.20 Pulmonary hypertension, unspecified; I37.1 Nonrheumatic pulmonary valve insufficiency; E78.5 Hyperlipidemia, unspecified; K76.1 Chronic passive congestion of liver; M48.00 Spinal stenosis, site unspecified; R29.6 Repeated falls; S00.83XA Contusion of other part of head, initial encounter; S51.811A Laceration without foreign body of right forearm, initial encounter; Y92.009 Unspecified place in unspecified non-institutional (private) residence as the place of occurrence of the external cause; Y95 Nosocomial condition; Z66 Do not resuscitate; Z79.01 Long term (current) use of anticoagulants; Z79.84 Long term (current) use of oral hypoglycemic drugs; Z79.899 Other long term (current) drug therapy; Z85.820 Personal history of malignant melanoma of skin; Z87.01 Personal history of pneumonia (recurrent); Z90.49 Acquired absence of other specified parts of digestive tract; Z95.5 Presence of coronary angioplasty implant and graft; R74.0 Nonspecific elevation of levels of transaminase and lactic acid dehydrogenase [LDH]; R82.71 Bacteriuria; B95.2 Enterococcus as the cause of diseases classified elsewhere; Z16.21 Resistance to vancomycin; I95.9 Hypotension, unspecified; Z83.3 Family history of diabetes mellitus; I49.3 Ventricular premature depolarization; I45.10 Unspecified right bundle-branch block; I08.1 Rheumatic disorders of both mitral and tricuspid valves; R40.2412 Glasgow coma scale score 13-15, at arrival to emergency department; R26.2 Difficulty in walking, not elsewhere classified; N18.3 Chronic kidney disease, stage 3 (moderate)